=== PATIENT | female | born 1995 | race Caucasian/White ===

== ENCOUNTER 2019-10-21 09:13 | Outpatient (CLI) | payer OTHER, SELFPAY ==
--- NOTE | ~2019-10-21 | US_ITS ---
US right upper quadrant INDICATION: Elevated liver enzymes PROCEDURE: Realtime right upper abdominal ultrasound. COMPARISON: No prior studies for comparison. FINDINGS: The pancreas is normal without focal mass or pancreatic ductal dilation. Liver echotexture is increased, consistent with fatty infiltration. There is normal directional flow in the portal ve in. The gallbladder is normal without stones, gallbladder wall thickening or pericholecystic fluid. Comm on bile duct measures 4.2 mm. No sonographic Lamas's sign. IMPRESSION: 1: Fatty infiltration of the liver. Reviewed, dictated and finalized at location A.
[2019-10-21 10:55] LABS: Ferritin 66 ng/mL (8-252); Iron 109 ug/dL (50-170); Percent Iron Saturation 27 % (12-57)
[2019-10-23 17:32] LABS: Hepatitis B Surface Antibody Nonreactive (Nonreactive); Hepatitis C Signal to Cutoff 0.01 ratio (<1.00); Hepatitis C Virus Antibody Nonreactive (Nonreactive)
== END 2019-10-21 09:14 | disposition home or self-care (01) ==
LOC: CHSIMG 09:16
PROVIDERS: PCP Internal Medicine; Visit Provider Internal Medicine
DX: R94.5 Abnormal results of liver function studies (principal)
CPT/HCPCS: 36415; 76705; 82728; 83540; 83550; 86038; 86706

== ENCOUNTER 2020-12-25 14:01 | Outpatient (CLI) | payer OTHER, SELFPAY ==
[2020-12-25 16:20] LABS: SARS-CoV-2 RNA PCR Negative (Negative)
== END 2020-12-25 14:02 | disposition home or self-care (01) ==
LOC: CHSLAB 14:05
PROVIDERS: PCP Internal Medicine; Visit Provider Internal Medicine
DX: Z20.822 Contact with and (suspected) exposure to COVID-19 (principal)
CPT/HCPCS: C9803; U0003; U0005

== ENCOUNTER 2021-01-09 14:40 | Outpatient (CLI) | payer OTHER, SELFPAY ==
--- NOTE | ~2021-01-09 | XR_ITS ---
EXAMINATION: XR wrist RT min 3V DATE: 01/09/2021 15:08 INDICATION: Right wrist pain. TECHNIQUE: 4 views of right wrist were obtained. COMPARISON: Right hand radiograph 04/16/2018 FINDINGS: Bone alignment is normal. No fracture. Joint spaces are well maintained. IMPRESSION: 1. Normal right wrist. Reviewed, dictated and finalized at location A. IMPRESSION: 1. Normal right wrist.
== END 2021-01-09 14:41 | disposition home or self-care (01) ==
PROVIDERS: PCP Internal Medicine; Visit Provider Nurse Practitioner Family
DX: M25.531 Pain in right wrist (principal)
CPT/HCPCS: 73110

== ENCOUNTER 2021-12-12 10:37 | Outpatient (CLI) | payer OTHER, SELFPAY ==
[2021-12-12 11:14] LABS: Strep Group A RT-PCR Negative (Negative)
== END 2021-12-12 10:38 | disposition home or self-care (01) ==
LOC: CHSLAB 10:40
PROVIDERS: PCP Internal Medicine; Visit Provider Internal Medicine
DX: J02.9 Acute pharyngitis, unspecified (principal)
CPT/HCPCS: 87651

== ENCOUNTER 2021-12-26 13:20 | Emergency (ER) | payer OTHER, SELFPAY ==
--- NOTE | ~2021-12-26 | CT_ITS ---
EXAMINATION: CT abdomen pelvis wo con DATE: 12/26/2021 14:50 INDICATION: Left flank pain. Nausea and vomiting. TECHNIQUE: Computed tomography (CT) of the abdomen and pelvis was performed without intravenous contr ast. Automated exposure control and iterative reconstruction technique were employed. The dose-length product was 1056.81 mGy-cm. COMPARISON: None. FINDINGS: The visualized portions of the lung bases demonstrate minimal atelectasis. No pleural effus ion. The heart size is normal. No pericardial effusion. There is diffuse hepatic steatosis. The gallb ladder, spleen, pancreas, adrenal glands, and right kidney are normal. There is mild left hydronephro sis. There is no urolithiasis. There are no dilated loops of bowel. The appendix is normal. There are no pathologically enlarged lymph nodes. There is no free intraperitoneal fluid. There is mild lumbar spondylosis. IMPRESSION: 1. Mild left hydronephrosis. No urolithiasis. 2. Diffuse hepatic steatosis. Reviewed, dictated and finalized at location A.
[2021-12-26 13:35] VITALS: BP 135/93; PULSE 89; RESP 18; TEMP 36.6; O2SAT 98
[2021-12-26 14:11] LABS: Basophils Absolute Auto 0.02 K/mm3 (0.00-0.10); Basophils Percent Auto 0.2 % (0.0-1.0); Eosinophils Absolute Auto 0.07 K/mm3 (0.02-0.50); Eosinophils Percent Auto 0.7 % (1.0-6.0); Hematocrit 39.2 % (35.0-49.0); Immature Granulocyte Absolute 0.03 K/mm3 (0.00-0.00); Immature Granulocyte Percent A 0.3 % (0.0-0.0); Lymphocytes Absolute Auto 1.78 K/mm3 (1.10-4.50); Lymphocytes Percent Auto 18.1 % (18.0-42.0); Mean Corpuscular HGB Conc 33.2 g/dL (32.0-36.0); Mean Corpuscular Hemoglobin 29.7 pg (27.0-31.0); Mean Corpuscular Volume 89.5 fL (78.0-102.0); Mean Platelet Volume 9.2 fl (9.2-11.8); Monocytes Absolute Auto 0.47 K/mm3 (0.10-0.90); Monocytes Percent Auto 4.8 % (2.0-11.0); Neutrophils Absolute Auto 7.5 K/mm3 (1.7-7.2); Neutrophils Percent Auto 75.9 % (50.0-70.0); Platelet Count Result 297 K/mm3 (150-420); Red Blood Count 4.38 M/mm3 (4.20-5.40); Red Cell Distribution Width 12.3 % (11.6-14.4); White Blood Count 9.9 K/mm3 (4.8-10.8)
[2021-12-26 14:25] LABS: Alanine Aminotransferase 49 U/L (14-59); Albumin Level 3.9 g/dL (3.4-5.0); Alkaline Phosphatase 55 U/L (46-116); Anion Gap 9 mmol/L (8-16); Aspartate Amino Transferase 19 U/L (15-37); Bilirubin,Total 0.3 mg/dL (0.00-1.00); Blood Urea Nitrogen 11 mg/dL (7-18); Calcium 8.8 mg/dL (8.5-10.1); Carbon Dioxide 25 mmol/L (21-32); Chloride 104 mmol/L (98-108); Estimated CRCL calculation 123 ml/min; Estimated Glomerular Filt Rate > 60; Glucose 100 mg/dL (70-99); Lipase 49 U/L (73-393); Osmolality Calculated 285 mOsm/kg (285-295); Potassium 4.7 mmol/L (3.5-5.1); Sodium 138 mmol/L (136-145)
[2021-12-26 14:26] LABS: Add Urine Microscopic? YES; Appearance Urine Slightly Cloudy (Clear); Bilirubin Urine Negative (Negative); Blood Urine 3+ (Negative); Color Urine Yellow (Yellow); Glucose Urine UA Negative (Negative); Ketones Urine Negative (Negative); Leukocyte Esterase Ur Negative (Negative); Nitrate Urine Negative (Negative); Protein Urine 1+ (Negative); Specific Grav Ur >= 1.030 (1.010-1.020); Urobilinogen Urine 0.2 mg/dL (0.2-1.0); pH Urine 5.5 (5.0-8.0)
[2021-12-26 14:28] LABS: Serum Qual hCG Negative
[2021-12-26] MEDS: SODIUM CHLORIDE 0.9% IV 500 ML 999 ML IV CONT (14:28)
[2021-12-26 14:29] LABS: SPREG INTERNAL CONTROL Positive
[2021-12-26 14:30] LABS: RBC Urine 21-50 /hpf (0-2)
[2021-12-26 14:31] LABS: Bacteria Urine 1+ /hpf; Mucus Urine Few /lpf; Squamous Epithelial Cell Urine Few /hpf (Few); WBC Urine 0-3 /hpf (0-3)
--- NOTE | 2021-12-26 15:54 | ED.FEMALEGU ---
HPI - Female Genitourinary General Chief complaint: Urogenital-Female Stated complaint: Lower back pain L side Time Seen by Provider: 12/26/21 13:24 Source: patient and RN notes reviewed Mode of arrival: ambulatory Limitations: no limitations History of Present Illness MD elicited complaint: flank pain (left) Onset (ago): hour(s) (6) Location of symptoms: suprapubic and flank Severity: mild Female Urogenital Radiation: L Flank Severity scale (1-10): 2 Quality of pain: cramping and aching Consistency: improved Vaginal discharge: none Vaginal bleeding: none Exacerbating factors: none Relieving factors: none Associated symptoms: back pain Patient : No Related Data Allergies Allergy/AdvReac Type Severity Reaction Status Date / Time No Known Allergies Allergy Mild Verified 12/26/21 14:08 Review of Systems Review of Systems: All systems reviewed & are unremarkable except as noted in HPI and below Constitutional: Constitutional: Reports no additional constitutional complaints Eyes: Eyes: Reports no additional eye complaints ENT: Reports system reviewed and no additional complaints, except as documented Cardiovascular: Cardiovascular: Reports no additional cardiovascular complaints Respiratory: Respiratory: Reports no additional respiratory complaints Gastrointestinal: Gastrointestinal: Reports no additional gastrointestinal complaints Genitourinary: Genitourinary: Reports no additional female genitourinary complaints and Reports flank pain Musculoskeletal: Musculoskeletal: Reports no additional musculoskeletal complaints Integumentary/Breasts: Skin/Breast: Reports system reviewed and no additional complaints, except as docu Neurologic: Reports system reviewed and no additional complaints, except as documented Psychiatric: Psychiatric: Reports no additional psychiatric complaints Endocrine: Endocrine: Reports no additional endocrine complaints Hematologic/Lymphatic: Hematologic/Lymphatic: Reports no additional hematologic/lymphatic complaints Allergic/Immunologic: Allergic/Immunologic: Reports no additional allergic/immunologic complaints PMFSH Past Medical History Medical History Colic, ureteral Social History Social History Smoking packs per day: 0.5 Smoking cigarettes per day: 10.0 Smoking status: Current every day smoker Tobacco type: cigarettes Alcohol intake: never Substance use: never Exam Const: General: healthy appearing and no acute distress Nutritional Appearance: well nourished Orientation/consciousness: patient oriented x3 Limitations: no limitations HENMT: Head: normal to inspection Ears: external ears normal, TM's normal bilaterally and EAC's normal General nose exam: Normal external nose present and Normal nares present Face and sinus: normal facial exam and sinuses nontender Mouth: Yes Normal oral and palatal mucosa present and Yes moist mucous membranes Teeth and gingiva: dentition normal Throat: posterior oropharynx normal Eyes: Conjunctivae: conjunctivae normal Pupils: Equal, round and reactive pupils present EOM: EOMs intact bilaterally Neck: Neck: normal visual inspection, no lymphadenopathy and no meningeal signs Chest: Chest palpation & inspection: normal inspection of the chest Resp: Effort & Inspection: normal respiratory effort Auscultation: clear to auscultation bilaterally Cardio: Rate: regular rate Rhythm: regular rhythm GI: GI Palp: Yes Soft to palpation and No Tenderness to palpation present (GI) Auscultation: normal bowel sounds : General: Yes bladder normal to palpation, Yes CVA tenderness (minimal left CVA tenderness + minimal left flank to groin and suprapubic te) and Yes no CVA tenderness Back/Spine/Pelvis: Back: CVA tenderness Skin: General skin exam: normal color Rashes: no rashes Wounds: no wounds Neuro: Gener
[2021-12-26 16:01] VITALS: BP 154/81; PULSE 73; RESP 16; O2SAT 99
== END 2021-12-26 16:05 | disposition home or self-care (01) ==
PROVIDERS: Emergency Provider Emergency Medicine; PCP Internal Medicine
DX: N23 Unspecified renal colic (principal)
CPT/HCPCS: 36415; 74176; 80053; 81001; 83690; 84703; 85025; 96360; 99284; J7040

== ENCOUNTER 2022-03-29 11:02 | Outpatient (CLI) | payer OTHER, SELFPAY ==
--- NOTE | ~2022-03-29 | XR_ITS ---
XR lumbar spine 2-3V DATE: 03/29/2022 11:26 INDICATION: Chronic left low back pain with tingling down left lower extremity TECHNIQUE: AP, lateral, coned lateral lumbosacral views COMPARISON: None FINDINGS: No fracture or dislocation or spondylolisthesis. Included lower thoracic and lumbar pedicle s are intact. Lumbar levels interspaces are relatively well preserved. The sacroiliac joints are inta ct. IMPRESSION: No significant abnormality Reviewed, dictated and finalized at location B. F OF PARTY IMPRESSION: No significant abnormality
== END 2022-03-29 11:03 | disposition home or self-care (01) ==
LOC: CHSIMG 11:05
PROVIDERS: PCP Internal Medicine; Visit Provider Internal Medicine
DX: M54.50 Low back pain, unspecified (principal)
CPT/HCPCS: 72100

== ENCOUNTER 2022-04-16 14:10 | Outpatient (RCR) | payer OTHER, SELFPAY ==
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
--- NOTE | 2022-05-21 11:19 | PTOPDC ---
Assessment and note entered by JT File, PT Evaluation Information Assessment Status Evaluation Diagnosis Low back pain Onset 03/29/22 Subjective Information patient reports she is feeling pretty good This date. she reports she is down to a 2/10 in the lower back. she reports she has had therapy 3-4 times in the past. she reports the therapy has helped this time. she reports she is supposed to get an injection to the lower back. she reports she still has pain from the L hip to the lower tailbone and describes it as a pulling pain in the area. she reports this pain does come and go. Reported Pain Level Pain Score 2: Self Report Assessment PT Clinical Summary mrs. crawford [facility] with decreased pain in the lower back and reduced radicular symptoms. she reports she is doing all activities at home without restrictions, but sometimes has to push through the pain. she was educated on an extensive core stability program this date, and instructed to continue with this and HEP independently until antoher flare up in the future. she has met all goals for skiled PT thus far. Plan of Care Treatment Frequency and DC to independent HEP Duration
== END 2022-05-21 11:30 | disposition home or self-care (01) ==
LOC: CHSPT 14:10
PROVIDERS: PCP Internal Medicine; Visit Provider Internal Medicine
DX: M54.50 Low back pain, unspecified (principal)
CPT/HCPCS: 97014; 97110; 97161; G0283

== ENCOUNTER 2023-02-05 13:59 | Outpatient (CLI) | payer OTHER, SELFPAY ==
[2023-02-05 14:19] LABS: Basophils Absolute Auto 0.02 K/mm3 (0.00-0.10); Basophils Percent Auto 0.2 % (0.0-1.0); Eosinophils Absolute Auto 0.12 K/mm3 (0.02-0.50); Eosinophils Percent Auto 1.4 % (1.0-6.0); Hematocrit 39.3 % (35.0-49.0); Hemoglobin 13.3 g/dL (12.0-15.0); Immature Granulocyte Absolute 0.02 K/mm3 (0.00-0.00); Immature Granulocyte Percent A 0.2 % (0.0-0.0); Lymphocytes Absolute Auto 2.57 K/mm3 (1.10-4.50); Lymphocytes Percent Auto 30.2 % (18.0-42.0); Mean Corpuscular HGB Conc 33.8 g/dL (32.0-36.0); Mean Corpuscular Hemoglobin 30.4 pg (27.0-31.0); Mean Corpuscular Volume 89.9 fL (78.0-102.0); Monocytes Percent Auto 3.5 % (2.0-11.0); Neutrophils Absolute Auto 5.5 K/mm3 (1.7-7.2); Neutrophils Percent Auto 64.5 % (50.0-70.0); Platelet Count Result 309 K/mm3 (150-420); Red Blood Count 4.37 M/mm3 (4.20-5.40); Red Cell Distribution Width 12.3 % (11.6-14.4); White Blood Count 8.5 K/mm3 (4.8-10.8)
[2023-02-05 14:19] LABS: Appearance Urine Clear (Clear); Bilirubin Urine Negative (Negative); Blood Urine Negative (Negative); Color Urine Light Yellow (Yellow); Glucose Urine UA Negative (Negative); Ketones Urine Negative (Negative); Leukocyte Esterase Ur Negative LEU/UL (Negative); Nitrate Urine Negative (Negative); Protein Urine Negative (Negative); Urobilinogen Urine 0.2 mg/dL (0.2-1.0)
[2023-02-05 14:25] LABS: Add Urine Microscopic? NO
[2023-02-05 14:36] LABS: Hemoglobin A1C 5.7 % (<5.7)
[2023-02-05 17:36] LABS: Alanine Aminotransferase 28 U/L (14-59); Albumin Level 3.8 g/dL (3.4-5.0); Alkaline Phosphatase 57 U/L (46-116); Anion Gap 13 mmol/L (8-16); Aspartate Amino Transferase 12 U/L (15-37); Bilirubin,Total 0.6 mg/dL (0.00-1.00); Blood Urea Nitrogen 7 mg/dL (7-18); Calcium 9.1 mg/dL (8.5-10.1); Carbon Dioxide 22 mmol/L (21-32); Chloride 105 mmol/L (98-108); Cholesterol 268 mg/dL (0-200); Estimated Glomerular Filt Rate > 60; Free T4 Free Thyroxine 0.86 ng/dL (0.76-1.46); Glucose 90 mg/dL (70-99); HDL Direct 35 mg/dL (40-60); LDL Cholesterol Calculated 184 mg/dL (<130); Osmolality Calculated 288 mOsm/kg (285-295); Potassium 4.4 mmol/L (3.5-5.1); Sodium 140 mmol/L (136-145); Thyroid Stimulating Hormone 1.55 uIU/mL (0.36-3.74); Total Protein 6.7 g/dL (6.4-8.2); Triglycerides 244 mg/dL (0-150)
== END 2023-02-05 14:00 | disposition home or self-care (01) ==
LOC: CHSLAB 14:01
PROVIDERS: PCP Internal Medicine; Visit Provider Nurse Practitioner Family
DX: E78.2 Mixed hyperlipidemia (principal); K21.00 Gastro-esophageal reflux disease with esophagitis, without bleeding; K76.0 Fatty (change of) liver, not elsewhere classified; D22.9 Melanocytic nevi, unspecified; E66.01 Morbid (severe) obesity due to excess calories
CPT/HCPCS: 36415; 80053; 80061; 81003; 83036; 84439; 84443; 85025

== ENCOUNTER 2024-06-29 17:46 | Emergency (ER) | payer OTHER, SELFPAY ==
--- NOTE | ~2024-06-29 | XR_ITS ---
EXAM: XR ankle LT min 3V, XR tibia fibula LT 2V DATE: 06/29/2024 18:34 (accession [id number]), 06/29/2024 18:35 (accession [id number]) HISTORY: pain after fall . COMPARISON: 01/11/2014. FINDINGS: Normal mineralization. No fracture or dislocation. No lytic or blastic lesion. Joint space s are maintained. No erosion or periosteal change. Soft tissue swelling anteriorly and laterally. IMPRESSION: No acute osseous finding in the left tibia/fibula or left ankle. Reviewed, dictated and finalized at location K. TOR SERVICE ASSISTANT IMPRESSION: No acute osseous finding in the left tibia/fibula or left ankle.
--- NOTE | ~2024-06-29 | XR_ITS ---
EXAM: XR hip LT 2V w AP pelvis, XR sacrum coccyx min 2V DATE: 06/29/2024 18:35 (accession [id number]), 06/29/2024 18:34 (accession [id number]) HISTORY: pain after fall . COMPARISON: CT abdomen pelvis 12/26/2021. FINDINGS: Normal mineralization. No fracture or dislocation. No lytic or blastic lesion. Joint space s are maintained. No erosion or periosteal change. Soft tissues within normal limits. IMPRESSION: No acute osseous finding in the pelvis, left hip, or sacrum/coccyx. Reviewed, dictated and finalized at location K. PICKER IMPRESSION: No acute osseous finding in the pelvis, left hip, or sacrum/coccyx.
--- OUTSIDE RECORDS SUMMARY | 2024-06-29 17:49 | XMS_ITS | Clinical Summary ---
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 Gender Identity Not on file Sexual Orientation Not on file Last Filed Vital Signs Vital Sign Reading Time Taken Comments Blood Pressure - - Pulse - - Temperature - - Respiratory Rate - - Oxygen Saturation - - Inhaled Oxygen Concentration - - Weight 99.8 kg (220 lb) 09/30/2018 4:18 PM CDT Height 167.6 cm (5' 6 ) 09/30/2018 4:18 PM CDT Body Mass Index 35.51 09/30/2018 4:18 PM CDT Plan of Treatment Health Maintenance Due Date Last Done Comments Cervical Cancer Screening Pa p Smear (Age 30 to 64) Every 3 Years 1993 Annual Physical 1996 Hepatitis C 2011 DTaP, Tdap and Td Vaccines ( 1 - Tdap) 2012 08/13/1994, 06/11/1994, 1993 Hepatitis B Vaccines (1 of 3 - 19+ 3-dose series) 2012 Cervical Cancer Screening Pa p with HPV Testing (Age 30 to 64) Every 5 Years 2023 Cervical Cancer Screening wi th HPV 2023 COVID-19 Vaccine ( - 2023-2 5 season) 2024 Influenza Adult (#1) 2024 HPV Vaccines Aged Out No longer eligi ble based on patient's age to complete this topic Meningococcal B Vaccine Aged Out No l onger eligible based on patient's age to complete this topic Meningococcal Vaccine Aged Out No yvon merlin eligible based on patient's age to complete this topic Pneumococcal Vaccine: Pediatrics (0 to 5 Years) and At-Risk Patients (6 to 64 Years) Aged Out No longer eligible b ased on patient's age to complete this topic RSV Immunizations Under 20 Months Aged Out No longer eligible b ased on patient's age to complete this topic Insurance MEDICAID DEPT OF [address] Advance Directives Documents on File Type Date Recorded Patient Toe Laster Expl anation Legal Documents 02/22/2020 1:00 PM RECVD & CMPLTD ATTY REQ. FOR HB BILLS FOR SFL FOR AUTOMATED RECORDS Care Teams Component Engineer Relationship Specialty Start Date End Date Lucille Jackson MD [address] [place] [address] PCP - General INTERNAL MEDICINE 05/25/19
--- OUTSIDE RECORDS SUMMARY | 2024-06-29 17:49 | XMS_ITS | Clinical Summary ---
Author Organization [facility] Address [address] [facility], [place] [address] Phone Care Team Providers Care Air Sampling And Monitoring Name Role Phone Avi Floyd MD Primary Care Provider Allergies Active Allergy Reactions Criticality Noted Date Comments Hydrocodone-Acetaminophen Rash 12/01/2018 Medications buPROPion (WELLBUTRIN) 150 MG XL tablet TK 1 T PO D 11 9 Active IBUPROFEN PO Take by mouth. Active fluticasone (FLONASE) 50 MCG/ACT Suspension 0 Active WAL-ITIN D 24 HOUR 10-240 MG TABLET SR 24 HR TK 1 T PO QD 0 Active pantoprazole (PROTONIX) 40 MG Tablet Delayed ResponseIndicati ons:LPRD (laryngopharynge al reflux disease) Take 1 Tab by mouth daily. Take 30-60 minutes before largest meal 30 Tab 5 0 Active SUMAtriptan (IMITREX) 25 MG Tablet Take 1 Tab by mouth once as needed for Migraine for up to 1 dose. Use as directed. May repeat dose in 2 hours if headache recurs. 9 Tab 6 0 Active topiramate (TOPAMAX) 25 MG Tablet Take 2 tablets (50mg) at morning and night. 60 Tab 5 0 Active ondansetron (ZOFRAN) 8 MG Tablet Take 1 Tab by mouth every 8 hours as needed for Nausea - 1st line. 30 Tab 0 Active tiZANidine (ZANAFLEX) 2 MG TabletIndication s:Acute bilateral low back pain, unspecified whether sciatica present Take 1 Tablet by mouth 3 times daily as needed for Muscle spasms. 60 Tablet Active Active Problems Problem Noted Date Diagnosed Date Acute recurrent maxillary sinusitis 05/14/2019 Migraine without aura and wi thout status migrainosus, not intractable 12/18/2018 Acute bilateral low back pain 12/18/2018 Family History Medical History Relation Name Comments Heart Disease Father No Known Problems Mother Relation Name Status Comments Father Alive Mother Alive Social History Tobacco Use Types Packs/Day Years Used Date Smoking Tobacco: Former Cigarettes Smokeless Tobacco: Never Alcohol Use Standard Drinks/Week Comments Not Currently 0 (1 standard drink = 0.6 oz pur e alcohol) Comments No Sex and Gender Information Value Date Recorded Sex Assigned at Not on file Legal Sex Female 9:23 AM CDT Gender Identity Not on file Sexual Orientation Not on file Last Filed Vital Signs Vital Sign Reading Time Taken Comments Blood Pressure 122/80 07/01/2019 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 Pulse 86 07/01/2019 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 Temperature 36.8 C (98.3 F) 07/01/2019 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 Respiratory Rate 22 07/01/2019 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 Oxygen Saturation 99% 07/01/2019 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 Inhaled Oxygen Concentration - - Weight 114.3 kg (252 lb) 07/01/2019 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 Height 166.6 cm (5' 5.6 ) 07/01/2019 11:03 AM CS T Body Mass Index 41.17 07/01/2019 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 Plan of Treatment Health Maintenance Due Date Last Done Comments Hepatitis C Virus (HCV) Screening 1993 TdaP Immunization 1993 Pap Smear 2014 Cervical Cancer Screening (CCS) 2023 HPV/Cotest 2023 Influenza Immunization (#1) 2024 SARS-COV-2 Immunization ( season) 2024 09/20/2020, 08/23/2020 Respiratory Syncytial Virus (RSV) Immunization (Adult) (1 - 1-dose 75+ series) 2068 Hepatitis B Immunization Completed 995, 06/11/1994, 1993 DTaP/Tdap/Td Immunization Discontinued 1995, 08/13/1994, 06/11/1994, Additional history exists Meningococcal Immunization (ACWY) Aged Out No longer eligible based on patient's age to complete this topic Pneumococcal Immunization Combined Aged Out No longer eligible based on patient's age to complete this topic Rotavirus Immunization Aged Out No lo nger eligible based on patient's age to complete this topic Insurance MEDICAID [place] Care Teams Air Sampling And Monitoring Relationship Specialty Start Date End Date Avi Floyd MD [address] [place] [address] PCP - General Family Medicine 12/18/18
--- OUTSIDE RECORDS SUMMARY | 2024-06-29 17:49 | XMS_ITS | Data Portability ---
[facility] Address [address] [place] [place] [address] Assessment No assessment recorded. Plan of Treatment Reminders Order Date Submit Date Provider Last Modified By Organization Details Last Modified Time Details Appointments None record ed. Lab None record ed. Referral None record ed. Procedures None record ed. Surgeries None record ed. Imaging None record ed. Medication Orders None record ed. Patient TargetsNo targets recorded. Patient InstructionsNo instructions recorded. Reason for Referral None Reported. Medical Equipment None Reported. Allergies No known drug allergies Medications Name Sig Start Date Stop Date Status Note LastModified by Organization Details LastModified Time fluconazole 100 mg tablet TAKE 1 TABLET BY MOUTH EVERY DAY 07/21 completed Not Available Not Available Not Available cefuroxime axetil 250 mg tablet active Not Available Not Available No t Available ofloxacin 0.3 % ear drops INSTILL 5 DROPS TO AFFECTED EAR TWICE DAILY 09/22 completed Not Available Not Available Not Available pravastatin 10 mg tablet active Not Available Not Available Not Available pantoprazol e 40 mg tablet,tish yed release active Not Available Not Available Not Available buspirone 10 mg tablet active Not Available Not Available Not Available buspirone 7.5 mg tablet active Not Available Not Available Not Available neomycin-po lymyxin-hyd rocort 3.5 mg-10,000 unit/mL-1 % ear drops,susp SHAKE LIQUID AND INSTILL 4 DROPS TO AFFECTED EAR THREE TIMES DAILY FOR 7 DAYS 07/21 completed Not Available Not Available Not Available Vitals Date Recorded Body height Body mass index (BMI) Body weight Respiratory rate Body temperature Systolic blood pressure Diastolic blood pressure Provider Name and Address Organization Details Last Updated DateTime 166.37 cm 40.9 kg/m2 640378. 58 g 16 /min 97.7 [degF] 122 mm[Hg] 80 mm[Hg] Gracia Winston [place] [facility] 4 15:14:17 Date Recorded Body height Body mass index (BMI) Body weight Heart rate Respiratory rate Body temperature Systolic blood pressure Diastolic blood pressure Provider Name and Address Organization Details Last Updated DateTime 166.37 cm 39.8 kg/m2 338847. 23 g 82 /min 16 /min 97.5 [degF] 120 mm[Hg] 82 mm[Hg] Gracia Winston MA [facility] 4 12:44:50 Social History Question Answer Notes LastModified by Organization Details LastModified Time Tobacco Smoking Status Never Smoker Gracia Winston MA null, [facility] 07/22/2023 15:10:16 What Is Your Level Of Alcohol Consumption? None Information not available 07/22/2023 What Is Your Level Of Caffeine Consumption? Occasional Information not available 09/23/2023 In The 14 Days Before Symptom Onset, Have You Had Close Contact With A Laboratory-con firmed COVID-19 While That Case Was Ill? No Information not available 07/22/2023 In The 14 Days Before Symptom Onset, Have You Had Close Contact With A Person Who Is Under Investigation For COVID-19 While That Person Was Ill? No Information not available 07/22/2023 Have You Been To An Area Known To Be High Risk For COVID-19? No Information not available 07/22/2023 Are You Currently Employed? Yes Information not available 07/22/2023 Are You Deaf Or Do You Have Serious Difficulty Hearing? No Information not available 07/22/2023 What Type Of Diet Are You Following? REGULAR Information not available 07/22/2023 What Is The Highest Grade Or Level Of School You Have Completed Or The Highest Degree You Have Received? [id number] Information not available 07/22/2023 Who Is Your Employer? [employer] Information not available 09/23/2023 What Was The Date Of Your Most Recent Tobacco Screening? 09/23/2023 Information not available 09/23/2023 Do You Feel Stressed (tense, Restless, Nervous, Or Anxious, Or Unable To Sleep At Night)? [id number] Information not available 07/22/2023 Do You Use Any Illicit Or Recreational Drugs? No Information not available 07/22/2023 Do You Use Sunscreen Routinely? Yes Information not available 07/22/2023 What Type Of Noise Exposure Are You Exposed To? NoExposureToExcessiveNoise Infor mation not available 07/22/2023 Do You Or Have You Ever Used Any Other Forms Of Tobacco Or Nicotine? No Information not available 07/22/2023 Sex: Unknown Functional Status Question Answer Note LastModified by Organization D etails LastModified Time What is your exercise level? None Information not available 07/22/2023 Mental Status None recorded. Family History Nothing Reported. Medical History No medical history recorded. Gynecological HistoryNo gynecological history recorded. Obstetrics History GPAL:G 0 P 0 0 0 0 Past Encounters Encounter ID Performer Location Encounter Start Date Encounter Closed Date Diagnosis/Indication Diagnosis SNOMED-CT Code Diagnosis ICD10 Code Diagnosis Note [id number] MD Cinthya Veliz (Adult Med) [address] [place] [address] [place] [phone] [id number] 07/22/2023 14:59:58 07/23/2023 09:59:30 Otitis externa 6049820 H60.91 stop drops keep ear dry follow up 1 month [id number] MD Cinthya Veliz (Adult Med) [address] [place] [address] [place] [id number] 09/23/2023 12:28:54 09/23/2023 18:40:18 Otitis externa 3948286 H60.91 stop drops keep ear dry follow up 1 month Temporoman dibular joint disorder 36751297 M26.609 soft diet.anti inflammato nicole Health Concerns Section Related Observation LastModified by Organization Detai ls LastModified Time None Recorded Concern Status LastModified by Organization Details LastModified Time None Recorded Advance Directives Directive None Recorded Payers Encounter Date Sequence Insurance Name Policy Number Policy Parson Covered Member ID Parson Member ID Guarantor Name 07/22/2023 1 [employer] (MEDICAID HMO) [id number] Devora Marinelli [id number] Quinnzayra Yves 09/23/2023 1 [employer] (MEDICAID HMO) [id number] Quinnzayra Yves [id number] Felymarlin Yves Notes Date Note Type Note Provider Name and Address Organization Details Recorded Time 07/22/2023 text/html She is complaini ng of infection in her right ear for three months. She has been on multiple drops and antibiotics Todd Price MD Attn: [address] [place], [address], [facility] 07/22/2023 15:39:29 09/23/2023 text/html Pt had right ext otitis and it has been slowly improving by keeping it dry. She also has mild TMJ tenderness Todd Price MD Attn: [address] [place], [address], [facility] 09/23/2023 13:01:59 OBGyn Episode No OBEpisode recorded.
--- OUTSIDE RECORDS SUMMARY | 2024-06-29 17:49 | XMS_ITS | Encounter Summary ---
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
--- OUTSIDE RECORDS SUMMARY | 2024-06-29 17:49 | XMS_ITS | Encounter Summary ---
Author Organization [facility] Address [address] [place] [address] Phone Care Team Providers Care Caterpillar Driver Name Role Phone Avi Floyd MD Primary Care Provider [phone] Reason for Visit * Reason Comments Medication Refill Encounter Details Date Type Department Care Team (Late st Contact Info) Description 05/30/2020 Refill [facility] [place] [address] [place] [address] Ryan Willingham MD [address] [place] [address] Medication Refill Social History Tobacco Use Types Packs/Day Years [...] documented as of this encounter Visit Diagnoses Diagnosis Acute bilateral low back pain, unspecified whether sciatica present documented in this encounter Care Teams Caterpillar Driver Relationship Specialty Start Date End Date Avi Floyd MD [address] [facility] [place] [address] PCP - General Family Medicine 12/18/18 documented as of this encounter
--- OUTSIDE RECORDS SUMMARY | 2024-06-29 17:49 | XMS_ITS | Encounter Summary ---
Author Organization [facility] Address [address] [place] [address] Phone Care Team Providers Care Mother Superior Name Role Phone Avi Floyd MD Primary Care Provider [phone] Reason for Visit * Reason Comments Medication Refill Encounter Details Date Type Department Care Team (Late st Contact Info) Description 02/23/2020 Refill [facility] [address] [place] [address] Ryan Willingham MD [address] [place] [address] Medication Refill Social History Tobacco Use Types [...] present documented in this encounter Care Teams Mother Superior Relationship Specialty Start Date End Date Avi Floyd MD [address] [facility] [place] [address] PCP - General Family Medicine 12/18/18 documented as of this encounter
--- OUTSIDE RECORDS SUMMARY | 2024-06-29 17:49 | XMS_ITS | Encounter Summary ---
Author Organization [facility] Address [address] [place] [address] Phone Care Team Providers Care Drafter Civil Name Role Phone Avi Floyd MD Primary Care Provider [phone] Reason for Visit * Reason Comments Medication Refill Encounter Details Date Type Department Care Team (Late st Contact Info) Description 07/01/2019 Refill [facility] - [facility] #1 [place] [address] Ryan Willingham MD [address] [place] [address] Medication Refill Social History Tobacco Use Types [...] on filedocumented in this encounter Care Teams Drafter Civil Relationship Specialty [place] [address] [place] [address] [place] [address] PCP - General Family Medicine 12/18/18 documented as of this encounter
[2024-06-29 17:52] VITALS: BP 166/87; PULSE 96; RESP 16; TEMP 36.8; O2SAT 95
--- NOTE | 2024-06-29 18:02 | ED.GENADULT ---
HPI - General Adult General Chief complaint: Fall Stated complaint: FALL Time Seen by Provider: 06/29/24 17:50 History of Present Illness HPI narrative: Krystian presented to the ED after two falls. First she fell, twisted her left ankle and fell. She has pain on her left ankle and up the lateral side of her left lower leg. Next she fell on her hip and tailbone and has pain there. She did not hit her head or neck. No LOC. Related Data Allergies Allergy/AdvReac Type Severity Reaction Status Date / Time No Known Allergies Allergy Mild Verified 06/29/24 17:53 Review of Systems Review of Systems: All systems reviewed & are unremarkable except as noted in HPI and below PMFSH Past Medical History Medical History Colic, ureteral Social History Social History Smoking packs per day: 0.5 Smoking cigarettes per day: 10.0 Smoking status: Current every day smoker Tobacco type: cigarettes Alcohol intake: never Substance use: never Exam Const: General: cooperative, healthy appearing, comfortable, no acute distress, well developed, alert, awake and Physically active Orientation/consciousness: oriented to person, oriented to place and oriented to time HENMT: Head: normal to inspection, normocephalic and atraumatic Ears: hearing grossly normal bilaterally and external ears normal Face/Nose/Sinus: Normal external nose present Eyes: General: appearance normal, both eyes and all related structures Periorbital: periorbital findings normal Sclera: sclerae normal Pupils: Equal, round and reactive pupils present Neck: Neck: normal visual inspection Chest: Chest palpation & inspection: normal inspection of the chest Resp: Effort & Inspection: normal respiratory effort, able to speak in complete sentences and no respiratory distress Cardio: Jugular venous distension: no JVD Skin: General skin exam: normal color and no rashes or lesions noted Neuro: General: oriented to person, oriented to place and oriented to time Cranial nerves: Yes Equal, round and reactive pupils present Extrem: General: normal to inspection Other: TTP over her left lateral ankle and navicular bone. TTP of the fibula on the left. Course Course Emergency Course: She declined pain meds. No fracture or displacement on radiographs Vital Signs Vital signs: Vital Signs Temperature 98.2 F 06/29/24 17:52 Pulse Rate 96 06/29/24 17:52 Respiratory Rate 16 06/29/24 17:52 Blood Pressure 166/87 H 06/29/24 17:52 Pulse Oximetry 95 06/29/24 17:52 Oxygen Delivery Room Air 06/29/24 17:52 Temperature 98.2 F 06/29/24 17:52 Pulse Rate 96 06/29/24 17:52 Respiratory Rate 16 06/29/24 17:52 Blood Pressure 166/87 H 06/29/24 17:52 Pulse Oximetry 95 06/29/24 17:52 Oxygen Delivery Room Air 06/29/24 17:52 Medical Decision Making Vital Signs Vital Signs: Vital Signs Temperature 98.2 F 06/29/24 17:52 Pulse Rate 96 06/29/24 17:52 Respiratory Rate 16 06/29/24 17:52 Blood Pressure 166/87 H 06/29/24 17:52 Pulse Oximetry 95 06/29/24 17:52 Oxygen Delivery Room Air 06/29/24 17:52 Temperature 98.2 F 06/29/24 17:52 Pulse Rate 96 06/29/24 17:52 Respiratory Rate 16 06/29/24 17:52 Blood Pressure 166/87 H 06/29/24 17:52 Pulse Oximetry 95 06/29/24 17:52 Oxygen Delivery Room Air 06/29/24 17:52 Discharge Plan Discharge Clinical Impression: Fall Patient Disposition: Home, Self-Care Condition: Stable Instructions: Contusion in Adults (ED) Patient Language: South Korean Prescriptions: No Action ibuprofen 800 mg tablet 800 mg PO TID Qty: 20 0RF omeprazole magnesium [Prilosec OTC] 20 mg tablet,delayed release (DR/EC) 20 mg PO BID Qty: 20 0RF Follow-up/Referrals: Lucille [place] MD [Primary Care Provider] -
--- NOTE | 2024-06-29 18:45 | PC.NURSE ---
ASSUMED CARE. REPORT RECEIVED FROM WILBERT PRASAD
--- OUTSIDE RECORDS SUMMARY | 2024-06-29 18:55 | XMS_ITS | Encounter Summary ---
Author Organization [facility] Address [address] [place] [address] Phone Care Team Providers Care Utility Bill Collector Name Role Phone Avi Floyd MD Primary Care Provider [phone] Reason for Visit * Reason Comments Medication Refill Encounter Details Date Type Department Care Team (Late st Contact Info) Description 05/30/2020 Refill [facility] [address] [place] [address] Ryan Willingham MD [address] [place] [address] Medication Refill Social History Tobacco Use Types [...] present documented in this encounter Care Teams Utility Bill Collector Relationship Specialty Start Date End Date Avi Floyd MD [address] [place] [address] PCP - General Family Medicine 12/18/18 documented as of this encounter
--- OUTSIDE RECORDS SUMMARY | 2024-06-29 18:55 | XMS_ITS | Encounter Summary ---
Author Organization [facility] Address [address] [place] [address] Phone Care Team Providers Care Booky Name Role Phone Avi Floyd MD Primary Care Provider [phone] Reason for Visit * Reason Comments Medication Refill Encounter Details Date Type Department Care Team (Late st Contact Info) Description 02/23/2020 Refill [facility] [address]1 [place] [address] Ryan Willingham MD [address] [place] [address] Medication Refill Social History Tobacco Use Types [...] present documented in this encounter Care Teams Booky Relationship Specialty Start Date End Date Avi Floyd MD [address] [facility] [place] [address] PCP - General Family Medicine 12/18/18 documented as of this encounter
--- OUTSIDE RECORDS SUMMARY | 2024-06-29 18:55 | XMS_ITS | Encounter Summary ---
Author Organization [facility] Address [address] [place] [address] Care Team Providers Care Concrete Mixer Operator Helper Name Role Phone Avi Floyd MD Primary Care Provider [phone] Lucille [place] MD Primary Care Provider [phone] Encounter Details Date Type Department Care Team (Late st Contact Info) Description 10/17/2018 Abstract SFL CONVERSION [address] [place], [place] [id number] , Generic Conversion, Social History Tobacco Use Types Packs/Day Years Used Date Smoking Tobacco: Never Assessed Comments Unknown Sex and Gender Information Value Date Recorded Sex Assigned at Not on file Legal Sex Female 5:57 PM AIR FORCE PILOT Gender Identity Not on file Sexual Orientation Not on file documented as of this encounter Plan of Treatment Not on file documented as of this encounter Visit Diagnoses Not on filedocumented in this encounter Care Teams Concrete Mixer Operator Helper Relationship Specialty Start Date End Date Avi Floyd MD [address] [place] [address] PCP - General FAMILY PRACTICE 07/21/18 05/24/19 Lucille [place] MD [address] [place] [address] PCP - General INTERNAL MEDICINE 05/25/19 documented as of this encounter
--- OUTSIDE RECORDS SUMMARY | 2024-06-29 18:55 | XMS_ITS | Encounter Summary ---
Author Organization [facility] Address [address] [place] [address] Phone Care Team Providers Care Preparation Plant Repairer Name Role Phone Avi Floyd MD Primary Care Provider [phone] Reason for Visit * Reason Comments Medication Refill Encounter Details Date Type Department Care Team (Late st Contact Info) Description 07/01/2019 Refill [facility] [address] [place] [address] Ryan Willingham MD [address] [place] [address] Medication Refill Social History Tobacco Use Types [...] on filedocumented in this encounter Care Teams Preparation Plant Repairer Relationship Specialty [place] [address] [place] [address] [place] [address] PCP - General Family Medicine 12/18/18 documented as of this encounter
--- OUTSIDE RECORDS SUMMARY | 2024-06-29 18:55 | XMS_ITS | Clinical Summary ---
Author Organization [facility] Address [address] [facility] [place] [address] Phone Care Team Providers Care Sample Finisher Name Role Phone Avi Floyd MD Primary Care Provider [phone] Allergies Active Allergy Reactions Criticality Noted Date [...] Comments Blood Pressure 122/80 07/01/2019 11:03 AM AUTOMATIC SPOOLER OPERATOR Pulse 86 07/01/2019 11:03 AM AUTOMATIC SPOOLER OPERATOR Temperature 36.8 C (98.3 F) 07/01/2019 11:03 AM AUTOMATIC SPOOLER OPERATOR Respiratory Rate 22 07/01/2019 11:03 AM AUTOMATIC SPOOLER OPERATOR Oxygen Saturation 99% 07/01/2019 11:03 AM AUTOMATIC SPOOLER OPERATOR Inhaled Oxygen Concentration - - Weight 114.3 kg (252 lb) 07/01/2019 11:03 AM AUTOMATIC SPOOLER OPERATOR Height 166.6 cm (5' 5.6 ) 07/01/2019 11:03 AM CS T Body Mass Index 41.17 07/01/2019 11:03 AM AUTOMATIC SPOOLER OPERATOR Plan of Treatment Health Maintenance Due Date [...] this topic Insurance MEDICAID [place] Care Teams Sample Finisher Relationship Specialty Start Date End Date Avi Floyd MD [address] [place] [address] PCP - General Family Medicine 12/18/18
--- OUTSIDE RECORDS SUMMARY | 2024-06-29 18:55 | XMS_ITS | Clinical Summary ---
Author Organization [facility] Address [address] [place] [address] Care Team Providers Care Puddler Helper Name Role Phone Lucille [place] MD Primary Care Provider [phone] Medications No known medications Active Problems No known active problems Social History Tobacco Use Types Packs/Day Years Used Date Smoking Tobacco: Never Assessed Comments Unknown Sex and Gender Information Value Date Recorded Sex Assigned at Not on file Legal Sex Female 5:57 PM LOCOMOTIVE DRIVER Gender Identity Not on file Sexual Orientation [...] topic Meningococcal Vaccine Aged Out No yvon melrin eligible based on patient's age to complete this topic Pneumococcal Vaccine: Pediatrics (0 to 5 Years) and At-Risk Patients (6 to 64 Years) Aged Out No longer eligible b ased on patient's age to complete this topic RSV Immunizations Under 20 Months Aged Out No longer eligible b ased on patient's age to complete this topic Insurance MEDICAID DEPT OF [address] Advance Directives Documents on File Type Date Recorded Patient Business Control Manager Expl anation Legal Documents 02/22/2020 1:00 PM RECVD & CMPLTD ATTY REQ. FOR HB BILLS FOR SFL FOR AUTOMATED RECORDS Care Teams Puddler Helper Relationship Specialty Start Date End Date Lucille [place] MD [address] [place] [address] PCP - General INTERNAL MEDICINE 05/25/19
[2024-06-29 19:21] VITALS: BP 148/71; PULSE 90; RESP 18; TEMP 36.6; O2SAT 98
== END 2024-06-29 19:17 | disposition home or self-care (01) ==
LOC: CHSED 18:54
PROVIDERS: Emergency Provider Family Medicine; PCP Internal Medicine
DX: S93.402A Sprain of unspecified ligament of left ankle, initial encounter (principal); M25.552 Pain in left hip; X50.0XXA Overexertion from strenuous movement or load, initial encounter; F17.210 Nicotine dependence, cigarettes, uncomplicated
CPT/HCPCS: 72220; 73502; 73590; 73610; 99284

== ENCOUNTER 2024-07-02 14:12 | Outpatient (CLI) | payer OTHER, SELFPAY ==
--- NOTE | ~2024-07-02 | XR_ITS ---
EXAMINATION: XR lumbar spine 2-3V DATE: 07/02/2024 14:36 INDICATION: Low back pain. Fall. TECHNIQUE: 3 views of lumbar spine were obtained. COMPARISON: Lumbar spine radiograph 03/29/2022 FINDINGS: Alignment is normal. Vertebral body heights are normal. There is mildly decreased disc heig ht at L4-L5. There is multilevel mild facet joint osteoarthritis. IMPRESSION: 1. Mild lumbar spondylosis. Reviewed, dictated and finalized at location A. ATIONAL RESOURCE COORDINATOR IMPRESSION: 1. Mild lumbar spondylosis.
--- OUTSIDE RECORDS SUMMARY | 2024-07-02 14:18 | XMS_ITS | Data Portability ---
Author Organization [facility] Address [address] [facility] [place] [address] Assessment No assessment recorded. Plan of Treatment [...] Last Updated DateTime 166.37 cm 40.9 kg/m2 639321. 58 g 16 /min 97.7 [degF] 122 mm[Hg] 80 mm[Hg] Gracia Winston MA PA - [facility] 4 15:14:17 Date Recorded Body height Body mass index (BMI) Body weight Heart rate Respiratory rate Body temperature Systolic blood pressure Diastolic blood pressure Provider Name and Address Organization Details Last Updated DateTime 166.37 cm 39.8 kg/m2 782626. 23 g 82 /min 16 /min 97.5 [degF] 120 mm[Hg] 82 mm[Hg] Gracia Winston MA [facility] 4 12:44:50 Social History Question Answer Notes LastModified by Organization Details LastModified Time Tobacco Smoking Status Never Smoker Gracia Winston MA null, [facility] 07/22/2023 15:10:16 What Is Your Level [...] Or The Highest Degree You Have Received? [id number] Information not available 07/22/2023 Who Is Your Employer? [employer] Information not available 09/23/2023 What Was The Date Of Your Most Recent Tobacco Screening? 09/23/2023 Information not available 09/23/2023 Do You Feel Stressed (tense, Restless, Nervous, Or Anxious, Or Unable To Sleep At Night)? 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 soft diet.anti inflammato nicole Health Concerns Section Related Observation LastModified by Organization Detai ls LastModified Time None Recorded Concern Status LastModified by Organization Details LastModified Time None Recorded Advance Directives Directive None Recorded Payers Encounter Date Sequence Insurance Name Policy Number Policy Parson Covered Member ID Parson Member ID Guarantor Name 07/22/2023 1 [facility] (MEDICAID HMO) [id number] Devora Marinelli [id number] Quinnzayra Yves 09/23/2023 1 [facility] (MEDICAID HMO) [id number] Quinnzayra Yves [id number] Felymarlin Yves Notes Date Note Type Note Provider Name and Address Organization Details Recorded Time 07/22/2023 text/html She is complaini ng of infection in her right ear for three months. She has been on multiple drops and antibiotics Todd Price MD Attn: [address] [place], [address], [facility] 07/22/2023 15:39:29 09/23/2023 text/html Pt had right ext otitis and it has been slowly improving by keeping it dry. She also has mild TMJ tenderness Todd Price MD Attn: [address] [place], [address], [facility] 09/23/2023 13:01:59 OBGyn Episode No OBEpisode recorded.
--- OUTSIDE RECORDS SUMMARY | 2024-07-02 14:18 | XMS_ITS | Clinical Summary ---
Author Organization [facility] Address [address] [place] [address] Care Team Providers Care Molder Machine Name Role Phone Lucille [place] MD Primary Care Provider [phone] Medications No known medications Active Problems No known active problems Social History Tobacco Use Types Packs/Day Years Used Date Smoking Tobacco: Never Assessed Comments Unknown Sex and Gender Information Value Date Recorded Sex Assigned at Not on file Legal Sex Female 5:57 PM MEDICINE WORKER Gender Identity Not on file Sexual Orientation [...] complete this topic Insurance MEDICAID DEPT OF [address] Advance Directives Documents on File Type Date Recorded Patient Photolith Operator Expl anation Legal Documents 02/22/2020 1:00 PM RECVD & CMPLTD ATTY REQ. FOR HB BILLS FOR SFL FOR AUTOMATED RECORDS Care Teams Molder Machine Relationship Specialty Start Date End Date Lucille [place] MD [address] [place] [address] PCP - General INTERNAL MEDICINE 05/25/19
--- OUTSIDE RECORDS SUMMARY | 2024-07-02 14:18 | XMS_ITS | Encounter Summary ---
Author Organization [facility] Address [address] [place] [address] Phone Care Team Providers Care Advertising Strategist Name Role Phone Avi Floyd MD Primary Care Provider [phone] Reason for Visit * Reason Comments Medication Refill Encounter Details Date Type Department Care Team (Late st Contact Info) Description 05/30/2020 Refill [facility] [address] [place] [address] Ryan Willingham MD [address] [place] [address] Medication Refill Social History Tobacco Use Types [...] present documented in this encounter Care Teams Advertising Strategist Relationship Specialty Start Date End Date Avi Floyd MD [address] [place] [address] PCP - General Family Medicine 12/18/18 documented as of this encounter
--- OUTSIDE RECORDS SUMMARY | 2024-07-02 14:18 | XMS_ITS | Encounter Summary ---
Author Organization [facility] Address [address] [place] [address] Care Team Providers Care Value Analysis Coordinator Name Role Phone Avi Floyd MD Primary Care Provider [phone] Lucille [place] MD Primary Care Provider [phone] Encounter Details Date Type Department Care Team (Late st Contact Info) Description 10/17/2018 Abstract SFL CONVERSION [address] [place], [place] [id number] , Generic Conversion, Social History Tobacco Use Types Packs/Day Years Used Date Smoking Tobacco: Never Assessed Comments Unknown Sex and Gender Information Value Date Recorded Sex Assigned at Not on file Legal Sex Female 5:57 PM CAR WASH ATTENDANT AUTOMATIC Gender Identity Not on file Sexual Orientation Not on file documented as of this encounter Plan of Treatment Not on file documented as of this encounter Visit Diagnoses Not on filedocumented in this encounter Care Teams Value Analysis Coordinator Relationship Specialty Start Date End Date Avi Floyd MD [address] [place] [address] PCP - General FAMILY PRACTICE 07/21/18 05/24/19 Lucille [place] MD [address] [place] [address] PCP - General INTERNAL MEDICINE 05/25/19 documented as of this encounter
--- OUTSIDE RECORDS SUMMARY | 2024-07-02 14:18 | XMS_ITS | Encounter Summary ---
Author Organization [facility] Address [address] [place] [address] Phone Care Team Providers Care Kiln Head House Operator Name Role Phone Avi Floyd MD Primary Care Provider [phone] Reason for Visit * Reason Comments Medication Refill Encounter Details Date Type Department Care Team (Late st Contact Info) Description 02/23/2020 Refill [facility] Neu[facility] [address] [place] [address] Ryan Willingham MD [address] [place] [address] Medication Refill Social History Tobacco Use Types [...] present documented in this encounter Care Teams Kiln Head House Operator Relationship Specialty Start Date End Date Avi Floyd MD [address] [facility] [place] [address] PCP - General Family Medicine 12/18/18 documented as of this encounter
--- OUTSIDE RECORDS SUMMARY | 2024-07-02 14:18 | XMS_ITS | Clinical Summary ---
Author Organization [facility] Address [address] [facility], [place] [address] Phone Care Team Providers Care Rodding Anode Worker Name Role Phone Avi Floyd MD Primary Care Provider [phone] Allergies Active Allergy Reactions Criticality Noted Date [...] Comments Blood Pressure 122/80 07/01/2019 11:03 AM FISH CUTTING MACHINE OPERATOR Pulse 86 07/01/2019 11:03 AM FISH CUTTING MACHINE OPERATOR Temperature 36.8 C (98.3 F) 07/01/2019 11:03 AM FISH CUTTING MACHINE OPERATOR Respiratory Rate 22 07/01/2019 11:03 AM FISH CUTTING MACHINE OPERATOR Oxygen Saturation 99% 07/01/2019 11:03 AM FISH CUTTING MACHINE OPERATOR Inhaled Oxygen Concentration - - Weight 114.3 kg (252 lb) 07/01/2019 11:03 AM FISH CUTTING MACHINE OPERATOR Height 166.6 cm (5' 5.6 ) 07/01/2019 11:03 AM CS T Body Mass Index 41.17 07/01/2019 11:03 AM FISH CUTTING MACHINE OPERATOR Plan of Treatment Health Maintenance Due [...] this topic Insurance MEDICAID HERNANDEZ Care Teams Rodding Anode Worker Relationship Specialty Start Date End Date Avi Floyd MD [address] [place] [address] PCP - General Family Medicine 12/18/18
== END 2024-07-02 14:13 | disposition home or self-care (01) ==
PROVIDERS: PCP Nurse Practitioner Family; Visit Provider Nurse Practitioner Family
DX: M54.50 Low back pain, unspecified (principal); M43.06 Spondylolysis, lumbar region
CPT/HCPCS: 72100

== ENCOUNTER 2024-07-07 11:18 | Outpatient (RCR) | payer OTHER, SELFPAY ==
--- NOTE | 2024-07-07 12:07 | PTOPEVAL1 ---
Assessment and note entered by Mihai Nelson Evaluation Information Assessment Status Evaluation ICD-10 Condition Codes (PT) Pain in low back M54.50,Pain in left ankle and joints of left foot M25.572 Onset 06/12/24 Subjective Information Pt. reports she was coming out of her house and slipped down the steps. She reports that she noticed a trolley horse feeling in the entire left leg after the first fall. She reports she was playing fetch with her dog 2 weeks later and slipped again, and began to notice low back pain. She was given Gabapentin after her last doctors visit, which has reduced her nerve pain and given muscle relaxer that has assisted with her being able to walk. She describes ankle pain on the outside of the ankle. She states that she is able to do most IADL's despite her pain. She notices most difficulty with steps and avoids doing her laundry in the basement due to pain with steps. She reports both back and left ankle pain are constant. She reports that pain does effect sleep on occasion. She reports that her goal for therapy is to be able to walk normally and do steps. Reported Pain Level Pain Score 6,7: Self Report Assessment PT Clinical Summary Pt. is a 29 year old female who enters the clinic with left ankle and low back pain. She presents with impaired postural awareness, impaired lumbar and ankle ROM, impaired gait and functional decline. Continued skilled PT is indicated in order to improve these areas to allow for improved comfort and efficiency with IADL's. Plan of Care Interventions Electrical Stimulation,Gait Training,Hot Pack/Cold Pack,Manual Therapy,Mechanical Traction,Neuro Re- education,Patient/Caregiver Education,Therapeutic Activities,Therapeutic Exercise PT Services Indicated Yes Treatment Frequency and 2x/week x 10 visits Duration These treatments will address the objective and functional deficits as defined above. The patient will be advanced safely and appropriately in order for the patient to progress towards his/her prior level of function. Additional exercises will be introduced and as well as a comprehensive home exercise program upon discharge, if needed, ?to ensure carryover of functional gains achieved in the clinic. This treatment plan has been reviewed and agreement upon by the patient.
--- NOTE | 2024-07-19 11:51 | PCPTNOTE ---
Patient did not show up for scheduled appointment this date.
--- NOTE | 2024-07-21 07:07 | PCPTNOTE ---
ER told pt to cancel all appointments until she sees her neurologist.
--- NOTE | 2024-08-26 18:11 | OPREHPOC ---
Outpatient Therapy Plan of Care This is a Multidisciplinary Plan of Care that may contain components documented by all disciplines (PT, OT, and ST.) PT Problem 1 PT Problem #1 Knowledge Deficit PT Goal 1 Goal / Goal Update Pt. will be independent with a HEP addressing strength and core stability Target Visit 6 PT Problem 2 PT Problem #2 Pain PT Goal 1 Goal / Goal Update Pt to note no worse than 5/10 pain at rest. Pt to note no worse than 7/10 pain with activity. Target Visit 12 PT Problem 3 PT Problem #3 Impaired Strength PT Goal 1 Goal / Goal Update Pt to improve gross LE strength to 4/5 for improved performance of functional mobility tasks. Target Visit 12 PT Problem 4 PT Problem #4 Impaired Functional Mobility PT Goal 1 Goal / Goal Update Pt. will navigate 4 standard height steps with reciprocal pattern and no pain. Pt. will ambulate duration of 6 minutes over a distance of 500' without a rest break or R knee buckling. Target Visit 12
--- NOTE | 2024-08-26 18:11 | PTOPREEVAL ---
Assessment and note entered by Penny Roland, PT Evaluation Information Assessment Status Re-evaluation Diagnosis S/p lumbar laminectomy and discectomy 08/03/24 ICD-10 Condition Codes (PT) Pain in low back M54.50,Difficulty Walking R26.2, Weakness R53.1 Onset 06/12/24 Subjective Information Mrs. Devora Marinelli previously attended skilled PT for low back pain following recent falls. She temporarily stopped attending therapy due to multiple ER visits and worsening symptoms. Following doctor's visit and MRI pt was found to have a large L4-5 disc herniation and under went L4-5 laminectomy and discectomy on 08/03/24. She was then admitted to inpatient rehab at [facility] and discharged home . She currently is under spinal precautions (no bending for 6 weeks, no lifting for 4 weeks at this date), log rolls in/out of bed and ambulates with a walker. She has been living at her mother's house which has 4 steps to enter. Her main goals are to be able to walk and perform steps without much difficulty or pain. Reported Pain Level Pain Score 8,0: Self Report Assessment PT Clinical Summary Mrs. Marinelli is a 29 yo female who was attended skilled PT sessions for low back pain. She temporarily stopped attending therapy due to worsening back pain and multiple ER visits, and following this she underwent an L4-5 lumbar laminectomy and discectomy on 08/03/24. She has returned home following a short stay at inpatient rehab and is now back at therapy. She is currently under spinal precautions and has difficulty getting in/out of bed, walking, and going up/down stairs. She will benefit from skilled PT intervention to improve lower extremity and core strength within precautions to be able to perform functional mobility tasks with less difficulty and less pain. Plan of Care Interventions Electrical Stimulation,Gait Training,Hot Pack/Cold Pack,Manual Therapy,Neuro Re-education,Patient/ Caregiver Education,Therapeutic Activities, Therapeutic Exercise,Self-Care/Home Management PT Services Indicated Yes Treatment Frequency and 5x/week for 9 visits Duration These treatments will address the objective and functional deficits as defined above. The patient will be advanced safely and appropriately in order for the patient to progress towards his/her prior level of function. Additional exercises will be introduced and as well as a comprehensive home exercise program upon discharge, if needed, ?to ensure carryover of functional gains achieved in the clinic. This treatment plan has been reviewed and agreement upon by the patient.
--- NOTE | 2024-09-08 08:37 | PCPTNOTE ---
Patient called & cancelled scheduled appointment this date due to being hospitalized for the wound on her back. -Lucretia Suero, PT
--- NOTE | 2024-09-09 09:20 | OPREHPOC ---
Outpatient Therapy Plan of Care This is a Multidisciplinary Plan of Care that may contain components documented by all disciplines (PT, OT, and ST.) PT Problem 1 PT Problem #1 Knowledge Deficit PT Goal 1 Goal / Goal Update Pt. will be independent with a HEP addressing strength and core stability Target Visit 6 Progress Met PT Problem 2 PT Problem #2 Pain PT Goal 1 Goal / Goal Update Pt to note no worse than 5/10 pain at rest. Pt to note no worse than 7/10 pain with activity. Target Visit 12 Progress Not Met PT Problem 3 PT Problem #3 Impaired Strength PT Goal 1 Goal / Goal Update Pt to improve gross LE strength to 4/5 for improved performance of functional mobility tasks. Target Visit 12 Progress Not Met PT Problem 4 PT Problem #4 Impaired Functional Mobility PT Goal 1 Goal / Goal Update Pt. will navigate 4 standard height steps with reciprocal pattern and no pain. Pt. will ambulate duration of 6 minutes over a distance of 500' without a rest break or R knee buckling. Target Visit 12 Progress Not Met
--- NOTE | 2024-09-09 09:20 | PTOPPROG ---
Assessment and note entered by Penny Roland, PT Evaluation Information Assessment Status Progress Diagnosis S/p lumbar laminectomy and discectomy 08/03/24 ICD-10 Condition Codes (PT) Pain in low back M54.50,Difficulty Walking R26.2, Weakness R53.1 Onset 06/12/24 Subjective Information Vero has attended 10 total skilled PT visits following lumbar surgery. Since re-starting PT she has noticed an improvement in her ambulation distance and ability to perform stairs. It's difficult for her to tell if her strength is improved due to lack of sensation in her lower legs, but she has been diligent in performing her HEP and has begun to use a rollator when at home. She has started to slowly gain some sensation back in her lower legs but it's limited to deep pressure and she is unable to feel light touch at this time. She has also noted some cramping in her proximal L calf with this return of sensation. Yesterday she had her surgical incision surgically drained due to infection and has been prescribed oral antibiotics. Assessment PT Clinical Summary Mrs. Marinelli has attended 7 total skilled PT visits following L4-5 laminectomy and discectomy on . Since beginning therapy she has made good progress in her functional mobility including increasing ambulation distance and ability to perform stairs. She continues to demonstrate reduced sensation in the lower legs and gross LE weakness throughout and would benefit from additional skilled PT visits to continue progressing toward goals and reduce fall risk to be able to perform functional activities without AD. Plan of Care Interventions Electrical Stimulation,Gait Training,Manual Therapy,Neuro Re-education,Patient/Caregiver Education,Therapeutic Activities,Therapeutic Exercise,Self-Care/Home Management PT Services Indicated Yes Treatment Frequency and Continue with original POC, then 5x/week for 12 Duration additional visits (21 total) These treatments will address the objective and functional deficits as defined above. The patient will be advanced safely and appropriately in order for the patient to progress towards his/her prior level of function. Additional exercises will be introduced and as well as a comprehensive home exercise program upon discharge, if needed, ?to ensure carryover of functional gains achieved in the clinic. This treatment plan has been reviewed and agreement upon by the patient.
--- NOTE | 2024-09-13 09:35 | OPREHPOC ---
Outpatient Therapy Plan of Care This is a Multidisciplinary Plan of Care that may contain components documented by all disciplines (PT, OT, and ST.) PT Problem 1 PT Problem #1 Knowledge Deficit PT Goal 1 Goal / Goal Update Pt. will be independent with a HEP addressing strength and core stability Target Visit 6 Progress Met PT Problem 2 PT Problem #2 Pain PT Goal 1 Goal / Goal Update Pt to note no worse than 5/10 pain at rest. Pt to note no worse than 7/10 pain with activity. Target Visit 12 Progress Not Met PT Problem 3 PT Problem #3 Impaired Strength PT Goal 1 Goal / Goal Update Pt to improve gross LE strength to 4/5 for improved performance of functional mobility tasks. Target Visit 12 Progress Met PT Goal 2 Goal / Goal Update Pt to improve gross LE strength to 5/5. Target Visit 24 PT Problem 4 PT Problem #4 Impaired Functional Mobility PT Goal 1 Goal / Goal Update Pt. will navigate 4 standard height steps with reciprocal pattern and no pain. Pt. will ambulate duration of 6 minutes over a distance of 500' without a rest break or R knee buckling. Target Visit 12 Progress Not Met
--- NOTE | 2024-09-13 09:35 | PTOPPROG ---
Assessment and note entered by Penny Roland, PT Evaluation Information Assessment Status Progress Diagnosis S/p lumbar laminectomy and discectomy 08/03/24 ICD-10 Condition Codes (PT) Pain in low back M54.50,Difficulty Walking R26.2, Weakness R53.1 Onset 06/12/24 Subjective Information Vero has attended 12 total skilled PT visits following lumbar surgery. Since re-starting PT she has noticed an improvement in her ambulation distance and ability to perform stairs. She has been slowly gaining back sensation in her lower legs and has recently regained sensation in the bottom of her L foot and toes. It's difficult for her to tell if her strength is improved due to lack of sensation, but she has been diligent in performing her HEP and has begun to use a rollator when at home. Her sensation is limited to deep pressure and she is unable to feel light touch at this time. She does note feeling best in the mornings and that she is able to walk the farthest during these times, and in the afternoons her fatigue increases and she isn't able to do as much . Assessment PT Clinical Summary Ms. Marinelli has attended 12 total skilled PT visits following lumbar surgery. Since beginning PT she has made slight improvements in her LE sensation and strength. She has also made improvements in her ambulation distance and was able to ambulate for 360ft in 6 minutes today. She still lacks sufficient LE strength to ambulate without a walker and will benefit from continued skilled PT intervention to continue progressing toward goals. Plan of Care Interventions Electrical Stimulation,Gait Training,Manual Therapy,Neuro Re-education,Patient/Caregiver Education,Therapeutic Activities,Therapeutic Exercise,Self-Care/Home Management PT Services Indicated Yes Treatment Frequency and 5x/week for 12 additional visits (21 total) Duration These treatments will address the objective and functional deficits as defined above. The patient will be advanced safely and appropriately in order for the patient to progress towards his/her prior level of function. Additional exercises will be introduced and as well as a comprehensive home exercise program upon discharge, if needed, ?to ensure carryover of functional gains achieved in the clinic. This treatment plan has been reviewed and agreement upon by the patient.
--- NOTE | 2024-10-05 09:05 | OPREHPOC ---
Outpatient Therapy Plan of Care This is a Multidisciplinary Plan of Care that may contain components documented by all disciplines (PT, OT, and ST.) PT Problem 1 PT Problem #1 Knowledge Deficit PT Goal 1 Goal / Goal Update Pt. will be independent with a HEP addressing strength and core stability Target Visit 6 Progress Met PT Goal 2 Goal / Goal Update continue to progress PT Problem 2 PT Problem #2 Pain PT Goal 1 Goal / Goal Update Pt to note no worse than 5/10 pain at rest. Pt to note no worse than 7/10 pain with activity. Target Visit 12 Progress Not Met PT Goal 2 Goal / Goal Update continue Target Visit 36 PT Problem 3 PT Problem #3 Impaired Strength PT Goal 1 Goal / Goal Update Pt to improve gross LE strength to 4/5 for improved performance of functional mobility tasks. Target Visit 12 Progress Partially Met PT Goal 2 Goal / Goal Update Pt to improve gross LE strength to 5/5. Target Visit 36 Progress Not Met PT Problem 4 PT Problem #4 Impaired Functional Mobility PT Goal 1 Goal / Goal Update Pt. will navigate 4 standard height steps with reciprocal pattern and no pain. Pt. will ambulate duration of 6 minutes over a distance of 500' without a rest break or R knee buckling. Target Visit 12 Progress Not Met PT Goal 2 Goal / Goal Update continue Target Visit 36
--- NOTE | 2024-10-05 09:05 | PTOPPROG ---
Assessment and note entered by Lucretia Suero, PT Evaluation Information Assessment Status Progress Diagnosis s/p lumbar laminectomy and discectomy 08/03/24 ICD-10 Condition Codes (PT) Pain in low back M54.50,Difficulty Walking R26.2, Weakness R53.1 Onset 06/12/24 Subjective Information Vero has attended 24 total skilled PT visits following lumbar surgery. She had to have a second surgery on 09/22/24 to have the rest of the disc bulge removed. Since then, she feels she is starting to feel her muscles working more and she has had more pain relief. She has been able to ambulate without her AFO the last week and has not noticed foot drop. She is still using a walker for ambulation and has tried to take a few steps without it but she still has buckling in her knees . She is limited with standing to 15 minutes or less. She is also still having pain with occasional sharp pain. She will see her surgeon on 10/07/24 to have her stitches taken out. Assessment PT Clinical Summary Ms. Marinelli has attended 24 total skilled PT visits following lumbar surgery with a second surgery performed on 09/22/24 to remove more of her disc. Since her second surgery, she is noting improved strength in her legs and more sensation. She has been able to quit wearing her AFO and has not noticed foot drop. She is still having constant back pain with occasional sharp pain. She also notes limitations with standing and walking. She is under restrictions of no bending, lifting, or twisting. She demonstrates improving strength in the LE and core and has progressed to ambulating 575 feet during the 6 minute walk test. She continues to have decreased strength in the right LE, decreased core strength, impaired balance, and altered gait. She is unable to work and is limited with daily activities due to her post op restrictions. She will continue to benefit from skilled PT to further address ongoing physical and functional limitations. Plan of Care Interventions Electrical Stimulation,Gait Training,Manual Therapy,Neuro Re-education,Patient/Caregiver Education,Therapeutic Activities,Therapeutic Exercise,Self-Care/Home Management PT Services Indicated Yes Treatment Frequency and 3x a week for 12 additional visits (36 total) Duration These treatments will address the objective and functional deficits as defined above. The patient will be advanced safely and appropriately in order for the patient to progress towards his/her prior level of function. Additional exercises will be introduced and as well as a comprehensive home exercise program upon discharge, if needed, ?to ensure carryover of functional gains achieved in the clinic. This treatment plan has been reviewed and agreement upon by the patient.
== END 2024-10-05 20:00 | disposition still patient (30) ==
LOC: CHSPT 11:18
PROVIDERS: PCP Nurse Practitioner Family; Visit Provider Nurse Practitioner Family
DX: M25.572 Pain in left ankle and joints of left foot (principal); M54.50 Low back pain, unspecified
CPT/HCPCS: 97014; 97110; 97112; 97140; 97150; 97161; 97162; 97530; 97750; G0283

== ENCOUNTER 2024-07-19 17:28 | Emergency (ER) | payer OTHER, SELFPAY ==
--- NOTE | ~2024-07-19 | CT_ITS ---
EXAMINATION: CT lumbar spine wo con DATE: 07/19/2024 19:04 INDICATION: low back, left leg pain . TECHNIQUE: Computed tomography (CT) of the lumbar spine was performed without intravenous contrast. A utomated exposure control and iterative reconstruction technique were employed. The dose-length produ ct was 1337.40 mGy-cm. COMPARISON: 07/02/2024. FINDINGS: 5 nonrib-bearing lumbar-type vertebral bodies. Pedicles intact. Normal vertebral body align ment. Vertebral body heights preserved. Moderate narrowing at L4-5, where there is a large central pr otrusion, measuring 11 mm, severely narrowing the central canal. Mild disc space narrowing at the rem aining lumbar levels. Normal facets and posterior elements. No fracture. No severe neural foraminal n arrowing IMPRESSION: Large central L4-5 disc protrusion causing severe central canal narrowing. No acute fracture or traumatic malalignment in the lumbar spine. Reviewed, dictated and finalized at location K.
[2024-07-19 17:30] VITALS: BP 152/96; PULSE 108; RESP 20; TEMP 37.5; O2SAT 96
--- NOTE | 2024-07-19 17:40 | ED_ITS ---
HPI - Extremity Problem General Chief complaint: Extremity Problem,Nontraumatic Stated complaint: left foot pain Time Seen by Provider: 07/19/24 17:37 Source: patient Mode of arrival: ambulatory Limitations: no limitations History of Present Illness HPI Narrative: 29 year old female presents to the Emergency Department complaining of falling at the end of May, another fall in June. States she now has pain to low back, down left leg. States difficulty walking due to pain. MD Complaint: extremity pain Onset (ago): month(s) Pain Consistency: constant Location: left Relieving factors: nothing Exacerbating factors: weight bearing and walking Related Data Allergies Allergy/AdvReac Type Severity Reaction Status Date / Time No Known Allergies Allergy Mild Verified 07/19/24 17:31 Review of Systems Review of Systems: All systems reviewed & are unremarkable except as noted in HPI and below Constitutional: Constitutional: Reports as per HPI, Denies chills and Denies fever(s) Eyes: Eyes: Reports as per HPI ENT: Reports system reviewed and no additional complaints, except as documented Cardiovascular: Cardiovascular: Reports as per HPI and Denies chest pain Respiratory: Respiratory: Reports as per HPI, Denies cough and Denies dyspnea Gastrointestinal: Gastrointestinal: Reports as per HPI, Denies abdominal pain, Denies diarrhea, Denies nausea and Denies vomiting Genitourinary: Genitourinary: Reports no additional female genitourinary complaints, Denies nocturia, Denies dysuria and Reports flank pain Musculoskeletal: Musculoskeletal: Reports no additional musculoskeletal complaints and Reports back pain Comments: left leg pain Integumentary/Breasts: Skin/Breast: Reports system reviewed and no additional complaints, except as docu Neurologic: Reports system reviewed and no additional complaints, except as documented and Denies numbness Psychiatric: Psychiatric: Reports no additional psychiatric complaints Endocrine: Endocrine: Reports no additional endocrine complaints Hematologic/Lymphatic: Hematologic/Lymphatic: Reports no additional hematologic/lymphatic complaints Allergic/Immunologic: Allergic/Immunologic: Reports no additional aller gic/immunologic complaints PMFSH Past Medical History Medical History Colic, ureteral Social History Social History Smoking packs per day: 0.5 Smoking cigarettes per day: 10.0 Smoking status: Current every day smoker Tobacco type: cigarettes Alcohol intake: never Substance use: never Exam Const: General: healthy appearing Nutritional Appearance: obese Orientation/consciousness: patient oriented x3 Limitations: no limitations HENMT: Head: normal to inspection Face and sinus: normal facial exam Eyes: Pupils: Equal, round and reactive pupils present EOM: EOMs intact bilaterally Direct Ophthalmoscopy: no photophobia Neck: Neck: normal visual inspection Chest: Chest palpation & inspection: normal inspection of the chest Resp: Effort & Inspection: normal respiratory effort Auscultation: clear to auscultation bilaterally Cardio: Rate: regular rate Rhythm: regular rhythm GI: Inspection: non-distended GI Palp: Yes Soft to palpation and No Tenderness to palpation present (GI) : General: Yes bladder normal to palpation Back/Spine/Pelvis: Other: tender left lower back Skin: General skin exam: normal color Rashes: no rashes Neuro: General: patient oriented x3 Extrem: Other: tender to palpation lateral left calf and +Justine's Course Course Emergency Course: 29 year old female presents to the Emergency Department complaining of low back pain and radiation to left leg. Patient states she fell end of May and again in June. PE: c/o tenderness to palpation left lower back and lateral left lower leg, +Justine's left lower leg UA: 31-50 wbc, 3+ LE, 2+ bacteria UPreg: negative D-dimer: 0.19 CT L-spine: large central L4-5 disc protrusion causing severe central canal narrowing *reviewed and discussed results with patient and her mother. Discussed planned management, including treatment of UTI and contacting Neurosurgery for referral. Patient voices understanding and agreement. (2019) [facility] contacted for NS consult. (2025) Discussed with Dr. Gene Stephen (NS). Would like patient on Medrol dose pack, ok with analgesic and treatment of UTI. He took her phone number and will contact her tomorrow and arrange for MRI and follow up /evaluation and management Tx: Decadron 8 mg po, Blue 10 mg po, Bactrim DS po Rx and Instructions Vital Signs Vital signs: Vital Signs Temperature 37.5 C 07/19/24 17:30 Pulse Rate 108 H 07/19/24 17:30 Respiratory Rate 20 07/19/24 17:30 Blood Pressure 152/96 H 07/19/24 17:30 Pulse Oximetry 96 07/19/24 17:30 Oxygen Delivery Room Air 07/19/24 17:30 Temperature 37.5 C 07/19/24 17:30 Pulse Rate 98 07/19/24 18:30 Respiratory Rate 17 07/19/24 18:30 Blood Pressure 138/67 07/19/24 18:30 Pulse Oximetry 97 07/19/24 18:30 Oxygen Delivery Room Air 07/19/24 18:30 MDM - Extremity (Nontraumatic) Lab Data Labs: Lab Results 07/19/24 07/19/24 Range/Units 18:10 18:43 D-Dimer 0.19 (0.19-0.50) mg/L Urine Color Light yellow (Yellow) Urine Appearance Clear (Clear) Urine pH 6.0 (5.0-8.0) Ur Specific Taylor 1.025 H (1.010-1.020) Urine Protein Trace H (Negative) Urine Glucose (UA) Negative (Negative) Urine Ketones Negative (Negative) Ur Blood (Man) Negative (Negative) Urine Nitrate Negative (Negative) Urine Bilirubin Negative (Negative) Urine Urobilinogen 0.2 (0.2-1.0) mg/dL Ur Leukocyte Esterase 3+ H (Negative) Urine RBC 0-2 (0-2) /hpf Urine WBC 31-50 H (0-3) /hpf Ur Squamous Epith Cells Many H (Few) /hpf Urine Bacteria 2+ H (None) /hpf Urine Test Negative Discharge Plan Discharge Clinical Impression: Urinary tract infection, Lumbar disc disease, Protrusion of lumbar intervertebral disc, Acute left lumbar radiculopathy Patient Disposition: Home, Self-Care Condition: Stable Instructions: Antibiotic Form, Urinary Tract Infection in Women (ED), Lumbar Disc Herniation (ED), Lumbar Radiculopathy (ED) Additional Instructions: Rest back Take medications as prescribed Follow up with Dr. Stephen (Neuro Surgery). He will contact you tomorrow at [phone] to arrange for MRI and follow up Patient Language: Monegasque Prescriptions: New methylprednisolone [Medrol (Zohaib)] 4 mg tablets,dose pack See Rx Instructions .ROUTE .COMPLEX Qty: 21 0RF Rx Instructions: for 6 days sulfamethoxazole-trimethoprim [Bactrim DS] 800-160 mg tablet 1 tablet PO Q12H Qty: 20 0RF hydrocodone-acetaminophen 10-325 mg tablet 1 tablet PO Q6H PRN (Reason: pain) Qty: 20 0RF No Action ibuprofen 800 mg tablet 800 mg PO TID Qty: 20 0RF omeprazole magnesium [Prilosec OTC] 20 mg tablet,delayed release (DR/EC) 20 mg PO BID Qty: 20 0RF Follow-up/Referrals: Lucille Jackson MD [Primary Care Provider] - Arvind Stephen MD [Physician] - Time of Disposition: 20:44
[2024-07-19 18:30] VITALS: BP 138/67; PULSE 98; RESP 17; O2SAT 97
[2024-07-19 18:41] LABS: Add Urine Microscopic? YES; Appearance Urine Clear (Clear); Bilirubin Urine Negative (Negative); Blood Urine Negative (Negative); Color Urine Light Yellow (Yellow); Glucose Urine UA Negative (Negative); Ketones Urine Negative (Negative); Leukocyte Esterase Ur 3+ (Negative); Nitrate Urine Negative (Negative); Protein Urine Trace (Negative); Specific Grav Ur 1.025 (1.010-1.020); Urobilinogen Urine 0.2 mg/dL (0.2-1.0)
[2024-07-19 18:45] LABS: Pregnancy On Board Control Positive; Urine Pregnancy Test Negative
[2024-07-19 18:46] LABS: D Dimer 0.19 mg/L (0.19-0.50)
[2024-07-19 18:49] LABS: Bacteria Urine 2+ /hpf; RBC Urine 0-2 /hpf (0-2); Squamous Epithelial Cell Urine Many /hpf (Few); WBC Urine 31-50 /hpf (0-3)
--- NOTE | 2024-07-19 18:55 | PC.NURSE ---
ASSUMED CARE. REPORT RECEIVED FROM QUINTEN PRASAD. PATIENT CURRENTLY BEING TRANSPORTED TO RADIOLOGY VIA WHEEL CHAIR
--- OUTSIDE RECORDS SUMMARY | 2024-07-19 19:12 | XMS_ITS | Encounter Summary ---
Author Organization [facility] Address [address] [place] [address] Phone Care Team Providers Care Technical Inspector Name Role Phone Avi Floyd MD Primary Care Provider [phone] Reason for Visit * Reason Comments Medication Refill Encounter Details Date Type Department Care Team (Late st Contact Info) Description 05/30/2020 Refill [facility] - Neurology [facility] [address] [place] [address] Ryan Willingham MD [address] [place] [address] Medication Refill Social History Tobacco Use Types [...] present documented in this encounter Care Teams Technical Inspector Relationship Specialty Start Date End Date Avi Floyd MD [address] [place] [address] PCP - General Family Medicine 12/18/18 documented as of this encounter
--- OUTSIDE RECORDS SUMMARY | 2024-07-19 19:12 | XMS_ITS | Encounter Summary ---
Author Organization [facility] Address [address] [place] [address] Phone Care Team Providers Care Real Estate Manager Name Role Phone Avi Floyd MD Primary Care Provider [phone] Reason for Visit * Reason Comments Medication Refill Encounter Details Date Type Department Care Team (Late st Contact Info) Description 02/23/2020 Refill [facility] - Neurology [facility] [address] [place] [address] Ryan Willingham MD [address] [place] [id number] Medication Refill Social History Tobacco Use Types [...] present documented in this encounter Care Teams Real Estate Manager Relationship Specialty Start Date End Date Avi Floyd MD [address] [place] [address] PCP - General Family Medicine 12/18/18 documented as of this encounter
--- OUTSIDE RECORDS SUMMARY | 2024-07-19 19:12 | XMS_ITS | Encounter Summary ---
Author Organization [facility] Address [address] [place] [address] Care Team Providers Care Bag Machine Adjuster Name Role Phone Avi Floyd MD Primary Care Provider [phone] Lucille Jackson MD Primary Care Provider [phone] Encounter Details Date Type Department Care Team (Late st Contact Info) Description 10/17/2018 Abstract SFL CONVERSION [address] [place], [place] [id number] , Generic Conversion, Social History Tobacco Use Types Packs/Day Years Used Date Smoking Tobacco: Never Assessed Comments Unknown Sex and Gender Information Value Date Recorded Sex Assigned at Not on file Legal Sex Female 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
--- OUTSIDE RECORDS SUMMARY | 2024-07-19 19:12 | XMS_ITS | Data Portability ---
Author Organization [facility] Address [address] [place] [address] Assessment No assessment recorded. Plan of Treatment [...] Last Updated DateTime 166.37 cm 40.9 kg/m2 622001. 58 g 16 /min 97.7 [degF] 122 mm[Hg] 80 mm[Hg] Gracia Winston MA [place] - [facility] 4 15:14:17 Date Recorded Body height Body mass index (BMI) Body weight Heart rate Respiratory rate Body temperature Systolic blood pressure Diastolic blood pressure Provider Name and Address Organization Details Last Updated DateTime 166.37 cm 39.8 kg/m2 152133. 23 g 82 /min 16 /min 97.5 [degF] 120 mm[Hg] 82 mm[Hg] Gracia Winston MA [facility] 4 12:44:50 Social History Question Answer Notes LastModified by Organization Details LastModified Time Tobacco Smoking Status Never Smoker Gracia Winston MA null, [facility] 07/22/2023 15:10:16 What Is Your Level [...] Or The Highest Degree You Have Received? [id number] Information not available 07/22/2023 Who Is Your Employer? [employer] Information not available 09/23/2023 What Was The Date Of Your Most Recent Tobacco Screening? 09/23/2023 Information not available 09/23/2023 Do You Feel Stressed (tense, Restless, Nervous, Or Anxious, Or Unable To Sleep At Night)? 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 M26.609 soft diet.anti inflammato nicole Health Concerns Section Related Observation LastModified by Organization Detai ls LastModified Time None Recorded Concern Status LastModified by Organization Details LastModified Time None Recorded Advance Directives Directive None Recorded Payers Encounter Date Sequence Insurance Name Policy Number Policy Parson Covered Member ID Parson Member ID Guarantor Name 07/22/2023 1 [facility] (MEDICAID HMO) [id number] Devora Marinelli [id number] Quinnzayra Yves 09/23/2023 1 [facility] (MEDICAID HMO) [id number] Quinnzayra Yves [id number] Felymarlin Yves Notes Date Note Type Note Provider Name and Address Organization Details Recorded Time 07/22/2023 text/html She is complaini ng of infection in her right ear for three months. She has been on multiple drops and antibiotics Todd Price MD Attn: [address] [place], [address], [facility] 07/22/2023 15:39:29 09/23/2023 text/html Pt had right ext otitis and it has been slowly improving by keeping it dry. She also has mild TMJ tenderness Todd Price MD Attn: [address] [place], [address], [facility] 09/23/2023 13:01:59 OBGyn Episode No OBEpisode recorded.
--- OUTSIDE RECORDS SUMMARY | 2024-07-19 19:12 | XMS_ITS | Clinical Summary ---
Author Organization [facility] Address [address] [facility] [place] [address] Phone Care Team Providers Care Trainman Name Role Phone Avi Floyd MD Primary Care Provider [phone] Allergies Active Allergy Reactions Criticality Noted Date [...] Comments Blood Pressure 122/80 07/01/2019 11:03 AM PONY WORKER Pulse 86 07/01/2019 11:03 AM PONY WORKER Temperature 36.8 C (98.3 F) 07/01/2019 11:03 AM PONY WORKER Respiratory Rate 22 07/01/2019 11:03 AM PONY WORKER Oxygen Saturation 99% 07/01/2019 11:03 AM PONY WORKER Inhaled Oxygen Concentration - - Weight 114.3 kg (252 lb) 07/01/2019 11:03 AM PONY WORKER Height 166.6 cm (5' 5.6 ) 07/01/2019 11:03 AM CS T Body Mass Index 41.17 07/01/2019 11:03 AM PONY WORKER Plan of Treatment Health Maintenance Due Date [...] this topic Insurance MEDICAID HERNANDEZ Care Teams Trainman Relationship Specialty Start Date End Date Avi Floyd MD [address] [place] [address] PCP - General Family Medicine 12/18/18
--- OUTSIDE RECORDS SUMMARY | 2024-07-19 19:12 | XMS_ITS | Clinical Summary ---
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 FOR HB BILLS FOR SFL FOR AUTOMATED RECORDS Care Teams Market Risk Manager Relationship Specialty Start Date End Date Lucille Jackson MD [address] [place] [address] PCP - General INTERNAL MEDICINE 05/25/19
--- NOTE | 2024-07-19 19:41 | PC.NURSE ---
RESTING ON STRETCHER. CALL LIGHT IN REACH. NO NEEDS VOICED AT THIS TIME.
--- NOTE | 2024-07-19 20:13 | PC.NURSE ---
PATIENT REPORTS THAT SITTING ON THE STRETCHER WAS GETTING UNCOMFORTABLE. MOVED TO CHAIR IN THE ROOM. INFORMED PATIENT THAT WE ARE WAITING ON CT RESULTS TO POST. PATIENT VERBALIZED UNDERSTANDING. FAMILY MEMBER AT THE BEDSIDE
--- NOTE | 2024-07-19 20:31 | PC.NURSE ---
DR TOLEDO AT THE BEDSIDE UPDATING PATIENT
[2024-07-19] MEDS: HYDROcodone/acetaminophen (*CRX) 10-325 MG TABLET 1 TAB PO (20:42)
[2024-07-19] MEDS: SULFAMETHOXAZOLE/TRIMETHOPRIM 800/160 MG DS TABLET 1 TAB PO (20:43)
[2024-07-19] MEDS: dexAMETHasone 2 MG TABLET 8 MG PO (20:43)
[2024-07-19 21:07] VITALS: BP 128/68; PULSE 88; RESP 18; O2SAT 100
== END 2024-07-19 21:07 | disposition home or self-care (01) ==
PROVIDERS: Emergency Provider Emergency Medicine; PCP Internal Medicine
DX: N39.0 Urinary tract infection, site not specified (principal); M54.16 Radiculopathy, lumbar region; M51.26 Other intervertebral disc displacement, lumbar region; M51.9 Unspecified thoracic, thoracolumbar and lumbosacral intervertebral disc disorder; F17.210 Nicotine dependence, cigarettes, uncomplicated
CPT/HCPCS: 36415; 72131; 81001; 81025; 85380; 99284; A9270; J8540

== ENCOUNTER 2024-07-31 10:47 | Outpatient (CLI) | payer OTHER, SELFPAY ==
--- NOTE | ~2024-07-31 | MR_ITS ---
EXAMINATION: MR lumbar spine wo con DATE: 07/31/2024 11:32 INDICATION: Low back pain TECHNIQUE: Magnetic resonance imaging (MRI) of the lumbar spine was performed without intravenous con trast. Sequences included sagittal T2-weighted FSE, sagittal T2-weighted FS FSE, sagittal T1-weighted FSE, sagittal fluid sensitive FSE STIR and axial T2-weighted FSE. COMPARISON: CT dated 07/19/2024 FINDINGS: 1-2 mm retrolisthesis L4 on L5 and 3 mm retrolisthesis L5 on S1. Vertebral body heights are normal. Normal marrow signal. Mild disc desiccation without disc height loss at L3-L4 and L5-S1 and with mild disc height loss at L4-L5. Annular fissure and large disc extrusion at L4-L5. The conus medullaris t erminates at L1. There is normal signal in the caudal spinal cord. Paravertebral soft tissues are unr emarkable. The following disc levels are specifically discussed: T12-L1: The disc does not extend beyond the endplate margin. There is moderate bilateral facet joint osteoarthritis. There is no neural foraminal stenosis. There is no central canal stenosis. L1-L2: The disc does not extend beyond the endplate margin. There is mild bilateral facet joint osteo arthritis. There is no neural foraminal stenosis. There is no central canal stenosis. L2-L3: The disc does not extend beyond the endplate margin. There is mild bilateral facet joint osteo arthritis. There is no neural foraminal stenosis. There is no central canal stenosis. L3-L4: Small left subarticular zone disc protrusion.. There is mild bilateral facet joint osteoarthri tis. There is mild left and minimal right neural foraminal stenosis. There is mild central canal sten osis. L4-L5: Disc is bulging with superimposed annular fissure with large central disc extrusion which michelet ures 2.0 cm craniocaudally and fills the majority the central canal resulting in severe central canal stenosis. There is mild bilateral facet joint osteoarthritis. There is mild bilateral neural foramin al stenosis. L5-S1: Disc is mildly bulging. There is mild bilateral facet joint osteoarthritis. There is mild left and minimal right neural foraminal stenosis. There is no central canal stenosis. IMPRESSION: 1. Mild lumbar spondylosis most notable for annular fissure and large central disc extrusion at L4-L5 which fills the majority of the central canal resulting in severe central canal stenosis. Reviewed, dictated and finalized at location B. IMPRESSION: 1. Mild lumbar spondylosis most notable for annular fissure and large central d isc extrusion at L4-L5 which fills the majority of the central canal resulting in severe central canal stenosis.
--- OUTSIDE RECORDS SUMMARY | 2024-07-31 10:52 | XMS_ITS | Encounter Summary ---
Author Organization [facility] Address [address] [place] [address] Care Team Providers Care Industrial Relations Representative Name Role Phone Avi Floyd MD Primary Care Provider [phone] Lucille Jackson MD Primary Care Provider [phone] Encounter Details Date Type Department Care Team (Late st Contact Info) Description 10/17/2018 Abstract SFL CONVERSION [address] [place], [place] [id number] , Generic Conversion, Social History Tobacco Use Types Packs/Day Years Used Date Smoking Tobacco: Never Assessed Comments Unknown Sex and Gender Information Value Date Recorded Sex Assigned at Not on file Legal Sex Female 5:57 PM SHAKE 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
--- OUTSIDE RECORDS SUMMARY | 2024-07-31 10:52 | XMS_ITS | Clinical Summary ---
Author Organization [facility] Address [address] [facility], [place] [address] Phone Care Team Providers Care Embedded Software Development Engineer Name Role Phone Avi Floyd MD Primary Care Provider [phone] Allergies Active Allergy Reactions Criticality Noted Date [...] as needed for Muscle spasms. 60 Tablet 1 Active Active Problems Problem Noted Date Diagnosed [...] Comments Blood Pressure 122/80 07/01/2019 11:03 AM DAYTIME CAREGIVER Pulse 86 07/01/2019 11:03 AM DAYTIME CAREGIVER Temperature 36.8 C (98.3 F) 07/01/2019 11:03 AM DAYTIME CAREGIVER Respiratory Rate 22 07/01/2019 11:03 AM DAYTIME CAREGIVER Oxygen Saturation 99% 07/01/2019 11:03 AM DAYTIME CAREGIVER Inhaled Oxygen Concentration - - Weight 114.3 kg (252 lb) 07/01/2019 11:03 AM DAYTIME CAREGIVER Height 166.6 cm (5' 5.6 ) 07/01/2019 11:03 AM CS T Body Mass Index 41.17 07/01/2019 11:03 AM DAYTIME CAREGIVER Plan of Treatment Health Maintenance Due Date Last Done Comments Hepatitis C Virus (HCV) Screening 1993 TdaP Immunization 1993 Influenza Immunization (#1) 2024 SARS-COV-2 Immunization (2023- season) 2024 09/20/2020, 08/23/2020 Respiratory Syncytial Virus [...] this topic Insurance MEDICAID [place] Care Teams Embedded Software Development Engineer Relationship Specialty Start Date End Date Avi Floyd MD [address] [place] [address] PCP - General Family Medicine 12/18/18
--- OUTSIDE RECORDS SUMMARY | 2024-07-31 10:52 | XMS_ITS | Encounter Summary ---
Author Organization [facility] Address [address] [place] [address] Phone Care Team Providers Care Management Recruiter Name Role Phone Avi Floyd MD Primary Care Provider [phone] Reason for Visit * Reason Comments Medication Refill Encounter Details Date Type Department Care Team (Late st Contact Info) Description 02/23/2020 Refill [facility] - Neurology [facility] [address]1 [place] [address] Ryan Willingham MD [address] [place] [id number] Medication Refill Social History Tobacco Use Types [...] present documented in this encounter Care Teams Management Recruiter Relationship Specialty Start Date End Date Avi Floyd MD [address] [place] [address] PCP - General Family Medicine 12/18/18 documented as of this encounter
--- OUTSIDE RECORDS SUMMARY | 2024-07-31 10:52 | XMS_ITS | Data Portability ---
Author Organization [facility] Address [address] [place] [address] Assessment No assessment recorded. Plan of Treatment [...] Last Updated DateTime 166.37 cm 40.9 kg/m2 540961. 58 g 16 /min 97.7 [degF] 122 mm[Hg] 80 mm[Hg] Gracia Winston MA [place] [facility] 4 15:14:17 Date Recorded Body height Body mass index (BMI) Body weight Heart rate Respiratory rate Body temperature Systolic blood pressure Diastolic blood pressure Provider Name and Address Organization Details Last Updated DateTime 166.37 cm 39.8 kg/m2 336727. 23 g 82 /min 16 /min 97.5 [degF] 120 mm[Hg] 82 mm[Hg] Gracia Wniston MA [facility] 4 12:44:50 Social History Question Answer Notes LastModified by Organization Details LastModified Time Tobacco Smoking Status Never Smoker Gracia Winston MA null, [facility] 07/22/2023 15:10:16 What Is Your [...] Or The Highest Degree You Have Received? [id number] Information not available 07/22/2023 Who Is Your Employer? [employer] Information not available 09/23/2023 What Was The Date Of Your Most Recent Tobacco Screening? 09/23/2023 Information not available 09/23/2023 Do You Feel Stressed (tense, Restless, Nervous, Or Anxious, Or Unable To Sleep At Night)? 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 soft diet.anti inflammato nicole Health Concerns Section Related Observation LastModified by Organization Detai ls LastModified Time None Recorded Concern Status LastModified by Organization Details LastModified Time None Recorded Advance Directives Directive None Recorded Payers Encounter Date Sequence Insurance Name Policy Number Policy Parson Covered Member ID Parson Member ID Guarantor Name 07/22/2023 1 [facility] (MEDICAID HMO) [id number] Devora Marinelli [id number] Quinnzayra Yves 09/23/2023 1 [facility] (MEDICAID HMO) [id number] Quinnzayra Yves [id number] Felymarlin Yves Notes Date Note Type Note Provider Name and Address Organization Details Recorded Time 07/22/2023 text/html She is complaini ng of infection in her right ear for three months. She has been on multiple drops and antibiotics Todd Priec MD Attn: [address] [place], [address], [facility] 07/22/2023 15:39:29 09/23/2023 text/html Pt had right ext otitis and it has been slowly improving by keeping it dry. She also has mild TMJ tenderness Todd Price MD Attn: [address] [place], [address], [facility] 09/23/2023 13:01:59 OBGyn Episode No OBEpisode recorded.
--- OUTSIDE RECORDS SUMMARY | 2024-07-31 10:52 | XMS_ITS | Encounter Summary ---
Author Organization [facility] Address [address] [place] [address] Phone Care Team Providers Care Screenplay Writer Name Role Phone Avi Floyd MD Primary Care Provider [phone] Reason for Visit * Reason Comments Medication Refill Encounter Details Date Type Department Care Team (Late st Contact Info) Description 05/30/2020 Refill [facility] - Neurology [facility] [address] [place] [address] Ryan Willingham MD [address] [place] [address] Medication Refill Social History Tobacco Use Types [...] present documented in this encounter Care Teams Screenplay Writer Relationship Specialty Start Date End Date Avi Floyd MD [address] [place] [address] PCP - General Family Medicine 12/18/18 documented as of this encounter
--- OUTSIDE RECORDS SUMMARY | 2024-07-31 10:52 | XMS_ITS | Clinical Summary ---
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 FOR HB BILLS FOR SFL FOR AUTOMATED RECORDS Care Teams Water And Gas Helper Relationship Specialty Start Date End Date Lucille Jackson MD [address] [place] [address] PCP - General INTERNAL MEDICINE 05/25/19
== END 2024-07-31 10:48 | disposition home or self-care (01) ==
LOC: CHSIMG 10:50
PROVIDERS: PCP Internal Medicine; Visit Provider Nurse Practitioner Adult Health
DX: M51.26 Other intervertebral disc displacement, lumbar region (principal); M43.06 Spondylolysis, lumbar region
CPT/HCPCS: 72148

== ENCOUNTER 2024-08-03 08:41 | Inpatient (IN) | payer OTHER, SELFPAY ==
[2024-08-03] VITALS (13 sets, daily range): BP systolic 114–154; BP diastolic 52–97; PULSE 71–116; RESP 14–25; TEMP 35.8–36.8; O2SAT 93–100; BMI 42.0
--- NOTE | ~2024-08-03 | XR_ITS ---
EXAMINATION: XR fluoroscopy no charge DATE: 08/03/2024 14:20 CDT INDICATION: L4-5 LAMINECTOMY DISECTOMY . TECHNIQUE: 2 fluoroscopic images of the lumbar spine were obtained during L4-5 laminectomy/discectomy , performed by Sonia Roberson MD. I was not present during the procedure. Fluoroscopy exposure cecily e was 4.1 seconds. Air Kerma 3.7183 mGy. DAP 0.7371 mGym2. COMPARISON: MR L-spine 07/31/2024 FINDINGS/IMPRESSION: Fluoroscopic documentation of L4-5 laminectomy/discectomy. Please refer to the operative note for com plete procedural details . Reviewed, dictated and finalized at location K.
--- NOTE | ~2024-08-03 | XR_ITS ---
EXAMINATION: XR chest 1V portable DATE: 08/03/2024 12:01 INDICATION: Status post lumbar spinal surgery today TECHNIQUE: AP view of the chest was obtained. COMPARISON: None FINDINGS: Linear discoid atelectasis at the lateral left lung base. No other airspace opacities, pulmonary bhavesh a, pleural effusion or pneumothorax. The cardiomediastinal silhouette is within normal limits for AP technique. Visualized bones and soft tissues are unremarkable. IMPRESSION: 1. Mild discoid atelectasis at the left lung base. Reviewed, dictated and finalized at location B.
--- NOTE | 2024-08-03 09:02 | ED_ITS ---
HPI - Back Pain/Injury General Chief Complaint: Back Pain/Injury Stated Complaint: back pain, legs Time Seen by Provider: 08/03/24 09:00 History of Present Illness HPI Narrative: Patient is a 29-year-old female who presents the with complaints back pain that radiates her right leg. She reports she has a neurologist to recently diagnosed her with a herniated disc. Patient called his office this morning and they advised her to come to the ER for evaluation. She had an MRI yesterday which showed Mild lumbar spondylosis most notable for annular fissure and large central disc extrusion at L4-L5 which fills the majority of the central canal resulting in severe central canal stenosis. Patient reports she started experiencing left lower extremity pain, numbness and tingling, which then radiated to her right hip, thigh and lower extremity. She endorses significant loss of strength in her right leg and is ?unable to walk. Patient denies saddle anesthesia, loss of continence, loss of bowels, abdominal pain, urinary symptoms. She endorses a past medical history a left lower knee degloving and a fall on the ice in May. Related Data Allergies Allergy/AdvReac Type Severity Reaction Status Date / Time acetaminophen (From [place]) AdvReac Unknown Itching Verified 08/03/24 08:53 hydrocodone (From [place]) AdvReac Unknown Itching Verified 08/03/24 08:53 Review of Systems 2 Review of Systems: All systems reviewed & are unremarkable except as noted in HPI and below PMFSH Past Medical History Medical History Anxiety Colic, ureteral Family History Family History Father Alcoholism Hypertension Heart disease Diabetes mellitus Grandparent Breast cancer Diabetes mellitus Grandparent Hypertension Diabetes mellitus Social History Social History Smoking packs per day: 0.5 Smoking cigarettes per day: 10.0 Smoking status: Former smoker Alcohol intake: never Substance use: never Substance use type: does not use Do You Feel Safe in your Home?: Yes Lack of Transportation: No Lack of Food: Never True Current Housing: Decline to Answer Concerned About Future Housing: Decline to Answer Difficulty Paying Gas/Electric Bills: Decline to Answer Difficulty Paying for Meds: Decline to Answer Currently Unemployed: Decline to Answer Education: Associate Degree Difficulty w/ Childcare or Family Care: No Spiritual care concerns: No Exam 2 Narrative: GENERAL: Well appearing, well-nourished, non-toxic, in no acute distress. HEAD: Normocephalic, atraumatic. NECK: Supple. No adenopathy, no masses. RESPIRATORY: Airway patent, respirations nonlabored. Clear to auscultation bilaterally, no rales, rhonchi, wheezing. CARDIOVASCULAR: Regular rate and rhythm without murmurs, rubs, or gallops. Peripheral pulses 2+ and equal bilaterally. ABDOMINAL: Soft, nontender, nondistended, no hepatosplenomegaly. Normoactive BS. MUSCULOSKELETAL: Moves all extremities. Decreased strength in lower extremities (L stronger then R with flexion and extension), normal sensation SKIN: Warm, dry, normal color. No rashes. NEURO: A&O X3. Speech clear. Cranial nerves II-XII intact. No ataxic movements. PSYCHIATRIC: Appropriate mood and affect. Normal interaction. Course Vital Signs Vital signs: Vital Signs Temperature 36.8 C 08/03/24 08:46 Pulse Rate 96 08/03/24 08:46 Respiratory Rate 15 08/03/24 08:46 Blood Pressure 133/75 08/03/24 08:46 Pulse Oximetry 98 08/03/24 08:46 Oxygen Delivery Room Air 08/03/24 08:46 Temperature 36.5 C 08/03/24 12:08 Pulse Rate 82 08/03/24 17:15 Respiratory Rate 17 08/03/24 17:15 Blood Pressure 119/74 08/03/24 17:15 Pulse Oximetry 93 08/03/24 17:15 Oxygen Delivery Room Air 08/03/24 17:15 Oxygen Flow Rate 8 08/03/24 16:30 MDM - Back Pain/Injury MDM Narrative Medical decision making narrative: Patient is a 29-year-old female who presents the with complaints back pain that radiates her right leg. She reports she has a neurologist to recently diagnosed her with a herniated disc. Patient called his office this morning and they advised her to come to the ER for evaluation. She had an MRI yesterday which showed Mild lumbar spondylosis most notable for annular fissure and large central disc extrusion at L4-L5 which fills the majority of the central canal resulting in severe central canal stenosis. Patient reports she started experiencing left lower extremity pain, numbness and tingling, which then radiated to her right hip, thigh and lower extremity. She endorses significant loss of strength in her right leg and is ?unable to walk. Patient denies saddle anesthesia, loss of continence, loss of bowels, abdominal pain, urinary symptoms. She endorses a past medical history a left lower knee degloving and a fall on the ice in May. Labs Ordered: CBC, CMP, INR, PTT, Imaging Ordered: Chest x-ray Medications Ordered: Toradol 15 mg IV, Solu-Medrol 125 mg IV, Dilaudid 0.5 mg IV, Zofran 4 mg IV, 1 L normal saline IV bolus Results: Pt's MRI from yesterday indicates Mild lumbar spondylosis most notable for annular fissure and large central disc extrusion at L4-L5 which fills the majority of the central canal resulting in severe central canal stenosis. Diagnosis: annular fissure and large central disc extrusion at L4-L5 Consults: 1030-spoke with Neurosurgery, Dr. Roberson, who is in agreement with taking patient to surgery today. Patient Education/Shared MDM: Results shared of conversation with Dr. Roberson with patient and her mother. She endorses improvement following medication administration. Plan is for patient to be taken to the OR around 1:00 p.m. today. She has been NPO since 11/08 this morning. 1120-spoke with hospitalist to make him aware that patient is undergoing surgery today and will be admitted to the hospital afterwards. Differential Diagnosis Differential diagnosis: Likely lumbar radiculopathy, sciatica, strain of lumbar region, thoracic back pain and other (annular fissure with disc extrusion) Lab Data Attestation: I reviewed the patient's lab results. 08/03/24 11:14 08/03/24 11:14 Labs: Lab Results 08/03/24 Range/Units 11:14 WBC 11.8 H (4.5-10.0) K/mm3 RBC 4.47 (4.2-5.4) M/mm3 Hgb 13.3 (12.0-15.0) g/dL Hct 40.3 (37.0-47.0) % MCV 90.2 (80-100) fl MCH 29.8 (26-34) pg MCHC 33.0 (32-36) g/dl RDW 12.6 (11.5-14.5) % Plt Count 371 (150-375) k/mm3 MPV 9.3 (7.4-10.4) fl Immature Gran % (Auto) 0.3 (0-0.5) % Neut % (Auto) 75.3 H (45.5-73.1) % Lymph % (Auto) 19.1 (18.3-44.2) % [place] % (Auto) 4.7 (2.6-8.5) % Eos % (Auto) 0.3 (0-4.4) % Baso % (Auto) 0.3 (0.2-1.2) % Lymph # (Auto) 2.25 (0.9-3.2) K/mm3 [place] # (Auto) 0.6 (0.1-0.6) K/mm3 Eos # (Auto) 0.0 (0-0.3) K/mm3 Baso # (Auto) 0.0 (0.0-0.1) K/mm3 Abs Immat Gran (auto) 0.04 H (0.00-0.031) K/mm3 Absolute Neuts (auto) 8.8 H (1.3-6.7) K/mm3 Absolute Nucleated RBC 0.000 (0.0-0.012) K/mm3 Nucleated RBC % 0.0 (0.0-0.2) % PT 13.0 (11.1-14.7) Seconds INR 0.9 APTT 29.6 (22.3-36.8) Seconds Sodium 139 (137-145) mmol/L Potassium 3.7 (3.4-5.0) mmol/L Chloride 102 (98-107) mmol/L Carbon Dioxide 23 (22-30) mmol/L Anion Gap 14 H (4-12) mmol/L BUN 14 (7-17) mg/dL Creatinine 0.63 L (0.7-1.0) mg/dL Estim Creat Clear Calc 144 ml/min Estimated GFR > 60 (59 - ) Glucose 121 H (65-110) mg/dL Calcium 10.4 H (8.4-10.2) mg/dL Total Bilirubin 0.8 (0.2-1.3) mg/dL AST 24 (14-36) U/L ALT 41 H (6-35) U/L Alkaline Phosphatase 57 (38-126) U/L Total Protein 8.0 (6.3-8.2) g/dL Albumin 4.6 (3.5-5.1) g/dL Discharge Plan Discharge Clinical Impression: Cauda equina syndrome Patient Disposition: Still a Patient Condition: Serious
--- OUTSIDE RECORDS SUMMARY | 2024-08-03 09:08 | XMS_ITS | Clinical Summary ---
Author Organization [facility] Address [address] [facility], [place] [address] Phone Care Team Providers Care Frame Cleaner Name Role Phone Avi Floyd MD Primary Care Provider [phone] Allergies Active Allergy Reactions Criticality Noted Date [...] Comments Blood Pressure 122/80 07/01/2019 11:03 AM NATURAL DEVELOPER Pulse 86 07/01/2019 11:03 AM NATURAL DEVELOPER Temperature 36.8 C (98.3 F) 07/01/2019 11:03 AM NATURAL DEVELOPER Respiratory Rate 22 07/01/2019 11:03 AM NATURAL DEVELOPER Oxygen Saturation 99% 07/01/2019 11:03 AM NATURAL DEVELOPER Inhaled Oxygen Concentration - - Weight 114.3 kg (252 lb) 07/01/2019 11:03 AM NATURAL DEVELOPER Height 166.6 cm (5' 5.6) 07/01/2019 11:03 AM CS T Body Mass Index 41.17 07/01/2019 11:03 AM NATURAL DEVELOPER Plan of Treatment Health Maintenance Due Date [...] this topic Insurance MEDICAID [place]DE[place] Care Teams Frame Cleaner Relationship Specialty Start Date End Date Avi Floyd MD [address] [place] [address] PCP - General Family Medicine 12/18/18
--- OUTSIDE RECORDS SUMMARY | 2024-08-03 09:08 | XMS_ITS | Encounter Summary ---
Author Organization [facility] Address [address] [place] [address] Phone Care Team Providers Care Wrapper Stemmer Hand Name Role Phone Avi Floyd MD Primary Care Provider [phone] Reason for Visit * Reason Comments Medication Refill Encounter Details Date Type Department Care Team (Late st Contact Info) Description 05/30/2020 Refill [facility] - [facility] #[address] [place] [address] Ryan Willingham MD [address] [place] [address] Medication Refill Social History Tobacco Use Types [...] present documented in this encounter Care Teams Wrapper Stemmer Hand Relationship Specialty Start Date End Date Avi Floyd MD [address] [place] [address] PCP - General Family Medicine 12/18/18 documented as of this encounter
--- OUTSIDE RECORDS SUMMARY | 2024-08-03 09:08 | XMS_ITS | Encounter Summary ---
Author Organization [facility] Address [address] [place] [address] Care Team Providers Care Supervisor Microwave Name Role Phone Avi Floyd MD Primary Care Provider [phone] Lucille Jackson MD Primary Care Provider [phone] Encounter Details Date Type Department Care Team (Late st Contact Info) Description 10/17/2018 Abstract SFL CONVERSION [address] [place], [place] [id number] , Generic Conversion, Social History Tobacco Use Types Packs/Day Years Used Date Smoking Tobacco: Never Assessed Comments Unknown Sex and Gender Information Value Date Recorded Sex Assigned at Not on file 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
--- OUTSIDE RECORDS SUMMARY | 2024-08-03 09:08 | XMS_ITS | Encounter Summary ---
Author Organization [facility] Address [address] [place] [address] Phone Care Team Providers Care Calender Roll Press Operator Name Role Phone Avi Floyd MD Primary Care Provider [phone] Reason for Visit * Reason Comments Medication Refill Encounter Details Date Type Department Care Team (Late st Contact Info) Description 02/23/2020 Refill [facility] - Neurology [facility] [address] [place] [address] Ryan Willingham MD [address] [place] [id number] Medication Refill Social History Tobacco Use Types [...] present documented in this encounter Care Teams Calender Roll Press Operator Relationship Specialty Start Date End Date Avi Floyd MD [address] [place] [address] PCP - General Family Medicine 12/18/18 documented as of this encounter
--- OUTSIDE RECORDS SUMMARY | 2024-08-03 09:08 | XMS_ITS | Clinical Summary ---
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 FOR HB BILLS FOR SFL FOR AUTOMATED RECORDS Care Teams Progressive Care Unit Registered Nurse Relationship Specialty Start Date End Date Lucille Jackson MD [address] [place] [address] PCP - General INTERNAL MEDICINE 05/25/19
[2024-08-03] MEDS: ONDANSETRON INJ 4 MG/2 ML VIAL IV PUSH ×2 (09:32→23:29)
[2024-08-03] MEDS: KETOROLAC 15 MG/ML VIAL (*BKC) IV PUSH (09:34)
[2024-08-03] MEDS: HYDROmorphone HCL INJ (*CRX) 1 MG/ML SYR 0.5 MG IV PUSH (09:38)
[2024-08-03] MEDS: methylPREDNISolone SOD SUCC 125 MG VIAL IV PUSH (09:42)
--- OUTSIDE RECORDS SUMMARY | 2024-08-03 10:12 | XMS_ITS | Clinical Summary ---
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 FOR HB BILLS FOR SFL FOR AUTOMATED RECORDS Care Teams Computer Information Systems Professor Relationship Specialty Start Date End Date Lucille Jackson MD [address] [place] [address] PCP - General INTERNAL MEDICINE 05/25/19
--- OUTSIDE RECORDS SUMMARY | 2024-08-03 10:12 | XMS_ITS | Encounter Summary ---
Author Organization [facility] Address [address] [place] [address] Phone Care Team Providers Care Ambulance Officer Name Role Phone Avi Floyd MD Primary Care Provider [phone] Reason for Visit * Reason Comments Medication Refill Encounter Details Date Type Department Care Team (Late st Contact Info) Description 05/30/2020 Refill [facility] - [facility] [address] [place] [address] Ryan Willingham MD [address] [place] [address] Medication Refill Social History Tobacco Use Types [...] present documented in this encounter Care Teams Ambulance Officer Relationship Specialty Start Date End Date Avi Floyd MD [address] [place] [address] PCP - General Family Medicine 12/18/18 documented as of this encounter
--- OUTSIDE RECORDS SUMMARY | 2024-08-03 10:12 | XMS_ITS | Encounter Summary ---
Author Organization [facility] Address [address] [place] [address] Phone Care Team Providers Care Guest Service Representative Name Role Phone Aiv Floyd MD Primary Care Provider [phone] Reason for Visit * Reason Comments Medication Refill Encounter Details Date Type Department Care Team (Late st Contact Info) Description 02/23/2020 Refill [facility] - Neu[facility] [address] [place] [address] Ryan Willingham MD [address] [place] [id number] Medication Refill Social History Tobacco Use Types [...] present documented in this encounter Care Teams Guest Service Representative Relationship Specialty Start Date End Date Avi Floyd MD [address] [place] [address] PCP - General Family Medicine 12/18/18 documented as of this encounter
--- OUTSIDE RECORDS SUMMARY | 2024-08-03 10:12 | XMS_ITS | Clinical Summary ---
Author Organization [facility] Address [address] [facility] [place] [address] Phone Care Team Providers Care Parachute Harness Rigger Name Role Phone Avi Floyd MD Primary Care Provider [phone] Allergies Active Allergy Reactions Criticality Noted Date [...] Comments Blood Pressure 122/80 07/01/2019 11:03 AM HANDYMAN Pulse 86 07/01/2019 11:03 AM HANDYMAN Temperature 36.8 C (98.3 F) 07/01/2019 11:03 AM HANDYMAN Respiratory Rate 22 07/01/2019 11:03 AM HANDYMAN Oxygen Saturation 99% 07/01/2019 11:03 AM HANDYMAN Inhaled Oxygen Concentration - - Weight 114.3 kg (252 lb) 07/01/2019 11:03 AM HANDYMAN Height 166.6 cm (5' 5.6) 07/01/2019 11:03 AM CS T Body Mass Index 41.17 07/01/2019 11:03 AM HANDYMAN Plan of Treatment Health Maintenance Due Date [...] this topic Insurance MEDICAID [place] Care Teams Parachute Harness Rigger Relationship Specialty Start Date End Date Avi Floyd MD [address] [place] [address] PCP - General Family Medicine 12/18/18
--- OUTSIDE RECORDS SUMMARY | 2024-08-03 10:12 | XMS_ITS | Encounter Summary ---
Author Organization [facility] Address [address] [place] [address] Care Team Providers Care Sap Developer Name Role Phone Avi Floyd MD Primary Care Provider [phone] Lucille Jackson MD Primary Care Provider [phone] Encounter Details Date Type Department Care Team (Late st Contact Info) Description 10/17/2018 Abstract SFL CONVERSION [address] [place], [place] [id number] , Generic Conversion, Social History Tobacco Use Types Packs/Day Years Used Date Smoking Tobacco: Never Assessed Comments Unknown Sex and Gender Information Value Date Recorded Sex Assigned at Not on file Legal 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
--- NOTE | 2024-08-03 11:09 | ECG_ITS ---
Test Date: 2024-08-03 11:20:50 Measurements Intervals [place] Rate: 90 P: 25 HI: 148 QRS: 31 QRSD: 74 T: 107 QT: 346 QTc: 425 Interpretive Statements SINUS RHYTHM WITH MARKED SINUS ARRHYTHMIA ST DEVIATION AND MODERATE T-WAVE ABNORMALITY, CONSIDER ANTEROLATERAL ISCHEMIA [-0.1+ mV T WAVE IN V3-V6] No previous ECG available for comparison Electronically Signed On 08-03-2024 16:44:11 CDT by Louis Ervin M.D.
[2024-08-03 11:20] LABS: Basophils Percent Auto 0.3 % (0.2-1.2); Eosinophils Percent Auto 0.3 % (0-4.4); Hematocrit 40.3 % (37.0-47.0); Hemoglobin 13.3 g/dL (12.0-15.0); Immature Granulocyte Absolute 0.04 K/mm3 (0.00-0.031); Immature Granulocyte Percent A 0.3 % (0-0.5); Lymphocytes Absolute Auto 2.25 K/mm3 (0.9-3.2); Lymphocytes Percent Auto 19.1 % (18.3-44.2); Mean Corpuscular Hemoglobin 29.8 pg (26-34); Mean Corpuscular Volume 90.2 fl (80-100); Mean Platelet Volume 9.3 fl (7.4-10.4); Monocytes Absolute Auto 0.6 K/mm3 (0.1-0.6); Monocytes Percent Auto 4.7 % (2.6-8.5); Neutrophils Absolute Auto 8.8 K/mm3 (1.3-6.7); Neutrophils Percent Auto 75.3 % (45.5-73.1); Platelet Count Result 371 k/mm3 (150-375); Red Blood Count 4.47 M/mm3 (4.2-5.4); Red Cell Distribution Width 12.6 % (11.5-14.5); White Blood Count 11.8 K/mm3 (4.5-10.0)
[2024-08-03 11:33] LABS: Alanine Aminotransferase 41 U/L (6-35); Albumin Level 4.6 g/dL (3.5-5.1); Alkaline Phosphatase 57 U/L (38-126); Anion Gap 14 mmol/L (4-12); Aspartate Amino Transferase 24 U/L (14-36); Bilirubin,Total 0.8 mg/dL (0.2-1.3); Blood Urea Nitrogen 14 mg/dL (7-17); Calcium 10.4 mg/dL (8.4-10.2); Carbon Dioxide 23 mmol/L (22-30); Chloride 102 mmol/L (98-107); Estimated CRCL calculation 144 ml/min; Estimated Glomerular Filt Rate > 60; Glucose 121 mg/dL (65-110); INR 0.9; Potassium 3.7 mmol/L (3.4-5.0); Sodium 139 mmol/L (137-145)
[2024-08-03 11:34] LABS: Partial Thromboplastin Time 29.6 Seconds (22.3-36.8)
[2024-08-03] MEDS: MORPHINE SULFATE (*CRX) 4 MG/ML INJ IV PUSH (11:40)
[2024-08-03] MEDS: SODIUM CHLORIDE 0.9% IV 1,000 ML 999 ML IV CONT (11:41)
--- NOTE | 2024-08-03 12:38 | P.HP_ITS ---
H&P: HPI History of Present Illness Date/Time: 08/03/24 12:38 Chief Complaint: cauda equina syndrome Narrative: Ms. Marinelli is a 29-year-old female with history of hyperlipidemia, morbid obesity who presented to the ER today with worsening lower-extremity symptoms on the advice of En[place], our RAY, who had spoken with her yesterday. The patient had two falls on ice in May onto her buttocks. She had some pain in her back and left leg for which she did some physical therapy that worsened her symptoms. She was dragging her left foot at one time which eventually improved spontaneously. Her pain has consistently worsened, and she went to the ER a couple weeks ago in [place] at which time she was given some steroids and told to stop therapy. Enid saw her a week ago and ordered MRI which she had completed over the weekend revealing an extremely large disc herniation at L4-5. Her symptoms have steadily worsened over the last week to the point that she has been essentially bed bound. Her major symptoms have more recently been on the right side. She has excruciating pain down the back of the right leg. She has numbness in both feet and has had a few episodes of saddle anesthesia. She denies bowel/bladder dysfunction recently but did just finish treatment of a UTI. She is otherwise healthy and does not smoke or take blood thinners. She is not currently working but is in the process of applying for jobs. Review of Systems Review of Systems: All systems reviewed & are unremarkable except as noted in HPI and below PMFSH Past Medical History Medical History Anxiety Colic, ureteral Family History Family History Father Alcoholism Hypertension Heart disease Diabetes mellitus Grandparent Breast cancer Diabetes mellitus Grandparent Hypertension Diabetes mellitus Social History Social History Smoking packs per day: 0.5 Smoking cigarettes per day: 10.0 Smoking status: Former smoker Tobacco type: cigarettes Alcohol intake: never Substance use: never Substance use type: does not use Do You Feel Safe in your Home?: Yes Lack of Transportation: No Lack of Food: Never True Current Housing: Decline to Answer Concerned About Future Housing: Decline to Answer Difficulty Paying Gas/Electric Bills: Decline to Answer Difficulty Paying for Meds: Decline to Answer Currently Unemployed: Decline to Answer Education: Associate Degree Difficulty w/ Childcare or Family Care: No Meds Home Medications and Allergies Home Medications ?Medication ?Instructions ?Recorded ?Confirmed ?Type ibuprofen 800 mg tablet 800 mg PO TID #20 tabs 12/26/21 08/02/24 Rx omeprazole magnesium 20 mg 20 mg PO BID #20 tabs 12/26/21 08/02/24 Rx tablet,delayed release (Prilosec OTC) sulfamethoxazole 800 1 tablet PO Q12H #20 tabs 07/19/24 08/02/24 Rx mg-trimethoprim 160 mg tablet (Bactrim DS) ondansetron HCl 8 mg tablet 8 mg PO Q12H #20 tabs 07/26/24 08/02/24 Rx cyclobenzaprine 10 mg tablet 10 mg PO TID PRN muscle spasm #21 07/28/24 08/02/24 Rx tabs methylprednisolone 4 mg tablets in See Rx Instructions PO PER PKG DIR 07/29/24 08/02/24 Rx a dose pack (Medrol (Zohaib)) #21 ea Allergies Allergy/AdvReac Type Severity Reaction Status Date / Time acetaminophen (From [place]) AdvReac Unknown Itching Verified 08/03/24 08:53 hydrocodone (From [place]) AdvReac Unknown Itching Verified 08/03/24 08:53 Vital Signs Vital Signs - 24 hr 08/03/24 08:46 08/03/24 09:20 08/03/24 11:05 Temperature 98.2 F Pulse Rate 96 90 71 Respiratory Rate 15 14 15 Blood Pressure 133/75 143/94 H 123/89 Pulse Oximetry 98 96 97 Oxygen Delivery Room Air 08/03/24 12:08 Temperature 97.7 F Pulse Rate 93 Respiratory Rate 15 Blood Pressure 148/95 H Pulse Oximetry 96 Oxygen Delivery Exam Narrative: Right leg 4/5 hip flexion, 4/5 knee extension, 3/5 dorsiflexion, 3/5 plantar flexion Left leg 4+/5 hip flexion, 4+/5 knee extension, 4/5 dorsiflexion, 4/5 plantar flexion Decreased sensation to light touch of right pelvic region and left lateral distal leg Severe pain to any manipulation of patient Unless otherwise stated above, the patient's physical exam is as follows: General: -Well developed and well nourished. No a cute distress. Cooperative with exam. Mental status: -Awake and oriented to person, place, an d time. Integumentary: -No obvious skin lesions or masses Motor: -Muscle tone normal without spasticity o f flaccidity. No atrophy. No fasciculations. -No pronator drift -Right upper extremity: deltoid 5/5, bic eps 5/5, triceps 5/5, wrist extensors 5/5, wrist flexors 5/5, intrinsics 5/5 -Left upper extremity: deltoid 5/5, chanelle ps 5/5, triceps 5/5, wrist extensors 5/5, wrist flexors 5/5, intrinsics 5/5 -Right lower extremity: iliopsoas 5/5, q uadriceps 5/5, hamstrings 5/5, tibialis anterior 5/5, gastroc-soleus 5/5, EHL 5/5 -Left lower extremity: iliopsoas 5/5, qu adriceps 5/5, hamstrings 5/5, tibialis anterior 5/5, gastroc-soleus 5/5, EHL 5/5 Sensory: -Intact to light touch throughout -Normal proprioception throughout Reflexes: -1-2+ DTR's throughout -No Lopez's, clonus, or Babinski bilat erally Musculoskeletal: -Lumbar spine: no tenderness to palpatio n, no pain, and normal lumbosacral spine movements -Oyjkievk-[id number]-[id number] test negative -Hip: normal range of motion, no crepitu s bilaterally. No pain reproduced on TOLU or FAIR testing bilaterally -Knee: no instability, subluxation or la xity, and no crepitus bilaterally H&P: Results Labs Labs: Short CBC 08/03/24 Range/Units 11:14 WBC 11.8 H (4.5-10.0) K/mm3 Hgb 13.3 (12.0-15.0) g/dL Hct 40.3 (37.0-47.0) % Plt Count 371 (150-375) k/mm3 [facility] 08/03/24 11:14 Sodium 139 Potassium 3.7 Chloride 102 Carbon Dioxide 23 BUN 14 Creatinine 0.63 L Glucose 121 H Calcium 10.4 H Liver Function 03/25/25 Range/Units 11:14 Total Bilirubin 0.8 (0.2-1.3) mg/dL AST 24 (14-36) U/L ALT 41 H (6-35) U/L Alkaline Phosphatase 57 (38-126) U/L Albumin 4.6 (3.5-5.1) g/dL Imaging MRI lumbar: My impression: I personally reviewed the MRI lumbar spine which shows an extremely large central disc herniation at L4-5 causing obliteration of the spinal canal Assessment and Plan Assessment and plan (1) Cauda equina syndrome: Code(s): G83.4 - Cauda equina syndrome Status: Acute (2) Lumbar disc herniation: Code(s): M51.26 - Other intervertebral disc displacement, lumbar region Status: Acute Plan Ms. Marinelli is a 29-year-old female with progressively worsening back and lower- extremity pain and numbness who has become incapacitated over the last week with worsened right leg pain/weakness and several episodes of pelvic anesthesia. She presented to the ER today on the advice of our RAY who saw her initially in clinic last week. She does have objective weakness and sensory deficits on exam. MRI shows an extremely large disc herniation at L4-5 which is obliterating her spinal canal. I reviewed this at bedside with the patient and her mother. I have recommended surgery in the form of L4-5 laminectomy and discectomy. I have discussed surgery in detail including risks, expected recovery, and restrictions after surgery. We discussed risks of not doing surgery which greatly outweigh the risks of surgery. I am concerned there is a possibility that the disc herniation could be intradural which would cause a CSF leak upon removal. Regardless, we will plan to admit her to the hospital after surgery. She expressed understanding and would like to proceed with surgery as discussed.
--- NOTE | 2024-08-03 12:49 | WPDHPUPDATE1 ---
History and Physical Update Update Date/Time: 08/03/24 12:49 History and Physical has been reviewed, including an updated exam of the patient. There are NO changes in the patient's condition. Risks, benefits, and alternatives have been discussed and questions answered. Patient agrees to proceed with procedure.
--- OUTSIDE RECORDS SUMMARY | 2024-08-03 13:47 | XMS_ITS | Encounter Summary ---
Author Organization [facility] Address [address] [place] [address] Care Team Providers Care Manager Packaging Name Role Phone Avi Floyd MD Primary Care Provider [phone] Lucille Jackson MD Primary Care Provider [phone] Encounter Details Date Type Department Care Team (Late st Contact Info) Description 10/17/2018 Abstract SFL CONVERSION [address] [place], [place] [id number] , Generic Conversion, Social History Tobacco Use Types Packs/Day Years Used Date Smoking Tobacco: Never Assessed Comments Unknown Sex and Gender Information Value Date Recorded Sex Assigned at Not on file 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
--- OUTSIDE RECORDS SUMMARY | 2024-08-03 13:47 | XMS_ITS | Encounter Summary ---
Author Organization [facility] Address [address] [place] [address] Phone Care Team Providers Care Softball Umpire Name Role Phone Avi Floyd MD Primary Care Provider [phone] Reason for Visit * Reason Comments Medication Refill Encounter Details Date Type Department Care Team (Late st Contact Info) Description 02/23/2020 Refill [facility] - Neu[facility] [address] [place] [address] Ryan Willingham MD [address] [place] [phone] Medication Refill Social History Tobacco Use Types [...] present documented in this encounter Care Teams Softball Umpire Relationship Specialty Start Date End Date Avi Floyd MD [address] [place] [address] PCP - General Family Medicine 12/18/18 documented as of this encounter
--- OUTSIDE RECORDS SUMMARY | 2024-08-03 13:47 | XMS_ITS | Encounter Summary ---
Author Organization [facility] Address [address] [place] [address] Phone Care Team Providers Care Skinner Pelts Name Role Phone Avi Floyd MD Primary Care Provider [phone] Reason for Visit * Reason Comments Medication Refill Encounter Details Date Type Department Care Team (Late st Contact Info) Description 05/30/2020 Refill [facility] - Neurology [facility] [address] [place] [address] Ryan Willingham MD [address] [place] [address] Medication Refill Social History Tobacco Use Types [...] present documented in this encounter Care Teams Skinner Pelts Relationship Specialty Start Date End Date Avi Floyd MD [address] [facility] [address] [place] [address] PCP - General Family Medicine 12/18/18 documented as of this encounter
--- OUTSIDE RECORDS SUMMARY | 2024-08-03 13:47 | XMS_ITS | Clinical Summary ---
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 FOR HB BILLS FOR SFL FOR AUTOMATED RECORDS Care Teams Event Producer Relationship Specialty Start Date End Date Lucille Jackson MD [address] [place] [address] PCP - General INTERNAL MEDICINE 05/25/19
--- OUTSIDE RECORDS SUMMARY | 2024-08-03 13:47 | XMS_ITS | Clinical Summary ---
Author Organization [facility] Address [address] [facility] [place] [address] Phone Care Team Providers Care Certified Personal Trainer Name Role Phone Avi Floyd MD Primary Care Provider [phone] Allergies Active Allergy Reactions Criticality Noted Date [...] Comments Blood Pressure 122/80 07/01/2019 11:03 AM DIGITAL PROOFING AND PLATEMAKER Pulse 86 07/01/2019 11:03 AM DIGITAL PROOFING AND PLATEMAKER Temperature 36.8 C (98.3 F) 07/01/2019 11:03 AM DIGITAL PROOFING AND PLATEMAKER Respiratory Rate 22 07/01/2019 11:03 AM DIGITAL PROOFING AND PLATEMAKER Oxygen Saturation 99% 07/01/2019 11:03 AM DIGITAL PROOFING AND PLATEMAKER Inhaled Oxygen Concentration - - Weight 114.3 kg (252 lb) 07/01/2019 11:03 AM DIGITAL PROOFING AND PLATEMAKER Height 166.6 cm (5' 5.6) 07/01/2019 11:03 AM CS T Body Mass Index 41.17 07/01/2019 11:03 AM DIGITAL PROOFING AND PLATEMAKER Plan of Treatment Health Maintenance Due Date [...] this topic Insurance MEDICAID [place] Care Teams Certified Personal Trainer Relationship Specialty Start Date End Date Avi Floyd MD [address] [place] [place] [address] PCP - General Family Medicine 12/18/18
--- NOTE | 2024-08-03 13:52 | WPDANESEPPF ---
Anes - Initial Pre Proc Eval Procedure: Operation Date: 08/03/24 13:30 Proposed Procedures p L4-5 Lumbar Laminectomy and Discectomy - Sonia Roberson MD Date/Time: 08/03/24 13:52 Surgeon: Sonia Roberson MD Pre Op Diagnosis: back pain, legs Patient Data Age: 29 Gender: F Height: 1.68 m Weight: 118.1 kg Last Vital Signs Temp 97.7 F 08/03/24 12:08 Pulse 93 08/03/24 12:08 Resp 15 08/03/24 12:08 BP 148/95 H 08/03/24 12:08 Pulse Ox 96 08/03/24 12:08 O2 Del Method Room Air 08/03/24 08:46 Allergies Allergy/AdvReac Type Severity Reaction Status Date / Time acetaminophen (From [place]) AdvReac Unknown Itching Verified 08/03/24 08:53 hydrocodone (From [place]) AdvReac Unknown Itching Verified 08/03/24 08:53 Home Medications ?Medication ?Instructions ?Recorded ?Confirmed ?Type ibuprofen 800 mg tablet 800 mg PO TID #20 tabs 12/26/21 08/02/24 Rx omeprazole magnesium 20 mg 20 mg PO BID #20 tabs 12/26/21 08/02/24 Rx tablet,delayed release (Prilosec OTC) sulfamethoxazole 800 1 tablet PO Q12H #20 tabs 07/19/24 08/02/24 Rx mg-trimethoprim 160 mg tablet (Bactrim DS) ondansetron HCl 8 mg tablet 8 mg PO Q12H #20 tabs 07/26/24 08/02/24 Rx cyclobenzaprine 10 mg tablet 10 mg PO TID PRN muscle spasm #21 07/28/24 08/02/24 Rx tabs methylprednisolone 4 mg tablets in See Rx Instructions PO PER PKG DIR 07/29/24 08/02/24 Rx a dose pack (Medrol (Zohaib)) #21 ea Laboratory Tests 08/03/24 11:14 WBC 11.8 H K/mm3 (4.5-10.0) RBC 4.47 M/mm3 (4.2-5.4) Hgb 13.3 g/dL (12.0-15.0) Hct 40.3 % (37.0-47.0) MCV 90.2 fl (80-100) MCH 29.8 pg (26-34) MCHC 33.0 g/dl (32-36) RDW 12.6 % (11.5-14.5) Plt Count 371 k/mm3 (150-375) MPV 9.3 fl (7.4-10.4) Immature Gran % (Auto) 0.3 % (0-0.5) Neut % (Auto) 75.3 H % (45.5-73.1) Lymph % (Auto) 19.1 % (18.3-44.2) [place] % (Auto) 4.7 % (2.6-8.5) Eos % (Auto) 0.3 % (0-4.4) Baso % (Auto) 0.3 % (0.2-1.2) Lymph # (Auto) 2.25 K/mm3 (0.9-3.2) [place] # (Auto) 0.6 K/mm3 (0.1-0.6) Eos # (Auto) 0.0 K/mm3 (0-0.3) Baso # (Auto) 0.0 K/mm3 (0.0-0.1) Abs Immat Gran (auto) 0.04 H K/mm3 (0.00-0.031) Absolute Neuts (auto) 8.8 H K/mm3 (1.3-6.7) Absolute Nucleated RBC 0.000 K/mm3 (0.0-0.012) Nucleated RBC % 0.0 % (0.0-0.2) PT 13.0 Seconds (11.1-14.7) INR 0.9 APTT 29.6 Seconds (22.3-36.8) Sodium 139 mmol/L (137-145) Potassium 3.7 mmol/L (3.4-5.0) Chloride 102 mmol/L (98-107) Carbon Dioxide 23 mmol/L (22-30) Anion Gap 14 H mmol/L (4-12) BUN 14 mg/dL (7-17) Creatinine 0.63 L mg/dL (0.7-1.0) Estim Creat Clear Calc 144 ml/min Estimated GFR > 60 (59 - ) Glucose 121 H mg/dL (65-110) Calcium 10.4 H mg/dL (8.4-10.2) Total Bilirubin 0.8 mg/dL (0.2-1.3) AST 24 U/L (14-36) ALT 41 H U/L (6-35) Alkaline Phosphatase 57 U/L (38-126) Total Protein 8.0 g/dL (6.3-8.2) Albumin 4.6 g/dL (3.5-5.1) Patient hx anesthesia problems: none Family hx anesthesia problems: none Results Review: All pre-operative results and documents have been reviewed as part of the pre-operative evaluation. [facility] Past Medical History Medical History Anxiety Colic, ureteral Family History Family History Father Alcoholism Hypertension Heart disease Diabetes mellitus Grandparent Breast cancer Diabetes mellitus Grandparent Hypertension Diabetes mellitus Social History Social History Smoking packs per day: 0.5 Smoking cigarettes per day: 10.0 Smoking status: Former smoker Tobacco type: cigarettes Alcohol intake: never Substance use: never Substance use type: does not use Do You Feel Safe in your Home?: Yes Lack of Transportation: No Lack of Food: Never True Current Housing: Decline to Answer Concerned About Future Housing: Decline to Answer Difficulty Paying Gas/Electric Bills: Decline to Answer Difficulty Paying for Meds: Decline to Answer Currently Unemployed: Decline to Answer Education: Associate Degree Difficulty w/ Childcare or Family Care: No Anes - Eval Final PreProcedure Day of Procedure 08/03/24 13:52 Patient weight: morbidly obese Heart: regular rate and rhythm Lungs: clear to auscultation Airway: Mallampati scale class III Neurological: alert and oriented Last oral intake: >/= 8 hours and 6 hours (had protein bar at 0600 hours) ASA classification: III Emergent: yes Anesthetic plan: proceed Anesthesia type and monitoring: general and standard monitoring Results Review: All pre-operative results and documents have been reviewed as part of the pre-operative evaluation. Informed Consent: The patient's anesthetic plan and its attendant risks and benefits were discussed with the patient/family/POA. Questions were solicited and answers provided to the satisfaction of the patient/family/POA.
[2024-08-03] MEDS: ceFAZolin 2 GM/D5W 50 ML 2 GM/50 ML BAG IVPB ×2 (14:02→20:53)
[2024-08-03] MEDS: BUPIVACAINE/EPINEPHRINE 0.5% 10 ML VIAL 30 ML INFILTRATE (14:31)
--- NOTE | 2024-08-03 16:04 | PM.OP ---
Procedure Note - Brief Procedure Note - Brief Date of procedure: 08/03/24 cauda equina syndrome Post-op diagnosis: Same Procedure performed: L4-5 laminectomy, diskectomy Surgeon: Sonia Roberson MD Utility Repairer: Brittnee Anesthesia: GETA Findings: Wide laminectomy performed. Massive disc herniation at L4-5. Large tear in annulus observed once disc material removed. Drains: No Packing: No Pathology: None sent Complications: None Condition: Stable Disposition: PACU
--- NOTE | 2024-08-03 16:10 | P.OP_ITS ---
Procedure Note - Detailed Date of Procedure 08/03/24 Pre-op Diagnosis cauda equina syndrome Post-op Diagnosis Same Procedure Performed 1. L4-5 laminectomy and diskectomy 2. Use of C-arm 3. Use of microscope Surgeon Sonia Roberson MD Sales Applications Engineer [facility] Anesthesia General Description of Procedure The patient was brought to the operating room, and general anesthesia was induced. The patient was placed prone on the Reinier frame, and all pressure points were padded. Compression devices were placed on the patient's calves. The skin was cleaned with alcohol. The C-arm was brought onto the field to localize the appropriate disc space and assist with incisional planning. The area was prepped and draped in usual sterile fashion. A time out was conducted, and pre- operative antibiotics were administered. Local anesthesia was injected into the planned incision. A midline skin incision was made with a 10-blade scalpel, and dissection was carried down with the monopolar cautery to open the fascia. Once the spinous processes were located, a subperiosteal dissection was performed to expose the laminae bilaterally. A self-retaining retractor was placed. The C-arm was brought in to confirm the correct level. The microscope was draped and brought into the field. The spinous process was removed with a Leksell. The high-speed drill was used to thin the lamina bilaterally to the ligamentum flavum. A currette was used to separate the ligamentum flavum from the overlying bone, and lamina was removed with a kerrison bilaterally. The ligamentum flavum was opened with the Kerrison. From the left side, the dura was elevated in the ventral epidural space, exposing the large central disc herniation. This was gradually teased out with a nerve hook and removed in multiple large pieces with a pituitary. There was a very large amount of disc that was freely in the epidural space. A nerve hook was passed through the large annular tear to deliver any free disc material in the disc space which was removed as well. A Woodsen was used to verify adequate decompression at the cranial and caudal aspects of the decompression. Hemostasis was ensured with the bipolar and Surgiflo, and the area was copiously irrigated. No evidence of CSF leak was noted. The muscle was loosely approximated with 0-Vicryl. The fascia was closed with 0-Vicryl in an interrupted fashion. The soft tissue was again copiously irrigated. The dermis was closed with 2-0 and 3-0 interrupted Vicryl. The skin was closed with running subcuticular monocryl. Skin glue was applied. The patient was returned supine on the stretcher, extubated, and transferred to PACU without incident. Billing codes: 94609, 82061 Estimated Blood Loss 25 Drains No Packing No Pathology None sent Complications None Condition Stable Disposition PACU [facility] Billing Surgery - Charge Forward: Surgery Billing
[2024-08-03] MEDS: LACTATED RINGERS 1,000 ML 30 ML IV CONT ×2 (16:22)
--- NOTE | 2024-08-03 18:06 | ADMGEN ---
This patient, Devora Marinelli, was admitted to Medical Room 345-01. Patient/family oriented to hospital policies and general routines including ID bracelet, bed and alarms, visiting hours, pain management, procedures, bathroom and other care routines, personal items, smoking policy, room service/diet, and visiting hours. Information on how to activate the Rapid Response Team has been discussed. Patient/Family are encouraged to report perceived risks to care and to ask questions if they do not understand what they are told or what they should do.
[2024-08-03] MEDS: oxyCODONE HCL (*CRX) 5 MG TAB IR 10 MG PO (18:16)
[2024-08-03] MEDS: ACETAMINOPHEN 500 MG TABLET 1000 MG PO ×2 (18:17→23:24)
[2024-08-03] MEDS: SODIUM CHLORIDE 0.9% IV 1,000 ML 100 ML IV CONT (18:19)
--- NOTE | 2024-08-03 18:53 | PC.NURSE ---
On 08/03/24, the student, Paulina Marcos, provided care and completed [facility] documentation on this patient. I have reviewed the student's documentation and agree with the findings.
[2024-08-04] VITALS (7 sets, daily range): BP systolic 107–132; BP diastolic 50–67; PULSE 62–98; RESP 16–20; TEMP 36–36.6; O2SAT 92–99
[2024-08-04] MEDS: oxyCODONE HCL (*CRX) 5 MG TAB IR 10 MG PO ×2 (00:03→18:47)
[2024-08-04] MEDS: CYCLOBENZAPRINE HCL 10 MG TABLET PO ×2 (04:45→20:06)
[2024-08-04] MEDS: ACETAMINOPHEN 500 MG TABLET 1000 MG PO ×3 (04:45→17:32)
[2024-08-04] MEDS: oxyCODONE HCL (*CRX) 5 MG TAB IR PO ×3 (05:34→15:16)
[2024-08-04] MEDS: ceFAZolin 2 GM/D5W 50 ML 2 GM/50 ML BAG IVPB ×2 (05:35→14:19)
[2024-08-04] MEDS: SODIUM CHLORIDE 0.9% IV 1,000 ML 30 ML IV CONT (05:40)
[2024-08-04] MEDS: DOCUSATE SODIUM 100 MG CAPSULE PO ×2 (08:17→20:06)
[2024-08-04] MEDS: ONDANSETRON INJ 4 MG/2 ML VIAL IV PUSH (12:30)
--- NOTE | 2024-08-04 17:37 | WPDNEUROSGPN ---
Progress Note: A&P Assessment and Plan (1) Cauda equina syndrome: Code(s): G83.4 - Cauda equina syndrome Status: Acute (2) Status post lumbar discectomy: Code(s): Z98.890 - Other specified postprocedural states Status: Acute Plan -Start DVT chemoprophylaxis tomorrow morning -PT/OT recommending acute rehab to which she is agreeable -Fit for AFO -She may discharge as early as tomorrow from my standpoint once she is accepted by rehab Subjective Date/time seen: 08/04/24 17:37 Interval history: Overall doing ok with improvement in pain compared to pre-op. She has noticed some improvement in the sensation in her feet. She also feels that she can move her right foot a bit better today. She has a fair amount of pain around her surgical site. She was able to get up to the chair today. Review of Systems Review of Systems: All systems reviewed & are unremarkable except as noted in HPI and below Exam Narrative: AOx4 Incision c/d/i LLE 4+/5 throughout RLE 4/5 HF, 4/5 KE, 3/5 DF, 3/5 PF Sensation decreased to light touch in distal lateral left leg Objective Data Vital Signs Vital Signs: Vital Signs - 24 hr 08/03/24 17:50 08/03/24 18:00 08/03/24 18:05 Temperature 97.1 F L 97.1 F L Pulse Rate 82 79 Respiratory Rate 18 18 Blood Pressure 147/77 H 143/76 H Pulse Oximetry 94 95 Oxygen Delivery Room Air 08/03/24 18:35 08/03/24 19:06 08/04/24 00:00 Temperature 97.0 F L 96.4 F L 98 F Pulse Rate 73 116 H 75 Respiratory Rate 18 18 18 Blood Pressure 144/82 H 124/52 L 107/50 L Pulse Oximetry 96 96 98 Oxygen Delivery 08/04/24 04:00 08/04/24 07:52 08/04/24 08:10 Temperature 97 F L 96.8 F L Pulse Rate 72 62 Respiratory Rate 18 18 Blood Pressure 128/63 115/67 Pulse Oximetry 96 98 Oxygen Delivery Room Air 08/04/24 10:51 08/04/24 12:00 Temperature Pulse Rate 65 Respiratory Rate 18 Blood Pressure 119/63 Pulse Oximetry 99 Oxygen Delivery Room Air Intake/Output Intake/Output: Intake & Output 08/01/24 08/02/24 08/03/24 08/04/24 23:59 23:59 23:59 23:59 Intake Total 100 2080 Balance 100 2080 Meds/Results Medications: Active Medications Generic Name Dose Route Start Last Admin Trade Name Freq PRN Reason Stop Dose Admin Acetaminophen 1,000 mg 08/03/24 18:00 08/04/24 17:32 Acetaminophen 500 Mg Tablet PO 1,000 mg Q6H TERA Administration Al Hydrox/Mg Hydrox/Simethicone 20 ml 08/03/24 16:06 Mag Hydrox/Al Hydrox/Simeth 30 Ml Udc PO Q4H PRN Indigestion/Heartburn Bisacodyl 10 mg 08/03/24 16:06 Bisacodyl 10 Mg Suppository RECTAL DAILY PRN Constipation Cyclobenzaprine HCl 10 mg 08/03/24 16:07 08/04/24 04:45 Cyclobenzaprine Hcl 10 Mg Tablet PO 10 mg TID PRN Administration Muscle Spasms Docusate Sodium 100 mg 08/03/24 21:00 08/04/24 08:17 Docusate Sodium 100 Mg Capsule PO 100 mg Q12HR TERA Administration Cefazolin Sodium 2 gm in 50 mls @ 100 mls/hr 08/03/24 22:00 08/04/24 14:19 Ancef 2 Gm/D5w 50 Ml IVPB 08/04/24 21:59 100 mls/hr Q8H TERA Administration Sodium Chloride 1,000 mls @ 30 mls/hr 08/04/24 05:40 08/04/24 05:40 Normal Saline Iv IV CONT 30 mls/hr .Q24H TERA Administration Morphine Sulfate 2 mg 08/03/24 16:07 Morphine Sulfate (*Crx) 2 Mg/Ml Inj IV PUSH Q2H PRN Breakthrough Pain Ondansetron HCl 4 mg 08/03/24 16:06 08/04/24 12:30 Ondansetron Inj 4 Mg/2 Ml Vial IV PUSH 4 mg Q8H PRN Administration Nausea And Vomiting Oxycodone HCl 5 mg 08/03/24 16:07 08/04/24 15:16 Oxycodone Hcl (*Crx) 5 Mg Tab Ir PO 5 mg Q4H PRN Administration Pain Rated 4-6 Oxycodone HCl 10 mg 08/03/24 16:07 08/04/24 00:03 Oxycodone Hcl (*Crx) 5 Mg Tab Ir PO 10 mg Q4H PRN Administration Pain Rated 7-10 Senna/Docusate Sodium 1 tab 08/03/24 16:06 Senna/Docusate Sodium Tablet PO HS PRN Constipation Radiology Results: ITS Impressions Chest X-Ray 08/03/24 12:02 IMPRESSION: 1. Mild discoid atelectasis at the left lung base.
[2024-08-05] MEDS: ONDANSETRON INJ 4 MG/2 ML VIAL IV PUSH ×3 (00:19→23:22)
[2024-08-05] MEDS: ACETAMINOPHEN 500 MG TABLET 1000 MG PO ×5 (00:19→23:22)
[2024-08-05] MEDS: oxyCODONE HCL (*CRX) 5 MG TAB IR 10 MG PO ×5 (00:41→21:30)
[2024-08-05 06:00] VITALS: BP 120/62; PULSE 62; RESP 16; TEMP 36.8; O2SAT 98
[2024-08-05] MEDS: ENOXAPARIN 40 MG/0.4 ML SYRINGE SUB-Q (08:21)
[2024-08-05] MEDS: DOCUSATE SODIUM 100 MG CAPSULE PO (08:21)
--- NOTE | 2024-08-05 09:46 | PCPTNOTE ---
Attempted to see patient for PT, however patient working with OT.
--- NOTE | 2024-08-05 12:54 | WPDNEUROSGPN ---
Progress Note: A&P Assessment and Plan (1) Cauda equina syndrome: Code(s): G83.4 - Cauda equina syndrome Status: Acute (2) Status post lumbar discectomy: Code(s): Z98.890 - Other specified postprocedural states Status: Acute Plan Overall, she is certainly improved compared to before surgery in terms of her pain and strength in particular. I am not surprised that she continues to have paresthesias. We discussed that this can take quite some time to improve after surgery. I would advocate strongly for her to go to acute rehab rather than SNF or home in order to progress her improvement quickly. She is agreeable to this. She may shower starting today. She should not submerge her incision under water. She is ready to discharge from my standpoint as soon as she is accepted. Subjective Date/time seen: 08/05/24 12:54 Interval history: Doing ok today. She was able to take a few steps with therapy today. She notices nore movement in her toes on her right side. She is having trouble getting comfortable after therapy Review of Systems Review of Systems: All systems reviewed & are unremarkable except as noted in HPI and below Exam Narrative: AOx4 LLE Near full strength throughout RLE 4+/5 HF, 4+/5 HF, 4-/5 DF, 4-/5 PF Decreased sensation to light touch in lateral left lower leg Objective Data Vital Signs Vital Signs: Vital Signs - 24 hr 08/04/24 16:00 08/04/24 20:00 08/04/24 20:00 Temperature 96.8 F L 97.1 F L Pulse Rate 84 98 Respiratory Rate 18 20 Blood Pressure 132/63 115/62 Pulse Oximetry 97 92 Oxygen Delivery Room Air 08/04/24 22:00 08/05/24 06:00 08/05/24 08:20 Temperature 97.4 F L 98.2 F Pulse Rate 89 62 Respiratory Rate 16 16 Blood Pressure 122/64 120/62 Pulse Oximetry 97 98 Oxygen Delivery Room Air Intake/Output Intake/Output: Intake & Output 08/02/24 08/03/24 08/04/24 08/05/24 23:59 23:59 23:59 23:59 Intake Total 100 2320 325 Output Total 400 Balance 100 2320 -75 Meds/Results Medications: Active Medications Generic Name Dose Route Start Last Admin Trade Name Freq PRN Reason Stop Dose Admin Acetaminophen 1,000 mg 08/03/24 18:00 08/05/24 12:20 Acetaminophen 500 Mg Tablet PO 1,000 mg Q6H TERA Administration Al Hydrox/Mg Hydrox/Simethicone 20 ml 08/03/24 16:06 Mag Hydrox/Al Hydrox/Simeth 30 Ml Udc PO Q4H PRN Indigestion/Heartburn Bisacodyl 10 mg 08/03/24 16:06 Bisacodyl 10 Mg Suppository RECTAL DAILY PRN Constipation Cyclobenzaprine HCl 10 mg 08/03/24 16:07 08/04/24 20:06 Cyclobenzaprine Hcl 10 Mg Tablet PO 10 mg TID PRN Administration Muscle Spasms Docusate Sodium 100 mg 08/03/24 21:00 08/05/24 08:21 Docusate Sodium 100 Mg Capsule PO 100 mg Q12HR TERA Administration Enoxaparin Sodium 40 mg 08/05/24 09:00 08/05/24 08:21 Enoxaparin 40 Mg/0.4 Ml Syringe SUB-Q 40 mg DAILY TERA Administration Morphine Sulfate 2 mg 08/03/24 16:07 Morphine Sulfate (*Crx) 2 Mg/Ml Inj IV PUSH Q2H PRN Breakthrough Pain Ondansetron HCl 4 mg 08/03/24 16:06 08/05/24 09:59 Ondansetron Inj 4 Mg/2 Ml Vial IV PUSH 4 mg Q8H PRN Administration Nausea And Vomiting Oxycodone HCl 5 mg 08/03/24 16:07 08/04/24 15:16 Oxycodone Hcl (*Crx) 5 Mg Tab Ir PO 5 mg Q4H PRN Administration Pain Rated 4-6 Oxycodone HCl 10 mg 08/03/24 16:07 08/05/24 12:22 Oxycodone Hcl (*Crx) 5 Mg Tab Ir PO 10 mg Q4H PRN Administration Pain Rated 7-10 Senna/Docusate Sodium 1 tab 08/03/24 16:06 Senna/Docusate Sodium Tablet PO HS PRN Constipation Radiology Results: ITS Impressions Chest X-Ray 08/03/24 12:02 IMPRESSION: 1. Mild discoid atelectasis at the left lung base.
[2024-08-05 15:25] VITALS: BP 125/50; PULSE 70; RESP 18; TEMP 36.4; O2SAT 96
--- NOTE | 2024-08-05 16:52 | PC.NURSE ---
On 08/05/24, the student, Mahogany Haider, provided care and completed [facility] documentation on this patient. I have reviewed the student's documentation and agree with the findings.
[2024-08-05 20:16] VITALS: BP 128/58; PULSE 87; RESP 20; TEMP 36.4; O2SAT 77
[2024-08-06 04:38] VITALS: BP 106/49; PULSE 72; RESP 20; TEMP 36.5; O2SAT 98
[2024-08-06] MEDS: oxyCODONE HCL (*CRX) 5 MG TAB IR 10 MG PO ×4 (04:45→20:00)
[2024-08-06] MEDS: ACETAMINOPHEN 500 MG TABLET 1000 MG PO ×4 (05:38→23:10)
--- NOTE | 2024-08-06 07:49 | WPDNEUROSGPN ---
Progress Note: A&P Assessment and Plan (1) Lumbar disc herniation: Code(s): M51.26 - Other intervertebral disc displacement, lumbar region Status: Acute Plan PT/OT/mobilize rehab planning Subjective Date/time seen: 08/06/24 07:49 Interval history: Doing well. She has some pain with movement of her toes. Otherwise no complaints. Review of Systems Neurologic: Comments: AOx4 LLE Near full strength throughout RLE 4+/5 HF, 4+/5 HF, 4-/5 DF, 4-/5 PF Decreased sensation to light touch in lateral left lower leg Objective Data Vital Signs Vital Signs: Vital Signs - 24 hr 08/05/24 08:20 08/05/24 15:25 08/05/24 20:16 Temperature 97.6 F 97.6 F Pulse Rate 70 87 Respiratory Rate 18 20 Blood Pressure 125/50 L 128/58 L Pulse Oximetry 96 77 L Oxygen Delivery Room Air 08/06/24 04:38 Temperature 97.7 F Pulse Rate 72 Respiratory Rate 20 Blood Pressure 106/49 L Pulse Oximetry 98 Oxygen Delivery Intake/Output Intake/Output: Intake & Output 08/03/24 08/04/24 08/05/24 08/06/24 23:59 23:59 23:59 23:59 Intake Total 100 2320 1155 390 Output Total 400 Balance 100 2320 755 390 Meds/Results Medications: Active Medications Generic Name Dose Route Start Last Admin Trade Name Freq PRN Reason Stop Dose Admin Acetaminophen 1,000 mg 08/03/24 18:00 08/06/24 05:38 Acetaminophen 500 Mg Tablet PO 1,000 mg Q6H TERA Administration Al Hydrox/Mg Hydrox/Simethicone 20 ml 08/03/24 16:06 Mag Hydrox/Al Hydrox/Simeth 30 Ml Udc PO Q4H PRN Indigestion/Heartburn Bisacodyl 10 mg 08/03/24 16:06 Bisacodyl 10 Mg Suppository RECTAL DAILY PRN Constipation Cyclobenzaprine HCl 10 mg 08/03/24 16:07 08/04/24 20:06 Cyclobenzaprine Hcl 10 Mg Tablet PO 10 mg TID PRN Administration Muscle Spasms Docusate Sodium 100 mg 08/03/24 21:00 08/05/24 20:23 Docusate Sodium 100 Mg Capsule PO Not Given Q12HR TERA Enoxaparin Sodium 40 mg 08/05/24 09:00 08/05/24 08:21 Enoxaparin 40 Mg/0.4 Ml Syringe SUB-Q 40 mg DAILY TERA Administration Morphine Sulfate 2 mg 08/03/24 16:07 Morphine Sulfate (*Crx) 2 Mg/Ml Inj IV PUSH Q2H PRN Breakthrough Pain Ondansetron HCl 4 mg 08/03/24 16:06 08/05/24 23:22 Ondansetron Inj 4 Mg/2 Ml Vial IV PUSH 4 mg Q8H PRN Administration Nausea And Vomiting Oxycodone HCl 5 mg 08/03/24 16:07 08/04/24 15:16 Oxycodone Hcl (*Crx) 5 Mg Tab Ir PO 5 mg Q4H PRN Administration Pain Rated 4-6 Oxycodone HCl 10 mg 08/03/24 16:07 08/06/24 04:45 Oxycodone Hcl (*Crx) 5 Mg Tab Ir PO 10 mg Q4H PRN Administration Pain Rated 7-10 Senna/Docusate Sodium 1 tab 08/03/24 16:06 Senna/Docusate Sodium Tablet PO HS PRN Constipation Radiology Results: ITS Impressions Chest X-Ray 08/03/24 12:02 IMPRESSION: 1. Mild discoid atelectasis at the left lung base.
[2024-08-06] MEDS: ENOXAPARIN 40 MG/0.4 ML SYRINGE SUB-Q (08:51)
[2024-08-06] MEDS: DOCUSATE SODIUM 100 MG CAPSULE PO ×2 (08:51→20:02)
[2024-08-06] MEDS: ONDANSETRON INJ 4 MG/2 ML VIAL IV PUSH ×2 (12:20→22:08)
[2024-08-06 14:00] VITALS: BP 109/52; PULSE 84; RESP 20; TEMP 36.5; O2SAT 98
[2024-08-06 19:36] VITALS: BP 133/67; PULSE 86; RESP 20; TEMP 36.5; O2SAT 97
[2024-08-07] MEDS: oxyCODONE HCL (*CRX) 5 MG TAB IR PO (01:41)
[2024-08-07 04:07] VITALS: BP 108/49; PULSE 61; RESP 20; TEMP 36.3; O2SAT 99
[2024-08-07] MEDS: ACETAMINOPHEN 500 MG TABLET 1000 MG PO ×2 (06:10→12:14)
[2024-08-07] MEDS: DOCUSATE SODIUM 100 MG CAPSULE PO (09:12)
[2024-08-07] MEDS: oxyCODONE HCL (*CRX) 5 MG TAB IR 10 MG PO ×2 (09:13→13:48)
[2024-08-07] MEDS: ENOXAPARIN 40 MG/0.4 ML SYRINGE SUB-Q (09:46)
--- NOTE | 2024-08-07 11:04 | PCPTNOTE ---
OT was to see early then PT to follow after rest period, however OT needed to wait for pain med issued therefor time delay noted. PT attempted at 11:05 but OT just finished with shower and pt too fatigued at this time. PT will attempt again prior to discharge.
[2024-08-07] MEDS: ONDANSETRON INJ 4 MG/2 ML VIAL IV PUSH (12:15)
[2024-08-07 13:41] VITALS: BP 103/61; PULSE 72; RESP 16; TEMP 36.7; O2SAT 97
--- NOTE | 2024-08-11 15:42 | P.DS_ITS ---
DS: Admitting Diagnosis Discharge Date 08/07/24 Admitting Diagnosis cauda equina syndrome DS: Discharge Diagnosis Discharge Diagnosis (1) Cauda equina syndrome: Code(s): G83.4 - Cauda equina syndrome Status: Acute (2) Status post lumbar discectomy: Code(s): Z98.890 - Other specified postprocedural states Status: Acute DS: Summary Hospital Course Hospital Course: Ms. Marinelli is a 29-year-old female who was admitted to the hospital from the emergency room for cauda equina syndrome. She was taken emergently to the operating room for an L4-5 laminectomy and diskectomy. Please see the operative note for more details. She was transferred to the floor after surgery. Physical therapy worked with her who recommended discharge to inpatient rehab. She reported improvement in her preoperative pain, paresthesias, and weakness. She was ultimately accepted for rehab on postoperative day 4. Time Spent with Patient Time attestation: Total time spent providing and/or coordinating discharge services: Discharge Plan Discharge Consulting providers: Louis Ervin; Lenny Trent; Eugenio Benson; Adryan Young; Ephraim Hooks Discharging Clinician: Sonia Roberson Patient Disposition: Inpatient Rehab Facility Activity: other - see discharge instructions Diet: as tolerated Wound Care Instructions: follow printed instructions Discharge Instructions: Discharge Instructions Procedure: Lumbar microdiskectomy Your doctor has partially removed one or more discs from your back (lumbar spine), to remove pressure from the nerve roots. Here are some instructions to follow upon discharge from the hospital to help in your recovery. Your doctor has removed the disc fragments which were compressing the nerves, but usually does not remove the entire disc. If you do not let your back heal properly from the surgery, you can increase the chance of a recurrent disc herniation and return of your symptoms. Wound Care: You may shower and get your incision wet starting on post-operative day 2 (). You may use soap and water to clean your incision. Lightly dab the incision dry. Do not apply any ointments, creams, or lotions to the incision. Do not take baths or sit in a hot tub or pool until approved by your doctor at your follow-up appointment. Your incision is covered with skin glue. This will typically peel off on its own in 10-14 days. If it is still present in 14 days, you may peel off the glue. Activity: Until released by your doctor, you should not return to work. You should rest a t home and let your body heal. Taking short walks is encouraged, but avoid strenuous exercise. Do not jog, run, bicycle, lift weights, or participate in any other exercises unless specifically allowed by your doctor. Most importantly, avoid lifting objects heavier than about 10 lbs (or carton of milk) as this places a strain on your back. Avoid twisting and bending motions. Avoid prolonged sitting. Where possible, avoid household activities that involve lifting and/or bending such as laundry, grocery shopping, and childcare. Try to arrange for help from friends and family for these activities while your back heals. You should not drive for a few days and must be off pain medications prior to driving. DO NOT SMOKE TOBACCO. Smoking has been proven to interfere with the normal he aling of the bones in your back. Smoking will dramatically reduce the success rate of your surgery. Your doctor can prescribe a patch to help you stop smoking if you would like. Diet: You can return to your usual diet, unless instructed otherwise by your doctor. Medications: You should resume taking all of your normal medications, unless instructed otherwise by your doctor. If you have questions about your normal medications (those prescribed for high blood pressure, for example), call your family doctor or isotope hydrologist. You will be given a prescription for pain medications and possibly a laxative, as pain medications can cause constipation. Take the pain medicines as instructed. Try Tylenol first for pain to see if this will adequately relieve your pain; if not, take the oxycodone as prescribed. You may take up to 1000mg of Tylenol every 6 hours. If your pain is not reasonably controlled by the medications, contact your doctor?s office. Follow-up appointment: You should already have a follow-up appointment scheduled with your doctor. If you do not have a follow-up appointment, call to schedule one. When to call our office: Although your surgery and recovery will likely be uneventful, you may have some residual aches and pains in your back and/or legs. This is NORMAL and should improve in the next few weeks. However, should you experience any of the following, call our office immediately. For medical emergencies call 911. For urgent calls after hours, please call our exchange at : 1. Fevers 2. Drainage from your incision 3. Pain that is progressively getting worse, and is not relieved by your medications 4. New numbness or weakness 5. Difficulty controlling your bladder 6. Loss of control of your bowels Sonia Roberson MD [facility] [address], [address] [place], [place] [id number] Patient Language: Citizen Of [place] Stand Alone Forms: General Discharge Information, General Discharge Instructions Follow-up/Referrals: Sonia Roberson MD [Physician] - Discharge Medications: New cyclobenzaprine 10 mg Tablet 10 mg PO TID PRN (Reason: Muscle Spasms) Qty: 30 0RF sennosides-docusate sodium [Senokot-S] 8.6-50 mg Tablet 1 tab-cap PO BID PRN (Reason: Constipation) 7 Days Qty: 14 0RF oxycodone 5 mg Tablet 5 mg PO Q6H PRN (Reason: Pain Rated 4-6) 7 Days Qty: 28 0RF Continued omeprazole magnesium [Prilosec OTC] 20 mg tablet,delayed release (DR/EC) 20 mg PO BID Qty: 20 0RF sulfamethoxazole-trimethoprim [Bactrim DS] 800-160 mg tablet 1 tablet PO Q12H Qty: 20 0RF ondansetron HCl 8 mg tablet 8 mg PO Q12H Qty: 20 0RF Held ibuprofen 800 mg tablet 800 mg PO TID Qty: 20 0RF Hold Instructions: Resume on 08/10/24. Discontinued cyclobenzaprine 10 mg tablet 10 mg PO TID PRN (Reason: muscle spasm) Qty: 21 0RF methylprednisolone [Medrol (Zohaib)] 4 mg tablets,dose pack See Rx Instructions PO PER PKG DIR Qty: 21 0RF Rx Instructions: PO PER PKG DIR Date of admission: 08/04/24 07:50 Primary Care Provider: Arvind Stephen Admitting Provider: Sonia Roberson Attending physician on admission: Sonia Roberson Condition: Serious
== END 2024-08-07 15:25 | DRG 23 ==
LOC: ANHED 11:06 → ANHSURGERY 11:28 → ANH3MED 16:58 → ANHSURGERY 18:03 → ANH3MED 18:03
PROVIDERS: Admitting Provider Neurological Surgery; Emergency Provider Registered Nurse; PCP Neurological Surgery; Visit Provider Neurological Surgery
PROC: 0QB00ZX Excision of Lumbar Vertebra, Open Approach, Diagnostic (ICD-10-PCS; CPT 63017; principal; 2024-08-03 13:30)
DX: G83.4 Cauda equina syndrome (principal); M51.26 Other intervertebral disc displacement, lumbar region; E78.5 Hyperlipidemia, unspecified; E66.01 Morbid (severe) obesity due to excess calories; F41.9 Anxiety disorder, unspecified; Z87.891 Personal history of nicotine dependence; Z68.41 Body mass index [BMI] 40.0-44.9, adult
CPT/HCPCS: 36415; 71045; 80053; 85025; 85610; 85730; 93005; 96365; 96375; 96376; 97110; 97161; 97166; 97530; 97535; 99199; 99285; A9270; G0378; G0379; J0330; J0690; J1100; J1171; J1650; J1885; J2003; J2250; J2270; J2405; J2704; J2919; J3010; J7030; J7120

== ENCOUNTER 2024-08-25 11:37 | Outpatient (CLI) | payer OTHER, SELFPAY ==
[2024-08-25 12:21] LABS: Hematocrit 39.8 % (35.0-49.0); Hemoglobin 13.1 g/dL (12.0-15.0); Mean Corpuscular HGB Conc 32.9 g/dL (32-36); Mean Corpuscular Hemoglobin 29.3 pg (27.0-31.0); Mean Platelet Volume 8.9 fl (9.2-11.8); Platelet Count Result 421 K/mm3 (150-420); Red Blood Count 4.47 M/mm3 (4.20-5.40); Red Cell Distribution Width 12.8 % (11.6-14.4); White Blood Count 9.3 K/mm3 (4.8-10.8)
[2024-08-25 12:23] LABS: Add Urine Microscopic? YES; Appearance Urine Clear (Clear); Bilirubin Urine 1+ (Negative); Blood Urine Negative (Negative); Color Urine Dark Yellow (Yellow); Glucose Urine UA Negative (Negative); Ketones Urine Negative (Negative); Leukocyte Esterase Ur Trace LEU/UL (Negative); Nitrate Urine Negative (Negative); Protein Urine 1+ (Negative)
[2024-08-25 12:31] LABS: RBC Urine 0-2 /hpf (0-2); Squamous Epithelial Cell Urine Few /hpf (Few); WBC Urine 0-3 /hpf (0-3)
[2024-08-25 12:33] LABS: Amorphous Sediment Urine Moderate; Bacteria Urine Trace /hpf
--- OUTSIDE RECORDS SUMMARY | 2024-08-25 13:01 | XMS_ITS | Clinical Summary ---
Author Organization [facility] Address [address] [place] [address] Phone Care Team Providers Care Campground Hand Name Role Phone Avi Floyd MD Primary Care Provider [phone] Allergies Active Allergy Reactions Criticality Noted Date [...] Comments Blood Pressure 122/80 07/01/2019 11:03 AM ESCROW AGENT Pulse 86 07/01/2019 11:03 AM ESCROW AGENT Temperature 36.8 C (98.3 F) 07/01/2019 11:03 AM ESCROW AGENT Respiratory Rate 22 07/01/2019 11:03 AM ESCROW AGENT Oxygen Saturation 99% 07/01/2019 11:03 AM ESCROW AGENT Inhaled Oxygen Concentration - - Weight 114.3 kg (252 lb) 07/01/2019 11:03 AM ESCROW AGENT Height 166.6 cm (5' 5.6 ) 07/01/2019 11:03 AM CS T Body Mass Index 41.17 07/01/2019 11:03 AM ESCROW AGENT Plan of Treatment Health Maintenance Due Date [...] this topic Insurance MEDICAID [place] Care Teams Campground Hand Relationship Specialty Start Date End Date Avi Floyd MD [id number] [place] [address] PCP - General Family Medicine 12/18/18
--- OUTSIDE RECORDS SUMMARY | 2024-08-25 13:01 | XMS_ITS | Data Portability ---
Author Organization [facility] Address [address] [place] [address] Assessment No assessment recorded. Plan of Treatment [...] Last Updated DateTime 166.37 cm 40.9 kg/m2 746454. 58 g 16 /min 97.7 [degF] 122 mm[Hg] 80 mm[Hg] Gracia Winston MA [facility] 4 15:14:17 Date Recorded Body height Body mass index (BMI) Body weight Heart rate Respiratory rate Body temperature Systolic blood pressure Diastolic blood pressure Provider Name and Address Organization Details Last Updated DateTime 166.37 cm 39.8 kg/m2 602650. 23 g 82 /min 16 /min 97.5 [degF] 120 mm[Hg] 82 mm[Hg] Gracia Winston MA [facility] 4 12:44:50 Social History Question Answer Notes LastModified by Organization Details LastModified Time Tobacco Smoking Status Never Smoker Gracia Winston MA null, [facility] 07/22/2023 15:10:16 What Is [...] Or The Highest Degree You Have Received? [id number] Information not available 07/22/2023 Who Is Your Employer? [employer] Information not available 09/23/2023 What Was The Date Of Your Most Recent Tobacco Screening? 09/23/2023 Information not available 09/23/2023 Do You Feel Stressed (tense, Restless, Nervous, Or Anxious, Or Unable To Sleep At Night)? [id number] Information not available 07/22/2023 Do You Use [...] SNOMED-CT Code Diagnosis ICD10 Code Diagnosis Note [id number] MD Cinthya Veliz (Adult Med) [address] [place] [address] [place] [id number] 07/22/2023 14:59:58 07/23/2023 09:59:30 Otitis externa [id number] H60.91 stop drops keep ear dry follow up 1 month [id number] MD Cinthya Veliz (Adult Med) [address] [place] [address] [place] [address] [id number] 4 09/23/2023 12:28:54 09/23/2023 18:40:18 Otitis externa [id number] H60.91 stop drops keep ear dry follow up 1 month Temporoman dibular joint disorder [id number] M26.609 soft diet.anti inflammato nicole Health Concerns Section Related Observation LastModified by Organization Detai ls LastModified Time None Recorded Concern Status LastModified by Organization Details LastModified Time None Recorded Advance Directives Directive None Recorded Payers Encounter Date Sequence Insurance Name Policy Number Policy Parson Covered Member ID Parson Member ID Guarantor Name 07/22/2023 1 [facility] (MEDICAID HMO) [id number] Devora Marinelli [id number] Quinnzayra Yves 09/23/2023 1 [facility] (MEDICAID HMO) [id number] Quinnzayra Yves [id number] Felymarlin Yves Notes Date Note Type Note Provider Name and Address Organization Details Recorded Time 07/22/2023 text/html She is complaini ng of infection in her right ear for three months. She has been on multiple drops and antibiotics Todd Price MD Attn: [address] [place], [address], [facility] 07/22/2023 15:39:29 09/23/2023 text/html Pt had right ext otitis and it has been slowly improving by keeping it dry. She also has mild TMJ tenderness Todd Price MD Attn: [address] [place], [address], [facility] 09/23/2023 13:01:59 OBGyn Episode No OBEpisode recorded.
--- OUTSIDE RECORDS SUMMARY | 2024-08-25 13:01 | XMS_ITS | Encounter Summary ---
Author Organization [facility] Address [address] [place] [address] Phone Care Team Providers Care Early Childhood Education Specialist Name Role Phone Avi Floyd MD Primary Care Provider [phone] Reason for Visit * Reason Comments Medication Refill Encounter Details Date Type Department Care Team (Late st Contact Info) Description 02/23/2020 Refill [facility] [address] [place] [address] Ryan Willingham MD [address] [place] [id number] Medication Refill Social History Tobacco Use Types [...] present documented in this encounter Care Teams Early Childhood Education Specialist Relationship Specialty Start Date End Date Avi Floyd MD [address] [place] [address] PCP - General Family Medicine 12/18/18 documented as of this encounter
--- OUTSIDE RECORDS SUMMARY | 2024-08-25 13:01 | XMS_ITS | Encounter Summary ---
Author Organization [facility] Address [address] [place] [address] Care Team Providers Care Carton Machine Operator Name Role Phone Avi Floyd MD Primary Care Provider [phone] Lucille Jackson MD Primary Care Provider [phone] Encounter Details Date Type Department Care Team (Late st Contact Info) Description 10/17/2018 Abstract SFL CONVERSION [address] [place], [place] [id number] , Generic Conversion, Social History Tobacco Use Types Packs/Day Years Used Date Smoking Tobacco: Never Assessed Comments Unknown Sex and Gender Information Value Date Recorded Sex Assigned at Not on file Legal Sex Female 5:57 PM SCRUM MASTER Gender Identity Not on file Sexual Orientation Not on file documented as of this encounter Plan of Treatment Not on file documented as of this encounter Visit Diagnoses Not on filedocumented in this encounter Care Teams Carton Machine Operator Relationship Specialty Start Date End Date Avi Floyd MD [address] [place] [address] PCP - General FAMILY PRACTICE 07/21/18 05/24/19 Lucille Jackson MD [address] [place] [id number] PCP - General INTERNAL MEDICINE 05/25/19 documented as of this encounter
--- OUTSIDE RECORDS SUMMARY | 2024-08-25 13:01 | XMS_ITS | Encounter Summary ---
Author Organization [facility] Address [address] [place] [address] Phone Care Team Providers Care Agriculture Department Chair Name Role Phone Avi Floyd MD Primary Care Provider [phone] Reason for Visit * Reason Comments Medication Refill Encounter Details Date Type Department Care Team (Late st Contact Info) Description 05/30/2020 Refill [facility] [address] [place] [address] Ryan Willingham MD [address] [place] [address] Medication Refill Social History Tobacco Use Types [...] present documented in this encounter Care Teams Agriculture Department Chair Relationship Specialty Start Date End Date Avi Floyd MD [address] [place] [address] PCP - General Family Medicine 12/18/18 documented as of this encounter
--- OUTSIDE RECORDS SUMMARY | 2024-08-25 13:01 | XMS_ITS | Clinical Summary ---
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 Gender Identity Not on file Sexual Orientation [...] Screening wi th HPV 2023 COVID-19 Vaccine (2023-2 5 season) 2024 HPV Vaccines Aged Out No longer eligi ble based on patient's age to complete this topic Meningococcal B Vaccine Aged Out No l onger eligible based on patient's age to complete this topic Meningococcal Vaccine Aged Out No yvon merlin eligible based on patient's age to complete this topic Pneumococcal Vaccine: Pediatrics (0 to 5 Years) and At-Risk Patients (6 to 49 Years) Aged Out No longer eligible b ased on patient's age to complete this topic RSV Immunizations Under 20 Months Aged Out No longer eligible b ased on patient's age to complete this topic Insurance MEDICAID DEPT OF [address] Advance Directives Documents on File Type Date Recorded Patient Radiologic Electronic Specialist Expl anation Legal Documents 02/22/2020 1:00 PM RECVD & CMPLTD ATTY REQ. FOR HB BILLS FOR SFL FOR AUTOMATED RECORDS Care Teams Counter Sales Person Relationship Specialty Start Date End Date Lucille Jackson MD [address] [place] [address] PCP - General INTERNAL MEDICINE 05/25/19
[2024-08-25 13:13] LABS: Alanine Aminotransferase 252 U/L (14-59); Albumin Level 4.2 g/dL (3.4-5.0); Alkaline Phosphatase 101 U/L (46-116); Amylase 26 U/L (25-115); Anion Gap 12 mmol/L (4-12); Aspartate Amino Transferase 181 U/L (15-37); Bilirubin,Total 1.4 mg/dL (0.00-1.00); Blood Urea Nitrogen 9 mg/dL (7-18); Calcium 9.7 mg/dL (8.5-10.1); Carbon Dioxide 27 mmol/L (21-32); Chloride 102 mmol/L (98-108); Estimated Glomerular Filt Rate > 60; Glucose 113 mg/dL (70-99); Lipase 26 U/L (16-77); Osmolality Calculated 291 mOsm/kg (285-295); Potassium 4.7 mmol/L (3.5-5.1); Sodium 141 mmol/L (136-145); Total Protein 7.7 g/dL (6.4-8.2)
== END 2024-08-25 11:38 | disposition home or self-care (01) ==
LOC: CHSLAB 11:40
PROVIDERS: PCP Internal Medicine; Visit Provider Internal Medicine
DX: R11.2 Nausea with vomiting, unspecified (principal); R10.11 Right upper quadrant pain
CPT/HCPCS: 36415; 80053; 81001; 82150; 83690; 85027

== ENCOUNTER 2024-08-25 14:27 | Emergency (ER) | payer OTHER, SELFPAY ==
[2024-08-25] VITALS (13 sets, daily range): BP systolic 115–151; BP diastolic 59–86; PULSE 64–86; RESP 16–23; TEMP 36.6; O2SAT 95–99
--- NOTE | ~2024-08-25 | CT_ITS ---
CT abdomen pelvis w con Ordering provider: Kina Blunt PA-C History: 29 years Female with . ruq abd pain . Comparison: None. Technique: CT abdomen and pelvis with IV and without oral contrast. Automated exposure control and it erative reconstruction technique were employed. The dose-length product was 1508.26 mGy-cm. 100 mL Om nipaque 350 was given IV. Findings: VISUALIZED LOWER CHEST: Normal. Possibility of a tiny nodule in the right upper lobe is not excluded and measures 4 mm. UPPER ABDOMINAL ORGANS: Liver: Fat infiltration. Slight intrahepatic biliary dilatation seen. Hepatomegaly. Gallbladder: Cholelithiasis with a stone in the neck of the gallbladder. CBD measures 7.4 mm. Spleen: Normal. Stomach/duodenum: Normal. Pancreas: Normal. Adrenals: Normal. Kidneys: Normal. PELVIC ORGANS: The bladder is underfilled. BOWEL AND MESENTERY: Colon: No evidence of diverticulitis.. No evidence of appendicitis. Small Bowel: Normal. No obstruction. Peritoneum/mesentery: No free air or free fluid. No mesenteric lymphadenopathy. RETROPERITONEUM: Normal aorta. No retroperitoneal lymphadenopathy. MUSCULOSKELETAL: Superficial soft tissues: Focus of increased density is seen in the right lower anterior abdominal wa ll. Otherwise, The superficial soft tissues are normal. Bones: Normal spine. IMPRESSION: 1. No evidence of appendicitis, diverticulitis or intestinal obstruction. 2. Cholelithiasis. 3. Hepatomegaly with fat infiltration. Reviewed, dictated and finalized at location A.
--- NOTE | ~2024-08-25 | XR_ITS ---
CHEST RADIOGRAPH CLINICAL HISTORY: RUQ abd pain . COMPARISON: 08/03/2024 TECHNIQUE: Single portable view of the chest. FINDINGS The cardiomediastinal silhouette is unremarkable. The lungs are clear. IMPRESSION: No focal infiltrate or effusion. Reviewed, dictated and finalized at location A.
--- NOTE | ~2024-08-25 | US_ITS ---
EXAMINATION: US abdomen limited DATE: 08/25/2024 15:24 INDICATION: Right upper quadrant abdominal pain. Elevated liver function tests. TECHNIQUE: Multiple grayscale and Doppler ultrasound images of the abdomen were obtained. COMPARISON: None FINDINGS: The pancreatic head and body are normal in appearance. The pancreatic tail is not visualized. Liver has normal contour, with a smooth surface. There is increased parenchymal echogenicity and coarsened echotexture consistent with diffuse hepatic steatosis. No liver lesion identified. No intrahepatic b iliary duct dilation suspected. Portal venous flow was seen in the hepatopetal, normal direction and has normal Doppler waveform. The gallbladder is normal in appearance. There is no cholelithiasis. Th e common bile duct measures 3-4 mm, which is normal. Sonographic Lamas sign was reported as negative by the reconnaissance crewmember.Right kidney measures 10.4 x 4.8 x 5.9 cm with normal contour and echogenicity an d no hydronephrosis. IMPRESSION: 1. Diffuse hepatic steatosis. Reviewed, dictated and finalized at location A.
--- NOTE | 2024-08-25 14:42 | ED_ITS ---
HPI - Nausea/Vomiting/Diarrhea General Chief complaint: Nausea/Vomiting/Diarrhea Stated complaint: Vomiting, RUQ pain-poss GB issues Time Seen by Provider: 08/25/24 15:11 Focused HPI: 29 y/o F presents to the ED for RUQ and abnormal liver labs. Patient developed started quadrant abdominal pain and nausea and vomiting yesterday. Had an appointment with her PCP this morning had labs drawn which showed elevated LFTs. She was advised by her PCP to come to the ED due to concerns for her gallbladder. Patient is postop from a spinal surgery performed by Dr. Roberson on 08/03/24 after having cauda equina. She had follow-up with Dr. Roberson today and was told her incision is healing well. She had Zofran prior to arrival with improvement. Denies fever but is having hot flashes and chills. Denies diarrhea, dysuria or hematuria, cough or congestion, chest pain or shortness of breath. No prior abdominal surgeries. GENERAL: Well-appearing, well-nourished, and in no acute distress. HEAD: Normocephalic, atraumatic. CHEST: Clear to auscultation. ?No respiratory distress. ABD: Normoactive bowel sounds. Abdomen soft with tenderness and voluntary guarding in the right upper quadrant. Positive Lamas sign. No rebound or rigidity. HEART: Regular rate and rhythm.? NEURO: ?Alert and oriented x3. Patient screened in triage and initial orders placed.? ?Additional care and disposition to be based upon?diagnostic testing and treatment. History of Present Illness HPI Narrative: Agree with the above triage note Related Data Home Medications ?Medication ?Instructions ?Recorded ?Confirmed ?Last Taken ?Type gabapentin 300 mg capsule 300 mg PO TID 08/25/24 Unknown History methocarbamol 750 mg tablet 750 mg PO Q6H 08/25/24 Unknown History pantoprazole 40 mg tablet,delayed 40 mg PO QHS 08/25/24 Unknown History release Allergies Allergy/AdvReac Type Severity Reaction Status Date / Time acetaminophen (From [place]) AdvReac Unknown Itching Verified 08/25/24 14:28 hydrocodone (From [place]) AdvReac Unknown Itching Verified 08/25/24 14:28 Review of Systems 2 Review of Systems: All systems reviewed & are unremarkable except as noted in HPI and below PMFSH Past Medical History Medical History Anxiety Colic, ureteral Family History Family History Father Alcoholism Hypertension Heart disease Diabetes mellitus Grandparent Breast cancer Diabetes mellitus Grandparent Hypertension Diabetes mellitus Social History Social History Smoking packs per day: 0.5 Smoking cigarettes per day: 10.0 Smoking status: Former smoker Alcohol intake: never Substance use: never Substance use type: does not use Do You Feel Safe in your Home?: Yes Lack of Transportation: No Lack of Food: Never True Current Housing: Decline to Answer Concerned About Future Housing: Decline to Answer Difficulty Paying Gas/Electric Bills: Decline to Answer Difficulty Paying for Meds: Decline to Answer Currently Unemployed: Decline to Answer Education: Associate Degree Difficulty w/ Childcare or Family Care: No Spiritual care concerns: No Exam 2 Narrative: GENERAL: Well-appearing, well-nourished, and in no acute distress. HEAD: Normocephalic, atraumatic. EYES: EOMI. ENT: Nares clear, no rhinorrhea or epistaxis. Mucous membranes moist. NECK: Supple. CHEST: Clear to auscultation. No respiratory distress. HEART: Regular rate and rhythm. No murmur heard. Normal peripheral pulses. ABDOMEN: Normoactive bowel sounds. Abdomen soft with tenderness in the right upper quadrant and voluntary guarding. No rebound or rigidity EXTREMITIES: Normal range of motion. No edema. SKIN: Warm, dry, no rash. NEURO: No focal deficits. Alert and oriented x3 Course Vital Signs Vital signs: Vital Signs Temperature 97.8 F 08/25/24 14:30 Pulse Rate 86 08/25/24 14:30 Respiratory Rate 16 08/25/24 14:30 Blood Pressure 150/86 H 08/25/24 14:30 Pulse Oximetry 98 08/25/24 14:30 Temperature 97.8 F 08/25/24 14:30 Pulse Rate 74 08/25/24 18:30 Respiratory Rate 23 H 08/25/24 18:30 Blood Pressure 151/67 H 08/25/24 17:02 Pulse Oximetry 98 08/25/24 18:30 MDM - Nausea/Vomiting/Diarrhea MDM Narrative Medical decision making narrative: 29-year-old female presents to the emergency department for 1 day right upper quadrant abdominal pain, nausea and vomiting. Had an appointment her PCP today, obtained lab work obtained and had elevated LFTs and was advised to come to the ED for further evaluation. Lab work from this morning reviewed which showed no leukocytosis or anemia. Chemistries with a bilirubin of 1.4, AST 181 and ALT of 252, normal alk-phos and lipase. In the emergency department patient's vitals are stable other than elevated blood pressure. She is afebrile and nontoxic appearing. She does have right upper quadrant tenderness. Right upper quadrant abdominal ultrasound shows diffuse hepatic steatosis, there is no intrahepatic biliary duct dilation and the gallbladder is within normal appearance, common bile duct is normal, there is negative sonographic Lamas sign. CT abdomen pelvis shows no evidence of appendicitis, diverticulitis or intestinal obstruction. There is evidence of cholelithiasis, hepatomegaly with fatty infiltration. Chest x-ray is unremarkable. Patient updated on results. She received Toradol with improvement and is tolerating po intake. States her pain has significantly improved. Suspect biliary colic. Shared decision making regarding disposition. Patient would like to discharge home and agrees to follow-up closely with her PCP for outpatient HIDA scan and general surgery for possible elective cholecystectomy. She has Zofran and pain medications at home to take as needed. I advised non- fatty and bland diet and discussed strict ED return precautions. She and her mother are agreeable with the plan verbalized understanding. I also discussed case with general surgery, Dr. Iyer, who agrees with the plan. Pt discharged in stable condition. Lab Data 08/25/24 17:33 Labs: Lab Results 08/25/24 Range/Units 17:33 Creatinine 0.70 (0.7-1.2) mg/dL Estim Creat Clear Calc 121 ml/min Estimated GFR > 60 (59 - ) Discharge Plan Discharge Clinical Impression: Transaminitis, Cholelithiasis, Hepatic steatosis Patient Disposition: Home Condition: Stable Instructions: Antibiotic Form, Biliary Colic (ED), Transaminitis (ED) Additional Instructions: You were evaluated in the emergency department for elevated liver enzymes, right upper quadrant abdominal pain, nausea and vomiting. The ultrasound and CT scan shows fatty liver disease and gallstones but no evidence of acute inflammation of your gallbladder. You received pain medications with improvement. Please take the pain medications even prescribed along with the nausea medicines as needed. Follow-up with your PCP as she may need an outpatient HIDA scan. You can also follow up with General surgery for elective gallbladder removal. Return to the emergency department if you develop a fever of 100.4 or greater, worsening pain, you are unable to tolerate food or fluids, or other concerning symptoms. Patient Language: Australian Prescriptions: No Action gabapentin 300 mg capsule 300 mg PO TID pantoprazole 40 mg tablet,delayed release (DR/EC) 40 mg PO QHS methocarbamol 750 mg tablet 750 mg PO Q6H ondansetron HCl 8 mg tablet 8 mg PO Q12H Qty: 20 0RF cyclobenzaprine 10 mg Tablet 10 mg PO TID PRN (Reason: Muscle Spasms) Qty: 30 0RF sennosides-docusate sodium [Senokot-S] 8.6-50 mg Tablet 1 tab-cap PO BID PRN (Reason: Constipation) 7 Days Qty: 14 0RF oxycodone 5 mg Tablet 5 mg PO Q6H PRN (Reason: Pain Rated 4-6) 7 Days Qty: 28 0RF Follow-up/Referrals: Lucille Jackson MD [Primary Care Provider] - Junior Iyer MD [Physician] -
--- OUTSIDE RECORDS SUMMARY | 2024-08-25 15:46 | XMS_ITS | Clinical Summary ---
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 FOR HB BILLS FOR SFL FOR AUTOMATED RECORDS Care Teams Custom Applicator Relationship Specialty Start Date End Date Lucille Jackson MD [address] [place] [address] PCP - General INTERNAL MEDICINE 05/25/19
--- OUTSIDE RECORDS SUMMARY | 2024-08-25 15:46 | XMS_ITS | Clinical Summary ---
Author Organization [facility] Address [address] [facility] [place] [address] Phone Care Team Providers Care Carpet Layer Helper Name Role Phone Avi Floyd MD Primary Care Provider [phone] Allergies Active Allergy Reactions Criticality Noted Date [...] Comments Blood Pressure 122/80 07/01/2019 11:03 AM HOSE WRAPPER Pulse 86 07/01/2019 11:03 AM HOSE WRAPPER Temperature 36.8 C (98.3 F) 07/01/2019 11:03 AM HOSE WRAPPER Respiratory Rate 22 07/01/2019 11:03 AM HOSE WRAPPER Oxygen Saturation 99% 07/01/2019 11:03 AM HOSE WRAPPER Inhaled Oxygen Concentration - - Weight 114.3 kg (252 lb) 07/01/2019 11:03 AM HOSE WRAPPER Height 166.6 cm (5' 5.6 ) 07/01/2019 11:03 AM CS T Body Mass Index 41.17 07/01/2019 11:03 AM HOSE WRAPPER Plan of Treatment Health Maintenance Due Date [...] this topic Insurance MEDICAID [place] Care Teams Carpet Layer Helper Relationship Specialty Start Date End Date Avi Floyd MD [address] [place] [address] PCP - General Family Medicine 12/18/18
--- OUTSIDE RECORDS SUMMARY | 2024-08-25 15:46 | XMS_ITS | Encounter Summary ---
Author Organization [facility] Address [address] [place] [address] Phone Care Team Providers Care Radio Reporter Name Role Phone Avi Floyd MD Primary Care Provider [phone] Reason for Visit * Reason Comments Medication Refill Encounter Details Date Type Department Care Team (Late st Contact Info) Description 02/23/2020 Refill [facility] - [facility] [address] [place] [address] Ryan Willingham MD [address] [place] [phone] Medication Refill Social History Tobacco Use Types [...] present documented in this encounter Care Teams Radio Reporter Relationship Specialty Start Date End Date Avi Floyd MD [address] [place] [address] PCP - General Family Medicine 12/18/18 documented as of this encounter
--- OUTSIDE RECORDS SUMMARY | 2024-08-25 15:46 | XMS_ITS | Encounter Summary ---
Author Organization [facility] Address [address] [place] [address] Care Team Providers Care Electric Detector Operator Name Role Phone Avi Floyd MD Primary Care Provider [phone] Lucille Jackson MD Primary Care Provider [phone] Encounter Details Date Type Department Care Team (Late st Contact Info) Description 10/17/2018 Abstract SFL CONVERSION [address] [place], [place] [id number] , Generic Conversion, Social History Tobacco Use Types Packs/Day Years Used Date Smoking Tobacco: Never Assessed Comments Unknown Sex and Gender Information Value Date Recorded Sex Assigned at Not on file Legal 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
--- OUTSIDE RECORDS SUMMARY | 2024-08-25 15:46 | XMS_ITS | Encounter Summary ---
Author Organization [facility] Address [address] [place] [address] Phone Care Team Providers Care Bookkeeping Clerk Name Role Phone Avi Floyd MD Primary Care Provider [phone] Reason for Visit * Reason Comments Medication Refill Encounter Details Date Type Department Care Team (Late st Contact Info) Description 05/30/2020 Refill [facility] - Neurology [facility] [address] [place] [address] Ryan Willingham MD [address] [place] [address] Medication Refill Social History Tobacco Use Types [...] present documented in this encounter Care Teams Bookkeeping Clerk Relationship Specialty Start Date End Date Avi Floyd MD [address] [place] [address] PCP - General Family Medicine 12/18/18 documented as of this encounter
[2024-08-25 17:36] LABS: Estimated CRCL calculation 121 ml/min; Estimated Glomerular Filt Rate > 60
[2024-08-25] MEDS: KETOROLAC 30 MG/ML VIAL (*BKC) IV PUSH (18:27)
== END 2024-08-25 19:03 | disposition home or self-care (01) ==
PROVIDERS: Emergency Provider Physician Assistant; PCP Internal Medicine
DX: K80.20 Calculus of gallbladder without cholecystitis without obstruction (principal); R74.01 Elevation of levels of liver transaminase levels; K76.0 Fatty (change of) liver, not elsewhere classified; Z98.890 Other specified postprocedural states; Z87.891 Personal history of nicotine dependence
CPT/HCPCS: 71045; 74177; 76705; 96374; 99284; J1885; Q9967

== ENCOUNTER 2024-09-07 12:43 | Observation (INO) | payer OTHER, SELFPAY ==
--- NOTE | ~2024-09-07 | MR_ITS ---
EXAMINATION: MR lumbar spine wo/w con DATE: 09/08/2024 12:53 INDICATION: Postoperative complication TECHNIQUE: Magnetic resonance imaging (MRI) of the lumbar spine was performed without and with 20 mL ProHance intravenous contrast. Sequences included sagittal T2-weighted FSE, sagittal T2-weighted FS F SE, and sagittal and axial T1-weighted FSE. Postcontrast sequences included axial T2-weighted FSE, sa gittal T1-weighted FSE, and axial and sagittal T1-weighted FS FSE. COMPARISON: CT dated 09/07/2024 FINDINGS: 3 mm retrolisthesis L4 on L5 and 4 mm retrolisthesis L5 on S1. Postoperative change of prior L4 and p artial laminectomy. There is a rim-enhancing fluid collection at the laminectomy bed which measures 1 .9 x 1.9 cm in maximal transaxial dimensions and extends 3.2 cm craniocaudally. There is a thin neck extending to a second more superficial peripherally enhancing fluid collection in the subcutaneous fa t which measures 4.1 x 3.7 x 2.0 cm. This could represent postoperative hematoma/seromas or abscesses in the appropriate clinical setting. Vertebral body heights are normal. Normal marrow signal. Moder ate disc height loss with annular fissure and disc extrusion at L4-L5. Significant disc height loss a nd mild disc desiccation without disc height loss at L3-L4 and L5-S1, the latter also with an annular fissure. The conus medullaris terminates at L1. There is normal signal in the caudal spinal cord wit h no abnormally enhancing lesions. 1 cm T2 hyperintense nonenhancing right renal cyst. The following disc levels are specifically discussed: T12-L1: The disc does not extend beyond the endplate margin. There is moderate bilateral facet joint osteoarthritis. There is no neural foraminal stenosis. There is no central canal stenosis. L1-L2: The disc does not extend beyond the endplate margin. There is mild bilateral facet joint osteo arthritis. There is no neural foraminal stenosis. There is no central canal stenosis. L2-L3: The disc does not extend beyond the endplate margin. There is mild to moderate bilateral facet joint osteoarthritis. There is no neural foraminal stenosis. There is no central canal stenosis. L3-L4: Disc is mildly bulging. There is mild bilateral facet joint osteoarthritis. There is mild bila teral neural foraminal stenosis. There is mild central canal stenosis. L4-L5: Annular fissure and large central disc extrusion which measures 1.6 cm left to right, 9 mm AP and 1.3 cm craniocaudally. There is mild bilateral facet joint osteoarthritis. There is mild bilatera l neural foraminal stenosis. Despite the posterior decompression there is still mild to moderate cent ral canal stenosis. There is also narrowing of the lateral recesses, mild on the right and moderate s everity on the left where there is mass effect upon the traversing left L5 nerve root. L5-S1: Annular fissure. The disc does not extend beyond the more posterior L4 endplate margin. There is mild bilateral facet joint osteoarthritis. There is mild bilateral neural foraminal stenosis. Ther e is no central canal stenosis. IMPRESSION: 1. Postoperative change of prior partial L4 laminectomy with a couple rim-enhancing fluid collections both at the laminectomy bed and in the overlying superficial subcutaneous tissues which could repres ent postoperative hematoma/seromas or abscesses in the appropriate clinical setting. No evident exten kartik to the central canal or marrow signal changes to suggest ostomy myelitis. 2. Moderate lower lumbar spondylosis most notable for a large central disc extrusion at L4-L5 which d espite the posterior decompression contribute to mild to moderate central canal stenosis and moderate narrowing of the left lateral recess exerting mass effect upon the traversing left L5 nerve root. Co rrelate clinically for left-sided muscle weakness of great toe extension and sensory change of the me dial foot and great toe. Reviewed, dictated and finalized at location B. IMPRESSION: 1. Postoperative change of prior partial L4 laminectomy with a couple rim-enhan cing fluid collections both at the laminectomy bed and in the overlying superfi cial subcutaneous tissues which could represent postoperative hematoma/seromas or abscesses in the appropriate clinical setting. No evident extension to the c entral canal or marrow signal changes to suggest ostomy myelitis. 2. Moderate lower lumbar spondylosis most notable for a large central disc extr usion at L4-L5 which despite the posterior decompression contribute to mild to moderate central canal stenosis and moderate narrowing of the left lateral rece ss exerting mass effect upon the traversing left L5 nerve root. Correlate clini nickie for left-sided muscle weakness of great toe extension and sensory change of the medial foot and great toe.
--- NOTE | ~2024-09-07 | CT_ITS ---
EXAMINATION: CT lumbar spine w con DATE: 09/07/2024 16:27 INDICATION: Wound dehiscence TECHNIQUE: Computed tomography (CT) of the lumbar spine was performed without intravenous contrast. D r. Dose Pedro Pablo The dose-length product was 1238.28 mGy-cm. COMPARISON: None FINDINGS: Bone alignment is normal. Vertebral body heights are normal. Moderate disc height loss at L4-L5. Mild disc height loss at T11-T12 and T12-L1. Mild disc bulge without significant central canal stenosis a t L5-S1. Postoperative change of recent partial L4 laminectomy. There overlying the surgical bed is a 2 x 2 x 1.5 cm subcutaneous fluid collection superficial to the muscular fascia of the posterior par aspinal musculature with suggestion of small amount of peripheral enhancement which could represent a postoperative hematoma, seroma or abscess in the appropriate clinical setting. There is multilevel m ild to moderate lumbar and lower thoracic facet osteoarthritis. There is mild neural foraminal stenos is bilaterally at L4-L5 and on the right at L5-S1 and moderate neural from stenosis on the left at L5 -S1. Bilateral kidneys, the pancreas, right adrenal gland and visualized portions of the left adrenal gland, spleen, liver and bowels are normal including a normal appendix. 1.5 cm likely partially loida apsed corpus luteum cyst at the right ovary. Visualized left ovary and fundus of uterus are unremarka ble. IMPRESSION: 1. 2 x 2 by 1.5 cm clearly defined fluid collection with suggestion of some peripheral enhancement in the subcutaneous fat overlying the site of a recent L4 partial laminectomy which could represent a p ostoperative hematoma/seroma or abscess in the appropriate clinical setting. 2. Moderate disc height loss at L4-L5 with otherwise minimal lumbar spondylosis. Reviewed, dictated and finalized at location B. IMPRESSION: 1. 2 x 2 by 1.5 cm clearly defined fluid collection with suggestion of some per ipheral enhancement in the subcutaneous fat overlying the site of a recent L4 p artial laminectomy which could represent a postoperative hematoma/seroma or abs cess in the appropriate clinical setting. 2. Moderate disc height loss at L4-L5 with otherwise minimal lumbar spondylosis .
[2024-09-07 13:02] VITALS: BP 130/71; PULSE 81; RESP 18; TEMP 36.7; O2SAT 99
--- OUTSIDE RECORDS SUMMARY | 2024-09-07 13:40 | XMS_ITS | Data Portability ---
Author Organization [facility] Address [address] [place] [address] Assessment No assessment recorded. Plan of Treatment [...] Last Updated DateTime 166.37 cm 40.9 kg/m2 951598. 58 g 16 /min 97.7 [degF] 122 mm[Hg] 80 mm[Hg] Gracia Winston MA [place] - [facility] 4 15:14:17 Date Recorded Body height Body mass index (BMI) Body weight Heart rate Respiratory rate Body temperature Systolic blood pressure Diastolic blood pressure Provider Name and Address Organization Details Last Updated DateTime 166.37 cm 39.8 kg/m2 030536. 23 g 82 /min 16 /min 97.5 [degF] 120 mm[Hg] 82 mm[Hg] Gracia Winston MA [facility] 4 12:44:50 Social History Question Answer Notes LastModified by Organization Details LastModified Time Tobacco Smoking Status Never Smoker Gracia Winston MA null, [facility] 07/22/2023 15:10:16 What Is [...] Or The Highest Degree You Have Received? [id number] Information not available 07/22/2023 Who Is Your Employer? [employer] Information not available 09/23/2023 What Was The Date Of Your Most Recent Tobacco Screening? 09/23/2023 Information not available 09/23/2023 Do You Feel Stressed (tense, Restless, Nervous, Or Anxious, Or Unable To Sleep At Night)? 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 soft diet.anti inflammato nicole Health Concerns Section Related Observation LastModified by Organization Detai ls LastModified Time None Recorded Concern Status LastModified by Organization Details LastModified Time None Recorded Advance Directives Directive None Recorded Payers Encounter Date Sequence Insurance Name Policy Number Policy Parson Covered Member ID Parson Member ID Guarantor Name 07/22/2023 1 [facility] (MEDICAID HMO) [id number] Devora Marinelli [id number] Quinnzayra Yves 09/23/2023 1 [facility] (MEDICAID HMO) [id number] Quinnzayra Yves [id number] Felymarlin Yves Notes Date Note Type Note Provider Name and Address Organization Details Recorded Time 07/22/2023 text/html She is complaini ng of infection in her right ear for three months. She has been on multiple drops and antibiotics Todd Price MD Attn: [address] [place], [address], [facility] 07/22/2023 15:39:29 09/23/2023 text/html Pt had right ext otitis and it has been slowly improving by keeping it dry. She also has mild TMJ tenderness Todd Price MD Attn: Account[address] [place], [address], [facility] 09/23/2023 13:01:59 OBGyn Episode No OBEpisode recorded.
--- OUTSIDE RECORDS SUMMARY | 2024-09-07 13:40 | XMS_ITS | Clinical Summary ---
Author Organization [facility] Address [address] [facility] [facility] [place] [address] Phone Care Team Providers Care Chronic Disease Epidemiologist Name Role Phone Avi Floyd MD Primary Care Provider [phone] Allergies Active Allergy Reactions Criticality Noted Date [...] Comments Blood Pressure 122/80 07/01/2019 11:03 AM VICE PRESIDENT OF COMPLIANCE Pulse 86 07/01/2019 11:03 AM VICE PRESIDENT OF COMPLIANCE Temperature 36.8 C (98.3 F) 07/01/2019 11:03 AM VICE PRESIDENT OF COMPLIANCE Respiratory Rate 22 07/01/2019 11:03 AM VICE PRESIDENT OF COMPLIANCE Oxygen Saturation 99% 07/01/2019 11:03 AM VICE PRESIDENT OF COMPLIANCE Inhaled Oxygen Concentration - - Weight 114.3 kg (252 lb) 07/01/2019 11:03 AM VICE PRESIDENT OF COMPLIANCE Height 166.6 cm (5' 5.6 ) 07/01/2019 11:03 AM CS T Body Mass Index 41.17 07/01/2019 11:03 AM VICE PRESIDENT OF COMPLIANCE Plan of Treatment Health Maintenance Due Date [...] this topic Insurance MEDICAID [place] Care Teams Chronic Disease Epidemiologist Relationship Specialty Start Date End Date Avi Floyd MD [address] [place] [address] PCP - General Family Medicine 12/18/18
--- OUTSIDE RECORDS SUMMARY | 2024-09-07 13:40 | XMS_ITS | Encounter Summary ---
Author Organization [facility] Address [address] [place] [address] Care Team Providers Care Track Walker Name Role Phone Avi Floyd MD Primary Care Provider [phone] Lucille Jackson MD Primary Care Provider [phone] Encounter Details Date Type Department Care Team (Late st Contact Info) Description 10/17/2018 Abstract SFL CONVERSION [address], [place] [id number] , Generic Conversion, Social History Tobacco Use Types Packs/Day Years Used Date Smoking Tobacco: Never Assessed Comments Unknown Sex and Gender Information Value Date Recorded Sex Assigned at Not on file Legal Sex Female 5:57 PM CLOUD SOLUTIONS ARCHITECT Gender Identity Not on file Sexual Orientation Not on file documented as of this encounter Plan of Treatment Not on file documented as of this encounter Visit Diagnoses Not on filedocumented in this encounter Care Teams Track Walker Relationship Specialty Start Date End Date Avi Floyd MD [address] [place] [address] PCP - General FAMILY PRACTICE 07/21/18 05/24/19 Lucille Jackson MD [address] [place] [phone] PCP - General INTERNAL MEDICINE 05/25/19 documented as of this encounter
--- OUTSIDE RECORDS SUMMARY | 2024-09-07 13:40 | XMS_ITS | Encounter Summary ---
Author Organization [facility] Address [address] [place] [address] Phone Care Team Providers Care Bioinformatics Analyst Name Role Phone Avi Floyd MD Primary Care Provider [phone] Reason for Visit * Reason Comments Medication Refill Encounter Details Date Type Department Care Team (Late st Contact Info) Description 02/23/2020 Refill [facility] - [facility]rology [facility] [address] [place] [address] Ryan Willingham MD [address] [place] [phone] Medication Refill Social History Tobacco Use Types [...] present documented in this encounter Care Teams Bioinformatics Analyst Relationship Specialty Start Date End Date Avi Floyd MD [address] [place] [address] PCP - General Family Medicine 12/18/18 documented as of this encounter
--- OUTSIDE RECORDS SUMMARY | 2024-09-07 13:40 | XMS_ITS | Clinical Summary ---
Author Organization [facility] Address [address] [place] [address] Care Team Providers Care Direct Mail Clerk Name Role Phone Lucille Jackson MD Primary Care Provider [phone] Medications No known medications Active Problems No known active problems Social History Tobacco Use Types Packs/Day Years Used Date Smoking Tobacco: Never Assessed Comments Unknown Sex and Gender Information Value Date Recorded Sex Assigned at Not on file Legal Sex Female 5:57 PM SHOT DROPPER Gender Identity Not on file Sexual Orientation [...] complete this topic Insurance MEDICAID DEPT OF [address] Advance Directives Documents on File Type Date Recorded Patient Desk Attendant Expl anation Legal Documents 02/22/2020 1:00 PM RECVD & CMPLTD ATTY REQ. FOR HB BILLS FOR SFL FOR AUTOMATED RECORDS Care Teams Direct Mail Clerk Relationship Specialty Start Date End Date Lucille Jackson MD [address] [place] [address] PCP - General INTERNAL MEDICINE 05/25/19
--- OUTSIDE RECORDS SUMMARY | 2024-09-07 13:40 | XMS_ITS | Encounter Summary ---
Author Organization [facility] Address [address] [place] [address] Phone Care Team Providers Care International Specialist Name Role Phone Avi Floyd MD Primary Care Provider [phone] Reason for Visit * Reason Comments Medication Refill Encounter Details Date Type Department Care Team (Late st Contact Info) Description 05/30/2020 Refill [facility] - Neu[facility] [address] [place] [address] Ryan Willingham MD [address] [place] [address] Medication Refill Social History Tobacco Use Types [...] present documented in this encounter Care Teams International Specialist Relationship Specialty Start Date End Date Avi Floyd MD [address] [place] [address] PCP - General Family Medicine 12/18/18 documented as of this encounter
--- NOTE | 2024-09-07 14:31 | ED_ITS ---
HPI - Wound/Laceration General Chief Complaint: Wound/Laceration Stated Complaint: Sent by Dr Ayers-surgical incision issues Time Seen by Provider: 09/07/24 14:05 History of Present Illness HPI narrative: Patient is a 29-year-old female who presents ER with concerns for surgical site infection. She had surgery last month for a herniated disc at L4/L5. It did cause some lower extremity numbness and she has footdrop on the right side. She walks with a walker. She has been doing physical therapy. One week ago her surgical site at the most cephalad aspect began to dehisced. She started having drainage over last couple days and was sent to the ER after physical therapy today to be evaluated further for possible infection. Surgeon was Dr. Roberson. No new numbness or tingling or weakness. No fevers chills or sweats. Drainage is yellow and she thinks more thick. Related Data Home Medications ?Medication ?Instructions ?Recorded ?Confirmed ?Last Taken ?Type gabapentin 300 mg capsule 300 mg PO TID 08/25/24 Unknown History methocarbamol 750 mg tablet 750 mg PO Q6H 08/25/24 Unknown History pantoprazole 40 mg tablet,delayed 40 mg PO QHS 08/25/24 Unknown History release Allergies Allergy/AdvReac Type Severity Reaction Status Date / Time acetaminophen (From [facility]) AdvReac Unknown Itching Verified 08/25/24 14:28 hydrocodone (From [facility]) AdvReac Unknown Itching Verified 08/25/24 14:28 Review of Systems 2 Review of Systems: All systems reviewed & are unremarkable except as noted in HPI and below Constitutional: Constitutional: Reports no additional constitutional complaints Cardiovascular: Cardiovascular: Reports no additional cardiovascular complaints Respiratory: Respiratory: Reports no additional respiratory complaints Gastrointestinal: Gastrointestinal: Reports no additional gastrointestinal complaints Musculoskeletal: Musculoskeletal: Reports no additional musculoskeletal complaints Neurologic: Reports system reviewed and no additional complaints, except as documented [facility] Past Medical History Medical History (Updated 09/07/24 @ 18:13 by Angel Buckner MD) Cauda equina syndrome Lumbar disc herniation Anxiety Colic, ureteral Surgical History Surgical History (Updated 09/07/24 @ 14:34 by Angel Buckner MD) Status post lumbar discectomy Family History Family History Father Alcoholism Hypertension Heart disease Diabetes mellitus Grandparent Breast cancer Diabetes mellitus Grandparent Hypertension Diabetes mellitus Social History Social History Smoking packs per day: 0.5 Smoking cigarettes per day: 10.0 Smoking status: Former smoker Alcohol intake: never Substance use: never Substance use type: does not use Do You Feel Safe in your Home?: Yes Lack of Transportation: No Lack of Food: Never True Current Housing: Decline to Answer Concerned About Future Housing: Decline to Answer Difficulty Paying Gas/Electric Bills: Decline to Answer Difficulty Paying for Meds: Decline to Answer Currently Unemployed: Decline to Answer Education: Associate Degree Difficulty w/ Childcare or Family Care: No Spiritual care concerns: No Exam 2 Narrative: GENERAL: Well-appearing, well-nourished, and in no acute distress. HEAD: Normocephalic, atraumatic. ENT: Mucous membranes moist. CHEST: Clear to auscultation. No respiratory distress. HEART: Regular rate and rhythm. Normal peripheral pulses. EXTREMITIES: Normal range of motion. No edema. SKIN: Warm, dry, no rash. Smaller wound dehiscence cephalad aspect of the surgical site midline lumbar spine. There is a approximately 3 mm hole without the purulent drainage but there is additional white/yellow granulation tissue surrounding area. No surrounding cellulitis. Mild discomfort with palpation the area with audible air coming from the hole. NEURO: Alert and oriented x3. PSYCH: Normal mood and affect. Course Course Emergency Course: Discussed case with neuro surgery, Dr. Amado, and Dr. Jennings. Admit to hospitalist service. No antibiotics at this time but perform culture blood/urine/wound. I was able to express a little bit of purulent discharge that was not present earlier. This still may be seroma. Inflammatory markers reassuring though ESR is mildly elevated. Will require MRI tomorrow. Vital Signs Vital signs: Vital Signs Temperature 98.1 F 09/07/24 13:02 Pulse Rate 81 09/07/24 13:02 Respiratory Rate 18 09/07/24 13:02 Blood Pressure 130/71 09/07/24 13:02 Pulse Oximetry 99 09/07/24 13:02 Oxygen Delivery Room Air 09/07/24 13:02 Temperature 98.1 F 09/07/24 13:02 Pulse Rate 68 09/07/24 16:34 Respiratory Rate 14 09/07/24 16:34 Blood Pressure 130/71 09/07/24 13:02 Pulse Oximetry 98 09/07/24 16:34 Oxygen Delivery Room Air 09/07/24 13:02 MDM - Wound/Laceration Lab Data 09/07/24 14:37 09/07/24 14:37 Labs: Lab Results 09/07/24 Range/Units 14:37 WBC 10.0 (4.5-10.0) K/mm3 RBC 4.03 L (4.2-5.4) M/mm3 Hgb 11.9 L (12.0-15.0) g/dL Hct 37.1 (37.0-47.0) % MCV 92.1 (80-100) fl MCH 29.5 (26-34) pg MCHC 32.1 (32-36) g/dl RDW 12.9 (11.5-14.5) % Plt Count 314 (150-375) k/mm3 MPV 9.2 (7.4-10.4) fl Immature Gran % (Auto) 0.2 (0-0.5) % Neut % (Auto) 68.8 (45.5-73.1) % Lymph % (Auto) 25.3 (18.3-44.2) % Kaufman % (Auto) 4.4 (2.6-8.5) % Eos % (Auto) 1.0 (0-4.4) % Baso % (Auto) 0.3 (0.2-1.2) % Lymph # (Auto) 2.53 (0.9-3.2) K/mm3 Kaufman # (Auto) 0.4 (0.1-0.6) K/mm3 Eos # (Auto) 0.1 (0-0.3) K/mm3 Baso # (Auto) 0.0 (0.0-0.1) K/mm3 Abs Immat Gran (auto) 0.02 (0.00-0.031) K/mm3 Absolute Neuts (auto) 6.9 H (1.3-6.7) K/mm3 Absolute Nucleated RBC 0.000 (0.0-0.012) K/mm3 Nucleated RBC % 0.0 (0.0-0.2) % ESR 53 H (0-20) mm/hr Sodium 140 (137-145) mmol/L Potassium 4.0 (3.4-5.0) mmol/L Chloride 106 (98-107) mmol/L Carbon Dioxide 24 (22-30) mmol/L Anion Gap 10 (4-12) mmol/L BUN 6 L D (7-17) mg/dL Creatinine 0.49 L (0.7-1.0) mg/dL Estim Creat Clear Calc 178 ml/min Estimated GFR > 60 (59 - ) Glucose 105 (65-110) mg/dL Lactic Acid 1.6 (0.7-2.0) mmol/L Calcium 8.9 (8.4-10.2) mg/dL Total Bilirubin 0.4 (0.2-1.3) mg/dL AST 20 (14-36) U/L ALT 36 H (6-35) U/L Alkaline Phosphatase 57 (38-126) U/L C-Reactive Protein < 0.5 (<1.0) mg/dL Total Protein 7.0 (6.3-8.2) g/dL Albumin 4.2 (3.5-5.1) g/dL Imaging Data Radiologist's impression: ITS Impressions Lumbar Spine CT 09/07/24 16:33 IMPRESSION: 1. 2 x 2 by 1.5 cm clearly defined fluid collection with suggestion of some peripheral enhancement in the subcutaneous fat overlying the site of a recent L4 partial laminectomy which could represent a postoperative hematoma/seroma or abscess in the appropriate clinical setting. 2. Moderate disc height loss at L4-L5 with otherwise minimal lumbar spondylosis. Discharge Plan Discharge Clinical Impression: Fluid collection at surgical site Patient Disposition: Still a Patient Condition: Stable Patient Language: Lithuanian Prescriptions: No Action gabapentin 300 mg capsule 300 mg PO TID pantoprazole 40 mg tablet,delayed release (DR/EC) 40 mg PO QHS methocarbamol 750 mg tablet 750 mg PO Q6H ondansetron HCl 8 mg tablet 8 mg PO Q12H Qty: 20 0RF cyclobenzaprine 10 mg Tablet 10 mg PO TID PRN (Reason: Muscle Spasms) Qty: 30 0RF sennosides-docusate sodium [Senokot-S] 8.6-50 mg Tablet 1 tab-cap PO BID PRN (Reason: Constipation) 7 Days Qty: 14 0RF oxycodone 5 mg Tablet 5 mg PO Q6H PRN (Reason: Pain Rated 4-6) 7 Days Qty: 28 0RF Follow-up/Referrals: Lucille Jackson MD [Primary Care Provider] -
[2024-09-07 14:46] LABS: Basophils Percent Auto 0.3 % (0.2-1.2); Eosinophils Absolute Auto 0.1 K/mm3 (0-0.3); Hematocrit 37.1 % (37.0-47.0); Hemoglobin 11.9 g/dL (12.0-15.0); Immature Granulocyte Absolute 0.02 K/mm3 (0.00-0.031); Immature Granulocyte Percent A 0.2 % (0-0.5); Lymphocytes Absolute Auto 2.53 K/mm3 (0.9-3.2); Lymphocytes Percent Auto 25.3 % (18.3-44.2); Mean Corpuscular HGB Conc 32.1 g/dl (32-36); Mean Corpuscular Hemoglobin 29.5 pg (26-34); Mean Corpuscular Volume 92.1 fl (80-100); Mean Platelet Volume 9.2 fl (7.4-10.4); Monocytes Absolute Auto 0.4 K/mm3 (0.1-0.6); Monocytes Percent Auto 4.4 % (2.6-8.5); Neutrophils Absolute Auto 6.9 K/mm3 (1.3-6.7); Neutrophils Percent Auto 68.8 % (45.5-73.1); Platelet Count Result 314 k/mm3 (150-375); Red Blood Count 4.03 M/mm3 (4.2-5.4); Red Cell Distribution Width 12.9 % (11.5-14.5)
[2024-09-07 15:05] LABS: Lactic Acid Reflex 1.6 mmol/L (0.7-2.0)
[2024-09-07 15:07] LABS: Alanine Aminotransferase 36 U/L (6-35); Albumin Level 4.2 g/dL (3.5-5.1); Alkaline Phosphatase 57 U/L (38-126); Anion Gap 10 mmol/L (4-12); Aspartate Amino Transferase 20 U/L (14-36); Bilirubin,Total 0.4 mg/dL (0.2-1.3); Blood Urea Nitrogen 6 mg/dL (7-17); CRP < 0.5 mg/dL (<1.0); Calcium 8.9 mg/dL (8.4-10.2); Carbon Dioxide 24 mmol/L (22-30); Chloride 106 mmol/L (98-107); Estimated CRCL calculation 178 ml/min; Estimated Glomerular Filt Rate > 60; Glucose 105 mg/dL (65-110); Sodium 140 mmol/L (137-145)
[2024-09-07 15:21] LABS: Erythrocyte Sedimentation Rate 53 mm/hr (0-20)
--- OUTSIDE RECORDS SUMMARY | 2024-09-07 15:29 | XMS_ITS | Encounter Summary ---
Author Organization [facility] Address [address] [place] [address] Care Team Providers Care Ticket Taker Ferryboat Name Role Phone Avi Floyd MD Primary Care Provider [phone] Lucille Jackson MD Primary Care Provider [phone] Encounter Details Date Type Department Care Team (Late st Contact Info) Description 10/17/2018 Abstract SFL CONVERSION [address], [place] [id number] , Generic Conversion, Social History Tobacco Use Types Packs/Day Years Used Date Smoking Tobacco: Never Assessed Comments Unknown Sex and Gender Information Value Date Recorded Sex Assigned at Not on file Legal Sex Female 5:57 PM FIREFIGHTING EQUIPMENT SPECIALIST Gender Identity Not on file Sexual Orientation Not on file documented as of this encounter Plan of Treatment Not on file documented as of this encounter Visit Diagnoses Not on filedocumented in this encounter Care Teams Ticket Taker Ferryboat Relationship Specialty Start Date End Date Avi Floyd MD [address] [place] [address] PCP - General FAMILY PRACTICE 07/21/18 05/24/19 Lucille Jackson MD [address] [place] [address] PCP - General INTERNAL MEDICINE 05/25/19 documented as of this encounter
--- OUTSIDE RECORDS SUMMARY | 2024-09-07 15:29 | XMS_ITS | Encounter Summary ---
Author Organization [facility] Address [address] [place] [address] Phone Care Team Providers Care Oriental Medicine Practitioner Name Role Phone Avi Floyd MD Primary Care Provider [phone] Reason for Visit * Reason Comments Medication Refill Encounter Details Date Type Department Care Team (Late st Contact Info) Description 05/30/2020 Refill [facility] [address] [place] [address] Ryan Willingham MD [address] [place] [address] Medication Refill Social History Tobacco Use Types [...] present documented in this encounter Care Teams Oriental Medicine Practitioner Relationship Specialty Start Date End Date Avi Floyd MD [address] [place] [address] PCP - General Family Medicine 12/18/18 documented as of this encounter
--- OUTSIDE RECORDS SUMMARY | 2024-09-07 15:29 | XMS_ITS | Clinical Summary ---
Author Organization [facility] Address [address] [place] [address] Care Team Providers Care Fish Hatchery Manager Name Role Phone Lucille Jackson MD Primary Care Provider [phone] Medications No known medications Active Problems No known active problems Social History Tobacco Use Types Packs/Day Years Used Date Smoking Tobacco: Never Assessed Comments Unknown Sex and Gender Information Value Date Recorded Sex Assigned at Not on file Legal Sex Female 5:57 PM SNAGGER Gender Identity Not on file Sexual Orientation [...] complete this topic Insurance MEDICAID DEPT OF [address] Advance Directives Documents on File Type Date Recorded Patient Kettle Coordinator Expl anation Legal Documents 02/22/2020 1:00 PM RECVD & CMPLTD ATTY REQ. FOR HB BILLS FOR SFL FOR AUTOMATED RECORDS Care Teams Fish Hatchery Manager Relationship Specialty Start Date End Date Lucille Jackson MD [address] [place] [address] PCP - General INTERNAL MEDICINE 05/25/19
--- OUTSIDE RECORDS SUMMARY | 2024-09-07 15:29 | XMS_ITS | Clinical Summary ---
Author Organization [facility] Address [address] [facility] [place] [address] Phone Care Team Providers Care Reconnaissance Crewmember Name Role Phone Avi Floyd MD Primary Care Provider [phone] Allergies Active Allergy Reactions Criticality Noted Date [...] Comments Blood Pressure 122/80 07/01/2019 11:03 AM [employer] Pulse 86 07/01/2019 11:03 AM [employer] Temperature 36.8 C (98.3 F) 07/01/2019 11:03 AM [employer] Respiratory Rate 22 07/01/2019 11:03 AM [employer] Oxygen Saturation 99% 07/01/2019 11:03 AM [employer] Inhaled Oxygen Concentration - - Weight 114.3 kg (252 lb) 07/01/2019 11:03 AM [employer] Height 166.6 cm (5' 5.6 ) 07/01/2019 11:03 AM CS T Body Mass Index 41.17 07/01/2019 11:03 AM [employer] Plan of Treatment Health Maintenance Due Date [...] this topic Insurance MEDICAID [place] Care Teams Reconnaissance Crewmember Relationship Specialty Start Date End Date Avi Floyd MD [address] [place] [address] PCP - General Family Medicine 12/18/18
--- OUTSIDE RECORDS SUMMARY | 2024-09-07 15:29 | XMS_ITS | Encounter Summary ---
Author Organization [facility] Address [address] [place] [address] Phone Care Team Providers Care Briefcase Sewer Name Role Phone Avi Flyod MD Primary Care Provider [phone] Reason for Visit * Reason Comments Medication Refill Encounter Details Date Type Department Care Team (Late st Contact Info) Description 02/23/2020 Refill [facility] - Neurology [facility] [address] [place] [address] Ryan Willingham MD [address] [place] [id number] Medication Refill Social History Tobacco Use Types [...] present documented in this encounter Care Teams Briefcase Sewer Relationship Specialty Start Date End Date Avi Floyd MD [address] [place] [address] PCP - General Family Medicine 12/18/18 documented as of this encounter
[2024-09-07 16:34] VITALS: PULSE 68; RESP 14; O2SAT 98
[2024-09-07 21:30] VITALS: BP 140/94; PULSE 78; RESP 18; TEMP 36.2; O2SAT 98
--- NOTE | 2024-09-07 22:55 | PM.IMHP ---
H&P: HPI History of Present Illness Date/Time: 09/07/24 22:55 Chief Complaint: Yellow drainage from surgical incision Narrative: 29-year-old female with a past medical history of morbid obesity, hyperlipidemia, anxiety and GERD and recent laminectomy on 08/03/2024 due to herniated disc at L4-L5 who presented to the ER with yellow drainage from her surgical incision site. The patient has had back pain on and off since 2018. In May she fell on the ice twice and since that time her pain had increased. She came to [facility] July [address] of the lumbar spine that demonstrated large central L4-5 disc protrusion causing severe central canal narrowing. The patient was discharged home with Medrol Dosepak and [place]. She was also treated for possible UTI. Her physician initially ordered MRI of the lumbar spine which was rejected. She was then sent to the neuro surgery who ordered MRI and was approved by insurance she went for the study on the . She was called when the results demonstrated large central disc extrusion L4-L5 which fills majority of the canal resulting in severe central canal stent doses. She reported that in the interim between her neuro surgical visit and her MRI she developed steadily worsening symptoms severe pain down her right leg and was having intermittent saddle paresthesias. She denies loss of bowel or bladder control during those time.. She has subsequently underwent laminectomy on 08/03/2024. She reports that since she has surgery she has had slow recovery of sensation and is working on mobility in going to physical therapy. She presented back to the ER on the on 09/07 for evaluation of possible infection of her surgical site. She reported a week ago the top of her surgical site began did see his she had developed some yellow appearing tissue at the site. But no overt sign of infection. There was no erythema surrounding the region. No increased pain. She reports that she has been having chronic burning pain to the area ever since surgery. But a couple of days ago she began having some serous to yellowish drainage from the area. The wound is dehisced and opened of an area of a couple of mm circular in appearance with what appears to possibly be and absorbable suture visualized underneath the dressing that the ER had placed over the wound was saturated at the time of my evaluation. Patient denies having any fevers chills or diaphoresis. Review of Systems Review of Systems: 12 systems were reviewed with pertinent positives and negatives per HPI. Except as documented in the HPI, all other systems were reviewed and are negative. [facility]LY [facility], [facility] Past Medical History Medical History (Updated 09/08/24 @ 09:09 by Supriya Brown DO) Morbid obesity with BMI of 40.0-44.9, adult Cauda equina syndrome Lumbar disc herniation Anxiety Colic, ureteral Surgical History Surgical History (Updated 09/08/24 @ 00:42 by Supriya Brown DO) Status post lumbar discectomy (08/03/24) L4-L5 Family History Family History Father Alcoholism Hypertension Heart disease Diabetes mellitus Grandparent Breast cancer Diabetes mellitus Grandparent Hypertension Diabetes mellitus Social History Social History (Updated 09/08/24 @ 00:48 by Supriya Brown DO) Social History: She is single and has never been . She usually lives in her own home but is currently staying with her mother since her laminectomy because her apartment in her bathroom is too small to get her walker into the room. 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 She drinks an alcoholic beverage every couple months. She denies any illicit substance use she used to smoke a half pack of cigarettes per day but this was for brief time when she was young. Code status: Full code Surrogate decision maker: Sandra Browning (mother) Smoking packs per day: 0.5 Smoking cigarettes per day: 10.0 Smoking status: Former smoker Tobacco type: cigarettes Second hand tobacco smoke exposure: No Alcohol intake: never Substance use: never Substance use type: does not use Do You Feel Safe in your Home?: Yes Lack of Transportation: No Lack of Food: Never True Current Housing: I Have Housing Concerned About Future Housing: No Difficulty Paying Gas/Electric Bills: No Difficulty Paying for Meds: No Currently Unemployed: No Education: Associate Degree Difficulty w/ Childcare or Family Care: No Spiritual care concerns: No Meds Home Medications and Allergies Home Medications ?Medication ?Instructions ?Recorded ?Confirmed ?Type ondansetron HCl 8 mg tablet 8 mg PO Q12H #20 tabs 07/26/24 09/07/24 Rx cyclobenzaprine 10 mg tablet 10 mg PO TID PRN Muscle Spasms #30 08/05/24 09/07/24 Rx tabs oxycodone 5 mg tablet 5 mg PO Q6H PRN Pain Rated 4-6 7 08/05/24 09/07/24 Rx days #28 tabs sennosides 8.6 mg-docusate sodium 1 tab-cap PO BID PRN Constipation 08/05/24 09/08/24 Rx 50 mg tablet (Senokot-S) 7 days #14 tabs gabapentin 300 mg capsule 300 mg PO TID 08/25/24 09/07/24 History methocarbamol 750 mg tablet 750 mg PO Q6H 08/25/24 09/07/24 History pantoprazole 40 mg tablet,delayed 40 mg PO QHS 08/25/24 09/07/24 History release Allergies Allergy/AdvReac Type Severity Reaction Status Date / Time acetaminophen (From [place]) AdvReac Unknown Itching Verified 08/25/24 14:28 hydrocodone (From [place]) AdvReac Unknown Itching Verified 08/25/24 14:28 Vital Signs Vital Signs - 24 hr 09/07/24 13:02 09/07/24 16:34 09/07/24 21:30 Temperature 98.1 F 97.1 F L Pulse Rate 81 68 78 Respiratory Rate 18 14 18 Blood Pressure 130/71 140/94 H Pulse Oximetry 99 98 98 Oxygen Delivery Room Air Exam Narrative: Weight 117.9 kg BMI 43.3 Const: Other: Morbidly obese, no acute distress, appears stated age HENMT: Other: Mucous membranes are moist, no oral pharyngeal erythema Eyes: Other: Pupils are equal and reactive, no scleral icterus, no conjunctival pallor Neck: Other: Large neck circumference, trachea midline Resp: Other: Clear to auscultation bilaterally, no increased work of breathing Cardio: Other: Regular rate, regular rhythm, 2+ bilateral radial and pedal pulses GI: Other: Obese, soft, nontender Back/Spine/Pelvis: Other: Longitudinal scar lower lumbar to the due top of the sacrum wound is intact and till the last 1/4 inch at the top margin where a small punctate opening is noted no surrounding erythema, what appears to possibly be and absorbable suture is noted at the base of the opening with an open cavity noted beneath, on palpation of the area I was unable to add to the plea express any additional material but the bandage that had been covering the area with saturated in serous fluid there was some yellow material on the bandage but I suspect this may have been sloughed skin from the area of dehiscence verses point mid that the patient reported that the ER physician had placed on the bandage Skin: Other: Please see above Neuro: Other: Patient has sensory deficits of the lower extremities but is able to lift both legs equally reflexes not specifically tested Extrem: Other: No clubbing, cyanosis or edema Psych: Other: Appropriate mood and affect, pleasant and cooperative, judgment and insight intact H&P: Results Labs Labs: Laboratory Tests 09/07/24 14:37 09/07/24 14:37 09/07/24 14:37 WBC 10.0 RBC 4.03 L Hgb 11.9 L Hct 37.1 MCV 92.1 MCH 29.5 MCHC 32.1 RDW 12.9 Plt Count 314 MPV 9.2 Immature Gran % (Auto) 0.2 Neut % (Auto) 68.8 Lymph % (Auto) 25.3 [place] % (Auto) 4.4 Eos % (Auto) 1.0 Baso % (Auto) 0.3 Lymph # (Auto) 2.53 [place] # (Auto) 0.4 Eos # (Auto) 0.1 Baso # (Auto) 0.0 Abs Immat Gran (auto) 0.02 Absolute Neuts (auto) 6.9 H Absolute Nucleated RBC 0.000 Nucleated RBC % 0.0 ESR 53 H Sodium 140 Potassium 4.0 Chloride 106 Carbon Dioxide 24 Anion Gap 10 BUN 6 L D Creatinine 0.49 L Estim Creat Clear Calc 178 Estimated GFR > 60 Glucose 105 Lactic Acid 1.6 Calcium 8.9 Total Bilirubin 0.4 AST 20 ALT 36 H Alkaline Phosphatase 57 C-Reactive Protein < 0.5 Total Protein 7.0 Albumin 4.[address] 09/07/24 16:33 IMPRESSION: 1. 2 x 2 by 1.5 cm clearly defined fluid collection with suggestion of some peripheral enhancement in the subcutaneous fat overlying the site of a recent L4 partial laminectomy which could represent a postoperative hematoma/seroma or abscess in the appropriate clinical setting. 2. Moderate disc height loss at L4-L5 with otherwise minimal lumbar spondylosis. Assessment and Plan Assessment and plan (1) Fluid collection at surgical site: Qualifiers: Encounter type: initial encounter Qualified Code(s): T88.8XXA - Other specified complications of surgical and medical care, not elsewhere classified, initial encounter Code(s): T88.8XXA - Other specified complications of surgical and medical care, not elsewhere classified, initial encounter Status: Acute (2) Status post lumbar discectomy: Onset Date: 08/03/24 Code(s): Z98.890 - Other specified postprocedural states Status: Acute Plan Patient has small area of dehiscence and serous drainage from surgical site from recent lumbar laminectomy/diskectomy. Is unclear of CT findings are consistent with infection verses postoperative seroma. Patient has been admitted for monitoring. Will repeat CBC in a.m.. Neuro surgery has been consulted. Will hold off on antibiotics and monitor for signs of possible infection. Neurosurgery has been consulted and we will await further recommendations. The patient's home pain medications muscle relaxers and PPI have been ordered. Quality VTE Prophylaxis VTE prophylaxis: mechanical ordered (SCDs) If No VTE Prophylaxis Answer both mechanical and pharmacologic: Reason no mechanical VTE proph: low risk/not indicated (Patient ambulating) Reason no pharmacologic proph: low risk/not indicated (Patient ambulating) Hospitalist MIPS Advance Care Plan I have confirmed that the patient's Advanced Care Plan is present, code status is documented, or surrogate decision maker is listed in patient medical record.: Yes Medication Reconciliation I have utilized all available resources to obtain, update and review the patients current medications (includes all prescriptions, OTC, herbals, cannabis, and nutritional supplements).: Yes
[2024-09-08 05:54] VITALS: BP 111/61; PULSE 75; RESP 16; TEMP 36.6; O2SAT 99
[2024-09-08] MEDS: methocarbamoL 750 MG TABLET PO ×2 (06:02→13:36)
[2024-09-08 07:32] LABS: Hematocrit 37.4 % (37.0-47.0); Hemoglobin 12.1 g/dL (12.0-15.0); Mean Corpuscular HGB Conc 32.4 g/dl (32-36); Mean Corpuscular Hemoglobin 29.8 pg (26-34); Mean Corpuscular Volume 92.1 fl (80-100); Platelet Count Result 278 k/mm3 (150-375); Red Blood Count 4.06 M/mm3 (4.2-5.4)
[2024-09-08] MEDS: GABAPENTIN 300 MG CAPSULE PO ×2 (07:52→13:36)
--- NOTE | 2024-09-08 11:17 | P.PNIM_ITS ---
Progress Note: A&P Assessment and Plan (1) Fluid collection at surgical site: Qualifiers: Encounter type: initial encounter Qualified Code(s): T88.8XXA - Other specified complications of surgical and medical care, not elsewhere classified, initial encounter Code(s): T88.8XXA - Other specified complications of surgical and medical care, not elsewhere classified, initial encounter Status: Acute Assessment and Plan: -Abscess vs. hematoma vs. seroma -Pain control, currently none -Pending urine, blood, and wound cultures -Per neurosurg consult in ED, holding off on abx -Trend CBC and associated labs daily -Awaiting Neurosurg consult -Awaiting Lumbar MRI (2) Status post lumbar discectomy: Onset Date: 08/03/24 Code(s): Z98.890 - Other specified postprocedural states Status: Acute Assessment and Plan: -Awaiting neurosurgery consult and lumbar MRI Plan Patient has small area of dehiscence and serous drainage from surgical site from recent lumbar laminectomy/diskectomy. Is unclear of CT findings are consistent with infection verses postoperative seroma. Patient has been admitted for monitoring. Will repeat CBC in a.m.. Neuro surgery has been consulted. Will hold off on antibiotics and monitor for signs of possible infection. Neurosurgery has been consulted and we will await further recommendations. The patient's home pain medications muscle relaxers and PPI have been ordered. Subjective Date/time seen: 09/08/24 0940 Interval history: Pt seen today, she is lying comfortably in bed. Pt reports that she has been feeling fine, without any pain. Pt is reporting LLE L lateral mid lower leg decreased sensation and well as tingling in her R toes, she reports this being apparent since surgery. R foot drop brace at bedside. Updated pt on plan of pending blood, urine, and wound cultures as well as neurosurg consult and MRI, pt understanding. Wound also assessed, see PEx below. Review of Systems Review of Systems: All systems reviewed & are unremarkable except as noted in HPI and below Exam Narrative: Pt lying on her R side for ease of exam Const: General: no acute distress HENMT: Face/Nose/Sinus: Normal nares present Mouth: Yes moist mucous membranes Eyes: General: appearance normal, both eyes and all related structures Sclera: sclerae normal Neck: Neck: supple Resp: Effort & Inspection: normal respiratory effort Auscultation: clear to auscultation bilaterally Cardio: Rate: regular rate Rhythm: regular rhythm GI: Auscultation: normal bowel sounds Other: non tender Back/Spine/Pelvis: Other: Lumber back: Bandage removed for exam, bandage with serous / yellow fluid on pad. Small punctate opening is noted with serous drainage inside, but not currently actively draining, with no surrounding erythema. Unable to recreate any drainage when palpated. Skin: Other: SEE BACK Neuro: Speech: normal speech Motor exam (neuro): 5/5 motor strength present throughout Sensory Exam: No normal sensation Other: L lateral mid lower leg with decreased sensation, R toes with tingling Extrem: Other: SEE NEURO Psych: Mental Status: mental status grossly normal Affect: normal affect Objective Data Vital Signs Vital Signs: Vital Signs - 24 hr 09/07/24 13:02 09/07/24 16:34 09/07/24 21:30 Temperature 98.1 F 97.1 F L Pulse Rate 81 68 78 Respiratory Rate 18 14 18 Blood Pressure 130/71 140/94 H Pulse Oximetry 99 98 98 Oxygen Delivery Room Air 09/08/24 05:54 Temperature 97.9 F Pulse Rate 75 Respiratory Rate 16 Blood Pressure 111/61 Pulse Oximetry 99 Oxygen Delivery Intake/Output Intake/Output: Intake & Output 09/05/24 09/06/24 09/07/24 09/08/24 23:59 23:59 23:59 23:59 Output Total 300 Balance -300 Meds/Results Medications: Active Medications Generic Name Dose Route Start Last Admin Trade Name Freq PRN Reason Stop Dose Admin Acetaminophen 650 mg 09/07/24 18:07 Acetaminophen 325 Mg Tablet PO Q4H PRN Mild Pain (1-3) or Fever Cyclobenzaprine HCl 10 mg 09/08/24 00:38 Cyclobenzaprine Hcl 10 Mg Tablet PO TID PRN Muscle Spasms Gabapentin 300 mg 09/08/24 09:00 09/08/24 07:52 Gabapentin 300 Mg Capsule PO 300 mg TID TERA Administration Methocarbamol 750 mg 09/08/24 00:40 09/08/24 06:02 Methocarbamol 750 Mg Tablet PO 750 mg Q6HR TERA Administration Ondansetron HCl 4 mg 09/07/24 18:07 Ondansetron Inj 4 Mg/2 Ml Vial IV PUSH Q4H PRN Nausea Oxycodone HCl 5 mg 09/08/24 00:38 Oxycodone Hcl (*Crx) 5 Mg Tab Ir PO Q6H PRN Pain 7-10 Pantoprazole Sodium 40 mg 09/08/24 21:00 Pantoprazole 40 Mg Tablet PO QHS [facility] Radiology Results: ITS Impressions Lumbar Spine CT 09/07/24 16:33 IMPRESSION: 1. 2 x 2 by 1.5 cm clearly defined fluid collection with suggestion of some peripheral enhancement in the subcutaneous fat overlying the site of a recent L4 partial laminectomy which could represent a postoperative hematoma/seroma or a bscess in the appropriate clinical setting. 2. Moderate disc height loss at L4-L5 with otherwise minimal lumbar spondylosis. Labs Labs: Laboratory Results - last 24 hr 09/07/24 09/08/24 14:37 07:07 WBC 10.0 7.0 RBC 4.03 L 4.06 L Hgb 11.9 L 12.1 Hct 37.1 37.4 MCV 92.1 92.1 MCH 29.5 29.8 MCHC 32.1 32.4 RDW 12.9 13.0 Plt Count 314 278 MPV 9.2 9.0 Immature Gran % (Auto) 0.2 Neut % (Auto) 68.8 Lymph % (Auto) 25.3 Banner % (Auto) 4.4 Eos % (Auto) 1.0 Baso % (Auto) 0.3 Lymph # (Auto) 2.53 Banner # (Auto) 0.4 Eos # (Auto) 0.1 Baso # (Auto) 0.0 Abs Immat Gran (auto) 0.02 Absolute Neuts (auto) 6.9 H Absolute Nucleated RBC 0.000 Nucleated RBC % 0.0 ESR 53 H Sodium 140 Potassium 4.0 Chloride 106 Carbon Dioxide 24 Anion Gap 10 BUN 6 L D Creatinine 0.49 L Estim Creat Clear Calc 178 Estimated GFR > 60 Glucose 105 Lactic Acid 1.6 Calcium 8.9 Total Bilirubin 0.4 AST 20 ALT 36 H Alkaline Phosphatase 57 C-Reactive Protein < 0.5 Total Protein 7.0 Albumin 4.2 Quality VTE Prophylaxis VTE prophylaxis: mechanical ordered (SCDs)
[2024-09-08 13:37] VITALS: O2SAT 98
[2024-09-08 14:00] VITALS: BP 128/82; PULSE 97; RESP 14; TEMP 36.7; O2SAT 97
--- NOTE | 2024-09-08 15:45 | P.CONNS_ITS ---
Assessment and Plan Assessment and plan (1) Status post lumbar discectomy: Onset Date: 08/03/24 Code(s): Z98.890 - Other specified postprocedural states Status: Acute Assessment and Plan: Assessment: Devora Is a 29-year-old woman with a wound dehiscence status post laminectomy/diskectomy L4-L5 on August 03, 2024. Plan: - Discussed with Dr. Roberson and Dr. Boykin, sent pictures of incision - wound drainage likely due to superficial wound dehiscence rather than infectious process - plan for BID which to try dressing changes - outpatient follow-up in 2 weeks for wound check - okay for discharge; call office for new/worsening symptoms or fevers, chills, night sweats, etc.. Consult date: 09/08/24 HPI: Devora Marinelli is a 29 year old female who underwent an L4-L5 laminectomy and diskectomy for acute cauda equina syndrome on August 03, [address] Roberson. She had done reasonably well since surgery and saw Dr. oRberson in follow-up in the office on August 25, 2024 and her incision was healing nicely. She reported some improvement in her preoperative symptoms Including urinary control and left lower extremity sensation and pain. She was working on outpatient therapy. She did present to the ER on August 25 with right upper quadrant pain and elevated LFTs. Her symptoms improved and she was discharged home without admission. Unfortunately, about a week ago, the patient noticed a wound dehiscence and small amounts of slimy yellow green discharge from the incision. She denies fevers, chills, malaise, or feeling ill. She has not had any increased pain. She called our office and Dr. Roberson recommended the patient come to the emergency room for evaluation. [facility] Past Medical History Medical History (Updated 09/08/24 @ 09:09 by Supriya Brown DO) Morbid obesity with BMI of 40.0-44.9, adult Cauda equina syndrome Lumbar disc herniation Anxiety Colic, ureteral Surgical History Surgical History (Updated 09/08/24 @ 00:42 by Supriya Brown DO) Status post lumbar discectomy (08/03/24) L4-L5 Family History Family History Father Alcoholism Hypertension Heart disease Diabetes mellitus Grandparent Breast cancer Diabetes mellitus Grandparent Hypertension Diabetes mellitus Social History Social History (Updated 09/08/24 @ 00:48 by Supriya Brown DO) Social History: She is single and has never been . She usually lives in her own home but is currently staying with her mother since her laminectomy because her apartment in her bathroom is too small to get her walker into the room. 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 She drinks an alcoholic beverage every couple months. She denies any illicit substance use she used to smoke a half pack of cigarettes per day but this was for brief time when she was young. Code status: Full code Surrogate decision maker: Sandra Browning (mother) Smoking packs per day: 0.5 Smoking cigarettes per day: 10.0 Smoking status: Former smoker Tobacco type: cigarettes Second hand tobacco smoke exposure: No Alcohol intake: never Substance use: never Substance use type: does not use Do You Feel Safe in your Home?: Yes Lack of Transportation: No Lack of Food: Never True Current Housing: I Have Housing Concerned About Future Housing: No Difficulty Paying Gas/Electric Bills: No Difficulty Paying for Meds: No Currently Unemployed: No Education: Associate Degree Difficulty w/ Childcare or Family Care: No Spiritual care concerns: No Meds Home Medications and Allergies Home Medications ?Medication ?Instructions ?Recorded ?Confirmed ?Type ondansetron HCl 8 mg tablet 8 mg PO Q12H #20 tabs 07/26/24 09/07/24 Rx cyclobenzaprine 10 mg tablet 10 mg PO TID PRN Muscle Spasms #30 08/05/24 09/07/24 Rx tabs oxycodone 5 mg tablet 5 mg PO Q6H PRN Pain Rated 4-6 7 08/05/24 09/07/24 Rx days #28 tabs sennosides 8.6 mg-docusate sodium 1 tab-cap PO BID PRN Constipation 08/05/24 09/08/24 Rx 50 mg tablet (Senokot-S) 7 days #14 tabs gabapentin 300 mg capsule 300 mg PO TID 08/25/24 09/07/24 History methocarbamol 750 mg tablet 750 mg PO Q6H 08/25/24 09/07/24 History pantoprazole 40 mg tablet,delayed 40 mg PO QHS 08/25/24 09/07/24 History release Allergies Allergy/AdvReac Type Severity Reaction Status Date / Time acetaminophen (From [place]) AdvReac Unknown Itching Verified 08/25/24 14:28 hydrocodone (From [place]) AdvReac Unknown Itching Verified 08/25/24 14:28 Vital Signs Vital Signs - 24 hr 09/07/24 16:34 09/07/24 21:30 09/08/24 05:54 Temperature 97.1 F L 97.9 F Pulse Rate 68 78 75 Respiratory Rate 14 18 16 Blood Pressure 140/94 H 111/61 Pulse Oximetry 98 98 99 Oxygen Delivery 09/08/24 13:37 09/08/24 14:00 Temperature 98.1 F Pulse Rate 97 Respiratory Rate 14 Blood Pressure 128/82 Pulse Oximetry 98 97 Oxygen Delivery Room Air Exam 2 Narrative: Patient is sitting on couch eating lunch. A&Ox4. No acute distress. There is a superficial appearing wound dehiscence at the superior aspect of her incision. There is mild erythema surrounding it, more consistent with inflammation infectious process. There is no active or expressible drainage. There is slough in the wound bed. Mildly tender to palpation. No discrete fluid collection. No induration or fluctuance. Ambulating without assistance in room. Results Labs 09/08/24 07:07 09/07/24 14:37 Labs: Short CBC 09/08/24 Range/Units 07:07 WBC 7.0 (4.5-10.0) K/mm3 Hgb 12.1 (12.0-15.0) g/dL Hct 37.4 (37.0-47.0) % Plt Count 278 (150-375) k/mm3 Imaging My impression: MRI lumbar spine with without contrast obtained today reviewed. Radiologist read is not yet available. Demonstrates postoperative changes at L4-L5 with expected postoperative fluid collection, mildly rim enhancing. Residual disc extrusion at surgical level. CT scan demonstrates similar findings.
--- NOTE | 2024-09-08 16:30 | P.DS_ITS ---
DS: Admitting Diagnosis Discharge Date 09/08/24 Admitting Diagnosis Surgical complication DS: Discharge Diagnosis Discharge Diagnosis (1) Fluid collection at surgical site: Qualifiers: Encounter type: initial encounter Qualified Code(s): T88.8XXA - Other specified complications of surgical and medical care, not elsewhere classified, initial encounter Code(s): T88.8XXA - Other specified complications of surgical and medical care, not elsewhere classified, initial encounter Status: Acute Assessment and Plan: -Abscess vs. hematoma vs. seroma -Pain control, currently no pain -Pending urine and wound cultures -Blood cultures negative -Per neurosurg consult in ED, holding off on abx -Trend CBC and associated labs daily -Neurosurg deemed stable for D/C -Lumbar MRI: IMPRESSION: 1. Postoperative change of prior partial L4 laminectomy with a couple rim- enhancing fluid collections both at the laminectomy bed and in the overlying superficial subcutaneous tissues which could represent postoperative hematoma/seromas or abscesses in the appropriate clinical setting. No evident extension to the central canal or marrow signal changes to suggest ostomy myelitis. 2. Moderate lower lumbar spondylosis most notable for a large central disc extrusion at L4-L5 which despite the posterior decompression contribute to mild to moderate central canal stenosis and moderate narrowing of the left lateral recess exerting mass effect upon the traversing left L5 nerve root. Correlate clinically for left-sided muscle weakness of great toe extension and sensory change of the medial foot and great toe. (2) Status post lumbar discectomy: Onset Date: 08/03/24 Code(s): Z98.890 - Other specified postprocedural states Status: Acute Assessment and Plan: MRI resulted, [facility] discharged pt with plan for x2 weeks f/u with them for wound check DS: Summary Hospital Course Reason for hospitalization: Post-operative complication, wound check Hospital Course: Devora Marinelli is a 29 year old female who underwent an L4-L5 laminectomy and diskectomy for acute cauda equina syndrome on August 03, [address] Roberson. Pt reports to the ED c/o yellow/green drainage from her surgical would that was now open that started x~1 week ago. She denies fevers, chills, malaise, or malaise. She has not had any increased pain. [facility] was consulted in the ED and recommended holding off on abx for now and getting a L spine MRI. Blood, urine, and wound cultures were also obtained. Blood cultures yielded no infection, urine culture and surgical site culture pending. MRI resulted the following: IMPRESSION: 1. Postoperative change of prior partial L4 laminectomy with a couple rim- enhancing fluid collections both at the laminectomy bed and in the overlying superficial subcutaneous tissues which could represent postoperative hemat shashi/seromas or abscesses in the appropriate clinical setting. No evident extension to the central canal or marrow signal changes to suggest ostomy myelitis. 2. Moderate lower lumbar spondylosis most notable for a large central disc extrusion at L4-L5 which despite the posterior decompression contribute to mild to moderate central canal stenosis and moderate narrowing of the left lateral recess exerting mass effect upon the traversing left L5 nerve root. Correlate clinically for left-sided muscle weakness of great toe extension and sensory change of the medial foot and great toe. SUNNY saw pt and deemed them acceptable for discharge, this was performed after this technical report writer had left for the day. Plans to f/u outpt with [facility] in x2 weeks for wound check Time Spent with Patient Time attestation: Total time spent providing and/or coordinating discharge services: Exam Narrative: Pt lying on her R side for ease of exam Const: General: no acute distress Other: Morbidly obese, no acute distress, appears stated age HENMT: Face/Nose/Sinus: Normal nares present Mouth: Yes moist mucous membranes Other: Mucous membranes are moist, no oral pharyngeal erythema Eyes: General: appearance normal, both eyes and all related structures Sclera: sclerae normal Other: Pupils are equal and reactive, no scleral icterus, no conjunctival pallor Neck: Neck: supple Other: Large neck circumference, trachea midline Resp: Effort & Inspection: normal respiratory effort Auscultation: clear to auscultation bilaterally Other: Clear to auscultation bilaterally, no increased work of breathing Cardio: Rate: regular rate Rhythm: regular rhythm Other: Regular rate, regular rhythm, 2+ bilateral radial and pedal pulses GI: Auscultation: normal bowel sounds Other: non tender Back/Spine/Pelvis: Other: Lumber back: Bandage removed for exam, bandage with serous / yellow fluid on pad. Small punctate opening is noted with serous drainage inside, but not currently actively draining, with no surrounding erythema. Unable to recreate any drainage when palpated. Skin: Other: SEE BACK Neuro: Speech: normal speech Motor exam (neuro): 5/5 motor strength present throughout Sensory Exam: No normal sensation Other: L lateral mid lower leg with decreased sensation, R toes with tingling Extrem: Other: SEE NEURO Psych: Mental Status: mental status grossly normal Affect: normal affect Other: Appropriate mood and affect, pleasant and cooperative, judgment and insight intact DS: Data Data Completed and Pending Labs on day of discharge: Preliminary micro results at discharge 09/07/24 18:15 Aerobic Culture - Preliminary Abscess 09/07/24 18:16 Blood Culture - Preliminary Blood 09/07/24 18:15 Blood Culture - Preliminary Blood Discharge Plan Discharge Attending physician on discharge: Savita Bender Consulting providers: Enid Orta; Enid Jurado; Adryan Young Discharging Clinician: Enid Orta Patient Disposition: Home Activity: september show Diet: regular Wound Care Instructions: other - see discharge instructions Discharge Instructions: Perform wet to dry dressing changes twice a day. Once per day, clean the wound with Betadine solution. Make sure you finish all of the antibiotics as ordered. Call for worsening symptoms. Patient Instructions: Antibiotic Form Patient Language: Panamanian Stand Alone Forms: General Discharge Information Follow-up/Referrals: Sonia Roberson MD [Physician] - 2 Weeks ( Dr. Roberson wants to see you in the office in 2 weeks for wound check.) Discharge Medications: New sulfamethoxazole-trimethoprim [Bactrim DS] 800-160 mg tablet 1 tablet PO Q12H Qty: 28 0RF Continued gabapentin 300 mg capsule 300 mg PO TID pantoprazole 40 mg tablet,delayed release (DR/EC) 40 mg PO QHS methocarbamol 750 mg tablet 750 mg PO Q6H ondansetron HCl 8 mg tablet 8 mg PO Q12H Qty: 20 0RF cyclobenzaprine 10 mg Tablet 10 mg PO TID PRN (Reason: Muscle Spasms) Qty: 30 0RF sennosides-docusate sodium [Senokot-S] 8.6-50 mg Tablet 1 tab-cap PO BID PRN (Reason: Constipation) 7 Days Qty: 14 0RF oxycodone 5 mg Tablet 5 mg PO Q6H PRN (Reason: Pain Rated 4-6) 7 Days Qty: 28 0RF Date of admission: 04/29/25 18:07 Primary Care Provider: Lucille Jackson Admitting Provider: Savita Bender Attending physician on admission: Savita Bender Condition: Stable Quality VTE Prophylaxis VTE prophylaxis: mechanical ordered (SCDs) Hospitalist MIPS Heart Failure (Exclusion) Patient has history of Heart Transplant or Left Ventricular Assistive Device?: No IF YES, STOP HERE Heart Failure (Qualifier) Patient has current or prior documentation of LVEF less than or equal to 40%, or mod/servere depressed LVSF?: No IF NO, STOP HERE
== END 2024-09-08 17:38 | disposition home or self-care (01) ==
LOC: ANHED 18:13 → ANH3MEDSUR 18:33
PROVIDERS: Internal Medicine; Admitting Provider Internal Medicine; Emergency Provider Emergency Medicine; PCP Internal Medicine; Visit Provider Internal Medicine
DX: T88.8XXA Other specified complications of surgical and medical care, not elsewhere classified, initial encounter (principal); Y83.8 Other surgical procedures as the cause of abnormal reaction of the patient, or of later complication, without mention of misadventure at the time of the procedure; Z87.891 Personal history of nicotine dependence; E66.01 Morbid (severe) obesity due to excess calories; Z68.41 Body mass index [BMI] 40.0-44.9, adult; Z79.899 Other long term (current) drug therapy
CPT/HCPCS: 36415; 72132; 72158; 80053; 83605; 85025; 85027; 85652; 86140; 87040; 87070; 87086; 87205; 96374; 96375; 99285; A9270; A9579; G0378; Q9967

== ENCOUNTER 2024-09-22 07:15 | Inpatient (IN) | payer OTHER, SELFPAY ==
[2024-09-22] VITALS (14 sets, daily range): BP systolic 116–145; BP diastolic 51–87; PULSE 58–86; RESP 16–21; TEMP 35.9–36.8; O2SAT 93–100; BMI 43.9
--- OUTSIDE RECORDS SUMMARY | 2024-09-22 07:20 | XMS_ITS | Clinical Summary ---
Author Organization [facility] Address [address] [facility] [place] [address] Phone Care Team Providers Care Printing Manager Name Role Phone Avi Floyd MD Primary Care Provider [phone] Allergies Active Allergy Reactions Criticality Noted Date [...] Comments Blood Pressure 122/80 07/01/2019 11:03 AM GAME PROTECTOR Pulse 86 07/01/2019 11:03 AM GAME PROTECTOR Temperature 36.8 C (98.3 F) 07/01/2019 11:03 AM GAME PROTECTOR Respiratory Rate 22 07/01/2019 11:03 AM GAME PROTECTOR Oxygen Saturation 99% 07/01/2019 11:03 AM GAME PROTECTOR Inhaled Oxygen Concentration - - Weight 114.3 kg (252 lb) 07/01/2019 11:03 AM GAME PROTECTOR Height 166.6 cm (5' 5.6) 07/01/2019 11:03 AM CS T Body Mass Index 41.17 07/01/2019 11:03 AM GAME PROTECTOR Plan of Treatment Health Maintenance Due Date [...] this topic Insurance MEDICAID [place] Care Teams Printing Manager Relationship Specialty Start Date End Date Avi Floyd MD [address] [place] [address] PCP - General Family Medicine 12/18/18
--- OUTSIDE RECORDS SUMMARY | 2024-09-22 07:20 | XMS_ITS | Data Portability ---
Author Organization [facility] Address [address] [address] Assessment No assessment recorded. Plan of Treatment [...] Last Updated DateTime 166.37 cm 40.9 kg/m2 439994. 58 g 16 /min 97.7 [degF] 122 mm[Hg] 80 mm[Hg] Gracia Winston MA [place] - [facility] 4 15:14:17 Date Recorded Body height Body mass index (BMI) Body weight Heart rate Respiratory rate Body temperature Systolic blood pressure Diastolic blood pressure Provider Name and Address Organization Details Last Updated DateTime 166.37 cm 39.8 kg/m2 001354. 23 g 82 /min 16 /min 97.5 [degF] 120 mm[Hg] 82 mm[Hg] Gracia Winston MA [facility] 4 12:44:50 Social History Question Answer Notes LastModified by Organizat ion Details LastModified Time Tobacco Smoking Status Never Smoker Gracia Winston MA null, [facility] 07/22/2023 15:10:16 What Is Your Level Of Caffeine Consumption? Occasional Information not available 09/23/2023 In The 14 Days Before Symptom Onset, Have You Had Close Contact With A Laboratory-confirm ed COVID-19 While That Case Was Ill? No Information n ot available 07/22/2023 In The 14 Days Before Symptom Onset, Have You Had Close Contact With A Person Who Is Under Investigation For COVID-19 While That Person Was Ill? No Information not available 07/22/2023 Have You Been To An Area Known To Be High Risk For COVID-19? No Information not available 07/22/2023 Are You Deaf Or Do You Have Serious Difficulty Hearing? No Information not available 07/22/2023 What Type Of Diet Are You Following? REGULAR Information n ot available 07/22/2023 What Is The Highest Grade Or Level Of School You Have Completed Or The Highest Degree You Have Received? [id number] Information not available 07/22/2023 Who Is Your Employer? [employer] Information not available 09/23/2023 What Was The Date Of Your Most Recent Tobacco Screening? 09/23/2023 Information not available 09/23/2023 Do You Use Sunscreen Routinely? Yes Information not available 07/22/2023 Sex: Unknown Functional Status Question Answer Note LastModified by Organization Details LastModified Time Do you use any illicit or recreational drugs? No Information not available 07/22/2023 Do you or have you ever used any other forms of tobacco or nicotine? No Information not available 07/22/2023 What is your level of alcohol consumption? None Information not available 07/22/2023 Are you currently employed? Yes Information not available 07/22/2023 What is your exercise level? None Information not available 07/22/2023 What type of noise exposure are you exposed to? noExposureToExcessiveNoise Infor mation not available 07/22/2023 Mental Status Question Answer Note LastModified by Organization D etails LastModified Time Do you feel stressed (tense, restless, nervous, or anxious, or unable to sleep at night)? [id number] Information not available 07/22/2023 Family History Nothing Reported. Medical History No medical history recorded. Gynecological HistoryNo gynecological history recorded. Obstetrics History GPAL:G 0 P 0 0 0 0 Past Encounters Encounter ID Performer Location Encounter Start Date Encounter Closed Date Diagnosis/Indication Diagnosis SNOMED-CT Code Diagnosis ICD10 Code Diagnosis Note [id number] MD Cinthya Veliz (Adult Med) [address] [place] [address] [place] [phone] 4 07/22/2023 14:59:58 07/23/2023 09:59:30 Otitis externa 6660640 H60.91 stop drops keep ear dry follow up 1 month [id number] MD Cinthya Veliz (Adult Med) [address] [place] [address] [place] [address] [id number] 4 09/23/2023 12:28:54 09/23/2023 18:40:18 Otitis externa 9184380 H60.91 stop drops keep ear dry follow up 1 month Temporoman dibular joint disorder 31086616 M26.609 soft diet.anti inflammato nicole Health Concerns Section Related Observation LastModified by Organization Detai ls LastModified Time None Recorded Concern Status LastModified by Organization Details LastModified Time None Recorded Advance Directives Directive None Recorded Payers Encounter Date Sequence Insurance Name Policy Number Policy Parson Covered Member ID Parson Member ID Guarantor Name 07/22/2023 1 [facility] (MEDICAID HMO) [id number] Quinnzayra Marinelli [id number] Felymarlin Yves 09/23/2023 1 [facility] (MEDICAID HMO) [id number] Quinnzayra Marinelli [id number] Quinnzayra Marinelli Notes Date Note Type Note Provider Name and Address Organization Details Recorded Time 07/22/2023 text/html She is complaini ng of infection in her right ear for three months. She has been on multiple drops and antibiotics Todd Price MD Attn: [address] [place], [address], [facility] 07/22/2023 15:39:29 09/23/2023 text/html Pt had right ext otitis and it has been slowly improving by keeping it dry. She also has mild TMJ tenderness Todd Price MD Attn: [address] [place], [address], [facility] 09/23/2023 13:01:59 OBGyn Episode No OBEpisode recorded.
--- OUTSIDE RECORDS SUMMARY | 2024-09-22 07:20 | XMS_ITS | Encounter Summary ---
Author Organization [facility] Address [address] [place] [address] Phone Care Team Providers Care Auto Hiker Name Role Phone Avi Floyd MD Primary Care Provider [phone] Reason for Visit * Reason Comments Medication Refill Encounter Details Date Type Department Care Team (Late st Contact Info) Description 05/30/2020 Refill [facility] - [facility] [address] [place] [address] Ryan Willingham MD [address] [place] [address] Medication Refill Social History Tobacco Use Types [...] present documented in this encounter Care Teams Auto Hiker Relationship Specialty Start Date End Date Avi Floyd MD [address] [place] [address] PCP - General Family Medicine 12/18/18 documented as of this encounter
--- OUTSIDE RECORDS SUMMARY | 2024-09-22 07:20 | XMS_ITS | Encounter Summary ---
Author Organization [facility] Address [address] [place] [address] Phone Care Team Providers Care Heel Nailing Machine Operator Name Role Phone Avi Floyd MD Primary Care Provider [phone] Reason for Visit * Reason Comments Medication Refill Encounter Details Date Type Department Care Team (Late st Contact Info) Description 02/23/2020 Refill [facility] - [facility]rology [facility] [address] [place] [address] Ryan Willingham MD [address] [place] [id number] Medication Refill Social History Tobacco Use Types [...] present documented in this encounter Care Teams Heel Nailing Machine Operator Relationship Specialty Start Date End Date Avi Floyd MD [address] [facility] [address] PCP - General Family Medicine 12/18/18 documented as of this encounter
--- OUTSIDE RECORDS SUMMARY | 2024-09-22 07:20 | XMS_ITS | Clinical Summary ---
Author Organization [facility] Address [address] [place] [address] Care Team Providers Care Group Cio Name Role Phone Lucille Jackson MD Primary Care Provider [phone] Medications No known medications Active Problems No known active problems Social History Tobacco Use Types Packs/Day Years Used Date Smoking Tobacco: Never Assessed Comments Unknown Sex and Gender Information Value Date Recorded Sex Assigned at Not on file Legal Sex Female 5:57 PM MEDICATION TECH Gender Identity Not on file Sexual Orientation [...] complete this topic Insurance MEDICAID DEPT OF [address] Advance Directives Documents on File Type Date Recorded Patient Manager Bank Expl anation Legal Documents 02/22/2020 1:00 PM RECVD & CMPLTD ATTY REQ. FOR HB BILLS FOR SFL FOR AUTOMATED RECORDS Care Teams Group Cio Relationship Specialty Start Date End Date Lucille Jackson MD [address] [place] [address] PCP - General INTERNAL MEDICINE 05/25/19
--- OUTSIDE RECORDS SUMMARY | 2024-09-22 07:20 | XMS_ITS | Encounter Summary ---
Author Organization [facility] Address [address] [place] [address] Care Team Providers Care Body Specialist Name Role Phone Avi Floyd MD Primary Care Provider [phone] Lucille Jackson MD Primary Care Provider [phone] Encounter Details Date Type Department Care Team (Late st Contact Info) Description 10/17/2018 Abstract SFL CONVERSION [address] [place], [place] [id number] , Generic Conversion, Social History Tobacco Use Types Packs/Day Years Used Date Smoking Tobacco: Never Assessed Comments Unknown Sex and Gender Information Value Date Recorded Sex Assigned at Not on file Legal Sex Female 5:57 PM TOP CUTTER Gender Identity Not on file Sexual Orientation Not on file documented as of this encounter Plan of Treatment Not on file documented as of this encounter Visit Diagnoses Not on filedocumented in this encounter Care Teams Body Specialist Relationship Specialty Start Date End Date Avi Floyd MD [address] [place] [address] PCP - General FAMILY PRACTICE 07/21/18 05/24/19 Lucille Jackson MD [address] [place] [address] PCP - General INTERNAL MEDICINE 05/25/19 documented as of this encounter
--- OUTSIDE RECORDS SUMMARY | 2024-09-22 07:47 | XMS_ITS | Encounter Summary ---
Author Organization [facility] Address [address] [place] [address] Care Team Providers Care Licensed Reactor Operator Name Role Phone Avi Floyd MD Primary Care Provider [phone] Lucille Jackson MD Primary Care Provider [phone] Encounter Details Date Type Department Care Team (Late st Contact Info) Description 10/17/2018 Abstract SFL CONVERSION [address] [place], [place] [id number] , Generic Conversion, Social History Tobacco Use Types Packs/Day Years Used Date Smoking Tobacco: Never Assessed Comments Unknown Sex and Gender Information Value Date Recorded Sex Assigned at Not on file Legal Sex Female 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
--- OUTSIDE RECORDS SUMMARY | 2024-09-22 07:47 | XMS_ITS | Encounter Summary ---
Author Organization [facility] Address [address] [place] [address] Phone Care Team Providers Care Suction Plate Roller Hand Name Role Phone Avi Floyd MD Primary Care Provider [phone] Reason for Visit * Reason Comments Medication Refill Encounter Details Date Type Department Care Team (Late st Contact Info) Description 05/30/2020 Refill [facility] - Neu[facility] [address] [place] [address] Ryan Willingham MD [address] [place] [address] Medication Refill Social History Tobacco Use Types [...] present documented in this encounter Care Teams Suction Plate Roller Hand Relationship Specialty Start Date End Date Avi Floyd MD [address] [facility] [place] [place] [address] PCP - General Family Medicine 12/18/18 documented as of this encounter
--- OUTSIDE RECORDS SUMMARY | 2024-09-22 07:48 | XMS_ITS | Encounter Summary ---
Author Organization [facility] Address [address] [place] [address] Phone Care Team Providers Care Rug Cleaner Name Role Phone Avi Floyd MD Primary Care Provider Reason for Visit * Reason Comments Medication Refill Encounter Details Date Type Department Care Team (Late st Contact Info) Description 02/23/2020 Refill [facility] - Neurology [facility] [address] [place] [address] Ryan Willingham MD [address] [place] [phone] Medication Refill Social History Tobacco Use Types [...] present documented in this encounter Care Teams Rug Cleaner Relationship Specialty Start Date End Date Avi Floyd MD [address] [facility] [place] [address] PCP - General Family Medicine 12/18/18 documented as of this encounter
--- OUTSIDE RECORDS SUMMARY | 2024-09-22 07:48 | XMS_ITS | Clinical Summary ---
Author Organization [facility] Address [address] [facility] [place] [address] Phone Care Team Providers Care Mining Teacher Name Role Phone Avi Floyd MD Primary Care Provider [phone] Allergies Active Allergy Reactions Criticality Noted Date [...] Comments Blood Pressure 122/80 07/01/2019 11:03 AM DOCTOR'S ASSISTANT Pulse 86 07/01/2019 11:03 AM DOCTOR'S ASSISTANT Temperature 36.8 C (98.3 F) 07/01/2019 11:03 AM DOCTOR'S ASSISTANT Respiratory Rate 22 07/01/2019 11:03 AM DOCTOR'S ASSISTANT Oxygen Saturation 99% 07/01/2019 11:03 AM DOCTOR'S ASSISTANT Inhaled Oxygen Concentration - - Weight 114.3 kg (252 lb) 07/01/2019 11:03 AM DOCTOR'S ASSISTANT Height 166.6 cm (5' 5.6) 07/01/2019 11:03 AM CS T Body Mass Index 41.17 07/01/2019 11:03 AM DOCTOR'S ASSISTANT Plan of Treatment Health Maintenance Due Date [...] this topic Insurance MEDICAID HERNANDEZ Care Teams Mining Teacher Relationship Specialty Start Date End Date Avi Floyd MD [address] [facility] [facility] [place] [address] PCP - General Family Medicine 12/18/18
--- OUTSIDE RECORDS SUMMARY | 2024-09-22 07:48 | XMS_ITS | Clinical Summary ---
Author Organization [facility] Address [address] [place] [address] Care Team Providers Care Legal Manager Name Role Phone Lucille Jackson MD Primary Care Provider [phone] Medications No known medications Active Problems No known active problems Social History Tobacco Use Types Packs/Day Years Used Date Smoking Tobacco: Never Assessed Comments Unknown Sex and Gender Information Value Date Recorded Sex Assigned at Not on file Legal Sex Female 5:57 PM PRINCIPAL TECHNICAL ARCHITECT Gender Identity Not on file Sexual [...] complete this topic Insurance MEDICAID DEPT OF [address] Advance Directives Documents on File Type Date Recorded Patient Ese Teacher Expl anation Legal Documents 02/22/2020 1:00 PM RECVD & CMPLTD ATTY REQ. FOR HB BILLS FOR SFL FOR AUTOMATED RECORDS Care Teams Legal Manager Relationship Specialty Start Date End Date Lucille Jackson MD [address] [place] [address] PCP - General INTERNAL MEDICINE 05/25/19
--- NOTE | 2024-09-22 07:56 | ED_ITS ---
HPI - General Adult General Chief complaint: Recheck/Abnormal Lab/Rx Stated complaint: Dr. Roberson sent in Time Seen by Provider: 09/22/24 07:36 History of Present Illness HPI narrative: Patient is a 29-year-old female who presents emergency department with chief complaint of sent in by her neurosurgeon. The patient had a laminectomy on 08/03 the patient reports she has had some drainage from a wound on her back reports that she is scheduled for a surgery today for debridement. Related Data Home Medications ?Medication ?Instructions ?Recorded ?Confirmed ?Last Taken ?Type gabapentin 300 mg capsule 300 mg PO TID 08/25/24 09/07/24 09/06/24 History methocarbamol 750 mg tablet 750 mg PO Q6H 08/25/24 09/07/24 09/06/24 History pantoprazole 40 mg tablet,delayed 40 mg PO QHS 08/25/24 09/07/24 09/06/24 History release Allergies Allergy/AdvReac Type Severity Reaction Status Date / Time acetaminophen (From [place]) AdvReac Unknown Itching Verified 08/25/24 14:28 hydrocodone (From [place]) AdvReac Unknown Itching Verified 08/25/24 14:28 Review of Systems Review of Systems: A 10 system review of systems was completed on the patient and is negative except for what is stated in the HPI. Nursing and ancillary documentation was reviewed. [facility] Past Medical History Medical History Morbid obesity with BMI of 40.0-44.9, adult Cauda equina syndrome Lumbar disc herniation Anxiety Colic, ureteral Surgical History Surgical History Status post lumbar discectomy (08/03/24) L4-L5 Family History Family History Father Alcoholism Hypertension Heart disease Diabetes mellitus Grandparent Breast cancer Diabetes mellitus Grandparent Hypertension Diabetes mellitus Social History Social History Social History: She is single and has never been . She usually lives in her own home but is currently staying with her mother since her laminectomy because her apartment in her bathroom is too small to get her walker into the room. 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 She drinks an alcoholic beverage every couple months. She denies any illicit substance use she used to smoke a half pack of cigarettes per day but this was for brief time when she was young. Code status: Full code Surrogate decision maker: Sandra Browning (mother) Smoking packs per day: 0.5 Smoking cigarettes per day: 10.0 Smoking status: Former smoker Tobacco type: cigarettes Second hand tobacco smoke exposure: No Alcohol intake: never Substance use: never Substance use type: does not use Do You Feel Safe in your Home?: Yes Lack of Transportation: No Lack of Food: Never True Current Housing: I Have Housing Concerned About Future Housing: No Difficulty Paying Gas/Electric Bills: No Difficulty Paying for Meds: No Currently Unemployed: No Education: Associate Degree Difficulty w/ Childcare or Family Care: No Spiritual care concerns: No Exam Narrative: GENERAL: Well-appearing, well-nourished, and in no acute distress. HEAD: Normocephalic, atraumatic. EYES: PERRLA and EOMI. ENT: Nares clear, no rhinorrhea or epistaxis. Mucous membranes moist. NECK: Supple. CHEST: Clear to auscultation. No respiratory distress. HEART: Regular rate and rhythm. No murmur heard. Normal peripheral pulses. ABDOMEN: Soft, nontender, nondistended, normal active bowel sounds. EXTREMITIES: Normal range of motion. No edema. SKIN: Warm, dry, no rash. There is a small 0.5 cm diameter wound present in the midline of the back there is some whitish material at the wound NEURO: No focal deficits. Alert and oriented x3. PSYCH: Normal mood and affect. Course Vital Signs Vital signs: Vital Signs Temperature 36.6 C 09/22/24 07:27 Pulse Rate 66 09/22/24 07:27 Respiratory Rate 16 09/22/24 07:27 Blood Pressure 145/85 H 09/22/24 07:27 Pulse Oximetry 97 09/22/24 07:27 Oxygen Delivery Room Air 09/22/24 07:27 Temperature 36.6 C 09/22/24 07:27 Pulse Rate 66 09/22/24 07:27 Respiratory Rate 16 09/22/24 07:27 Blood Pressure 145/85 H 09/22/24 07:27 Pulse Oximetry 97 09/22/24 07:27 Oxygen Delivery Room Air 09/22/24 07:27 Medical Decision Making MDM Narrative Medical decision making narrative: Case was discussed with the patient's neurosurgeon who went to the patient the operative a recommended repeat labs altered 0 P 100. The patient has been on oral antibiotics and at this time Dr. Pena's recommended follow-up on antibiot ics until after the patient has been surgically debrided Vital Signs Vital Signs: Vital Signs Temperature 36.6 C 09/22/24 07:27 Pulse Rate 66 09/22/24 07:27 Respiratory Rate 16 09/22/24 07:27 Blood Pressure 145/85 H 09/22/24 07:27 Pulse Oximetry 97 09/22/24 07:27 Oxygen Delivery Room Air 09/22/24 07:27 Temperature 36.6 C 09/22/24 07:27 Pulse Rate 66 09/22/24 07:27 Respiratory Rate 16 09/22/24 07:27 Blood Pressure 145/85 H 09/22/24 07:27 Pulse Oximetry 97 09/22/24 07:27 Oxygen Delivery Room Air 09/22/24 07:27 Discharge Plan Discharge Clinical Impression: Fluid collection at surgical site Qualifiers: Encounter type: initial encounter Qualified Code(s): T88.8XXA - Other specified complications of surgical and medical care, not elsewhere classified, initial encounter Patient Disposition: Still a Patient Condition: Stable Patient Language: Albanian Prescriptions: No Action gabapentin 300 mg capsule 300 mg PO TID pantoprazole 40 mg tablet,delayed release (DR/EC) 40 mg PO QHS methocarbamol 750 mg tablet 750 mg PO Q6H ondansetron HCl 8 mg tablet 8 mg PO Q12H Qty: 20 0RF cyclobenzaprine 10 mg Tablet 10 mg PO TID PRN (Reason: Muscle Spasms) Qty: 30 0RF sennosides-docusate sodium [Senokot-S] 8.6-50 mg Tablet 1 tab-cap PO BID PRN (Reason: Constipation) 7 Days Qty: 14 0RF oxycodone 5 mg Tablet 5 mg PO Q6H PRN (Reason: Pain Rated 4-6) 7 Days Qty: 28 0RF sulfamethoxazole-trimethoprim [Bactrim DS] 800-160 mg tablet 1 tablet PO Q12H Qty: 28 0RF Follow-up/Referrals: Sonia Roberson MD [Primary Care Provider] - Time of Disposition: 08:00
[2024-09-22 08:39] LABS: Basophils Percent Auto 0.5 % (0.2-1.2); Eosinophils Absolute Auto 0.1 K/mm3 (0-0.3); Eosinophils Percent Auto 2.1 % (0-4.4); Hematocrit 37.6 % (37.0-47.0); Hemoglobin 12.1 g/dL (12.0-15.0); Immature Granulocyte Absolute 0.01 K/mm3 (0.00-0.031); Immature Granulocyte Percent A 0.2 % (0-0.5); Lymphocytes Absolute Auto 1.73 K/mm3 (0.9-3.2); Lymphocytes Percent Auto 26.4 % (18.3-44.2); Mean Corpuscular HGB Conc 32.2 g/dl (32-36); Mean Corpuscular Hemoglobin 29.7 pg (26-34); Mean Corpuscular Volume 92.4 fl (80-100); Mean Platelet Volume 9.1 fl (7.4-10.4); Monocytes Absolute Auto 0.3 K/mm3 (0.1-0.6); Monocytes Percent Auto 4.1 % (2.6-8.5); Neutrophils Absolute Auto 4.4 K/mm3 (1.3-6.7); Neutrophils Percent Auto 66.7 % (45.5-73.1); Platelet Count Result 300 k/mm3 (150-375); Red Blood Count 4.07 M/mm3 (4.2-5.4); White Blood Count 6.6 K/mm3 (4.5-10.0)
[2024-09-22 08:49] LABS: Lactic Acid Reflex 1.8 mmol/L (0.7-2.0)
[2024-09-22] MEDS: SODIUM CHLORIDE 0.9% IV 1,000 ML 125 ML IV CONT (08:49)
[2024-09-22 08:53] LABS: Alanine Aminotransferase 28 U/L (6-35); Albumin Level 4.3 g/dL (3.5-5.1); Alkaline Phosphatase 62 U/L (38-126); Anion Gap 10 mmol/L (4-12); Aspartate Amino Transferase 26 U/L (14-36); Bilirubin,Total 0.5 mg/dL (0.2-1.3); Blood Urea Nitrogen 11 mg/dL (7-17); CRP < 0.5 mg/dL (<1.0); Carbon Dioxide 21 mmol/L (22-30); Chloride 108 mmol/L (98-107); Estimated CRCL calculation 145 ml/min; Estimated Glomerular Filt Rate > 60; Glucose 107 mg/dL (65-110); Potassium 4.6 mmol/L (3.4-5.0); Sodium 139 mmol/L (137-145)
[2024-09-22 08:55] LABS: Influenza A QL RT-PCR Negative (Negative); Influenza B QL RT-PCR Negative (Negative); RSV RNA, RT-PCR Negative (Negative); SARS-CoV-2 RNA PCR Negative (Negative)
[2024-09-22 08:55] LABS: BEDSIDEPREGUCG Negative (Negative)
[2024-09-22 09:07] LABS: INR 0.9; Prothrombin Time 12.4 Seconds (11.1-14.7)
[2024-09-22 09:10] LABS: Procalcitonin 0.1 ng/mL
[2024-09-22 09:12] LABS: Add Urine Microscopic? YES; Appearance Urine Turbid (Clear); Bacteria Urine 1+ /hpf; Bilirubin Urine Negative (Negative); Blood Urine Negative (Negative); Color Urine Yellow (Yellow); Glucose Urine UA Negative (Negative); Ketones Urine Negative (Negative); Leukocyte Esterase Ur 1+ LEU/UL (Negative); Need Manual Microscopic Reviewed; Nitrate Urine Negative (Negative); Non Pathogenic Casts 0-2; Protein Urine Negative (Negative); RBC Urine 0-2 /hpf (0-2); Specific Grav Ur 1.025 (1.001-1.035); Squamous Epithelial Cell Urine Few /hpf (Few); Urobilinogen Urine 0.2 mg/dL (<2.0)
--- NOTE | 2024-09-22 09:55 | PC.NURSE ---
IVF infusing per order on admission
--- NOTE | 2024-09-22 10:16 | ADMGEN ---
This patient, Devora Marinelli, was admitted to 3 [facility] Surg Room 322-01. Patient/family oriented to hospital policies and general routines including ID bracelet, bed and alarms, visiting hours, pain management, procedures, bathroom and other care routines, personal items, smoking policy, room service/diet, and visiting hours. Information on how to activate the Rapid Response Team has been discussed. Patient/Family are encouraged to report perceived risks to care and to ask questions if they do not understand what they are told or what they should do.
[2024-09-22 10:18] LABS: Erythrocyte Sedimentation Rate 28 mm/hr (0-20)
--- NOTE | 2024-09-22 11:33 | PM.IMHP ---
H&P: HPI History of Present Illness Date/Time: 09/22/24 11:33 Chief Complaint: surgical site drainage Narrative: 29 yo female with PMH of HLD and Cauda equina who underwent lumbar laminectomy on 08/04 however stated that since then she has noticed drainage since then which is purulent. however she denies any fever, abd pain, diarrhea, abd pain, and no lightheadedness. Patient was sent to the ER by Neurosugery, Dr Roberson, for wound exploration and debridement ER eval vital signs notable for BP 145/85, labs unremarkable. Dr Roberson consulted by ER. Review of Systems Review of Systems: All other systems were reviewed and negative except as noted in the HPI above. [facility] Past Medical History Medical History Morbid obesity with BMI of 40.0-44.9, adult Cauda equina syndrome Lumbar disc herniation Anxiety Colic, ureteral Surgical History Surgical History Status post lumbar discectomy (08/03/24) L4-L5 Family History Family History Father Alcoholism Hypertension Heart disease Diabetes mellitus Grandparent Breast cancer Diabetes mellitus Grandparent Hypertension Diabetes mellitus Social History Social History Social History: She is single and has never been . She usually lives in her own home but is currently staying with her mother since her laminectomy because her apartment in her bathroom is too small to get her walker into the room. 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 She drinks an alcoholic beverage every couple months. She denies any illicit substance use she used to smoke a half pack of cigarettes per day but this was for brief time when she was young. Code status: Full code Surrogate decision maker: Sandra Browning (mother) Smoking packs per day: 0.5 Smoking cigarettes per day: 10.0 Smoking status: Never smoker Tobacco type: cigarettes Second hand tobacco smoke exposure: No Alcohol intake: never Substance use: never Substance use type: does not use Do You Feel Safe in your Home?: Yes Lack of Transportation: No Lack of Food: Never True Current Housing: I Have Housing Concerned About Future Housing: No Difficulty Paying Gas/Electric Bills: No Difficulty Paying for Meds: No Currently Unemployed: No Education: Associate Degree Difficulty w/ Childcare or Family Care: No Spiritual care concerns: No Meds Home Medications and Allergies Home Medications ?Medication ?Instructions ?Recorded ?Confirmed ?Type oxycodone 5 mg tablet 5 mg PO Q6H PRN Pain Rated 4-6 7 08/05/24 09/22/24 Rx days #28 tabs gabapentin 300 mg capsule 300 mg PO TID 08/25/24 09/22/24 History methocarbamol 750 mg tablet 750 mg PO Q6H 08/25/24 09/22/24 History pantoprazole 40 mg tablet,delayed 40 mg PO QHS 08/25/24 09/22/24 History release sulfamethoxazole 800 1 tablet PO Q12H #28 tabs 09/08/24 09/22/24 Rx mg-trimethoprim 160 mg tablet (Bactrim DS) lorazepam 0.5 mg tablet 0.5 mg PO Q6-8H PRN nausea and 09/22/24 09/22/24 History vomiting Allergies Allergy/AdvReac Type Severity Reaction Status Date / Time acetaminophen (From [employer] [place] [employer]) AdvReac Unknown Itching Verified 09/22/24 09:59 hydrocodone (From [employer]) AdvReac Unknown Itching Verified 09/22/24 09:59 Vital Signs Vital Signs - 24 hr 09/22/24 07:27 09/22/24 09:15 09/22/24 10:00 Temperature 97.8 F 98.2 F Pulse Rate 66 67 Respiratory Rate 16 19 Blood Pressure 145/85 H 132/87 Pulse Oximetry 97 100 Oxygen Delivery Room Air Room Air 09/22/24 10:14 Temperature 96.9 F L Pulse Rate 58 L Respiratory Rate 18 Blood Pressure 137/65 Pulse Oximetry 96 Oxygen Delivery Exam Narrative: General: alert and comfortable Eyes: EOMI, PERRLA ENNT External ears normal, Neck is supple, no masses, Respiratory systems: Clear to auscultation Cardiovascular S1, S2, normal rhythm, no murmur, rub, or gallop; no thrill or palpable murmurs on palpation. Gastrointestinal: soft, non-tender, and non-distended abdomen with no masses; BS present Skin: noted lumbar ulcer with purulent base Musculoskeletal: no abnormality and no tenderness, normal ROM Neurologic: Alert and oriented x3, non focal Mental Status Exam: normal affect H&P: Results Labs Labs: Short CBC 09/22/24 Range/Units 08:26 WBC 6.6 (4.5-10.0) K/mm3 Hgb 12.1 (12.0-15.0) g/dL Hct 37.6 (37.0-47.0) % Plt Count 300 (150-375) k/mm3 BMP 09/22/24 08:26 Sodium 139 Potassium 4.6 Chloride 108 H Carbon Dioxide 21 L BUN 11 D Creatinine 0.62 L Glucose 107 Calcium 9.0 Liver Function 09/22/24 Range/Units 08:26 Total Bilirubin 0.5 (0.2-1.3) mg/dL AST 26 (14-36) U/L ALT 28 (6-35) U/L Alkaline Phosphatase 62 (38-126) U/L Albumin 4.3 (3.5-5.1) g/dL Urine 09/22/24 Range/Units 08:37 Urine Color Yellow (Yellow) Urine Appearance Turbid H (Clear) Urine pH 5.0 (5.0-9.0) Ur Specific [place] 1.025 (1.001-1.035) Urine Protein Negative (Negative) mg/dL Urine Glucose (UA) Negative (Negative) mg/dL Assessment and Plan Assessment and plan (1) Status post lumbar discectomy: Onset Date: 08/03/24 Code(s): Z98.890 - Other specified postprocedural states Status: Acute (2) Cauda equina syndrome: Code(s): G83.4 - Cauda equina syndrome Status: Acute Plan Surgical site wound infection patient had recent lumbar laminectomy wound showed purulent base Blood culture and Vanc and Meropenem Dr Roberson consulted from the Er, for wound debridement HLD statin on hold due to drug interaction DVT prophylaxis on Sq lovenox Full code Surrogate decision maker Mother, Sandra Browning Hospitalist MIPS Advance Care Plan I have confirmed that the patient's Advanced Care Plan is present, code status is documented, or surrogate decision maker is listed in patient medical record.: Yes Medication Reconciliation I have utilized all available resources to obtain, update and review the patients current medications (includes all prescriptions, OTC, herbals, cannabis, and nutritional supplements).: Yes
[2024-09-22] MEDS: GABAPENTIN 300 MG CAPSULE PO ×2 (12:50→17:58)
[2024-09-22] MEDS: methocarbamoL 750 MG TABLET PO ×2 (12:50→17:58)
[2024-09-22] MEDS: MEROPENEM 1 GM/NS 100 ML 1 GM/100 ML BAG IVPB ×2 (12:50→22:48)
--- NOTE | 2024-09-22 13:23 | PC.NURSE ---
To OR per hospital bed.
--- NOTE | 2024-09-22 14:02 | P.CONNS_ITS ---
Assessment and Plan Assessment and plan (1) Fluid collection at surgical site: Qualifiers: Encounter type: initial encounter Qualified Code(s): T88.8XXA - Other specified complications of surgical and medical care, not elsewhere classified, initial encounter Code(s): T88.8XXA - Other specified complications of surgical and medical care, not elsewhere classified, initial encounter Status: Acute (2) Lumbar disc herniation: Code(s): M51.26 - Other intervertebral disc displacement, lumbar region Status: Acute (3) Status post lumbar discectomy: Onset Date: 08/03/24 Code(s): Z98.890 - Other specified postprocedural states Status: Acute Plan Ms. Marinelli is a 29-year-old female with history of cauda equina syndrome who underwent emergent L4-5 laminectomy and diskectomy on August 03 who has demonstrated consistent neurologic recovery but who has unfortunately developed drainage from her wound which has been unresponsive to oral antibiotics and wet-to-dry dressing changes. She had cultures in late August returning positive for Strep anginosus. I asked her to return to the hospital for more aggressive treatment of her ongoing wound infection. I reviewed her MRI from her recent admission which shows concern for infection but also shows a fairly sizeable recurrent disc herniation at L4-5. This is more off to the left side, but her left leg is the one which has demonstrated more significant neurologic improvement. Regardless, given that we will be exploring her surgical site already, I have recommended removal of this recurrent disc in the same setting assuming that it is not too difficult to access. She expressed understanding and gave her consent to proceed. Plan: -To OR today for lumbar wound washout and possible revision L4-5 microdiskectomy Consult date: 09/22/24 HPI: Devora Marinelli is a 29 year old female with history of cauda equina syndrome who underwent an L4-5 laminectomy with diskectomy on August 03. She has overall done well from that surgery with gradual improvement in her pre-operative symptoms. The sensation in her legs has progressively improved, and she is starting to work with therapy on walking with a cane. She continues to wear an AFO on the right foot. She will get pain in her hips after work with therapy but does not have sharp pain radiating down the legs. She does have uncomfortable paresthesias in the R>L legs. Her bladder function is back to normal. Unfortunately, she has developed drainage from her incision which started after I had seen her in clinic for her first post-operative visit. She was admitted in late August for evaluation of this, and we attempted conservative management with wet-to-dry dressing changes and oral antibiotics. She called the office yesterday indicated she has had continued drainage from the site without much improvement over the last couple weeks. I asked her to return to the hospital for likely washout. Review of Systems 2 Review of Systems: All systems reviewed & are unremarkable except as noted in HPI and below PMFSH Past Medical History Medical History Morbid obesity with BMI of 40.0-44.9, adult Cauda equina syndrome Lumbar disc herniation Anxiety Colic, ureteral Surgical History Surgical History Status post lumbar discectomy (08/03/24) L4-L5 Family History Family History Father Alcoholism Hypertension Heart disease Diabetes mellitus Grandparent Breast cancer Diabetes mellitus Grandparent Hypertension Diabetes mellitus Social History Social History Social History: She is single and has never been . She usually lives in her own home but is currently staying with her mother since her laminectomy because her apartment in her bathroom is too small to get her walker into the room. 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 She drinks an alcoholic beverage every couple months. She denies any illicit substance use she used to smoke a half pack of cigarettes per day but this was for brief time when she was young. Code status: Full code Surrogate decision maker: Sandra Browning (mother) Smoking packs per day: 0.5 Smoking cigarettes per day: 10.0 Smoking status: Never smoker Tobacco type: cigarettes Second hand tobacco smoke exposure: No Alcohol intake: never Substance use: never Substance use type: does not use Do You Feel Safe in your Home?: Yes Lack of Transportation: No Lack of Food: Never True Current Housing: I Have Housing Concerned About Future Housing: No Difficulty Paying Gas/Electric Bills: No Difficulty Paying for Meds: No Currently Unemployed: No Education: Associate Degree Difficulty w/ Childcare or Family Care: No Spiritual care concerns: No Meds Home Medications and Allergies Home Medications ?Medication ?Instructions ?Recorded ?Confirmed ?Type oxycodone 5 mg tablet 5 mg PO Q6H PRN Pain Rated 4-6 7 08/05/24 09/22/24 Rx days #28 tabs gabapentin 300 mg capsule 300 mg PO TID 08/25/24 09/22/24 History methocarbamol 750 mg tablet 750 mg PO Q6H 08/25/24 09/22/24 History pantoprazole 40 mg tablet,delayed 40 mg PO QHS 08/25/24 09/22/24 History release sulfamethoxazole 800 1 tablet PO Q12H #28 tabs 09/08/24 09/22/24 Rx mg-trimethoprim 160 mg tablet (Bactrim DS) lorazepam 0.5 mg tablet 0.5 mg PO Q6-8H PRN nausea and 09/22/24 09/22/24 History vomiting Allergies Allergy/AdvReac Type Severity Reaction Status Date / Time acetaminophen (From [place]) AdvReac Unknown Itching Verified 09/22/24 09:59 hydrocodone (From [place]) AdvReac Unknown Itching Verified 09/22/24 09:59 Vital Signs Vital Signs - 24 hr 09/22/24 07:27 09/22/24 09:15 09/22/24 10:00 Temperature 97.8 F 98.2 F Pulse Rate 66 67 Respiratory Rate 16 19 Blood Pressure 145/85 H 132/87 Pulse Oximetry 97 100 Oxygen Delivery Room Air Room Air 09/22/24 10:14 Temperature 96.9 F L Pulse Rate 58 L Respiratory Rate 18 Blood Pressure 137/65 Pulse Oximetry 96 Oxygen Delivery Exam 2 Narrative: Lumbar incision with small dehiscence toward the superior aspect of the incision with fibrinous tissue and serous drainage on her dressing. The remainder of the incision appears well healed. Right leg 4+/5 HF, KE, PF, 4/5 DF Left leg essentially full strength Decreased sensation to light touch in right distal leg Unless otherwise stated above, the patient's physical exam is as follows: General: -Well developed and well nourished. No a cute distress. Cooperative with exam. Mental status: -Awake and oriented to person, place, an d time. Integumentary: -No obvious skin lesions or masses Motor: -Muscle tone normal without spasticity o f flaccidity. No atrophy. No fasciculations. -No pronator drift -Right upper extremity: deltoid 5/5, bic eps 5/5, triceps 5/5, wrist extensors 5/5, wrist flexors 5/5, intrinsics 5/5 -Left upper extremity: deltoid 5/5, chanelle ps 5/5, triceps 5/5, wrist extensors 5/5, wrist flexors 5/5, intrinsics 5/5 -Right lower extremity: iliopsoas 5/5, q uadriceps 5/5, hamstrings 5/5, tibialis anterior 5/5, gastroc-soleus 5/5, EHL 5/5 -Left lower extremity: iliopsoas 5/5, qu adriceps 5/5, hamstrings 5/5, tibialis anterior 5/5, gastroc-soleus 5/5, EHL 5/5 Sensory: -Intact to light touch throughout -Normal proprioception throughout Reflexes: -1-2+ DTR's throughout -No Lopez's, clonus, or Babinski bilat erally Musculoskeletal: -Lumbar spine: no tenderness to palpatio n, no pain, and normal lumbosacral spine movements -[id number] test negative -Hip: normal range of motion, no crepitu s bilaterally. No pain reproduced on TOLU or FAIR testing bilaterally -Knee: no instability, subluxation or la xity, and no crepitus bilaterally Results Labs 09/22/24 08:26 09/22/24 08:26 Labs: Short CBC 09/22/24 Range/Units 08:26 WBC 6.6 (4.5-10.0) K/mm3 Hgb 12.1 (12.0-15.0) g/dL Hct 37.6 (37.0-47.0) % Plt Count 300 (150-375) k/mm3 BMP 09/22/24 08:26 Sodium 139 Potassium 4.6 Chloride 108 H Carbon Dioxide 21 L BUN 11 D Creatinine 0.62 L Glucose 107 Calcium 9.0 Liver Function 09/22/24 Range/Units 08:26 Total Bilirubin 0.5 (0.2-1.3) mg/dL AST 26 (14-36) U/L ALT 28 (6-35) U/L Alkaline Phosphatase 62 (38-126) U/L Albumin 4.3 (3.5-5.1) g/dL Urine 09/22/24 Range/Units 08:37 Urine Color Yellow (Yellow) Urine Appearance Turbid H (Clear) Urine pH 5.0 (5.0-9.0) Ur Specific [place] 1.025 (1.001-1.035) Urine Protein Negative (Negative) mg/dL Urine Glucose (UA) Negative (Negative) mg/dL
--- NOTE | 2024-09-22 14:19 | WPDHPUPDATE1 ---
History and Physical Update Update Date/Time: 09/22/24 14:19 History and Physical has been reviewed, including an updated exam of the patient. There are NO changes in the patient's condition. Risks, benefits, and alternatives have been discussed and questions answered. Patient agrees to proceed with procedure.
--- NOTE | 2024-09-22 14:28 | P.PNAN_ITS ---
Anes - Initial Pre Proc Eval Procedure: Operation Date: 09/22/24 14:30 Proposed Procedures p Washout Lumbar Wound, Revision of L4-5 Microdiscectomy - Sonia Roberson MD Date/Time: 09/22/24 14:28 Surgeon: Savita Bender MD Pre Op Diagnosis: Postoperative wound infection Patient Data Age: 29 Gender: F Height: 1.65 m Weight: 119.6 kg Last Vital Signs Temp 36.4 C 09/22/24 14:02 Pulse 65 09/22/24 14:02 Resp 18 09/22/24 14:02 BP 116/51 L 09/22/24 14:02 Pulse Ox 98 09/22/24 14:02 O2 Del Method Room Air 09/22/24 14:02 Allergies Allergy/AdvReac Type Severity Reaction Status Date / Time acetaminophen (From [facility]) AdvReac Unknown Itching Verified 09/22/24 09:59 hydrocodone (From [facility]) AdvReac Unknown Itching Verified 09/22/24 09:59 Home Medications ?Medication ?Instructions ?Recorded ?Confirmed ?Type oxycodone 5 mg tablet 5 mg PO Q6H PRN Pain Rated 4-6 7 08/05/24 09/22/24 Rx days #28 tabs gabapentin 300 mg capsule 300 mg PO TID 08/25/24 09/22/24 History methocarbamol 750 mg tablet 750 mg PO Q6H 08/25/24 09/22/24 History pantoprazole 40 mg tablet,delayed 40 mg PO QHS 08/25/24 09/22/24 History release sulfamethoxazole 800 1 tablet PO Q12H #28 tabs 09/08/24 09/22/24 Rx mg-trimethoprim 160 mg tablet (Bactrim DS) lorazepam 0.5 mg tablet 0.5 mg PO Q6-8H PRN nausea and 09/22/24 09/22/24 History vomiting Laboratory Tests 09/22/24 09/22/24 09/22/24 08:12 08:26 08:37 WBC 6.6 K/mm3 (4.5-10.0) RBC 4.07 L M/mm3 (4.2-5.4) Hgb 12.1 g/dL (12.0-15.0) Hct 37.6 % (37.0-47.0) MCV 92.4 fl (80-100) MCH 29.7 pg (26-34) MCHC 32.2 g/dl (32-36) RDW 13.0 % (11.5-14.5) Plt Count 300 k/mm3 (150-375) MPV 9.1 fl (7.4-10.4) Immature Gran % (Auto) 0.2 % (0-0.5) Neut % (Auto) 66.7 % (45.5-73.1) Lymph % (Auto) 26.4 % (18.3-44.2) [place] % (Auto) 4.1 % (2.6-8.5) Eos % (Auto) 2.1 % (0-4.4) Baso % (Auto) 0.5 % (0.2-1.2) Lymph # (Auto) 1.73 K/mm3 (0.9-3.2) [place] # (Auto) 0.3 K/mm3 (0.1-0.6) Eos # (Auto) 0.1 K/mm3 (0-0.3) Baso # (Auto) 0.0 K/mm3 (0.0-0.1) Abs Immat Gran (auto) 0.01 K/mm3 (0.00-0.031) Absolute Neuts (auto) 4.4 K/mm3 (1.3-6.7) Absolute Nucleated RBC 0.000 K/mm3 (0.0-0.012) Nucleated RBC % 0.0 % (0.0-0.2) ESR 28 H mm/hr (0-20) PT 12.4 Seconds (11.1-14.7) INR 0.9 APTT 30.0 Seconds (22.3-36.8) Sodium 139 mmol/L (137-145) Potassium 4.6 mmol/L (3.4-5.0) Chloride 108 H mmol/L (98-107) Carbon Dioxide 21 L mmol/L (22-30) Anion Gap 10 mmol/L (4-12) BUN 11 D mg/dL (7-17) Creatinine 0.62 L mg/dL (0.7-1.0) Estim Creat Clear Calc 145 ml/min Estimated GFR > 60 (59 - ) Glucose 107 mg/dL (65-110) Lactic Acid 1.8 mmol/L (0.7-2.0) Calcium 9.0 mg/dL (8.4-10.2) Total Bilirubin 0.5 mg/dL (0.2-1.3) AST 26 U/L (14-36) ALT 28 U/L (6-35) Alkaline Phosphatase 62 U/L (38-126) C-Reactive Protein < 0.5 mg/dL (<1.0) Total Protein 7.0 g/dL (6.3-8.2) Albumin 4.3 g/dL (3.5-5.1) Procalcitonin 0.1 ng/mL Urine Color Yellow (Yellow) Urine Appearance Turbid H (Clear) Urine pH 5.0 (5.0-9.0) Ur Specific [place] 1.025 (1.001-1.035) Urine Protein Negative mg/dL (Negative) Urine Glucose (UA) Negative mg/dL (Negative) Urine Ketones Negative mg/dL (Negative) Ur Blood (Man) Negative (Negative) Urine Nitrate Negative (Negative) Urine Bilirubin Negative (Negative) Urine Urobilinogen 0.2 mg/dL (<2.0) Add Ur Microanalysis Reviewed Leukocyte Esterase Rfl 1+ H REZA/UL (Negative) Urine RBC 0-2 /hpf (0-2) Urine WBC 6-10 H /hpf (0-3) Ur Squamous Epith Cells Few /hpf (Few) Urine Bacteria 1+ H /hpf Urine Casts 0-2 POC Urine HCG, Qual Influenza A (RT-PCR) Negative (Negative) Influenza B (RT-PCR) Negative (Negative) RSV (RT-PCR) Negative (Negative) SARS-CoV-2 RNA (RT-PCR) Negative (Negative) 09/22/24 08:53 WBC RBC Hgb Hct MCV MCH MCHC RDW Plt Count MPV Immature Gran % (Auto) Neut % (Auto) Lymph % (Auto) [place] % (Auto) Eos % (Auto) Baso % (Auto) Lymph # (Auto) [place] # (Auto) Eos # (Auto) Baso # (Auto) Abs Immat Gran (auto) Absolute Neuts (auto) Absolute Nucleated RBC Nucleated RBC % ESR PT INR APTT Sodium Potassium Chloride Carbon Dioxide Anion Gap BUN Creatinine Estim Creat Clear Calc Estimated GFR Glucose Lactic Acid Calcium Total Bilirubin AST ALT Alkaline Phosphatase C-Reactive Protein Total Protein Albumin Procalcitonin Urine Color Urine Appearance Urine pH Ur Specific [place] Urine Protein Urine Glucose (UA) Urine Ketones Ur Blood (Man) Urine Nitrate Urine Bilirubin Urine Urobilinogen Add Ur Microanalysis Leukocyte Esterase Rfl Urine RBC Urine WBC Ur Squamous Epith Cells Urine Bacteria Urine Casts POC Urine HCG, Qual Negative (Negative) Influenza A (RT-PCR) Influenza B (RT-PCR) RSV (RT-PCR) SARS-CoV-2 RNA (RT-PCR) Patient hx anesthesia problems: none Family hx anesthesia problems: none Results Review: All pre-operative results and documents have been reviewed as part of the pre- operative evaluation. [facility] Past Medical History Medical History Morbid obesity with BMI of 40.0-44.9, adult Cauda equina syndrome Lumbar disc herniation Anxiety Colic, ureteral Surgical History Surgical History Status post lumbar discectomy (08/03/24) L4-L5 Family History Family History Father Alcoholism Hypertension Heart disease Diabetes mellitus Grandparent Breast cancer Diabetes mellitus Grandparent Hypertension Diabetes mellitus Social History Social History Social History: She is single and has never been . She usually lives in her own home but is currently staying with her mother since her laminectomy because her apartment in her bathroom is too small to get her walker into the room. 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 She drinks an alcoholic beverage every couple months. She denies any illicit substance use she used to smoke a half pack of cigarettes per day but this was for brief time when she was young. Code status: Full code Surrogate decision maker: Sandra Browning (mother) Smoking packs per day: 0.5 Smoking cigarettes per day: 10.0 Smoking status: Never smoker Tobacco type: cigarettes Second hand tobacco smoke exposure: No Alcohol intake: never Substance use: never Substance use type: does not use Do You Feel Safe in your Home?: Yes Lack of Transportation: No Lack of Food: Never True Current Housing: I Have Housing Concerned About Future Housing: No Difficulty Paying Gas/Electric Bills: No Difficulty Paying for Meds: No Currently Unemployed: No Education: Associate Degree Difficulty w/ Childcare or Family Care: No Spiritual care concerns: No Anes - Eval Final PreProcedure Day of Procedure 09/22/24 14:28 Patient weight: morbidly obese Heart: regular rate and rhythm Lungs: clear to auscultation Airway: Mallampati scale class II Neurological: alert and oriented Last oral intake: >/= 8 hours ASA classification: III Emergent: no Anesthetic plan: proceed Anesthesia type and monitoring: general ETT and standard monitoring Results Review: All pre-operative results and documents have been reviewed as part of the pre- operative evaluation. Informed Consent: The patient's anesthetic plan and its attendant risks and benefits were discussed with the patient/family/POA. Questions were solicited and answers provided to the satisfaction of the patient/family/POA.
[2024-09-22] MEDS: VANCOMYCIN 1,250 MG/NS 250 ML 1,250 MG/250 ML BAG 166.67 MG IVPB ×2 (15:17→17:01)
[2024-09-22] MEDS: BUPIVACAINE/EPINEPHRINE 0.5% 10 ML VIAL 30 ML INFILTRATE (15:26)
--- NOTE | 2024-09-22 16:30 | W.PM.PROC2 ---
Procedure Note - Detailed Date of Procedure 09/22/24 Pre-op Diagnosis Postoperative wound infection Recurrent lumbar disc herniation Post-op Diagnosis Same Procedure Performed 1. Lumbar wound washout 2. Revision lumbar microdiskectomy L4-5 3. Use of microscope Surgeon Sonia Roberson MD Customer Strategy Manager Ale Rizo General Description of Procedure The patient was brought to the operating room, and general anesthesia was induced. The patient was placed prone on the Reinier frame, and all pressure points were padded. Compression devices were placed on the patient's calves. The previous incision was marked, and the field was prepped with betadine. A time out was conducted, and pre-operative antibiotics were administered. Local anesthesia was injected into the planned incision. A midline skin incision was reopened 10-blade scalpel, and the suprafascial tissue was opened with the bovie. A culture swab was taken in the superficial region. No amara pus was identified, but a small tract was followed into the subcutaneous tissue. The fascia was noted to be intact. This was opened with the bovie, and the muscles were coagulated away from the midline to expose the cranial and caudal spinous processes. A second culture was taken deep to the fascia. A self-retaining retractor was placed. The microscope was draped and brought into the field. Once the spinous processes were located, a subperiosteal dissection was performed to expose the laminae bilaterally. A self-retaining retractor was placed. The C-arm was brought in to confirm the correct level. The microscope was draped and brought into the field. A currette was used to define the previous laminectomy edges on the left side. The dura was able to be elevated fairly easily away from the lateral lamina. The epidural space was identified, and the thecal sac was retracted with a nerve root retractor. Epidural hemostasis was achieved with the bipolar and floseal. The disc herniation was apparent, and a nerve hook was used to free this from beneath the posterior longitudinal ligament. Several large pieces of disc were removed with a pituitary. The space was again explored to verify no further large disc fragments. Floseal and cottonoids were placed into the epidural space. No evidence of CSF leak was noted. Next, the subcutaneous tissue was debrided with a large currette, and a pulse lavage was used to copiously irrigate the surgical site. The fibrinous skin edges were sharply debrided. A hemovac drain was placed below the fascia and tunneled inferolaterally. The muscle was loosely approximated with 0-Vicryl. The fascia was closed with 0-Vicryl in an interrupted fashion. The soft tissue was again copiously irrigated. The dermis was closed with 2-0 and 3-0 interrupted Vicryl. The skin was closed with running 3-0 nylon. The drain was sutured in placed as well. Sterile dressings were applied. The patient was returned supine on the stretcher, extubated, and transferred to PACU without incident. Billing codes: 78954, 72761, modifier 78 Estimated Blood Loss 100 Drains Yes Packing No Pathology None sent Complications None Condition Stable Disposition PACU [facility] Billing Surgery - Charge Forward: Surgery Billing
[2024-09-22] MEDS: LACTATED RINGERS 1,000 ML 30 ML IV CONT ×2 (16:37)
[2024-09-22] MEDS: HYDROmorphone HCL INJ (*CRX) 2 MG/ML VIAL 0.5 MG IV PUSH ×2 (16:50→17:05)
[2024-09-22] MEDS: ONDANSETRON INJ 4 MG/2 ML VIAL IV PUSH ×2 (16:59→20:37)
--- NOTE | 2024-09-22 17:37 | PC.NURSE ---
Returned to room per hospital bed from OR.
[2024-09-22] MEDS: ACETAMINOPHEN 500 MG TABLET 1000 MG PO (17:58)
[2024-09-22] MEDS: MORPHINE SULFATE (*CRX) 2 MG/ML INJ IV PUSH (20:32)
[2024-09-22] MEDS: DOCUSATE SODIUM 100 MG CAPSULE PO (20:37)
[2024-09-22] MEDS: PANTOPRAZOLE 40 MG TABLET PO (20:37)
[2024-09-23] MEDS: methocarbamoL 750 MG TABLET PO ×4 (00:30→17:22)
[2024-09-23] MEDS: VANCOMYCIN 1,500 MG/NS 500 ML 1,500 MG/500 ML BAG 250 MG IVPB ×2 (00:45→12:04)
[2024-09-23 02:10] VITALS: PULSE 74; RESP 20; O2SAT 94
[2024-09-23 05:00] VITALS: BP 119/64; PULSE 65; RESP 18; TEMP 36.2; O2SAT 98
[2024-09-23] MEDS: oxyCODONE HCL (*CRX) 5 MG TAB IR 10 MG PO ×3 (05:12→17:23)
[2024-09-23] MEDS: ONDANSETRON INJ 4 MG/2 ML VIAL IV PUSH ×3 (05:13→17:53)
[2024-09-23] MEDS: MEROPENEM 1 GM/NS 100 ML 1 GM/100 ML BAG IVPB (05:26)
[2024-09-23 06:29] LABS: Basophils Percent Auto 0.2 % (0.2-1.2); Hematocrit 36.7 % (37.0-47.0); Hemoglobin 11.5 g/dL (12.0-15.0); Immature Granulocyte Absolute 0.03 K/mm3 (0.00-0.031); Immature Granulocyte Percent A 0.3 % (0-0.5); Lymphocytes Absolute Auto 1.21 K/mm3 (0.9-3.2); Lymphocytes Percent Auto 12.6 % (18.3-44.2); Mean Corpuscular HGB Conc 31.3 g/dl (32-36); Mean Corpuscular Hemoglobin 29.3 pg (26-34); Mean Corpuscular Volume 93.6 fl (80-100); Mean Platelet Volume 9.1 fl (7.4-10.4); Monocytes Absolute Auto 0.4 K/mm3 (0.1-0.6); Monocytes Percent Auto 3.8 % (2.6-8.5); Neutrophils Percent Auto 83.1 % (45.5-73.1); Platelet Count Result 308 k/mm3 (150-375); Red Blood Count 3.92 M/mm3 (4.2-5.4); Red Cell Distribution Width 12.7 % (11.5-14.5); White Blood Count 9.6 K/mm3 (4.5-10.0)
[2024-09-23 06:38] LABS: Alanine Aminotransferase 26 U/L (6-35); Albumin Level 4.1 g/dL (3.5-5.1); Alkaline Phosphatase 60 U/L (38-126); Anion Gap 8 mmol/L (4-12); Aspartate Amino Transferase 23 U/L (14-36); Bilirubin,Total 0.5 mg/dL (0.2-1.3); Blood Urea Nitrogen 7 mg/dL (7-17); Calcium 8.5 mg/dL (8.4-10.2); Carbon Dioxide 22 mmol/L (22-30); Chloride 109 mmol/L (98-107); Estimated CRCL calculation 173 ml/min; Estimated Glomerular Filt Rate > 60; Glucose 104 mg/dL (65-110); Magnesium 2.3 mg/dL (1.6-2.3); Potassium 4.6 mmol/L (3.4-5.0); Sodium 139 mmol/L (137-145)
[2024-09-23 06:40] LABS: Lactic Acid Reflex 1.3 mmol/L (0.7-2.0)
[2024-09-23 08:00] VITALS: BP 105/48; PULSE 60; RESP 16; TEMP 36.2; O2SAT 98
[2024-09-23] MEDS: DOCUSATE SODIUM 100 MG CAPSULE PO (08:44)
[2024-09-23] MEDS: GABAPENTIN 300 MG CAPSULE PO ×3 (08:44→17:22)
[2024-09-23] MEDS: PANTOPRAZOLE 40 MG TABLET PO (08:45)
--- NOTE | 2024-09-23 11:21 | PCPTNOTE ---
Attempted PT evaluation, Pt in too much pain. Nurse aware. Will follow.
[2024-09-23 12:00] VITALS: BP 133/69; PULSE 81; RESP 12; TEMP 36.9; O2SAT 98
[2024-09-23] MEDS: ACETAMINOPHEN 500 MG TABLET 1000 MG PO ×2 (12:04→17:22)
--- NOTE | 2024-09-23 13:07 | WPDNEUROSGPN ---
Progress Note: A&P Assessment and Plan (1) Superficial postoperative wound infection: Code(s): T81.49XA - Infection following a procedure, other surgical site, initial encounter Status: Acute (2) Status post lumbar discectomy: Onset Date: 08/03/24 Code(s): Z98.890 - Other specified postprocedural states Status: Acute Plan -Remove hemovac drain today -I spoke with the ID pharmacist who recommended 2 weeks of augmentin + doxycycline based on her culture results from late August. We are still awaiting cultures from yesterday -Her dressing can be removed tomorrow. Ok to shower starting tomorrow. -She will follow up with me in clinic in 2 weeks for suture removal Subjective Date/time seen: 09/23/24 13:07 Interval history: Doing well today with tolerable back pain with oxycodone. She describes some cramps in her left leg; otherwise she reports no neurologic changes. Review of Systems Review of Systems: All systems reviewed & are unremarkable except as noted in HPI and below Exam Narrative: Lumbar dressing c/d/i Right leg 4+/5 HF, KE, PF, 4/5 DF Left leg essentially full strength Decreased sensation to light touch in right distal leg Objective Data Vital Signs Vital Signs: Vital Signs - 24 hr 09/22/24 14:02 09/22/24 16:37 09/22/24 16:50 Temperature 97.6 F 97.9 F Pulse Rate 65 86 75 Respiratory Rate 18 18 20 Blood Pressure 116/51 L 129/67 126/72 Pulse Oximetry 98 100 93 Oxygen Delivery Room Air Simple Face Mask Room Air Oxygen Flow Rate 8 Fraction of Inspired Oxygen 09/22/24 17:05 09/22/24 17:20 09/22/24 17:32 Temperature 98.3 F Pulse Rate 79 80 75 Respiratory Rate 21 H 17 19 Blood Pressure 116/66 130/69 127/69 Pulse Oximetry 94 95 97 Oxygen Delivery Room Air Room Air Room Air Oxygen Flow Rate Fraction of Inspired Oxygen 09/22/24 17:45 09/22/24 18:00 09/22/24 18:30 Temperature 97.6 F 97.1 F L Pulse Rate 71 64 61 Respiratory Rate 20 20 18 Blood Pressure 129/62 125/66 131/54 L Pulse Oximetry 95 96 96 Oxygen Delivery Oxygen Flow Rate Fraction of Inspired Oxygen 09/22/24 19:47 09/22/24 20:00 09/23/24 02:10 Temperature 96.6 F L Pulse Rate 76 76 74 Respiratory Rate 18 18 20 Blood Pressure 123/62 Pulse Oximetry 97 97 94 Oxygen Delivery Room Air Room Air Oxygen Flow Rate Fraction of Inspired Oxygen 21 09/23/24 05:00 09/23/24 08:00 09/23/24 08:15 Temperature 97.1 F L 97.2 F L Pulse Rate 65 60 Respiratory Rate 18 16 Blood Pressure 119/64 105/48 L Pulse Oximetry 98 98 Oxygen Delivery Room Air Oxygen Flow Rate Fraction of Inspired Oxygen 09/23/24 12:00 Temperature 98.4 F Pulse Rate 81 Respiratory Rate 12 Blood Pressure 133/69 Pulse Oximetry 98 Oxygen Delivery Oxygen Flow Rate Fraction of Inspired Oxygen Intake/Output Intake/Output: Intake & Output 09/20/24 09/21/24 09/22/24 09/23/24 23:59 23:59 23:59 23:59 Intake Total 300 1018 Balance 300 1018 Meds/Results Medications: Active Medications Generic Name Dose Route Start Last Admin Trade Name Freq PRN Reason Stop Dose Admin Acetaminophen 1,000 mg 09/22/24 16:50 09/23/24 12:04 Acetaminophen 500 Mg Tablet PO 1,000 mg Q6H TERA Administration Al Hydrox/Mg Hydrox/Simethicone 20 ml 09/22/24 16:46 Mag Hydrox/Al Hydrox/Simeth 30 Ml Udc PO Q4H PRN Indigestion/Heartburn Amoxicillin/Clavulanate Potassium 1 tablet 09/23/24 13:30 Amoxicillin/Clavulanate K 875-125 Mg Tab PO 10/06/24 21:01 Q12HR TERA Bisacodyl 10 mg 09/22/24 16:46 Bisacodyl 10 Mg Suppository RECTAL DAILY PRN Constipation Docusate Sodium 100 mg 09/22/24 21:00 09/23/24 08:44 Docusate Sodium 100 Mg Capsule PO 100 mg Q12HR TERA Administration Doxycycline Hyclate 100 mg 09/23/24 21:00 Doxycycline Hyclate 100 Mg Tablet PO 10/06/24 21:01 Q12HR TERA Gabapentin 300 mg 09/22/24 13:00 09/23/24 12:03 Gabapentin 300 Mg Capsule PO 300 mg TID TERA Administration Lorazepam 0.5 mg 09/22/24 11:32 Lorazepam (*Crx) 0.5 Mg Tablet PO Q6-8H PRN NAUSEA OR ANXIETY Methocarbamol 750 mg 09/22/24 12:00 09/23/24 12:03 Methocarbamol 750 Mg Tablet PO 750 mg Q6HR TERA Administration Morphine Sulfate 2 mg 09/22/24 16:46 09/22/24 20:32 Morphine Sulfate (*Crx) 2 Mg/Ml Inj IV PUSH 2 mg Q2H PRN Administration Breakthrough Pain Ondansetron HCl 4 mg 09/22/24 16:46 09/23/24 12:04 Ondansetron Inj 4 Mg/2 Ml Vial IV PUSH 4 mg Q8H PRN Administration Nausea And Vomiting Oxycodone HCl 10 mg 09/22/24 16:46 09/23/24 11:05 Oxycodone Hcl (*Crx) 5 Mg Tab Ir PO 10 mg Q4H PRN Administration Pain Rated 7-10 Pantoprazole Sodium 40 mg 09/23/24 09:00 09/23/24 08:45 Pantoprazole 40 Mg Tablet PO 40 mg Q12HR TERA Administration Senna/Docusate Sodium 1 tab 09/22/24 16:46 Senna/Docusate Sodium Tablet PO HS PRN Constipation Labs Labs: Laboratory Results - last 24 hr 09/23/24 06:03 WBC 9.6 RBC 3.92 L Hgb 11.5 L Hct 36.7 L MCV 93.6 MCH 29.3 MCHC 31.3 L RDW 12.7 Plt Count 308 MPV 9.1 Immature Gran % (Auto) 0.3 Neut % (Auto) 83.1 H Lymph % (Auto) 12.6 L [place] % (Auto) 3.8 Eos % (Auto) 0.0 Baso % (Auto) 0.2 Lymph # (Auto) 1.21 [place] # (Auto) 0.4 Eos # (Auto) 0.0 Baso # (Auto) 0.0 Abs Immat Gran (auto) 0.03 Absolute Neuts (auto) 8.0 H Absolute Nucleated RBC 0.000 Nucleated RBC % 0.0 Sodium 139 Potassium 4.6 Chloride 109 H Carbon Dioxide 22 Anion Gap 8 BUN 7 Creatinine 0.51 L Estim Creat Clear Calc 173 Estimated GFR > 60 Glucose 104 Lactic Acid 1.3 Calcium 8.5 Magnesium 2.3 Total Bilirubin 0.5 AST 23 ALT 26 Alkaline Phosphatase 60 Total Protein 7.0 Albumin 4.1
--- NOTE | 2024-09-23 13:13 | PM.IMPN ---
Progress Note: A&P Assessment and Plan (1) Status post lumbar discectomy: Onset Date: 08/03/24 Code(s): Z98.890 - Other specified postprocedural states Status: Acute (2) Cauda equina syndrome: Code(s): G83.4 - Cauda equina syndrome Status: Acute Plan Surgical site wound infection from recent lumbar laminectomy S/p lumbar wound washout, revision lumbar microdiskectomy L4-5 and patient had recent lumbar laminectomy wound showed purulent base Blood culture and Vanc and Meropenem awaiting wound culture Dr Roberson following HLD statin on hold due to drug interaction DVT prophylaxis on Sq lovenox Full code Subjective Date/time seen: 09/23/24 13:13 Interval history: Comfortable at bedside Review of Systems Review of Systems: All other systems were reviewed and negative except as noted in the HPI above. Exam Narrative: General: alert and comfortable Eyes: EOMI, PERRLA ENNT External ears normal, Neck is supple, no masses, Respiratory systems: Clear to auscultation Cardiovascular S1, S2, normal rhythm, no murmur, rub, or gallop; no thrill or palpable murmurs on palpation. Gastrointestinal: soft, non-tender, and non-distended abdomen with no masses; BS present Skin: lumbar surgical site dressing clean and dry Musculoskeletal: no abnormality and no tenderness, normal ROM Neurologic: Alert and oriented x3, non focal Mental Status Exam: normal affect Objective Data Vital Signs Vital Signs: Vital Signs - 24 hr 09/22/24 14:02 09/22/24 16:37 09/22/24 16:50 Temperature 97.6 F 97.9 F Pulse Rate 65 86 75 Respiratory Rate 18 18 20 Blood Pressure 116/51 L 129/67 126/72 Pulse Oximetry 98 100 93 Oxygen Delivery Room Air Simple Face Mask Room Air Oxygen Flow Rate 8 Fraction of Inspired Oxygen 09/22/24 17:05 09/22/24 17:20 09/22/24 17:32 Temperature 98.3 F Pulse Rate 79 80 75 Respiratory Rate 21 H 17 19 Blood Pressure 116/66 130/69 127/69 Pulse Oximetry 94 95 97 Oxygen Delivery Room Air Room Air Room Air Oxygen Flow Rate Fraction of Inspired Oxygen 09/22/24 17:45 09/22/24 18:00 09/22/24 18:30 Temperature 97.6 F 97.1 F L Pulse Rate 71 64 61 Respiratory Rate 20 20 18 Blood Pressure 129/62 125/66 131/54 L Pulse Oximetry 95 96 96 Oxygen Delivery Oxygen Flow Rate Fraction of Inspired Oxygen 09/22/24 19:47 09/22/24 20:00 09/23/24 02:10 Temperature 96.6 F L Pulse Rate 76 76 74 Respiratory Rate 18 18 20 Blood Pressure 123/62 Pulse Oximetry 97 97 94 Oxygen Delivery Room Air Room Air Oxygen Flow Rate Fraction of Inspired Oxygen 21 09/23/24 05:00 09/23/24 08:00 09/23/24 08:15 Temperature 97.1 F L 97.2 F L Pulse Rate 65 60 Respiratory Rate 18 16 Blood Pressure 119/64 105/48 L Pulse Oximetry 98 98 Oxygen Delivery Room Air Oxygen Flow Rate Fraction of Inspired Oxygen 09/23/24 12:00 Temperature 98.4 F Pulse Rate 81 Respiratory Rate 12 Blood Pressure 133/69 Pulse Oximetry 98 Oxygen Delivery Oxygen Flow Rate Fraction of Inspired Oxygen Intake/Output Intake/Output: Intake & Output 09/20/24 09/21/24 09/22/24 09/23/24 23:59 23:59 23:59 23:59 Intake Total 300 1018 Balance 300 1018 Meds/Results Medications: Active Medications Generic Name Dose Route Start Last Admin Trade Name Freq PRN Reason Stop Dose Admin Acetaminophen 1,000 mg 09/22/24 16:50 09/23/24 12:04 Acetaminophen 500 Mg Tablet PO 1,000 mg Q6H TERA Administration Al Hydrox/Mg Hydrox/Simethicone 20 ml 09/22/24 16:46 Mag Hydrox/Al Hydrox/Simeth 30 Ml Udc PO Q4H PRN Indigestion/Heartburn Amoxicillin/Clavulanate Potassium 1 tablet 09/23/24 13:30 Amoxicillin/Clavulanate K 875-125 Mg Tab PO 10/06/24 21:01 Q12HR TERA Bisacodyl 10 mg 09/22/24 16:46 Bisacodyl 10 Mg Suppository RECTAL DAILY PRN Constipation Docusate Sodium 100 mg 09/22/24 21:00 09/23/24 08:44 Docusate Sodium 100 Mg Capsule PO 100 mg Q12HR TERA Administration Doxycycline Hyclate 100 mg 09/23/24 21:00 Doxycycline Hyclate 100 Mg Tablet PO 10/06/24 21:01 Q12HR TERA Gabapentin 300 mg 09/22/24 13:00 09/23/24 12:03 Gabapentin 300 Mg Capsule PO 300 mg TID TERA Administration Lorazepam 0.5 mg 09/22/24 11:32 Lorazepam (*Crx) 0.5 Mg Tablet PO Q6-8H PRN NAUSEA OR ANXIETY Methocarbamol 750 mg 09/22/24 12:00 09/23/24 12:03 Methocarbamol 750 Mg Tablet PO 750 mg Q6HR TERA Administration Morphine Sulfate 2 mg 09/22/24 16:46 09/22/24 20:32 Morphine Sulfate (*Crx) 2 Mg/Ml Inj IV PUSH 2 mg Q2H PRN Administration Breakthrough Pain Ondansetron HCl 4 mg 09/22/24 16:46 09/23/24 12:04 Ondansetron Inj 4 Mg/2 Ml Vial IV PUSH 4 mg Q8H PRN Administration Nausea And Vomiting Oxycodone HCl 10 mg 09/22/24 16:46 09/23/24 11:05 Oxycodone Hcl (*Crx) 5 Mg Tab Ir PO 10 mg Q4H PRN Administration Pain Rated 7-10 Pantoprazole Sodium 40 mg 09/23/24 09:00 09/23/24 08:45 Pantoprazole 40 Mg Tablet PO 40 mg Q12HR TERA Administration Senna/Docusate Sodium 1 tab 09/22/24 16:46 Senna/Docusate Sodium Tablet PO HS PRN Constipation Labs Labs: Laboratory Results - last 24 hr 09/23/24 06:03 WBC 9.6 RBC 3.92 L Hgb 11.5 L Hct 36.7 L MCV 93.6 MCH 29.3 MCHC 31.3 L RDW 12.7 Plt Count 308 MPV 9.1 Immature Gran % (Auto) 0.3 Neut % (Auto) 83.1 H Lymph % (Auto) 12.6 L [place] % (Auto) 3.8 Eos % (Auto) 0.0 Baso % (Auto) 0.2 Lymph # (Auto) 1.21 [place] # (Auto) 0.4 Eos # (Auto) 0.0 Baso # (Auto) 0.0 Abs Immat Gran (auto) 0.03 Absolute Neuts (auto) 8.0 H Absolute Nucleated RBC 0.000 Nucleated RBC % 0.0 Sodium 139 Potassium 4.6 Chloride 109 H Carbon Dioxide 22 Anion Gap 8 BUN 7 Creatinine 0.51 L Estim Creat Clear Calc 173 Estimated GFR > 60 Glucose 104 Lactic Acid 1.3 Calcium 8.5 Magnesium 2.3 Total Bilirubin 0.5 AST 23 ALT 26 Alkaline Phosphatase 60 Total Protein 7.0 Albumin 4.1
[2024-09-23] MEDS: AMOXICILLIN/CLAVULANATE K 875-125 MG TAB 1 TABLET PO (14:15)
--- NOTE | 2024-09-23 14:15 | P.PNAN_ITS ---
Anes - Prog Note Post-Op Date/Time: 09/23/24 14:15 Cardiovascular status: normal Respiratory status: normal Airway patency: baseline Mental status: baseline Post-Op hydration status: normal Vital Signs: Last Vital Signs Temp 36.9 C 09/23/24 12:00 Pulse 81 09/23/24 12:00 Resp 12 09/23/24 12:00 BP 133/69 09/23/24 12:00 Pulse Ox 98 09/23/24 12:00 O2 Del Method Room Air 09/23/24 13:06 O2 Flow Rate 8 09/22/24 16:37 FiO2 21 09/23/24 02:10 Pain Score (VAS): Patient asleep, no nonverbal signs of pain present at this time. I/O: Intake & Output 09/22/24 09/23/24 09/23/24 23:59 07:59 15:59 Intake Total 200 1000 468 Balance 200 1000 468 Laboratory Tests 09/23/24 06:03 09/23/24 06:03 09/23/24 06:03 WBC 9.6 RBC 3.92 L Hgb 11.5 L Hct 36.7 L MCV 93.6 MCH 29.3 MCHC 31.3 L RDW 12.7 Plt Count 308 MPV 9.1 Immature Gran % (Auto) 0.3 Neut % (Auto) 83.1 H Lymph % (Auto) 12.6 L [place] % (Auto) 3.8 Eos % (Auto) 0.0 Baso % (Auto) 0.2 Lymph # (Auto) 1.21 [place] # (Auto) 0.4 Eos # (Auto) 0.0 Baso # (Auto) 0.0 Abs Immat Gran (auto) 0.03 Absolute Neuts (auto) 8.0 H Absolute Nucleated RBC 0.000 Nucleated RBC % 0.0 Sodium 139 Potassium 4.6 Chloride 109 H Carbon Dioxide 22 Anion Gap 8 BUN 7 Creatinine 0.51 L Estim Creat Clear Calc 173 Estimated GFR > 60 Glucose 104 Lactic Acid 1.3 Calcium 8.5 Magnesium 2.3 Total Bilirubin 0.5 AST 23 ALT 26 Alkaline Phosphatase 60 Total Protein 7.0 Albumin 4.1 Microbiology 09/22/24 15:08 Back Anaerobic Culture - Preliminary 09/22/24 15:05 Back Anaerobic Culture - Preliminary 09/22/24 08:12 Blood Blood Culture - Preliminary 09/22/24 08:26 Blood Blood Culture - Preliminary Post-procedural complaints: none Patient Feedback: Patient satisfied with anesthetic care.
[2024-09-23 16:18] VITALS: BP 104/54; PULSE 62; RESP 14; TEMP 36.9; O2SAT 100
--- NOTE | 2024-09-23 17:30 | P.DS_ITS ---
DS: Admitting Diagnosis Discharge Date 09/23/24 Admitting Diagnosis surgical site infection DS: Discharge Diagnosis Discharge Diagnosis (1) Superficial postoperative wound infection: Code(s): T81.49XA - Infection following a procedure, other surgical site, initial encounter Status: Acute (2) Lumbar disc herniation: Code(s): M51.26 - Other intervertebral disc displacement, lumbar region Status: Acute DS: Summary Hospital Course Hospital Course: 29 yo female with PMH of HLD and Cauda equina who underwent lumbar laminectomy on 08/04 however stated that since then she has noticed drainage since then which is purulent. however she denies any fever, abd pain, diarrhea, abd pain, and no lightheadedness. Patient was sent to the ER by Neurosurgery, Dr Roberson, for wound exploration and debridement ER eval vital signs notable for BP 145/85, labs unremarkable. Dr Roberson consulted by ER. Patient underwent lumbar wound washout, with revision lumbar microdiskectomy L4- 5 by Neurosurgery. wound care was obtained and discharged on Doxycycline and Augmentin x [address] Roberson and she will follow up with wound culture and adjust abx with cultures. Continue PRN pain control per Dr Roberson. F/u with PCP in 3-5 days F/u with Neurosurgery as instructed Time Spent with Patient Time attestation: Total time spent providing and/or coordinating discharge services: DS: Data Data Completed and Pending Labs on day of discharge: Labs from last 24 hours 09/23/24 06:03 WBC 9.6 RBC 3.92 L Hgb 11.5 L Hct 36.7 L MCV 93.6 MCH 29.3 MCHC 31.3 L RDW 12.7 Plt Count 308 MPV 9.1 Immature Gran % (Auto) 0.3 Neut % (Auto) 83.1 H Lymph % (Auto) 12.6 L [place] % (Auto) 3.8 Eos % (Auto) 0.0 Baso % (Auto) 0.2 Lymph # (Auto) 1.21 [place] # (Auto) 0.4 Eos # (Auto) 0.0 Baso # (Auto) 0.0 Abs Immat Gran (auto) 0.03 Absolute Neuts (auto) 8.0 H Absolute Nucleated RBC 0.000 Nucleated RBC % 0.0 Sodium 139 Potassium 4.6 Chloride 109 H Carbon Dioxide 22 Anion Gap 8 BUN 7 Creatinine 0.51 L Estim Creat Clear Calc 173 Estimated GFR > 60 Glucose 104 Lactic Acid 1.3 Calcium 8.5 Magnesium 2.3 Total Bilirubin 0.5 AST 23 ALT 26 Alkaline Phosphatase 60 Total Protein 7.0 Albumin 4.1 Preliminary micro results at discharge 09/22/24 15:08 Anaerobic Culture - Preliminary Back 09/22/24 15:05 Anaerobic Culture - Preliminary Back 09/22/24 08:12 Blood Culture - Preliminary Blood 09/22/24 08:26 Blood Culture - Preliminary Blood Discharge Plan Discharge Attending physician on discharge: Savita Bender Consulting providers: Sonia Roberson Discharging Clinician: Savita Bender Anticipated Discharge Date/Time: 09/23/24 17:27 Patient Disposition: Home Activity: other - see discharge instructions Diet: as tolerated Discharge Instructions: Discharge Instructions Procedure: Lumbar microdiskectomy Your doctor has partially removed one or more discs from your back (lumbar spine), to remove pressure from the nerve roots. Here are some instructions to follow upon discharge from the hospital to help in your recovery. Your doctor has removed the disc fragments which were compressing the nerves, but usually does not remove the entire disc. If you do not let your back heal properly from the surgery, you can increase the chance of a recurrent disc herniation and return of your symptoms. Wound Care: You may shower and get your incision wet starting on post-operative day 2 (Friday). You may use soap and water to clean your incision. Lightly dab the incision dry. Do not apply any ointments, creams, or lotions to the incision. Do not take baths or sit in a hot tub or pool until approved by your doctor at your follow-up appointment. Your incision is closed with stitches that will be removed in clinic in 2 weeks. You may remove the dressing on Friday and leave the incision open to air. Activity: Until released by your doctor, you should not return to work. You should rest at home and let your body heal. Taking short walks is encouraged, but avoid strenuous exercise. Do not jog, run, bicycle, lift weights, or participate in any other exercises unless specifically allowed by your doctor. Most importantly, avoid lifting objects heavier than about 10 lbs (or carton of milk) as this places a strain on your back. Avoid twisting and bending motions. Avoid prolonged sitting. Where possible, avoid household activities that involve lifting and/or bending such as laundry, grocery shopping, and childcare. Try to arrange for help from friends and family for these activities while your back heals. You should not drive for a few days and must be off pain medications prior to driving. DO NOT SMOKE TOBACCO. Smoking has been proven to interfere with the normal healing of the bones in your back. Smoking will dramatically reduce the success rate of your surgery. Your doctor can prescribe a patch to help you stop smoking if you would like. Diet: You can return to your usual diet, unless instructed otherwise by your doctor. Medications: You should resume taking all of your normal medications, unless instructed otherwise by your doctor. If you have questions about your normal medications (those prescribed for high blood pressure, for example), call your family doctor or merchandising consultant. You will be given a prescription for pain medications and possibly a laxative, as pain medications can cause constipation. Take the pain medicines as instructed. Try Tylenol first for pain to see if this will adequately relieve your pain; if not, take the oxycodone as prescribed. You may take up to 1000mg of Tylenol every 6 hours. If your pain is not reasonably controlled by the medications, contact your doctor?s office. Follow-up appointment: The office will call you to schedule a post-operative appointment in about 2 weeks for suture removal. Please call to schedule an appointment if you have not heard from the office by next week. When to call our office: Although your surgery and recovery will likely be uneventful, you may have some residual aches and pains in your back and/or legs. This is NORMAL and should improve in the next few weeks. However, should you experience any of the following, call our office immediately. For medical emergencies call 911. For urgent calls after hours, please call our exchange at : 1. Fevers 2. Drainage from your incision 3. Pain that is progressively getting worse, and is not relieved by your medications 4. New numbness or weakness 5. Difficulty controlling your bladder 6. Loss of control of your bowels Sonia Roberson MD [facility] [address] [place] [id number] Patient Instructions: Antibiotic Form Patient Language: Pashto Stand Alone Forms: General Discharge Information Follow-up/Referrals: Lucille Jackson MD [Primary Care Provider] - (F/u with PCP in 3-5 days ) Sonia Roberson MD [Physician] - (F/u with Neurosurgery as instructed ) Discharge Medications: New methocarbamol 750 mg Tablet 750 mg PO Q6HR 10 Days Qty: 40 0RF oxycodone 5 mg tablet 5 mg PO Q6H PRN (Reason: pain) Qty: 28 0RF doxycycline hyclate 100 mg capsule 100 mg PO BID 14 Days Qty: 28 0RF amoxicillin-pot clavulanate 875-125 mg tablet 1 tablet PO Q12H 14 Days Qty: 28 0RF Continued gabapentin 300 mg capsule 300 mg PO TID pantoprazole 40 mg tablet,delayed release (DR/EC) 40 mg PO Q12H lorazepam 0.5 mg tablet 0.5 mg PO Q6-8H PRN (Reason: nausea and vomiting) Discontinued methocarbamol 750 mg tablet 750 mg PO Q6H oxycodone 5 mg Tablet 5 mg PO Q6H PRN (Reason: Pain Rated 4-6) 7 Days Qty: 28 0RF sulfamethoxazole-trimethoprim [Bactrim DS] 800-160 mg tablet 1 tablet PO Q12H Qty: 28 0RF Date of admission: 09/23/24 09:39 Primary Care Provider: Lucille Jackson Admitting Provider: Savita Bender Attending physician on admission: Savita Bender Condition: Stable
== END 2024-09-23 18:15 | disposition home or self-care (01) | DRG 711 ==
LOC: ANHED 08:00 → ANH3MEDSUR 09:08
PROVIDERS: Neurological Surgery; Admitting Provider Internal Medicine; Emergency Provider Emergency Medicine; PCP Internal Medicine; Visit Provider Internal Medicine
PROC: 0SB20ZZ Excision of Lumbar Vertebral Disc, Open Approach (ICD-10-PCS; CPT 63030; principal; 2024-09-22 14:30)
DX: T81.49XA Infection following a procedure, other surgical site, initial encounter (principal); M51.26 Other intervertebral disc displacement, lumbar region; E78.5 Hyperlipidemia, unspecified; G83.4 Cauda equina syndrome; E66.01 Morbid (severe) obesity due to excess calories; Z68.41 Body mass index [BMI] 40.0-44.9, adult; Z98.890 Other specified postprocedural states; Z87.891 Personal history of nicotine dependence
CPT/HCPCS: 36415; 80053; 81001; 81025; 83605; 83735; 84145; 85025; 85610; 85652; 85730; 86140; 87040; 87070; 87075; 87086; 87205; 87637; 96361; 96365; 96366; 96368; 96374; 96375; 96376; 97161; 97166; 97530; 99285; A9270; G0378; G0379; J1100; J1171; J2003; J2185; J2250; J2270; J2371; J2405; J2704; J3010; J3370; J7030; J7120

== ENCOUNTER 2024-10-06 08:08 | Outpatient (RCR) | payer OTHER, SELFPAY ==
--- NOTE | 2024-11-01 11:29 | OPREHPOC ---
Outpatient Therapy Plan of Care This is a Multidisciplinary Plan of Care that may contain components documented by all disciplines (PT, OT, and ST.) PT Problem 1 PT Problem #1 Knowledge Deficit PT Goal 1 Goal / Goal Update Pt. will be independent with a HEP addressing strength and core stability Target Visit 6 Progress Met PT Goal 2 Goal / Goal Update continue to progress PT Problem 2 PT Problem #2 Pain PT Goal 1 Goal / Goal Update Pt to note no worse than 5/10 pain at rest. Pt to note no worse than 7/10 pain with activity. Target Visit 12 Progress Met PT Goal 2 Goal / Goal Update continue Target Visit 36 Progress Met PT Problem 3 PT Problem #3 Impaired Strength PT Goal 1 Goal / Goal Update Pt to improve gross LE strength to 4/5 for improved performance of functional mobility tasks. Target Visit 12 Progress Met PT Goal 2 Goal / Goal Update Pt to improve gross LE strength to 5/5. Target Visit 36 Progress Not Met PT Problem 4 PT Problem #4 Impaired Functional Mobility PT Goal 1 Goal / Goal Update Pt. will navigate 4 standard height steps with reciprocal pattern and no pain. Pt. will ambulate duration of 6 minutes over a distance of 500' without a rest break or R knee buckling. -not met Target Visit 12 Progress Not Met PT Goal 2 Goal / Goal Update continue Target Visit 36
--- NOTE | 2024-11-01 11:29 | PTOPPROG ---
Assessment and note entered by Penny Roland, PT Evaluation Information Assessment Status Progress Diagnosis s/p lumbar laminectomy and discectomy 08/03/24 ICD-10 Condition Codes (PT) Pain in low back M54.50,Difficulty Walking R26.2, Weakness R53.1 Onset 06/12/24 Subjective Information Pt reports her low back pain isn't constant anymore and is managed with gabapentin, and the pain is mostly on the L side. She reports she's still under BLT precautions until the end of this week. She still uses her wheeled walker for community ambulation but she uses the cane at home . She sees her surgeon in December but plans to make an liss with Dr. Jackson soon. She reports she is having some groin and posterior knee pain after getting in her car yesterday. She states she was using her leg driver trainer to lift her R leg into the car and when doing so, her L leg slipped on the gravel. States she feels like she pulled something. Assessment PT Clinical Summary Ms. Marinelli has attended 36 total skilled PT visits following lumbar surgery with a second surgery performed on 09/22/24 to remove more of her disc. She continues to note improved strength and sensation in her legs and has no longer been wearing her AFO. She continues to ambulate using her wheeled walker when out of the house but has transitioned to ambulating with her cane at home. She demonstrates more symmetrical LE strength since last re-evaluation and her pain has also improved. She is able to tolerate standing for longer periods but still has limitations with ambulation and other functional tasks due to gait deviations post-op restrictions. She will continue to benefit from skilled PT to continue progressing toward goals to improve independence. Plan of Care Interventions Electrical Stimulation,Gait Training,Manual Therapy,Neuro Re-education,Patient/Caregiver Education,Therapeutic Activities,Therapeutic Exercise,Self-Care/Home Management PT Services Indicated Yes Treatment Frequency and 3x/week for 12 additional visits Duration These treatments will address the objective and functional deficits as defined above. The patient will be advanced safely and appropriately in order for the patient to progress towards his/her prior level of function. Additional exercises will be introduced and as well as a comprehensive home exercise program upon discharge, if needed, ?to ensure carryover of functional gains achieved in the clinic. This treatment plan has been reviewed and agreement upon by the patient.
--- NOTE | 2024-11-26 12:07 | OPREHPOC ---
Outpatient Therapy Plan of Care This is a Multidisciplinary Plan of Care that may contain components documented by all disciplines (PT, OT, and ST.) PT Problem 1 PT Problem #1 Knowledge Deficit PT Goal 1 Goal / Goal Update Pt. will be independent with a HEP addressing strength and core stability Target Visit 6 Progress Met PT Goal 2 Goal / Goal Update continue to progress PT Problem 2 PT Problem #2 Pain PT Goal 1 Goal / Goal Update Pt to note no worse than 5/10 pain at rest. Pt to note no worse than 7/10 pain with activity. Target Visit 12 Progress Met PT Goal 2 Goal / Goal Update continue Target Visit 36 Progress Met PT Problem 3 PT Problem #3 Impaired Strength PT Goal 1 Goal / Goal Update Pt to improve gross LE strength to 4/5 for improved performance of functional mobility tasks. Target Visit 12 Progress Met PT Goal 2 Goal / Goal Update Pt to improve gross LE strength to 5/5. -not met, continue Target Visit 46 Progress Not Met PT Problem 4 PT Problem #4 Impaired Functional Mobility PT Goal 1 Goal / Goal Update Pt. will navigate 4 standard height steps with reciprocal pattern and no pain. Pt. will ambulate duration of 6 minutes over a distance of 500' without a rest break or R knee buckling. -not met Target Visit 12 Progress Not Met PT Goal 2 Goal / Goal Update continue Target Visit 46
--- NOTE | 2024-11-26 12:07 | PTOPPROG ---
Assessment and note entered by Lucretia Suero, PT Evaluation Information Assessment Status Progress Diagnosis s/p lumbar laminectomy and discectomy 08/03/24 ICD-10 Condition Codes (PT) Pain in low back M54.50,Difficulty Walking R26.2, Weakness R53.1 Onset 06/12/24 Subjective Information Pt reports her low back continues to have mild intermittent pain and she has been having kayla horses in her left calf muscle over the last week. She went to her doctor on 11/25/24 and was told she has no restrictions anymore and that she should continue skilled PT. She is still using her walker when ambulating outside the home due to decreased balance. She has been using a cane at home but notes she has to switch back to the walker around 3-4 pm due to fatigue by that point in the day. Assessment PT Clinical Summary Ms. Marinelli has attended 46 total skilled PT visits following lumbar surgery with a second surgery performed on 09/22/24 to remove more of her disc. She continues to note improved strength and sensation in her legs and has no longer been wearing her AFO. She continues to ambulate using her wheeled walker when out of the house but has transitioned to ambulating with her cane at home. She demonstrates more symmetrical LE strength since last re-evaluation and her pain has also improved. She continues to have impairments in gait and dynamic balance. She is a moderate fall risk. She will continue to benefit from skilled PT to continue progressing toward goals to improve independence. Plan of Care Interventions Electrical Stimulation,Gait Training,Manual Therapy,Neuro Re-education,Patient/Caregiver Education,Therapeutic Activities,Therapeutic Exercise,Self-Care/Home Management PT Services Indicated Yes Treatment Frequency and 2x/week for 10 additional visits Duration These treatments will address the objective and functional deficits as defined above. The patient will be advanced safely and appropriately in order for the patient to progress towards his/her prior level of function. Additional exercises will be introduced and as well as a comprehensive home exercise program upon discharge, if needed, ?to ensure carryover of functional gains achieved in the clinic. This treatment plan has been reviewed and agreement upon by the patient.
--- NOTE | 2024-12-31 11:25 | OPREHPOC ---
Outpatient Therapy Plan of Care This is a Multidisciplinary Plan of Care that may contain components documented by all disciplines (PT, OT, and ST.) PT Problem 1 PT Problem #1 Knowledge Deficit PT Goal 1 Goal / Goal Update Pt. will be independent with a HEP addressing strength and core stability Target Visit 6 Progress Met PT Goal 2 Goal / Goal Update continue to progress Progress Met PT Problem 2 PT Problem #2 Pain PT Goal 1 Goal / Goal Update Pt to note no worse than 5/10 pain at rest. Pt to note no worse than 7/10 pain with activity. Target Visit 12 Progress Met PT Goal 2 Goal / Goal Update continue Target Visit 36 Progress Met PT Problem 3 PT Problem #3 Impaired Strength PT Goal 1 Goal / Goal Update Pt to improve gross LE strength to 4/5 for improved performance of functional mobility tasks. Target Visit 12 Progress Met PT Goal 2 Goal / Goal Update Pt to improve gross LE strength to 5/5. -not met, continue Target Visit 50 Progress Not Met PT Problem 4 PT Problem #4 Impaired Functional Mobility PT Goal 1 Goal / Goal Update Pt. will navigate 4 standard height steps with reciprocal pattern and no pain. -met Pt. will ambulate duration of 6 minutes over a distance of 500' without a rest break or R knee buckling. -met Target Visit 12 Progress Met PT Goal 2 Goal / Goal Update continue Target Visit 46 Progress Met PT Problem 5 PT Problem #5 Impaired Functional Mobility PT Goal 1 Goal / Goal Update patient to progress to safe ambulation without AD while maintaining reduced fall risk and gait efficiency. patient to display low fall risk per the tinetti. Target Visit 50
--- NOTE | 2024-12-31 11:25 | PTOPREEVAL ---
Assessment and note entered by JT File, PT Evaluation Information Assessment Status Re-evaluation Diagnosis s/p lumbar laminectomy and discectomy 08/03/24 ICD-10 Condition Codes (PT) Pain in low back M54.50,Difficulty Walking R26.2, Weakness R53.1 Onset 06/12/24 Subjective Information patient reports she has had no falls, but does continue to catch the toes multiple times a week. this causes her to stumble, but reports she does not fall. she reports this mostly occurs in the evenings. she reports she is compliant with HEP at home. she reports she does a lot of ankle movements and closed chain exercises. she reports she also walks frequently. she reports she also exercises in the pool. Reported Pain Level Pain Score 0,0,3: Self Report Assessment PT Clinical Summary mrs. crawford presents to skilled PT services for continued care and rehab following lumbar laminectomy and microdiscectomy. she continues to use a cane for ambulation which she would like to get rid of. she is no longer wearing an AFO, but reports evening foot drop and toe catching. she displays deficits in static and dynamic balance. continued skilled PT is indicated and will focus on extensive HEP progression, balance/ proprioception, and workings towards her goals of ambulation independence without an AD. patient does not follow up with surgeon for another month or longer. Plan of Care Interventions Electrical Stimulation,Gait Training,Manual Therapy,Neuro Re-education,Patient/Caregiver Education,Therapeutic Activities,Therapeutic Exercise,Self-Care/Home Management PT Services Indicated Yes Treatment Frequency and continue skilled PT 1x weekly for 4 more visits Duration These treatments will address the objective and functional deficits as defined above. The patient will be advanced safely and appropriately in order for the patient to progress towards his/her prior level of function. Additional exercises will be introduced and as well as a comprehensive home exercise program upon discharge, if needed, ?to ensure carryover of functional gains achieved in the clinic. This treatment plan has been reviewed and agreement upon by the patient.
== END 2024-12-31 20:00 | disposition still patient (30) ==
LOC: CHSPT 08:08
PROVIDERS: PCP Nurse Practitioner Family; Visit Provider Nurse Practitioner Family
DX: M25.572 Pain in left ankle and joints of left foot (principal); M54.50 Low back pain, unspecified
CPT/HCPCS: 97110; 97112; 97140; 97150; 97530; 97750

== ENCOUNTER 2024-12-28 12:32 | Emergency (ER) | payer OTHER, SELFPAY ==
--- NOTE | ~2024-12-28 | CT_ITS ---
EXAMINATION: CT abdomen pelvis w con DATE: 12/28/2024 13:45 INDICATION: Right upper quadrant pain TECHNIQUE: Computed tomography (CT) of the abdomen and pelvis was performed without intravenous contrast. The dose-length product was 1541.38 mGy-cm. COMPARISON: 08/25/2024 FINDINGS: Fatty liver. There are a few gallstones in the gallbladder. The spleen, adrenal glands, kidneys and pancreas are unremarkable. Abdominal aorta is not aneurysmal. No enlarged lymph nodes in the abdomen or pelvis. Bladder is unremarkable. Uterus is unremarkable. There is a 2.4 cm low density lesion in the left ovary possibly an ovarian cystic lesion. No dilated bowel loops. No appendicitis. Mild degenerative change in the lower lumbar spine. Minimal bowel wall thickening in the distal transverse, descending and sigmoid colon. Differential includes incomplete bowel wall distention or colitis. Probable laminectomy at the L4 level. IMPRESSION: 1. There is a 2.4 cm low-density lesion in the left ovary possibly an ovarian cystic lesion. A pelvic ultrasound is recommended. 2. Fatty liver. 3. Cholelithiasis without CT evidence for acute cholecystitis at this time. 4. Minimal bowel wall thickening in the distal transverse, descending and sigmoid colon. Differential includes incomplete bowel wall distention or colitis. 5. Probable laminectomy at the L4 level. However, if there is no history of a laminectomy at this level, a bone lesion is possible in an MRI of the lumbar spine with and without contrast is recommended. Reviewed, dictated and finalized at location A. IMPRESSION: 1. There is a 2.4 cm low-density lesion in the left ovary possibly an ovarian c ystic lesion. A pelvic ultrasound is recommended. 2. Fatty liver. 3. Cholelithiasis without CT evidence for acute cholecystitis at this time. 4. Minimal bowel wall thickening in the distal transverse, descending and sigmo id colon. Differential includes incomplete bowel wall distention or colitis. 5. Probable laminectomy at the L4 level. However, if there is no history of a l aminectomy at this level, a bone lesion is possible in an MRI of the lumbar spi ne with and without contrast is recommended.
[2024-12-28 12:32] VITALS: BP 165/106; PULSE 107; RESP 20; TEMP 36.6; O2SAT 100
--- OUTSIDE RECORDS SUMMARY | 2024-12-28 12:36 | XMS_ITS | Clinical Summary ---
Author Organization [facility] Address [address] [place] [address] Phone Care Team Providers Care Books Salesperson Name Role Phone Avi Floyd MD Primary Care Provider [phone] Allergies Active Allergy Reactions Criticality Noted Date [...] Comments Blood Pressure 122/80 07/01/2019 11:03 AM DRY TRANSFER WORKER Pulse 86 07/01/2019 11:03 AM DRY TRANSFER WORKER Temperature 36.8 C (98.3 F) 07/01/2019 11:03 AM DRY TRANSFER WORKER Respiratory Rate 22 07/01/2019 11:03 AM DRY TRANSFER WORKER Oxygen Saturation 99% 07/01/2019 11:03 AM DRY TRANSFER WORKER Inhaled Oxygen Concentration - - Weight 114.3 kg (252 lb) 07/01/2019 11:03 AM DRY TRANSFER WORKER Height 166.6 cm (5' 5.6) 07/01/2019 11:03 AM CS T Body Mass Index 41.17 07/01/2019 11:03 AM DRY TRANSFER WORKER Plan of Treatment Health Maintenance Due Date Last Done Comments Hepatitis C Virus (HCV) Screening 1993 TdaP Immunization 1993 Pap Smear 2014 Human Papillomavirus (HPV) Immunization (1 - 3-dose SCDM series) 2020 Cervical Cancer Screening (CCS) 2023 HPV/Cotest 2023 SARS-COV-2 Immunization ( season) 2024 09/20/2020, 08/23/2020 Influenza Immunization (#1) 2025 Respiratory Syncytial Virus (RSV) Immunization (Adult) (1 [...] this topic Insurance MEDICAID [place] Care Teams Books Salesperson Relationship Specialty Start Date End Date Avi Floyd MD [address] [place] [address] PCP - General Family Medicine 12/18/18
--- OUTSIDE RECORDS SUMMARY | 2024-12-28 12:37 | XMS_ITS | Encounter Summary ---
Author Organization [facility] Address [address] [place] [address] Phone Care Team Providers Care Cook Pickled Meat Name Role Phone Avi Floyd MD Primary Care Provider [phone] Reason for Visit * Reason Comments Medication Refill Encounter Details Date Type Department Care Team (Late st Contact Info) Description 02/23/2020 Refill [facility] - Neurology [facility] [address] [place] [address] Ryan Willingham MD [address] [place] [id number] Medication Refill Social History Tobacco Use Types [...] present documented in this encounter Care Teams Cook Pickled Meat Relationship Specialty Start Date End Date Avi Floyd MD [address] [place] [address] PCP - General Family Medicine 12/18/18 documented as of this encounter
--- NOTE | 2024-12-28 12:50 | ED.ABDPAIN ---
HPI - Abdominal Pain General Chief Complaint: Abdominal Pain Stated Complaint: gallbladder issue Time Seen by Provider: 12/28/24 12:50 Source: patient Mode of arrival: ambulatory Limitations: no limitations History of Present Illness HPI narrative: right upper quadrant pain wake her up from sleep at 2:00 a.m. dull aching, no radiation, no aggravating or relieving factors, associated with nausea and vomiting fever and chills. Similar symptom in the past secondary to call bladder issues. Been treated by her family physician for gallbladder disease in the past. Recent history of back surgery twice, August 03 and October 03. Related Data Home Medications ?Medication ?Instructions ?Recorded ?Confirmed ?Last Taken ?Type gabapentin 300 mg capsule 300 mg PO TID 08/25/24 12/28/24 09/21/24 History pantoprazole 40 mg tablet,delayed 40 mg PO Q12H 08/25/24 12/28/24 09/21/24 History release Allergies Allergy/AdvReac Type Severity Reaction Status Date / Time acetaminophen (From [place]) AdvReac Unknown Itching Verified 12/28/24 12:42 hydrocodone (From [place]) AdvReac Unknown Itching Verified 12/28/24 12:42 Review of Systems Review of Systems: All systems reviewed & are unremarkable except as noted in HPI and below PMFSH Past Medical History Medical History Morbid obesity with BMI of 40.0-44.9, adult Cauda equina syndrome Lumbar disc herniation Anxiety Colic, ureteral Surgical History Surgical History Status post lumbar discectomy (08/03/24) L4-L5 Family History Family History Father Alcoholism Hypertension Heart disease Diabetes mellitus Grandparent Breast cancer Diabetes mellitus Grandparent Hypertension Diabetes mellitus Social History Social History Social History: She is single and has never been . She usually lives in her own home but is currently staying with her mother since her laminectomy because her apartment in her bathroom is too small to get her walker into the room. 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 She drinks an alcoholic beverage every couple months. She denies any illicit substance use she used to smoke a half pack of cigarettes per day but this was for brief time when she was young. Code status: Full code Surrogate decision maker: Sandra Browning (mother) Smoking status: Former smoker Tobacco type: cigarettes Second hand tobacco smoke exposure: No Alcohol intake: never Substance use: never Substance use type: does not use Do You Feel Safe in your Home?: Yes Lack of Transportation: No Lack of Food: Never True Current Housing: I Have Housing Concerned About Future Housing: No Difficulty Paying Gas/Electric Bills: No Difficulty Paying for Meds: No Currently Unemployed: No Education: Associate Degree Difficulty w/ Childcare or Family Care: No Spiritual care concerns: No Exam Narrative: General appearance: Well-developed, well-nourished Skin: Normal color Head: Normocephalic, nontraumatic Eyes: Clear conjunctiva ENT: Oropharynx normal, ears normal, nose normal Neck: Supple, nontender Chest and respiratory: Airway patent, no respiratory distress, no accessory muscle use Heart: Regular rate/rhythm Abdomen: Soft, Severe tenderness right upper quadrant, and epigastric area Vascular: Normal peripheral pulses, normal capillary refill. Musculoskeletal: Normal range of motion, nontender back Neurologic: Alert and oriented ?3, FACE HARDENER is normal as tested, no gross motor deficit Course Vital Signs Vital signs: Vital Signs Temperature 36.6 C 12/28/24 12:32 Pulse Rate 107 H 12/28/24 12:32 Respiratory Rate 20 12/28/24 12:32 Blood Pressure 165/106 H 12/28/24 12:32 Pulse Oximetry 100 12/28/24 12:32 Oxygen Delivery Room Air 12/28/24 12:32 Temperature 36.5 C 12/28/24 13:59 Pulse Rate 83 12/28/24 13:59 Respiratory Rate 14 12/28/24 13:59 Blood Pressure 122/83 12/28/24 13:59 Pulse Oximetry 99 12/28/24 13:59 Oxygen Delivery Room Air 12/28/24 13:59 MDM - Abdominal Pain MDM Narrative Medical decision making narrative: right upper quadrant pain with nausea vomiting and diarrhea started at 2:00 a.m. Vital signs showing blood pressure 165/106, heart rate 107 otherwise within normal limit Physical examination showing severe tenderness right upper quadrant and epigastric area no guarding or rebound, quite bowel sounds Differential diagnosis includes cholecystitis, colitis, diverticulitis, urinary tract infection, constipation, Blood workup today includes CBC, CMP, lipase showed WBC of 12.4 AST 124 ALT 131 Urinalysis showed no evidence of infection CT abdomen and pelvis with IV contrast showed left ovarian cyst, fatty liver, cholelithiasis without evidence of acute cholecystitis, colitis distal transverse colon and sigmoid colon consistent with patient presentation Lab Data 12/28/24 13:01 12/28/24 13:01 Labs: Lab Results 12/28/24 12/28/24 Range/Units 13:01 13:45 WBC 12.4 H (4.8-10.8) K/mm3 RBC 4.84 (4.20-5.40) M/mm3 Hgb 13.8 (12.0-15.0) g/dL Hct 42.1 (35.0-49.0) % MCV 87.0 (78.0-102.0) fL MCH 28.5 (27.0-31.0) pg MCHC 32.8 (32-36) g/dL RDW 12.6 (11.6-14.4) % Plt Count 405 (150-420) K/mm3 MPV 8.9 L (9.2-11.8) fl Immature Gran % (Auto) 0.3 H (0.0-0.0) % Neut % (Auto) 86.3 H (50.0-70.0) % Lymph % (Auto) 10.8 L (18.0-42.0) % [place] % (Auto) 2.3 (2.0-11.0) % Eos % (Auto) 0.1 L (1.0-6.0) % Baso % (Auto) 0.2 (0.0-1.0) % Lymph # (Auto) 1.33 (1.10-4.50) K/mm3 [place] # (Auto) 0.28 (0.10-0.90) K/mm3 Eos # (Auto) 0.01 L (0.02-0.50) K/mm3 Baso # (Auto) 0.03 (0.00-0.10) K/mm3 Abs Immat Gran (auto) 0.04 H (0.00-0.00) K/mm3 Absolute Neuts (auto) 10.67 H (1.70-7.20) K/mm3 Absolute Nucleated RBC 0.00 (0.00-0.00) K/mm3 Nucleated RBC % 0.0 (0-0.0) % Sodium 138 (137-145) mmol/L Potassium 4.5 (3.4-5.0) mmol/L Chloride 102 (98-107) mmol/L Carbon Dioxide 24 (22-30) mmol/L Anion Gap 12 (4-12) mmol/L BUN 6 L (7-17) mg/dL Creatinine 0.51 L (0.7-1.0) mg/dL Estim Creat Clear Calc 175 ml/min Estimated GFR > 60 (59 - ) Glucose 140 H (65-110) mg/dL Calculated Osmolality 285 (285-295) mOsm/kg Calcium 9.8 (8.4-10.2) mg/dL Total Bilirubin 1.1 (0.2-1.3) mg/dL AST 124 H (14-36) U/L ALT 131 H (6-35) U/L Alkaline Phosphatase 70 (38-126) U/L Total Protein 8.2 (6.3-8.2) g/dL Albumin 4.9 (3.5-5.1) g/dL Lipase 46 (23-300) U/L Urine Color Yellow (Yellow) Urine Appearance Clear (Clear) Urine pH 6.5 (5.0-8.0) Ur Specific [place] 1.015 (1.010-1.020) Urine Protein 1+ H (Negative) Urine Glucose (UA) Negative (Negative) Urine Ketones 1+ H (Negative) Ur Blood (Man) Negative (Negative) Urine Nitrate Negative (Negative) Urine Bilirubin Negative (Negative) Urine Urobilinogen 0.2 (0.2-1.0) mg/dL Leukocyte Esterase Rfl Trace H (Negative) REZA/UL Urine RBC 0-2 (0-2) /hpf Urine WBC 0-3 (0-3) /hpf Ur Squamous Epith Cells Moderate H (Few) /hpf Urine Bacteria Trace (None) /hpf Urine Mucus Moderate H /lpf Urine Test Negative Imaging Data Radiologist's impression: ITS Impressions Abdomen/Pelvis CT 12/28/24 13:51 IMPRESSION: 1. There is a 2.4 cm low-density lesion in the left ovary possibly an ovarian cystic lesion. A pelvic ultrasound is recommended. 2. Fatty liver. 3. Cholelithiasis without CT evidence for acute cholecystitis at this time. 4. Minimal bowel wall thickening in the distal transverse, descending and sigmoid colon. Differential includes incomplete bowel wall distention or colitis. 5. Probable laminectomy at the L4 level. However, if there is no history of a laminectomy at this level, a bone lesion is possible in an MRI of the lumbar spine with and without contrast is recommended. Critical Care Time Critical Care Time Critical Care Time: No Discharge Plan Discharge Clinical Impression: Cholelithiasis, Gastroenteritis, Fatty liver Patient Disposition: Home Condition: Stable Instructions: Gallstones (ED), Gastroenteritis (ED), Non-Alcoholic Fatty Liver Disease (ED), Transaminitis (ED) Additional Instructions: Return if symptoms are worsening , call your family physician for appointment, take Tylenol, tired no as as needed for aches and pain, continue home medications. Patient Language: Mauritian Prescriptions: New ondansetron 4 mg tablet,disintegrating 4 mg PO Q4H 0 Days Qty: 10 0RF Rx Instructions: 1st dose 1-2 hr before radiation No Action gabapentin 300 mg capsule 300 mg PO TID pantoprazole 40 mg tablet,delayed release (DR/EC) 40 mg PO Q12H methocarbamol 750 mg Tablet 750 mg PO Q6HR 10 Days Qty: 40 0RF Follow-up/Referrals: Lucille Jackson MD [Primary Care Provider, Internal Medicine]
[2024-12-28 13:06] LABS: Hematocrit 42.1 % (35.0-49.0); Hemoglobin 13.8 g/dL (12.0-15.0); Immature Granulocyte Percent A 0.3 % (0.0-0.0); Lymphocytes Absolute Auto 1.33 K/mm3 (1.10-4.50); Mean Corpuscular HGB Conc 32.8 g/dL (32-36); Mean Corpuscular Hemoglobin 28.5 pg (27.0-31.0); Mean Corpuscular Volume 87.0 fL (78.0-102.0); Nucleated Red Blood Cells Absolute Auto 0.00 K/mm3 (0.00-0.00); Nucleated Red Blood Cells Perc 0.0 % (0-0.0); Platelet Count Result 405 K/mm3 (150-420); Red Blood Count 4.84 M/mm3 (4.20-5.40); White Blood Count 12.4 K/mm3 (4.8-10.8)
[2024-12-28 13:17] LABS: Alanine Aminotransferase 131 U/L (6-35); Albumin Level 4.9 g/dL (3.5-5.1); Alkaline Phosphatase 70 U/L (38-126); Anion Gap 12 mmol/L (4-12); Aspartate Amino Transferase 124 U/L (14-36); Bilirubin,Total 1.1 mg/dL (0.2-1.3); Blood Urea Nitrogen 6 mg/dL (7-17); Calcium 9.8 mg/dL (8.4-10.2); Carbon Dioxide 24 mmol/L (22-30); Chloride 102 mmol/L (98-107); Estimated CRCL calculation 175 ml/min; Estimated Glomerular Filt Rate > 60; Glucose 140 mg/dL (65-110); Lipase 46 U/L (23-300); Osmolality Calculated 285 mOsm/kg (285-295); Potassium 4.5 mmol/L (3.4-5.0); Sodium 138 mmol/L (137-145); Total Protein 8.2 g/dL (6.3-8.2)
[2024-12-28] MEDS: SODIUM CHLORIDE 0.9% IV 1,000 ML 999 ML IV CONT (13:18)
[2024-12-28] MEDS: ONDANSETRON INJ 4 MG/2 ML VIAL 8 MG IV PUSH (13:19)
--- OUTSIDE RECORDS SUMMARY | 2024-12-28 13:27 | XMS_ITS | Encounter Summary ---
Author Organization [facility] Address [address] [place] [address] Care Team Providers Care Morale Officer Name Role Phone Avi Floyd MD Primary Care Provider [phone] Lucille Jackson MD Primary Care Provider [phone] Encounter Details Date Type Department Care Team (Late st Contact Info) Description 10/17/2018 Abstract SFL CONVERSION [address] [place], [place] [id number] , Generic Conversion, Social History Tobacco Use Types Packs/Day Years Used Date Smoking Tobacco: Never Assessed Comments Unknown Sex and Gender Information Value Date Recorded Sex Assigned at Not on file Legal Sex Female 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
--- OUTSIDE RECORDS SUMMARY | 2024-12-28 13:27 | XMS_ITS | Clinical Summary ---
Author Organization [facility] Address [address] [place] [address] Care Team Providers Care State Manager Name Role Phone Lucille Jackson MD Primary Care Provider Medications No known medications Active Problems No known active problems Social History Tobacco Use Types Packs/Day Years Used Date Smoking Tobacco: Never Assessed Comments Unknown Sex and Gender Information Value Date Recorded Sex Assigned at Not on file Legal Sex Female 5:57 PM SUPERINTENDENT Gender Identity Not on file Sexual Orientation [...] of 3 - 19+ 3-dose series) 2012 HPV Vaccines (1 - 3-dose SCD M series) 2020 Cervical Cancer Screening Pa p with HPV Testing (Age 30 to 64) Every 5 Years 2023 Cervical Cancer Screening wi th HPV 2023 COVID-19 Vaccine (2023-2 5 season) 2024 Meningococcal B Vaccine Aged Out No l [...] complete this topic Insurance MEDICAID DEPT OF [address] Advance Directives Documents on File Type Date Recorded Patient [employer] Investigator Expl anation Legal Documents 02/22/2020 1:00 PM RECVD & CMPLTD ATTY REQ. FOR HB BILLS FOR SFL FOR AUTOMATED RECORDS Care Teams State Manager Relationship Specialty Start Date End Date Lucille Jackson MD [address] [place] [address] PCP - General INTERNAL MEDICINE 05/25/19
--- OUTSIDE RECORDS SUMMARY | 2024-12-28 13:27 | XMS_ITS | Encounter Summary ---
Author Organization [facility] Address [address] [place] [address] Phone Care Team Providers Care Plastic Cutter Name Role Phone Avi Floyd MD Primary Care Provider [phone] Reason for Visit * Reason Comments Medication Refill Encounter Details Date Type Department Care Team (Late st Contact Info) Description 02/23/2020 Refill [facility] - [facility]rology [facility] [place] [address] [place] [address] Ryan Willingham MD [address] [place] [id number] Medication Refill Social History Tobacco Use Types [...] present documented in this encounter Care Teams Plastic Cutter Relationship Specialty Start Date End Date Avi Floyd MD [address] [place] [address] PCP - General Family Medicine 12/18/18 documented as of this encounter
--- OUTSIDE RECORDS SUMMARY | 2024-12-28 13:27 | XMS_ITS | Encounter Summary ---
Author Organization [facility] Address [address] [place] [address] Phone Care Team Providers Care Engineer Operations And Maintenance Name Role Phone Avi Floyd MD Primary Care Provider [phone] Reason for Visit * Reason Comments Medication Refill Encounter Details Date Type Department Care Team (Late st Contact Info) Description 05/30/2020 Refill [facility] - Neurology [facility] [address] [place] [address] Ryan Willingham MD [address] [place] [address] Medication Refill Social History Tobacco Use Types [...] present documented in this encounter Care Teams Engineer Operations And Maintenance Relationship Specialty Start Date End Date Avi Floyd MD [address] [place] [address] PCP - General Family Medicine 12/18/18 documented as of this encounter
--- OUTSIDE RECORDS SUMMARY | 2024-12-28 13:27 | XMS_ITS | Clinical Summary ---
Author Organization [facility] Address [address] [facility] [place] [address] Phone Care Team Providers Care Appraisal Technician Name Role Phone Avi Floyd MD Primary Care Provider [phone] Allergies Active Allergy Reactions Criticality Noted Date [...] Comments Blood Pressure 122/80 07/01/2019 11:03 AM HOME CARE PHYSICAL THERAPIST Pulse 86 07/01/2019 11:03 AM HOME CARE PHYSICAL THERAPIST Temperature 36.8 C (98.3 F) 07/01/2019 11:03 AM HOME CARE PHYSICAL THERAPIST Respiratory Rate 22 07/01/2019 11:03 AM HOME CARE PHYSICAL THERAPIST Oxygen Saturation 99% 07/01/2019 11:03 AM HOME CARE PHYSICAL THERAPIST Inhaled Oxygen Concentration - - Weight 114.3 kg (252 lb) 07/01/2019 11:03 AM HOME CARE PHYSICAL THERAPIST Height 166.6 cm (5' 5.6) 07/01/2019 11:03 AM CS T Body Mass Index 41.17 07/01/2019 11:03 AM HOME CARE PHYSICAL THERAPIST Plan of Treatment Health Maintenance Due Date [...] this topic Insurance MEDICAID [place] Care Teams Appraisal Technician Relationship Specialty Start Date End Date Avi Floyd MD [address] [place] [address] PCP - General Family Medicine 12/18/18
--- NOTE | 2024-12-28 13:45 | PC.NURSE ---
Pt resting in room. Bed low and locked, call light within reach. Denies needs at this time.
[2024-12-28 13:55] LABS: Add Urine Microscopic? YES; Appearance Urine Clear (Clear); Glucose Urine UA Negative (Negative); Leukocyte Esterase Ur Trace LEU/UL (Negative); Nitrate Urine Negative (Negative); Specific Grav Ur 1.015 (1.010-1.020)
[2024-12-28 13:59] VITALS: BP 122/83; PULSE 83; RESP 14; TEMP 36.5; O2SAT 99
[2024-12-28 13:59] LABS: Pregnancy On Board Control Positive
== END 2024-12-28 14:29 | disposition home or self-care (01) ==
PROVIDERS: Emergency Provider Emergency Medicine; PCP Internal Medicine
DX: K80.20 Calculus of gallbladder without cholecystitis without obstruction (principal); K52.9 Noninfective gastroenteritis and colitis, unspecified; K76.0 Fatty (change of) liver, not elsewhere classified; Z79.899 Other long term (current) drug therapy; Z87.891 Personal history of nicotine dependence
CPT/HCPCS: 36415; 74177; 80053; 81001; 81025; 83690; 85025; 96361; 96374; 96375; 99284; J2405; J7030; Q9967

== ENCOUNTER 2024-12-31 11:33 | Outpatient (CLI) | payer OTHER, SELFPAY ==
--- OUTSIDE RECORDS SUMMARY | 2024-12-31 11:37 | XMS_ITS | Encounter Summary ---
Author Organization [facility] Address [address] [place] [address] Phone Care Team Providers Care Harnessmaker Apprentice Name Role Phone Avi Floyd MD Primary Care Provider [phone] Reason for Visit * Reason Comments Medication Refill Encounter Details Date Type Department Care Team (Late st Contact Info) Description 02/23/2020 Refill [facility] - Neurology [facility] [address] [place] [address] Ryan Willingham MD [address] [place] [id number] Medication Refill Social History Tobacco Use Types [...] present documented in this encounter Care Teams Harnessmaker Apprentice Relationship Specialty Start Date End Date Avi Floyd MD [address] [place] [address] PCP - General Family Medicine 12/18/18 documented as of this encounter
--- OUTSIDE RECORDS SUMMARY | 2024-12-31 11:37 | XMS_ITS | Clinical Summary ---
Author Organization [facility] Address [address] [facility] [place] [address] Phone Care Team Providers Care Central Communications Specialist Name Role Phone Avi Floyd MD Primary Care Provider [phone] Allergies Active Allergy Reactions Criticality Noted Date [...] Comments Blood Pressure 122/80 07/01/2019 11:03 AM PATTERN DEVELOPER Pulse 86 07/01/2019 11:03 AM PATTERN DEVELOPER Temperature 36.8 C (98.3 F) 07/01/2019 11:03 AM PATTERN DEVELOPER Respiratory Rate 22 07/01/2019 11:03 AM PATTERN DEVELOPER Oxygen Saturation 99% 07/01/2019 11:03 AM PATTERN DEVELOPER Inhaled Oxygen Concentration - - Weight 114.3 kg (252 lb) 07/01/2019 11:03 AM PATTERN DEVELOPER Height 166.6 cm (5' 5.6) 07/01/2019 11:03 AM CS T Body Mass Index 41.17 07/01/2019 11:03 AM PATTERN DEVELOPER Plan of Treatment Health Maintenance Due [...] this topic Insurance MEDICAID [place] Care Teams Central Communications Specialist Relationship Specialty Start Date End Date Avi Floyd MD [address] [place] [address] PCP - General Family Medicine 12/18/18
--- OUTSIDE RECORDS SUMMARY | 2024-12-31 11:37 | XMS_ITS | Encounter Summary ---
Author Organization [facility] Address [address] [place] [address] Phone Care Team Providers Care Quarry Supervisor Dimension Stone Name Role Phone Avi Floyd MD Primary Care Provider [phone] Reason for Visit * Reason Comments Medication Refill Encounter Details Date Type Department Care Team (Late st Contact Info) Description 05/30/2020 Refill [facility] - Neurology [facility] [address] [place] [address] Ryan Willingham MD [address] [place] [address] Medication Refill Social History Tobacco Use Types [...] present documented in this encounter Care Teams Quarry Supervisor Dimension Stone Relationship Specialty Start Date End Date Avi Floyd MD [address] [address] PCP - General Family Medicine 12/18/18 documented as of this encounter
--- OUTSIDE RECORDS SUMMARY | 2024-12-31 11:37 | XMS_ITS | Clinical Summary ---
Author Organization [facility] Address [address] [place] [address] Care Team Providers Care Steward/Stewardess Railroad Dining Car Name Role Phone Lucille Jackson MD Primary Care Provider Medications No known medications Active Problems No known active problems Social History Tobacco Use Types Packs/Day Years Used Date Smoking Tobacco: Never Assessed Comments Unknown Sex and Gender Information Value Date Recorded Sex Assigned at Not on file Legal Sex Female 5:57 PM APPRAISER PERSONAL PROPERTY Gender Identity Not on file Sexual Orientation [...] complete this topic Insurance MEDICAID DEPT OF [address] Advance Directives Documents on File Type Date Recorded Patient Spool Cleaner Expl anation Legal Documents 02/22/2020 1:00 PM RECVD & CMPLTD ATTY REQ. FOR HB BILLS FOR SFL FOR AUTOMATED RECORDS Care Teams Steward/Stewardess Railroad Dining Car Relationship Specialty Start Date End Date Lucille Jackson MD [address] [place] [address] PCP - General INTERNAL MEDICINE 05/25/19
[2024-12-31 11:57] LABS: Hematocrit 40.5 % (35.0-49.0); Hemoglobin 13.4 g/dL (12.0-15.0); Mean Corpuscular HGB Conc 33.1 g/dL (32-36); Mean Corpuscular Hemoglobin 28.8 pg (27.0-31.0); Mean Corpuscular Volume 87.1 fL (78.0-102.0); Platelet Count Result 366 K/mm3 (150-420); Red Blood Count 4.65 M/mm3 (4.20-5.40); White Blood Count 7.4 K/mm3 (4.8-10.8)
[2024-12-31 12:30] LABS: Alanine Aminotransferase 195 U/L (6-35); Albumin Level 4.9 g/dL (3.5-5.1); Alkaline Phosphatase 87 U/L (38-126); Amylase 50 U/L (30-110); Anion Gap 14 mmol/L (4-12); Aspartate Amino Transferase 311 U/L (14-36); Bilirubin,Total 2.5 mg/dL (0.2-1.3); Blood Urea Nitrogen 7 mg/dL (7-17); Calcium 9.9 mg/dL (8.4-10.2); Carbon Dioxide 21 mmol/L (22-30); Chloride 104 mmol/L (98-107); Estimated Glomerular Filt Rate > 60; Glucose 127 mg/dL (65-110); Lipase 55 U/L (23-300); Osmolality Calculated 288 mOsm/kg (285-295); Potassium 4.6 mmol/L (3.4-5.0); Sodium 139 mmol/L (137-145); Total Protein 7.6 g/dL (6.3-8.2)
== END 2024-12-31 11:34 | disposition home or self-care (01) ==
LOC: CHSLAB 11:35
PROVIDERS: PCP Internal Medicine; Visit Provider Nurse Practitioner Family
DX: K80.50 Calculus of bile duct without cholangitis or cholecystitis without obstruction (principal)
CPT/HCPCS: 36415; 80053; 82150; 83690; 85027

== ENCOUNTER 2024-12-31 15:00 | Observation (INO) | payer OTHER, SELFPAY ==
[2024-12-31] VITALS (8 sets, daily range): BP systolic 122–141; BP diastolic 45–84; PULSE 61–98; RESP 14–18; TEMP 36.9–37.1; O2SAT 97–99; BMI 42.5
--- NOTE | ~2024-12-31 | US_ITS ---
US right upper quadrant INDICATION: Transaminitis. PROCEDURE: Realtime right upper abdominal ultrasound. COMPARISON: No prior studies for comparison. FINDINGS: The pancreas is normal without focal mass or pancreatic ductal dilation. Liver echotexture is increased consistent with fatty infiltration. There is normal directional flow in the portal vein. No definite gallstones. No gallbladder wall thickening or pericholecystic fluid. There are possible small gallbladder polyps. No gallstones. Common bile duct measures 6 mm. No sonographic Lamas's sign. IMPRESSION: 1: Fatty infiltration of the liver. 2: Possible small gallbladder polyps. Reviewed, dictated and finalized at location O.
--- NOTE | ~2024-12-31 | MR_ITS ---
EXAMINATION: MR MRCP wo/w con/w 3D wo ind DATE: 01/01/2025 10:41 INDICATION: Transaminitis. Right upper quadrant abdominal pain. TECHNIQUE: Magnetic resonance imaging (MRI) of the abdomen was performed without and with 20 mL Multihance intravenous contrast. Sequences included coronal T2- weighted SS-FSE, coronal T2-weighted FS SS-FSE, coronal T2-weighted FS FIESTA, axial T2-weighted FS FIESTA, axial T2-weighted FIESTA, sagittal T2-weighted SS- FSE, axial T1-weighted dual-echo FSPGR, axial T2-weighted SS-FSE, axial T1- weighted LAVA, axial T2-weighted STIR FSE. Thick-slab T2-weighted FRFSE-XL images were obtained for magnetic resonance cholangiopancreatography (MRCP). Rotating maximum intensity projection 3-D reconstructions of the volumetric data were created by the technologist. Postcontrast sequences included a time course of axial T1-weighted LAVA. COMPARISON: CT dated 12/31/2024 and 08/25/2024 FINDINGS: ABDOMEN MRI: Heart size is normal. No pericardial or pleural effusion. Diffuse hepatic steatosis. There are a couple 2-3 millimeters low signal intensity gallstones at the dependent neck of the otherwise normal gallbladder. No gallbladder wall thickening or pericholecystic inflammatory stranding to suggest acute ch olecystitis. Borderline splenomegaly measuring 13.3 cm in craniocaudal length. Pancreas, bilateral adrenal glands are normal. Unchanged mild bilateral hydronephrosis without hydroureter. Bowels are unremarkable. No pathologically enlarged abdominal or pelvic lymphadenopathy. Mild lumbar levocurvature with mild spondylosis. Postoperative change of prior partial L4 laminectomy. ABDOMEN MRCP: There is mild intrahepatic biliary ductal dilation. The common hepatic duct is dilated to 10 mm intervening further digital millimeter at the proximal common bile duct and tapering to 5 mm at the distal common bile duct. There is a 2 mm low signal intensity stone at the distalmost common bile duct. Main pancreatic duct is normal. IMPRESSION: 1. A couple 2-3 mm gallstones at the neck of the gallbladder and 2 mm gallstone at the distalmost common bile duct with mild intra and extrahepatic biliary ductal dilation. 2. Possible bilateral UPJ obstruction with chronic mild bilateral hydronephrosis with normal caliber ureters. Reviewed, dictated and finalized at location A. IMPRESSION: 1. A couple 2-3 mm gallstones at the neck of the gallbladder and 2 mm gallstone at the distalmost common bile duct with mild intra and extrahepatic biliary du ctal dilation. 2. Possible bilateral UPJ obstruction with chronic mild bilateral hydronephrosi s with normal caliber ureters.
--- NOTE | ~2024-12-31 | CT_ITS ---
EXAMINATION: CT abdomen pelvis w con DATE: 12/31/2024 19:03 INDICATION: Right upper quadrant pain TECHNIQUE: Computed tomography (CT) of the abdomen and pelvis was performed with 100 cc Omnipaque 350 intravenous contrast. The dose-length product was 1634.66 mGy-cm. Automated exposure control and iterative reconstruction technique were employed. COMPARISON: CT dated 12/28/2024 FINDINGS: Lung bases unremarkable. Heart size normal. No significant pleural or pericardial effusion. Gallstones. Fatty infiltration of the liver. The spleen, pancreas, adrenal glands and kidneys are unremarkable. No free air or free fluid. Nonobstructive bowel gas pattern. Small functional cyst of the left ovary. No free fluid or free air. Normal appendix. No evidence for hernia. No acute osseous abnormality. IMPRESSION: 1. No acute abdominal abnormality. 2: Cholelithiasis. Reviewed, dictated and finalized at location O.
--- OUTSIDE RECORDS SUMMARY | 2024-12-31 15:03 | XMS_ITS | Clinical Summary ---
Author Organization [facility] Address [address] [place] [address] Care Team Providers Care Senior Support Analyst Name Role Phone Lucille Jackson MD Primary Care Provider [phone] Medications No known medications Active Problems No known active problems Social History Tobacco Use Types Packs/Day Years Used Date Smoking Tobacco: Never Assessed Comments Unknown Sex and Gender Information Value Date Recorded Sex Assigned at Not on file Legal Sex Female 5:57 PM STEEL DIE PRESS SET UP OPERATOR Gender Identity Not on file Sexual [...] complete this topic Insurance MEDICAID DEPT OF [address] Advance Directives Documents on File Type Date Recorded Patient Traffic Sign Erection Supervisor Expl anation Legal Documents 02/22/2020 1:00 PM RECVD & CMPLTD ATTY REQ. FOR HB BILLS FOR SFL FOR AUTOMATED RECORDS Care Teams Senior Support Analyst Relationship Specialty Start Date End Date Lucille Jackson MD [address] [place] [address] PCP - General INTERNAL MEDICINE 05/25/19
--- OUTSIDE RECORDS SUMMARY | 2024-12-31 15:03 | XMS_ITS | Encounter Summary ---
Author Organization [facility] Address [address] [place] [address] Phone Care Team Providers Care Digital Associate Name Role Phone Avi Floyd MD Primary Care Provider [phone] Reason for Visit * Reason Comments Medication Refill Encounter Details Date Type Department Care Team (Late st Contact Info) Description 05/30/2020 Refill [facility] - Neurology [facility] [address] [place] [address] Ryan Willingham MD [address] [place] [address] Medication Refill Social History Tobacco Use Types [...] present documented in this encounter Care Teams Digital Associate Relationship Specialty Start Date End Date Avi Floyd MD [address] [place] [address] PCP - General Family Medicine 12/18/18 documented as of this encounter
--- OUTSIDE RECORDS SUMMARY | 2024-12-31 15:03 | XMS_ITS | Encounter Summary ---
Author Organization [facility] Address [address] [place] [address] Care Team Providers Care Php Web Developer Name Role Phone Avi Floyd MD Primary Care Provider [phone] Lucille Jackson MD Primary Care Provider [phone] Encounter Details Date Type Department Care Team (Late st Contact Info) Description 10/17/2018 Abstract SFL CONVERSION [address] [place], [place] [id number] , Generic Conversion, Social History Tobacco Use Types Packs/Day Years Used Date Smoking Tobacco: Never Assessed Comments Unknown Sex and Gender Information Value Date Recorded Sex Assigned at Not on file Legal Sex Female 5:57 PM RELAY ASSOCIATE Gender Identity Not on file Sexual Orientation Not on file documented as of this encounter Plan of Treatment Not on file documented as of this encounter Visit Diagnoses Not on filedocumented in this encounter Care Teams Php Web Developer Relationship Specialty Start Date End Date Avi Floyd MD [address] [place] [address] PCP - General FAMILY PRACTICE 07/21/18 05/24/19 Lucille Jackson MD [address] [place] [id number] PCP - General INTERNAL MEDICINE 05/25/19 documented as of this encounter
--- OUTSIDE RECORDS SUMMARY | 2024-12-31 15:03 | XMS_ITS | Clinical Summary ---
Author Organization [facility] Address [address] [facility] [place] [address] Phone Care Team Providers Care Radio Tester Name Role Phone Avi Floyd MD Primary Care Provider [phone] Allergies Active Allergy Reactions Criticality Noted Date [...] Comments Blood Pressure 122/80 07/01/2019 11:03 AM NUCLEAR UNIT OPERATOR Pulse 86 07/01/2019 11:03 AM NUCLEAR UNIT OPERATOR Temperature 36.8 C (98.3 F) 07/01/2019 11:03 AM NUCLEAR UNIT OPERATOR Respiratory Rate 22 07/01/2019 11:03 AM NUCLEAR UNIT OPERATOR Oxygen Saturation 99% 07/01/2019 11:03 AM NUCLEAR UNIT OPERATOR Inhaled Oxygen Concentration - - Weight 114.3 kg (252 lb) 07/01/2019 11:03 AM NUCLEAR UNIT OPERATOR Height 166.6 cm (5' 5.6) 07/01/2019 11:03 AM CS T Body Mass Index 41.17 07/01/2019 11:03 AM NUCLEAR UNIT OPERATOR Plan of Treatment Health Maintenance Due [...] this topic Insurance MEDICAID [place] Care Teams Radio Tester Relationship Specialty Start Date End Date Avi Floyd MD [address] [address] PCP - General Family Medicine 12/18/18
--- OUTSIDE RECORDS SUMMARY | 2024-12-31 15:03 | XMS_ITS | Encounter Summary ---
Author Organization [facility] Address [address] [place] [address] Phone Care Team Providers Care Automobile Racer Name Role Phone Avi Floyd MD Primary Care Provider [phone] Reason for Visit * Reason Comments Medication Refill Encounter Details Date Type Department Care Team (Late st Contact Info) Description 02/23/2020 Refill [facility] - [facility]rology [facility] [address] [place] [address] Ryan Willingham MD [address] [place] [id number] Medication Refill Social History Tobacco Use Types [...] present documented in this encounter Care Teams Automobile Racer Relationship Specialty Start Date End Date Avi Floyd MD [address] [place] [address] PCP - General Family Medicine 12/18/18 documented as of this encounter
--- OUTSIDE RECORDS SUMMARY | 2024-12-31 15:33 | XMS_ITS | Clinical Summary ---
Author Organization [facility] Address [address] [place] [address] Care Team Providers Care Sewing Department Supervisor Name Role Phone Lucille Jackson MD Primary Care Provider [phone] Medications No known medications Active Problems No known active problems Social History Tobacco Use Types Packs/Day Years Used Date Smoking Tobacco: Never Assessed Comments Unknown Sex and Gender Information Value Date Recorded Sex Assigned at Not on file Legal Sex Female 5:57 PM SOLAR DEVELOPMENT ENGINEER Gender Identity Not on file Sexual [...] complete this topic Insurance MEDICAID DEPT OF [address] Advance Directives Documents on File Type Date Recorded Patient Bistro Attendant Expl anation Legal Documents 02/22/2020 1:00 PM RECVD & CMPLTD ATTY REQ. FOR HB BILLS FOR SFL FOR AUTOMATED RECORDS Care Teams Sewing Department Supervisor Relationship Specialty Start Date End Date Lucille Jackson MD [address] [place] [address] PCP - General INTERNAL MEDICINE 05/25/19
--- OUTSIDE RECORDS SUMMARY | 2024-12-31 15:33 | XMS_ITS | Encounter Summary ---
Author Organization [facility] Address [address] [place] [address] Phone Care Team Providers Care Ecologist Technician Name Role Phone Avi Floyd MD Primary Care Provider [phone] Reason for Visit * Reason Comments Medication Refill Encounter Details Date Type Department Care Team (Late st Contact Info) Description 05/30/2020 Refill [facility] - [facility] [address] [place] [address] Ryan Willingham MD [address] [place] [address] Medication Refill Social History Tobacco Use Types [...] present documented in this encounter Care Teams Ecologist Technician Relationship Specialty Start Date End Date Avi Floyd MD [address] [place] [address] PCP - General Family Medicine 12/18/18 documented as of this encounter
--- OUTSIDE RECORDS SUMMARY | 2024-12-31 15:33 | XMS_ITS | Encounter Summary ---
Author Organization [facility] Address [address] [place] [address] Care Team Providers Care Transition Advisor Name Role Phone Avi Floyd MD Primary Care Provider [phone] Lucille Jackson MD Primary Care Provider [phone] Encounter Details Date Type Department Care Team (Late st Contact Info) Description 10/17/2018 Abstract SFL CONVERSION [address] [place], [place] [id number] , Generic Conversion, Social History Tobacco Use Types Packs/Day Years Used Date Smoking Tobacco: Never Assessed Comments Unknown Sex and Gender Information Value Date Recorded Sex Assigned at Not on file Legal Sex Female 5:57 PM CYLINDER DYER Gender Identity Not on file Sexual Orientation Not on file documented as of this encounter Plan of Treatment Not on file documented as of this encounter Visit Diagnoses Not on filedocumented in this encounter Care Teams Transition Advisor Relationship Specialty Start Date End Date Avi Floyd MD [address] [place] [address] PCP - General FAMILY PRACTICE 07/21/18 05/24/19 Lucille Jackson MD [address] [place] [phone] PCP - General INTERNAL MEDICINE 05/25/19 documented as of this encounter
--- OUTSIDE RECORDS SUMMARY | 2024-12-31 15:33 | XMS_ITS | Encounter Summary ---
Author Organization [facility] Address [address] [place] [address] Phone Care Team Providers Care Molded Goods Operator Name Role Phone Avi Floyd MD Primary Care Provider [phone] Reason for Visit * Reason Comments Medication Refill Encounter Details Date Type Department Care Team (Late st Contact Info) Description 02/23/2020 Refill [facility] - Neurology [facility] [address] [place] [address] Ryan Willingham MD [address] [place] [address] Medication Refill Social History Tobacco Use Types [...] present documented in this encounter Care Teams Molded Goods Operator Relationship Specialty Start Date End Date Avi Floyd MD [address] [place] [address] PCP - General Family Medicine 12/18/18 documented as of this encounter
--- OUTSIDE RECORDS SUMMARY | 2024-12-31 15:33 | XMS_ITS | Clinical Summary ---
Author Organization [facility] Address [address] [facility] [place] [address] Phone Care Team Providers Care Flame Cutting Machine Operator Helper Name Role Phone Avi Floyd MD Primary Care Provider [phone] Allergies Active Allergy Reactions Criticality Noted Date [...] Comments Blood Pressure 122/80 07/01/2019 11:03 AM SENIOR GRAPHIC DESIGNER Pulse 86 07/01/2019 11:03 AM SENIOR GRAPHIC DESIGNER Temperature 36.8 C (98.3 F) 07/01/2019 11:03 AM SENIOR GRAPHIC DESIGNER Respiratory Rate 22 07/01/2019 11:03 AM SENIOR GRAPHIC DESIGNER Oxygen Saturation 99% 07/01/2019 11:03 AM SENIOR GRAPHIC DESIGNER Inhaled Oxygen Concentration - - Weight 114.3 kg (252 lb) 07/01/2019 11:03 AM SENIOR GRAPHIC DESIGNER Height 166.6 cm (5' 5.6) 07/01/2019 11:03 AM CS T Body Mass Index 41.17 07/01/2019 11:03 AM SENIOR GRAPHIC DESIGNER Plan of Treatment Health Maintenance Due Date [...] this topic Insurance MEDICAID [place] Care Teams Flame Cutting Machine Operator Helper Relationship Specialty Start Date End Date Avi Floyd MD [address] [place] [address] PCP - General Family Medicine 12/18/18
--- NOTE | 2024-12-31 15:44 | ED.RECABL ---
HPI - Recheck/Abnormal Lab/Rx General Chief Complaint: Recheck/Abnormal Lab/Rx <Sabrina Hinson PA-C - Last Filed: 01/03/25 17:22> Stated Complaint: gallstones <Sabrina Hinson PA-C - Last Filed: 01/03/25 17:22> Time Seen by Provider: 12/31/24 15:11 <Sabrina Hinson PA-C - Last Filed: 01/03/25 17:22> Source: patient <Sabrina Hinson PA-C - Last Filed: 01/03/25 17:22> Mode of arrival: ambulatory <Sabrina Hinson PA-C - Last Filed: 01/03/25 17:22> Limitations: no limitations <Sabrina Hinson PA-C - Last Filed: 01/03/25 17:22> History of Present Illness HPI narrative: This is a 29-year-old female that presents to the emergency department for right upper quadrant abdominal pain. Reports this has been ongoing over the last 3 days. She is seen in the ER at start of symptoms and told she had gallstones. She follow-up with her PCP today. Have repeat blood work which showed elevated bilirubin and liver enzymes. Was prompted to be seen in the ER again. Has continued to have some nausea and vomiting. Denies fevers. <Sabrina Hinson PA-C - Last Filed: 01/03/25 17:22> Related Data Home Medications: Home Medications ?Medication ?Instructions ?Recorded ?Confirmed ?Last Taken ?Type gabapentin 300 mg capsule 300 mg PO TID 08/25/24 12/31/24 12/31/24 13:00 History pantoprazole 40 mg tablet,delayed 40 mg PO Q12H 08/25/24 12/31/24 12/31/24 09:34 History release <Sabrina Hinson PA-C - Last Filed: 01/03/25 17:22> Allergies/Adverse Reactions: Allergies Allergy/AdvReac Type Severity Reaction Status Date / Time hydrocodone (From [place]) AdvReac Unknown Itching Verified 12/31/24 15:02 <Sabrina Hinson PA-C - Last Filed: 01/03/25 17:22> Review of Systems Review of Systems: All systems reviewed & are unremarkable except as noted in HPI and below <Sabrina Hinson PA-C - Last Filed: 01/03/25 17:22> [facility] Past Medical History Medical History: Medical History (Updated 01/01/25 @ 13:51 by Junior Iyer MD) GERD (gastroesophageal reflux disease) Morbid obesity with BMI of 40.0-44.9, adult Cauda equina syndrome Lumbar disc herniation Anxiety Colic, ureteral <Sabrina Hinson PA-C - Last Filed: 01/03/25 17:22> Surgical History Surgical History: Surgical History (Updated 01/01/25 @ 13:49 by Junior Iyer MD) Status post lumbar discectomy (08/03/24) L4-L5 with subsequent repeat surgery 09/23/2023 with lumbar wound washout and revision of lumbar microdiscectomy L4-L5 due to repeat MRI August 2024 demonstrating persistent large central disc extrusion L4-L5 which despite posterior decompression is still contributing to [id number] central canal stenosis with moderate narrowing of the left lateral recess exerting mass effect upon the transverse L5 nerve root <Sabrina Hinson PA-C - Last Filed: 01/03/25 17:22> Family History Family History: Family History Father Alcoholism Hypertension Heart disease Diabetes mellitus Grandparent Breast cancer Diabetes mellitus Grandparent Hypertension Diabetes mellitus <Sabrina Hinson PA-C - Last Filed: 01/03/25 17:22> Social History Social History: Social History Social History: She is single and has never been . 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 She drinks an alcoholic beverage every couple months. She denies any illicit substance use she used to smoke a half pack of cigarettes per day but this was for brief time when she was young. Code status: Full code Surrogate decision maker: Sandra Browning (mother) Smoking status: Never smoker Tobacco type: cigarettes Second hand tobacco smoke exposure: No Alcohol intake: never Substance use: never Substance use type: does not use Do You Feel Safe in your Home?: Yes Lack of Transportation: No Lack of Food: Never True Current Housing: I Have Housing Concerned About Future Housing: No Difficulty Paying Gas/Electric Bills: No Difficulty Paying for Meds: No Currently Unemployed: No Education: Decline to Answer Difficulty w/ Childcare or Family Care: No Spiritual care concerns: No <Sabrina Hinson PA-C - Last Filed: 01/03/25 17:22> Exam Narrative: GENERAL: Well-appearing, well-nourished, and in no acute distress. HEAD: Normocephalic, atraumatic. EYES: EOMI. CHEST: Clear to auscultation. No respiratory distress. No wheezes rales or rhonchi HEART: Regular rate and rhythm. No murmur heard. Normal peripheral pulses. ABDOMEN: Soft, nondistended, normal active bowel sounds. Tender to palpation of the right upper quadrant, without guarding EXTREMITIES: Normal range of motion. No edema. SKIN: Warm, dry, no rash. NEURO: No focal deficits. Alert and oriented x3. PSYCH: Normal mood and affect <Sabrina Hinson PA-C - Last Filed: 01/03/25 17:22> Course Course Emergency Course: Patient sign-out to me pending imaging results and disposition with plan for admission with GI and General surgery consult. Her lab work reviewed from earlier today that was performed by her PCP shows no leukocytosis or anemia. Her chemistries reveal bilirubin of 2.5, AST of 311 and ALT 195 which is acutely increased from a bilirubin of 1.1, AST 124 and ALT 131 over the past 3 days. Lipase normal at 55. Ultrasound shows fatty infiltration of the liver and possible small gallbladder polyps. CT abdomen pelvis shows no acute abdominal abnormality, there is evidence of cholelithiasis. Patient and her mother updated on results. She was given Toradol, Zofran and fluids with improvement. Shared decision making regarding disposition. Given patient's liver enzymes continue to up trend in her symptoms are persistent, feel she would benefit from admission for MRCP and GI consult. Patient is in agreement with this. Discussed case with GI physician, Dr. Huffman, who agrees to MRCP and consult. I did discuss if he would like for me to consult General surgery at this time, however he is requesting we wait for MRCP results. Discussed with hospitalist, Dr. Brown, who agrees to admission. Patient made NPO at midnight. <Sabrina Hinson PA-C - Last Filed: 01/03/25 17:22> Patient sign-out to me pending imaging results and disposition with plan for admission with GI and General surgery consult. Her lab work reviewed from earlier today that was performed by her PCP shows no leukocytosis or anemia. Her chemistries reveal bilirubin of 2.5, AST of 311 and ALT 195 which is acutely increased from a bilirubin of 1.1, AST 124 and ALT 131 over the past 3 days. Lipase normal at 55. Ultrasound shows fatty infiltration of the liver and possible small gallbladder polyps. CT abdomen pelvis shows no acute abdominal abnormality, there is evidence of cholelithiasis. Patient and her mother updated on results. She was given Toradol, Zofran and fluids with improvement. Shared decision making regarding disposition. Given patient's liver enzymes continue to up trend in her symptoms are persistent, feel she would benefit from admission for MRCP and GI consult. Patient is in agreement with this. Discussed case with GI physician, Dr. Huffman, who agrees to MRCP and consult. I did discuss if you would like for me to consult General surgery at this time, however he is requesting we wait for MRCP results. Discussed with hospitalist, Dr. Brown, who agrees to admission. Patient made NPO at midnight. <Kina Blunt PA-C - Last Filed: 12/31/24 20:12> COOLING SYSTEM OPERATOR/PA Physician Supervision This visit was performed by both a physician and an APC. For this patient encounter, I reviewed the COOLING SYSTEM OPERATOR or PA documentation, treatment plan, and medical decision making and had ebgk-[id number]-[id number] time with this patient. I performed all aspects of the MDM as documented. <Naty Gonzales MD - Last Filed: 12/31/24 20:15> Vital Signs Vital signs: Vital Signs Temperature 98.4 F 12/31/24 15:04 Pulse Rate 98 12/31/24 15:04 Respiratory Rate 18 12/31/24 15:04 Blood Pressure 136/76 12/31/24 15:04 Pulse Oximetry 98 12/31/24 15:04 Oxygen Delivery Room Air 12/31/24 15:04 Temperature 97.9 F 01/02/25 05:47 Pulse Rate 55 L 01/02/25 08:00 Respiratory Rate 20 01/02/25 08:00 Blood Pressure 112/57 L 01/02/25 05:47 Pulse Oximetry 99 01/02/25 08:00 Oxygen Delivery Room Air 01/02/25 08:00 Fraction of Inspired Oxygen 21 01/02/25 08:00 <Sabrina Hinson PA-C - Last Filed: 01/03/25 17:22> Vital Signs Temperature 98.4 F 12/31/24 15:04 Pulse Rate 98 12/31/24 15:04 Respiratory Rate 18 12/31/24 15:04 Blood Pressure 136/76 12/31/24 15:04 Pulse Oximetry 98 12/31/24 15:04 Oxygen Delivery Room Air 12/31/24 15:04 Temperature 97.9 F 01/02/25 05:47 Pulse Rate 55 L 01/02/25 08:00 Respiratory Rate 20 01/02/25 08:00 Blood Pressure 112/57 L 01/02/25 05:47 Pulse Oximetry 99 01/02/25 08:00 Oxygen Delivery Room Air 01/02/25 08:00 Fraction of Inspired Oxygen 21 01/02/25 08:00 <Kina Blunt PA-C - Last Filed: 12/31/24 20:12> Vital Signs Temperature 98.4 F 12/31/24 15:04 Pulse Rate 98 12/31/24 15:04 Respiratory Rate 18 12/31/24 15:04 Blood Pressure 136/76 12/31/24 15:04 Pulse Oximetry 98 12/31/24 15:04 Oxygen Delivery Room Air 12/31/24 15:04 Temperature 97.9 F 01/02/25 05:47 Pulse Rate 55 L 01/02/25 08:00 Respiratory Rate 20 01/02/25 08:00 Blood Pressure 112/57 L 01/02/25 05:47 Pulse Oximetry 99 01/02/25 08:00 Oxygen Delivery Room Air 01/02/25 08:00 Fraction of Inspired Oxygen 21 01/02/25 08:00 <Naty Gonzales MD - Last Filed: 12/31/24 20:15> MDM - Recheck/Abnormal Lab/Rx MDM Narrative Medical decision making narrative: Patient presents the emergency department for right upper quadrant abdominal pain, nausea and vomiting. Ongoing over the last several days. With seen for this complaint earlier in the week, able to be discharged home with outpatient follow-up. She followed up with her PCP and had repeat blood work which showed marked increase in her liver enzymes and total bilirubin. Prompted to be seen in the ER again. She is afebrile and nontoxic appearing. Her vitals are stable. Ultrasound showing fatty infiltration of the liver, possible small gallbladder polyps. CT abdomen pelvis obtained for further evaluation. Care taken over MILTON Castanon at shift change pending likely admission for further evaluation <Sabrina Hinson PA-C - Last Filed: 01/03/25 17:22> Differential Diagnosis Differential diagnosis: Likely other (Biliary colic, cholelithiasis, cholecystitis) <Sabrina Hinson PA-C - Last Filed: 01/03/25 17:22> Medical Records Attestation: I reviewed the patient's medical records. <Sabrina Hinson PA-C - Last Filed: 01/03/25 17:22> Medical records narrative: labs today done outpatient WBC count 7.4, Total bilirubin 2.5, AST 311, ALT 195, lipase 55 <Sabrina Hinson PA-C - Last Filed: 01/03/25 17:22> Lab Data Attestation: I reviewed the patient's lab results. <Sabrina Hinson PA-C - Last Filed: 01/03/25 17:22> Result diagrams: 01/02/25 06:44 01/02/25 05:32 <Sabrina Hinson PA-C - Last Filed: 01/03/25 17:22> Labs: Lab Results 12/31/24 Range/Units 17:30 POC Urine HCG, Qual Negative (Negative) <Sabrina Hinson PA-C - Last Filed: 01/03/25 17:22> Lab Results 12/31/24 Range/Units 17:30 POC Urine HCG, Qual Negative (Negative) <Kina Blunt PA-C - Last Filed: 12/31/24 20:12> Lab Results 12/31/24 Range/Units 17:30 POC Urine HCG, Qual Negative (Negative) <Naty Gonzales MD - Last Filed: 12/31/24 20:15> Imaging Data Radiologist's impression: ITS Impressions Upper Quadrant Ultrasound 12/31/24 18:24 IMPRESSION: 1: Fatty infiltration of the liver. 2: Possible small gallbladder polyps. Abdomen/Pelvis CT 12/31/24 19:07 IMPRESSION: 1. No acute abdominal abnormality. 2: Cholelithiasis. <Sabrina Hinson PA-C - Last Filed: 01/03/25 17:22> Critical Care Time Critical Care Time Critical Care Time: No <Sabrina Hinson PA-C - Last Filed: 01/03/25 17:22> Discharge Plan Discharge Clinical Impression: Transaminitis, Hyperbilirubinemia <Sabrina Hinson PA-C - Last Filed: 01/03/25 17:22> Patient Disposition: Still a Patient <MILTON Sorai Last Filed: 01/03/25 17:22> Condition: Stable <Sabrina Hinson PA-C - Last Filed: 01/03/25 17:22>
[2024-12-31] MEDS: KETOROLAC 15 MG/ML VIAL (*BKC) IV PUSH (16:18)
[2024-12-31] MEDS: ONDANSETRON INJ 4 MG/2 ML VIAL IV PUSH (16:18)
[2024-12-31] MEDS: SODIUM CHLORIDE 0.9% IV 1,000 ML 999 ML IV CONT (16:21)
[2024-12-31 18:34] LABS: BEDSIDEPREGUCG Negative (Negative)
--- NOTE | 2024-12-31 20:52 | PM.IMHP ---
H&P: HPI History of Present Illness Date/Time: 12/31/24 20:52 Chief Complaint: Elevated liver enzymes and bilirubin on outpatient labs Narrative: 29-year-old female with a past medical history of morbid obesity, hyperlipidemia, chronic back pain status post laminectomy July 2024 anxiety and GERD who presented to the ER via private vehicle due to elevated liver enzymes and bilirubin on outpatient labs. She reports that she ate a hamburger prior to going to bed on Friday night (12/27/2024) and woke up at around 02:00 with severe right upper quadrant abdominal pain. She reports that the pain was squeezing and aching in nature and radiated to the posterior lateral ribs. It was associated with nausea vomiting and diaphoresis. She reports that she had intractable nausea, vomiting and diarrhea l hours in the a vomiting finally settled down enough that she could go to the ER at [facility] around noon She was noted at that time to have transaminitis CT at that time demonstrated fatty liver and cholelithiasis without CT evidence of acute cholecystitis. She also had minimal bowel wall thickening of distal transverse and descending sigmoid colon with differential including incomplete bowel distension or colitis. She did have some chills when she was having her sweats but has not had a fever. She was diagnosed with cholelithiasis and gastroenteritis and discharged home with [facility]. She reports that she has been continuing with a clear liquid diet until earlier today at which time she had a container of applesauce. She denies having any recurrence of her pain and less her right upper quadrant is palpated. She does report some epigastric discomfort but she associated that with having sore muscles from vomiting so much. She denies any scleral icterus, jaundice or further nausea or vomiting. She has not had any further diarrhea. She denies any hematemesis, coffee-ground emesis hematochezia or melena. She went to her primary care provider's office today and had repeat labs which demonstrated increased bilirubin and increased transaminases compared to prior. She was sent to the ER for further evaluation. Right upper quadrant ultrasound today demonstrated fatty infiltration of the liver with possible small gallbladder polyps. Repeat CT contrasted CT of abdomen pelvis today demonstrated cholelithiasis without acute cholecystitis She reports that since her repeat laminectomy she is still having some neuropathic pain in her distal left lower extremity in the distribution of L4-L5. She reports that her back pain is significantly improved since her 2nd laminectomy in September. She reports that she has done well since that procedure. She did have some small amount of wound dehiscence and superficial infection of the area prior to repeat surgery. She has not had any antibiotics in recent weeks. Review of Systems Review of Systems: 12 systems were reviewed with pertinent positives and negatives per HPI. Except as documented in the HPI, all other systems were reviewed and are negative. [facility] Past Medical History Medical History (Updated 12/31/24 @ 22:25 by Supriya Brown DO) GERD (gastroesophageal reflux disease) Morbid obesity with BMI of 40.0-44.9, adult Cauda equina syndrome Lumbar disc herniation Anxiety Colic, ureteral Surgical History Surgical History (Updated 12/31/24 @ 21:05 by Supriya Brown DO) Status post lumbar discectomy (08/03/24) L4-L5 with subsequent repeat surgery 09/23/2023 with lumbar wound washout and revision of lumbar microdiscectomy L4-L5 due to repeat MRI August 2024 demonstrating persistent large central disc extrusion L4-L5 which despite posterior decompression is still contributing to [id number] central canal stenosis with moderate narrowing of the left lateral recess exerting mass effect upon the transverse L5 nerve root Family History Family History Father Alcoholism Hypertension Heart disease Diabetes mellitus Grandparent Breast cancer Diabetes mellitus Grandparent Hypertension Diabetes mellitus Social History Social History (Updated 12/31/24 @ 22:19 by Supriya Brown DO) Social History: She is single and has never been . 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 She drinks an alcoholic beverage every couple months. She denies any illicit substance use she used to smoke a half pack of cigarettes per day but this was for brief time when she was young. Code status: Full code Surrogate decision maker: Sandra Browning (mother) Smoking status: Never smoker Tobacco type: cigarettes Second hand tobacco smoke exposure: No Alcohol intake: never Substance use: never Substance use type: does not use Do You Feel Safe in your Home?: Yes Lack of Transportation: No Lack of Food: Never True Current Housing: I Have Housing Concerned About Future Housing: No Difficulty Paying Gas/Electric Bills: No Difficulty Paying for Meds: No Currently Unemployed: No Education: Decline to Answer Difficulty w/ Childcare or Family Care: No Spiritual care concerns: No Meds Home Medications and Allergies Home Medications ?Medication ?Instructions ?Recorded ?Confirmed ?Type gabapentin 300 mg capsule 300 mg PO TID 08/25/24 12/31/24 History pantoprazole 40 mg tablet,delayed 40 mg PO Q12H 08/25/24 12/31/24 History release methocarbamol 750 mg tablet 750 mg PO Q6HR 10 days #40 tabs 09/23/24 12/31/24 Rx ondansetron 4 mg disintegrating 4 mg PO Q4H 3 doses #10 tabs 12/28/24 12/31/24 Rx tablet Allergies Allergy/AdvReac Type Severity Reaction Status Date / Time hydrocodone (From [place]) AdvReac Unknown Itching Verified 12/31/24 15:02 Vital Signs Vital Signs - 24 hr 12/31/24 15:04 12/31/24 16:00 12/31/24 17:00 Temperature 98.4 F Pulse Rate 98 89 71 Respiratory Rate 18 16 16 Blood Pressure 136/76 139/71 139/71 Pulse Oximetry 98 97 99 Oxygen Delivery Room Air 12/31/24 18:00 12/31/24 19:21 12/31/24 20:45 Temperature Pulse Rate 69 61 66 Respiratory Rate 16 14 16 Blood Pressure 122/45 L 135/68 133/84 Pulse Oximetry 99 98 98 Oxygen Delivery Exam Narrative: Weight 1197 kg BMI 42.6 Const: Other: Morbidly obese, no acute distress, appears stated age HENMT: Other: Mucous membranes are moist, no oral pharyngeal erythema, mildly crowded posterior oropharynx, no oral pharyngeal erythema Eyes: Other: No scleral icterus, no conjunctival pallor, pupils are equal and reactive Neck: Other: No JVD, no lymphadenopathy, large neck circumference Resp: Other: Clear to auscultation bilaterally, no increased work of breathing Cardio: Other: Regular rate, regular rhythm, 2+ bilateral radial and pedal pulses, no murmur GI: Other: Soft, obese, positive Lamas sign with significant tenderness palpation, mild tenderness in the epigastric region, no rebound or guarding, normoactive bowel sounds Skin: Other: Tanned, non jaundice Neuro: Other: Alert oriented, speech is clear, no facial asymmetry Extrem: Other: No clubbing, cyanosis or edema Psych: Other: Appropriate mood and affect, pleasant and cooperative H&P: Results Labs Labs: Outpatient labs CBC: White count 7.4 hemoglobin 13.4 platelet count 366 no differential CMP: Sodium 139 potassium 4.6 chloride 104 CO2 21 anion gap 14 creatinine 0.63 glucose 127 total bilirubin 2.5 AST up from prior 124 up to 311 ALT up from 131 dose 195 alk-phos 87 total protein 7.6 albumin 4.9 Normal amylase and lipase Impressions Upper Quadrant Ultrasound 12/31/24 18:24 IMPRESSION: 1: Fatty infiltration of the liver. 2: Possible small gallbladder polyps. Abdomen/Pelvis CT 12/31/24 19:07 IMPRESSION: 1. No acute abdominal abnormality. 2: Cholelithiasis. All imaging and EKGs personally reviewed and interpreted. And unless stated otherwise agree with radiologic and cardiology interpretation. Assessment and Plan Assessment and plan (1) Transaminitis: Code(s): R74.01 - Elevation of levels of liver transaminase levels Status: Acute Assessment and Plan: Hyperbilirubinemia and transaminitis in patient has known cholelithiasis with findings suspicious for choledocholithiasis. Patient will be placed on a clear liquid diet until midnight then made NPO for MRI of the abdomen to rule out obstructing choledocholithiasis. Gastroenterology has been consulted. Will place patient on IV Protonix b.i.d. in will hold her home oral Protonix. Will continue IV fluid hydration with normal saline. Will repeat CBC and CMP in a.m.. Will monitor for signs of infection. Given patient does not have leukocytosis, fever or evidence of acute inflammation of the gallbladder at this time will hold off on antibiotic therapy. Will provide Zofran as needed for nausea. (2) Hyperbilirubinemia: Code(s): E80.6 - Other disorders of bilirubin metabolism Status: Acute Assessment and Plan: See above (3) Cholelithiasis: Qualifiers: Biliary obstruction: without biliary obstruction Cholecystitis presence: without cholecystitis Cholelithiasis location: gallbladder Qualified Code(s): K80.20 - Calculus of gallbladder without cholecystitis without obstruction Code(s): K80.20 - Calculus of gallbladder without cholecystitis without obstruction Status: Acute Assessment and Plan: See above (4) Lumbar disc prolapse with compression radiculopathy: Code(s): M51.16 - Intervertebral disc disorders with radiculopathy, lumbar region Status: Acute Assessment and Plan: Associated with recent cauda equinus syndrome and subsequent L4-L5 decompression. Patient reports her symptoms are gradually improving. Will continue patient's home gabapentin and Skelaxin. Plan Patient has been admitted as observation status. MEDICAL DECISION MAKING NARRATIVE -Spoke with the ED provider in detail regarding patient's evaluation, workup and management -Patient seen and examined at bedside -Collaborated with patient's nurse at the bedside in detail and addressed all concerns -Labs, electrolytes, radiology, investigations and test results reviewed -ED/Consult/Nursing/Ancilliary notes on the chart reviewed and appreciated -Spoke with patient at bedside and patient understands current diagnosis and is in agreement with plan. Quality VTE Prophylaxis VTE prophylaxis: mechanical ordered (SCDs) Hospitalist [facility] Advance Care Plan I have confirmed that the patient's Advanced Care Plan is present, code status is documented, or surrogate decision maker is listed in patient medical record.: Yes Medication Reconciliation I have utilized all available resources to obtain, update and review the patients current medications (includes all prescriptions, OTC, herbals, cannabis, and nutritional supplements).: Yes
--- NOTE | 2024-12-31 21:41 | ADMGEN ---
This patient, Devora Marinelli, was admitted to [facility] Surg Room 314-02. Patient/family oriented to hospital policies and general routines including ID bracelet, bed and alarms, visiting hours, pain management, procedures, bathroom and other care routines, personal items, smoking policy, room service/diet, and visiting hours. Information on how to activate the Rapid Response Team has been discussed. Patient/Family are encouraged to report perceived risks to care and to ask questions if they do not understand what they are told or what they should do. VS taken, A-0-4
[2024-12-31] MEDS: PANTOPRAZOLE SODIUM IV 40 MG VIAL IV PUSH (22:07)
[2024-12-31] MEDS: SODIUM CHLORIDE 0.9% IV 1,000 ML 125 ML IV CONT (22:07)
[2024-12-31] MEDS: GABAPENTIN 300 MG CAPSULE PO (22:08)
[2025-01-01] MEDS: KETOROLAC 30 MG/ML VIAL (*BKC) IV PUSH ×2 (05:43→12:47)
[2025-01-01] MEDS: ONDANSETRON INJ 4 MG/2 ML VIAL IV PUSH (05:47)
[2025-01-01 06:00] VITALS: BP 145/80; PULSE 58; RESP 19; TEMP 36.6; O2SAT 98
[2025-01-01 06:25] LABS: Hematocrit 36.9 % (37.0-47.0); Hemoglobin 11.5 g/dL (12.0-15.0); Immature Granulocyte Percent A 0.3 % (0-0.5); Lymphocytes Absolute Auto 2.55 K/mm3 (0.9-3.2); Mean Corpuscular HGB Conc 31.2 g/dl (32-36); Mean Corpuscular Hemoglobin 28.3 pg (26-34); Mean Corpuscular Volume 90.7 fl (80-100); Nucleated Red Blood Cells Absolute Auto 0.000 K/mm3 (0.0-0.012); Nucleated Red Blood Cells Perc 0.0 % (0.0-0.2); Platelet Count Result 286 k/mm3 (150-375); Red Blood Count 4.07 M/mm3 (4.2-5.4); White Blood Count 7.7 K/mm3 (4.5-10.0)
[2025-01-01 06:45] LABS: Alanine Aminotransferase 150 U/L (6-35); Albumin Level 4.1 g/dL (3.5-5.1); Alkaline Phosphatase 67 U/L (38-126); Anion Gap 10 mmol/L (4-12); Aspartate Amino Transferase 90 U/L (14-36); Bilirubin,Total 1.4 mg/dL (0.2-1.3); Blood Urea Nitrogen 7 mg/dL (7-17); Calcium 8.6 mg/dL (8.4-10.2); Carbon Dioxide 19 mmol/L (22-30); Chloride 108 mmol/L (98-107); Estimated CRCL calculation 152 ml/min; Estimated Glomerular Filt Rate > 60; Glucose 82 mg/dL (65-110); Potassium 4.3 mmol/L (3.4-5.0); Sodium 137 mmol/L (137-145); Total Protein 6.8 g/dL (6.3-8.2)
[2025-01-01] MEDS: SODIUM CHLORIDE 0.9% IV 1,000 ML 125 ML IV CONT ×2 (06:51→12:44)
[2025-01-01] MEDS: GABAPENTIN 300 MG CAPSULE PO ×3 (07:48→17:08)
[2025-01-01] MEDS: PANTOPRAZOLE SODIUM IV 40 MG VIAL IV PUSH (07:48)
[2025-01-01 08:00] VITALS: O2SAT 100
--- NOTE | 2025-01-01 08:14 | P.PNIM_ITS ---
Progress Note: A&P Assessment and Plan (1) Transaminitis: Code(s): R74.01 - Elevation of levels of liver transaminase levels Status: Acute Assessment and Plan: - presented with nausea/vomiting, RUQ abdominal pain - on admission T bili 2.5, AST 311, ALT 195. Trending down today. - admit CT A/P with cholelithiasis - RUQ US with fatty infiltration of the liver, possible small gallbladder polyps - afebrile without leukocytosis, hold off on antibiotics for now - IV Protonix - IV fluids - PRN antiemetics and analgesics - Daily CMP - GI consulted from ED (Dr. Huffman): awaiting MRCP results. [facility]. Depending on MRCP results, may need ERCP first. Per Dr. Huffman, patient OK to have full liquid diet today. (2) Lumbar disc prolapse with compression radiculopathy: Code(s): M51.16 - Intervertebral disc disorders with radiculopathy, lumbar region Status: Acute Assessment and Plan: -Associated with recent cauda equina syndrome and subsequent L4-L5 decompression. Patient reports her symptoms are gradually improving. -continue home gabapentin and Skelaxin. Plan DVT prophylaxis: SCDs Disposition: home TBD Subjective Date/time seen: 01/01/25 08:14 Interval history: 29-year-old female with a past medical history of morbid obesity, hyperlipidemia, chronic back pain status post laminectomy July 2024 anxiety and GERD who presented to the ER due to elevated liver enzymes and bilirubin on outpatient labs associated abdominal pain, nausea and vomiting. Patient seen and examined at bedside. Having mild pain and nausea. Review of Systems Review of Systems: 12 systems were reviewed with pertinent positives and negatives per HPI. All systems reviewed & are unremarkable except as noted in HPI and below Exam Narrative: General: NAD Eyes: EOMI ENT: neck supple Cardiovascular: Regular rate and rhythm Respiratory: Clear to auscultation, respirations even and unlabored on RA Gastrointestinal: Soft, mild LUQ tenderness with deep palpation. Negative Lamas's sign. No rebound or guarding. Genitourinary: no suprapubic tenderness Musculoskeletal: No edema Skin: warm, dry Neuro: Alert. Psych: Mood appropriate Objective Data Vital Signs Vital Signs: Vital Signs - 24 hr 12/31/24 15:04 12/31/24 16:00 12/31/24 17:00 Temperature 98.4 F Pulse Rate 98 89 71 Respiratory Rate 18 16 16 Blood Pressure 136/76 139/71 139/71 Pulse Oximetry 98 97 99 Oxygen Delivery Room Air 12/31/24 18:00 12/31/24 19:21 12/31/24 20:45 Temperature Pulse Rate 69 61 66 Respiratory Rate 16 14 16 Blood Pressure 122/45 L 135/68 133/84 Pulse Oximetry 99 98 98 Oxygen Delivery 12/31/24 20:57 12/31/24 21:40 01/01/25 06:00 Temperature 98.8 F 97.8 F Pulse Rate 66 68 58 L Respiratory Rate 16 16 19 Blood Pressure 133/84 141/65 H 145/80 H Pulse Oximetry 98 98 98 Oxygen Delivery Intake/Output Intake/Output: Intake & Output 12/29/24 12/30/24 12/31/24 01/01/25 23:59 23:59 23:59 23:59 Intake Total 1000 1300 Balance 1000 1300 Meds/Results Medications: Active Medications Generic Name Dose Route Start Last Admin Trade Name Freq PRN Reason Stop Dose Admin Acetaminophen 500 mg 12/31/24 21:23 Acetaminophen 500 Mg Tablet PO Q6H PRN Mild Pain (1-3) or Fever Gabapentin 300 mg 12/31/24 22:00 01/01/25 07:48 Gabapentin 300 Mg Capsule PO 300 mg TID TERA Administration Sodium Chloride 1,000 mls @ 125 mls/hr 12/31/24 20:15 01/01/25 06:51 Normal Saline Iv IV CONT 125 mls/hr .Q8H TERA Administration Ketorolac Tromethamine 30 mg 12/31/24 20:11 01/01/25 05:43 Ketorolac 30 Mg/Ml Vial (*Bkc) IV PUSH 01/05/25 20:10 30 mg Q6H PRN Administration Pain Rated 4-6 Methocarbamol 750 mg 01/01/25 00:00 01/01/25 05:43 Methocarbamol 750 Mg Tablet PO 750 mg Q6HR TERA Administration Ondansetron HCl 4 mg 12/31/24 20:11 01/01/25 05:47 Ondansetron Inj 4 Mg/2 Ml Vial IV PUSH 4 mg Q4H PRN Administration Nausea Pantoprazole Sodium 40 mg 12/31/24 21:00 01/01/25 07:48 Pantoprazole Sodium Iv 40 Mg Vial IV PUSH 40 mg Q12HR TERA Administration Radiology Results: ITS Impressions Upper Quadrant Ultrasound 12/31/24 18:24 IMPRESSION: 1: Fatty infiltration of the liver. 2: Possible small gallbladder polyps. Abdomen/Pelvis CT 12/31/24 19:07 IMPRESSION: 1. No acute abdominal abnormality. 2: Cholelithiasis. Labs Labs: Laboratory Results - last 24 hr 12/31/24 01/01/25 17:30 05:44 WBC 7.7 RBC 4.07 L Hgb 11.5 L Hct 36.9 L MCV 90.7 MCH 28.3 MCHC 31.2 L RDW 13.2 Plt Count 286 MPV 8.9 Immature Gran % (Auto) 0.3 Neut % (Auto) 59.4 Lymph % (Auto) 32.9 [place] % (Auto) 5.3 Eos % (Auto) 1.7 Baso % (Auto) 0.4 Lymph # (Auto) 2.55 [place] # (Auto) 0.4 Eos # (Auto) 0.1 Baso # (Auto) 0.0 Abs Immat Gran (auto) 0.02 Absolute Neuts (auto) 4.6 Absolute Nucleated RBC 0.000 Nucleated RBC % 0.0 Sodium 137 Potassium 4.3 Chloride 108 H Carbon Dioxide 19 L Anion Gap 10 BUN 7 Creatinine 0.60 L Estim Creat Clear Calc 152 Estimated GFR > 60 Glucose 82 Calcium 8.6 Total Bilirubin 1.4 H AST 90 H ALT 150 H Alkaline Phosphatase 67 Total Protein 6.8 Albumin 4.1 POC Urine HCG, Qual Negative Quality VTE Prophylaxis VTE prophylaxis: mechanical ordered (SCDs)
--- NOTE | 2025-01-01 10:49 | WPDGICN ---
Assessment and Plan Assessment and plan (1) Cholelithiasis: Qualifiers: Biliary obstruction: without biliary obstruction Cholecystitis presence: without cholecystitis Cholelithiasis location: gallbladder Qualified Code(s): K80.20 - Calculus of gallbladder without cholecystitis without obstruction Code(s): K80.20 - Calculus of gallbladder without cholecystitis without obstruction Status: Acute Assessment and Plan: The patient has cholelithiasis with elevated transaminases, which is suggestive of the intermittent passage of gallstones into the common bile duct. I've discussed the case with the on-call surgeon, Dr. Junior Iyer, who plans to perform an elective laparoscopic cholecystectomy on Friday. An intraoperative cholangiogram will likely be performed to check for any residual stones. However, if today's official MRCP reading shows common bile duct stones, a pre-operative ERCP will be necessary to remove them before surgery. GI Consult Note Consult date/time: 01/01/25 10:49 Reason for consult: Cholelithiasis HPI: Devora Marinelli, a 29-year-old female, was admitted yesterday with a three-day history of nausea, vomiting, and moderate to severe right upper quadrant pain. Upon arrival, her labs showed elevated total bilirubin (2.5), AST (311), and ALT (195). A CT scan revealed gallstones, but no signs of acute cholecystitis. This morning, her condition has shown significant improvement. Her pain is now rated as mild to moderate (3-4/10), and is no longer associated with fever or nausea. Her liver function tests are trending down, with her AST decreasing to 90, ALT to 150, and bilirubin to 1.4. Her white blood cell count remains normal at 7.7, and her alkaline phosphatase and lipase levels are also within the normal range. An MRCP has been performed, and we are currently awaiting the official report. Review of Systems Review of Systems: All systems reviewed & are unremarkable except as noted in HPI and below [facility] Past Medical History Medical History (Updated 12/31/24 @ 22:25 by Supriya Brown DO) GERD (gastroesophageal reflux disease) Morbid obesity with BMI of 40.0-44.9, adult Cauda equina syndrome Lumbar disc herniation Anxiety Colic, ureteral Surgical History Surgical History (Updated 12/31/24 @ 21:05 by Supriya Brown DO) Status post lumbar discectomy (08/03/24) L4-L5 with subsequent repeat surgery 09/23/2023 with lumbar wound washout and revision of lumbar microdiscectomy L4-L5 due to repeat MRI August 2024 demonstrating persistent large central disc extrusion L4-L5 which despite posterior decompression is still contributing to [id number] central canal stenosis with moderate narrowing of the left lateral recess exerting mass effect upon the transverse L5 nerve root Family History Family History Father Alcoholism Hypertension Heart disease Diabetes mellitus Grandparent Breast cancer Diabetes mellitus Grandparent Hypertension Diabetes mellitus Social History Social History (Updated 12/31/24 @ 22:19 by Supriya Brown DO) Social History: She is single and has never been . 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 She drinks an alcoholic beverage every couple months. She denies any illicit substance use she used to smoke a half pack of cigarettes per day but this was for brief time when she was young. Code status: Full code Surrogate decision maker: Sandra Browning (mother) Smoking status: Never smoker Tobacco type: cigarettes Second hand tobacco smoke exposure: No Alcohol intake: never Substance use: never Substance use type: does not use Do You Feel Safe in your Home?: Yes Lack of Transportation: No Lack of Food: Never True Current Housing: I Have Housing Concerned About Future Housing: No Difficulty Paying Gas/Electric Bills: No Difficulty Paying for Meds: No Currently Unemployed: No Education: Decline to Answer Difficulty w/ Childcare or Family Care: No Spiritual care concerns: No Meds Home Medications and Allergies Home Medications ?Medication ?Instructions ?Recorded ?Confirmed ?Type gabapentin 300 mg capsule 300 mg PO TID 08/25/24 12/31/24 History pantoprazole 40 mg tablet,delayed 40 mg PO Q12H 08/25/24 12/31/24 History release methocarbamol 750 mg tablet 750 mg PO Q6HR 10 days #40 tabs 09/23/24 12/31/24 Rx ondansetron 4 mg disintegrating 4 mg PO Q4H 3 doses #10 tabs 12/28/24 12/31/24 Rx tablet Allergies Allergy/AdvReac Type Severity Reaction Status Date / Time hydrocodone (From [place]) AdvReac Unknown Itching Verified 12/31/24 15:02 Vital Signs Vital Signs - 24 hr 12/31/24 15:04 12/31/24 16:00 12/31/24 17:00 Temperature 98.4 F Pulse Rate 98 89 71 Respiratory Rate 18 16 16 Blood Pressure 136/76 139/71 139/71 Pulse Oximetry 98 97 99 Oxygen Delivery Room Air 12/31/24 18:00 12/31/24 19:21 12/31/24 20:45 Temperature Pulse Rate 69 61 66 Respiratory Rate 16 14 16 Blood Pressure 122/45 L 135/68 133/84 Pulse Oximetry 99 98 98 Oxygen Delivery 12/31/24 20:57 12/31/24 21:40 01/01/25 06:00 Temperature 98.8 F 97.8 F Pulse Rate 66 68 58 L Respiratory Rate 16 16 19 Blood Pressure 133/84 141/65 H 145/80 H Pulse Oximetry 98 98 98 Oxygen Delivery Exam Narrative: General: NAD Eyes: EOMI ENT: neck supple Cardiovascular: Regular rate and rhythm Respiratory: Clear to auscultation, respirations even and unlabored on RA Gastrointestinal: Soft, non tender Genitourinary: no suprapubic tenderness Musculoskeletal: No edema Skin: warm, dry Neuro: Alert. Psych: Mood appropriate Results Labs 01/01/25 05:44 01/01/25 05:44 Labs: Short CBC 01/01/25 Range/Units 05:44 WBC 7.7 (4.5-10.0) K/mm3 Hgb 11.5 L (12.0-15.0) g/dL Hct 36.9 L (37.0-47.0) % Plt Count 286 (150-375) k/mm3 BMP 01/01/25 05:44 Sodium 137 Potassium 4.3 Chloride 108 H Carbon Dioxide 19 L BUN 7 Creatinine 0.60 L Glucose 82 Calcium 8.6 Liver Function 01/01/25 Range/Units 05:44 Total Bilirubin 1.4 H (0.2-1.3) mg/dL AST 90 H (14-36) U/L ALT 150 H (6-35) U/L Alkaline Phosphatase 67 (38-126) U/L Albumin 4.1 (3.5-5.1) g/dL
--- NOTE | 2025-01-01 13:27 | PM.CNGS ---
Assessment and Plan Assessment and plan (1) Cholelithiasis with chronic cholecystitis: Qualifiers: Biliary obstruction: without biliary obstruction Cholelithiasis location: gallbladder Qualified Code(s): K80.10 - Calculus of gallbladder with chronic cholecystitis without obstruction Code(s): K80.10 - Calculus of gallbladder with chronic cholecystitis without obstruction Status: Chronic Assessment and Plan: Patient improved at this time. If tolerates oral intake, can probably be discharged and come back for laparoscopic cholecystectomy in the near future. MRCP has been done but not read. (2) Transaminitis: Code(s): R74.01 - Elevation of levels of liver transaminase levels Status: Acute Assessment and Plan: Improving today. MRCP has been done but not read. Agree with trial of oral intake. If LFTs returned to normal and patient asymptomatic, can be discharged with return for outpatient cholecystectomy in the near future. (3) Status post lumbar discectomy: Onset Date: 08/03/24 Code(s): Z98.890 - Other specified postprocedural states Status: Chronic Assessment and Plan: Performed over 3 months ago. Patient doing well. (4) Morbid obesity with BMI of 40.0-44.9, adult: Code(s): E66.01 - Morbid (severe) obesity due to excess calories; Z68.41 - Body mass index [BMI] 40.0-44.9, adult Status: Chronic Assessment and Plan: Increases surgical risk History of Present Illness Consult details Consult date: 01/02/25 Reason for consult: gallstones Requesting physician: Ariel Huffman MD Narrative: The patient is a 29-year-old woman who developed cauda equinus syndrome from a herniated L4-5 disc in July of this year. She underwent diskectomy and laminectomy on 08/03/2024. About 3 weeks later, August 25, she developed postprandial severe right upper quadrant pain. She came to the emergency room in imaging showed gallstones. She was diagnosed with cholecystitis and cholelithiasis but her symptoms improved. She was able to be discharged from the emergency room with plans to see me as an outpatient to discuss cholecystectomy. Unfortunately, the patient had more trouble with her back. She ended having a recurrent herniated disc with some superficial wound issues. On 09/22/2024, she was taken back to surgery and had a washout as well as a revision of her L4-5 microdiskectomy. She has been doing much better since her 2nd operation and is healing well. Unfortunately, her gallbladder began acting up again. She was awakened about 2:00 a.m. on 12/28 in 2024 with severe right upper quadrant pain. She had eaten a hamburger prior to going to bed that night. In addition to the severe pain, she had many episodes of vomiting followed by dry heaves. She ended up going to the emergency room and CT scan again showed gallstones but no evidence of cholecystitis. She had some elevation of her liver function tests but these were mild. Her symptoms improved although she continued to have upper abdominal soreness due to the many episodes of vomiting that she experienced. She was discharged and was really only eating clear liquids. She followed up with her primary care physician and her LFTs were worse than they had been in the emergency room 4 days earlier. She was sent back to the emergency room and although her pain was not severe, she has been admitted for recurrent episodes of cholecystitis with cholelithiasis and now elevated liver function tests. Liver enzymes today are improved from those yesterday when she was admitted. Her pain is minimal. I was asked to see her by Gastroenterology. She did have an MRCP today but it has been read as of yet. Her white blood cell count has been normal both yesterday and today. Her pain is much better and she has not had any further vomiting. She has been placed on a full liquid diet today. Review of Systems Review of Systems: All systems reviewed & are unremarkable except as noted in HPI and below (HPI) [facility] Past Medical History Medical History (Updated 01/01/25 @ 13:51 by Junior Iyer MD) GERD (gastroesophageal reflux disease) Morbid obesity with BMI of 40.0-44.9, adult Cauda equina syndrome Lumbar disc herniation Anxiety Colic, ureteral Surgical History Surgical History (Updated 01/01/25 @ 13:49 by Junior Iyer MD) Status post lumbar discectomy (08/03/24) L4-L5 with subsequent repeat surgery 09/23/2023 with lumbar wound washout and revision of lumbar microdiscectomy L4-L5 due to repeat MRI August 2024 demonstrating persistent large central disc extrusion L4-L5 which despite posterior decompression is still contributing to [id number] central canal stenosis with moderate narrowing of the left lateral recess exerting mass effect upon the transverse L5 nerve root Family History Family History Father Alcoholism Hypertension Heart disease Diabetes mellitus Grandparent Breast cancer Diabetes mellitus Grandparent Hypertension Diabetes mellitus Social History Social History Social History: She is single and has never been . 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 She drinks an alcoholic beverage every couple months. She denies any illicit substance use she used to smoke a half pack of cigarettes per day but this was for brief time when she was young. Code status: Full code Surrogate decision maker: Sandra Browning (mother) Smoking status: Never smoker Tobacco type: cigarettes Second hand tobacco smoke exposure: No Alcohol intake: never Substance use: never Substance use type: does not use Do You Feel Safe in your Home?: Yes Lack of Transportation: No Lack of Food: Never True Current Housing: I Have Housing Concerned About Future Housing: No Difficulty Paying Gas/Electric Bills: No Difficulty Paying for Meds: No Currently Unemployed: No Education: Decline to Answer Difficulty w/ Childcare or Family Care: No Spiritual care concerns: No Meds Home Medications and Allergies Home Medications ?Medication ?Instructions ?Recorded ?Confirmed ?Type gabapentin 300 mg capsule 300 mg PO TID 08/25/24 12/31/24 History pantoprazole 40 mg tablet,delayed 40 mg PO Q12H 08/25/24 12/31/24 History release methocarbamol 750 mg tablet 750 mg PO Q6HR 10 days #40 tabs 09/23/24 12/31/24 Rx ondansetron 4 mg disintegrating 4 mg PO Q4H 3 doses #10 tabs 12/28/24 12/31/24 Rx tablet Allergies Allergy/AdvReac Type Severity Reaction Status Date / Time hydrocodone (From [place]) AdvReac Unknown Itching Verified 12/31/24 15:02 Vital Signs Vital Signs - 24 hr 12/31/24 15:04 12/31/24 16:00 12/31/24 17:00 Temperature 36.9 C Pulse Rate 98 89 71 Respiratory Rate 18 16 16 Blood Pressure 136/76 139/71 139/71 Pulse Oximetry 98 97 99 Oxygen Delivery Room Air 12/31/24 18:00 12/31/24 19:21 12/31/24 20:45 Temperature Pulse Rate 69 61 66 Respiratory Rate 16 14 16 Blood Pressure 122/45 L 135/68 133/84 Pulse Oximetry 99 98 98 Oxygen Delivery 12/31/24 20:57 12/31/24 21:40 01/01/25 06:00 Temperature 37.1 C 36.6 C Pulse Rate 66 68 58 L Respiratory Rate 16 16 19 Blood Pressure 133/84 141/65 H 145/80 H Pulse Oximetry 98 98 98 Oxygen Delivery Exam Const: General: cooperative, comfortable, no acute distress, alert and awake Nutritional Appearance: overweight Orientation/consciousness: patient oriented x3 and No confusion HENMT: Head: normocephalic and atraumatic Mouth: Yes Normal oral and palatal mucosa present Eyes: Conjunctivae: conjunctivae normal Pupils: Equal, round and reactive pupils present EOM: EOMs intact bilaterally Neck: Neck: normal visual inspection, no lymphadenopathy and nontender Resp: Effort & Inspection: normal respiratory effort Auscultation: clear to auscultation bilaterally Cardio: Rate: regular rate Rhythm: regular rhythm Heart sounds: no gallops, no murmurs and no rubs GI: Inspection: non-distended, obesity and no scars GI Palp: Yes Soft to palpation, Yes Tenderness to palpation present (GI) (Mild right upper quadrant tenderness), No Guarding due to palpation present (GI), No Hepatomegaly present, No Splenomegaly present, No Palpable mass present (No palpable gallbladder) and No Rebound tenderness present Back/Spine/Pelvis: Back: other (Incision healing well) Skin: Lesions: no lesions Rashes: no rashes Neuro: General: CN's II-XI intact bilaterally Cranial nerves: Yes Equal, round and reactive pupils present, Yes Bilaterally intact EOM present, Yes facial symmetry and Yes Midline tongue present Cognition (Neuro): normal cognition Speech: normal speech Motor exam (neuro): 5/5 motor strength present throughout and Motor abnormalities not present Extrem: General: no clubbing, cyanosis or edema and edema Psych: Affect: normal affect Thought process: Normal thought process present Insight: Good insight present (Psych) Results Labs 01/02/25 06:44 01/02/25 05:32 Labs: Abnormal lab results 01/01/25 Range/Units 05:44 RBC 4.07 L (4.2-5.4) M/mm3 Hgb 11.5 L (12.0-15.0) g/dL Hct 36.9 L (37.0-47.0) % MCHC 31.2 L (32-36) g/dl Chloride 108 H (98-107) mmol/L Carbon Dioxide 19 L (22-30) mmol/L Creatinine 0.60 L (0.7-1.0) mg/dL Total Bilirubin 1.4 H (0.2-1.3) mg/dL AST 90 H (14-36) U/L ALT 150 H (6-35) U/L Diabetes panel 01/01/25 Range/Units 05:44 Sodium 137 (137-145) mmol/L Potassium 4.3 (3.4-5.0) mmol/L Chloride 108 H (98-107) mmol/L Carbon Dioxide 19 L (22-30) mmol/L BUN 7 (7-17) mg/dL Creatinine 0.60 L (0.7-1.0) mg/dL Glucose 82 (65-110) mg/dL Calcium 8.6 (8.4-10.2) mg/dL AST 90 H (14-36) U/L ALT 150 H (6-35) U/L Alkaline Phosphatase 67 (38-126) U/L Total Protein 6.8 (6.3-8.2) g/dL Albumin 4.1 (3.5-5.1) g/dL Calcium panel 01/01/25 Range/Units 05:44 Calcium 8.6 (8.4-10.2) mg/dL Albumin 4.1 (3.5-5.1) g/dL Pituitary panel 01/01/25 Range/Units 05:44 Sodium 137 (137-145) mmol/L Potassium 4.3 (3.4-5.0) mmol/L Chloride 108 H (98-107) mmol/L Carbon Dioxide 19 L (22-30) mmol/L BUN 7 (7-17) mg/dL Creatinine 0.60 L (0.7-1.0) mg/dL Glucose 82 (65-110) mg/dL Calcium 8.6 (8.4-10.2) mg/dL Adrenal panel 01/01/25 Range/Units 05:44 Sodium 137 (137-145) mmol/L Potassium 4.3 (3.4-5.0) mmol/L Chloride 108 H (98-107) mmol/L Carbon Dioxide 19 L (22-30) mmol/L BUN 7 (7-17) mg/dL Creatinine 0.60 L (0.7-1.0) mg/dL Glucose 82 (65-110) mg/dL Calcium 8.6 (8.4-10.2) mg/dL Total Bilirubin 1.4 H (0.2-1.3) mg/dL AST 90 H (14-36) U/L ALT 150 H (6-35) U/L Alkaline Phosphatase 67 (38-126) U/L Total Protein 6.8 (6.3-8.2) g/dL Albumin 4.1 (3.5-5.1) g/dL All other labs normal. Imaging Abdomen CT scan report/results: report reviewed and image reviewed CT scan - pelvis: report reviewed and image reviewed Abdominal ultrasound report/results: report reviewed
[2025-01-01 14:00] VITALS: BP 151/68; PULSE 65; RESP 20; TEMP 36.3; O2SAT 100
[2025-01-01] MEDS: PANTOPRAZOLE 40 MG TABLET PO (20:31)
[2025-01-01 21:41] VITALS: BP 112/58; PULSE 68; RESP 20; TEMP 36.8; O2SAT 99
[2025-01-01 22:04] VITALS: PULSE 75; RESP 20; O2SAT 99
[2025-01-02] MEDS: SODIUM CHLORIDE 0.9% IV 1,000 ML 125 ML IV CONT (02:00)
[2025-01-02 05:47] VITALS: BP 112/57; PULSE 55; RESP 20; TEMP 36.6; O2SAT 99
[2025-01-02 06:22] LABS: Alanine Aminotransferase 163 U/L (6-35); Albumin Level 3.8 g/dL (3.5-5.1); Alkaline Phosphatase 71 U/L (38-126); Anion Gap 8 mmol/L (4-12); Aspartate Amino Transferase 92 U/L (14-36); Bilirubin,Total 0.9 mg/dL (0.2-1.3); Blood Urea Nitrogen 3 mg/dL (7-17); Calcium 8.4 mg/dL (8.4-10.2); Carbon Dioxide 21 mmol/L (22-30); Chloride 108 mmol/L (98-107); Estimated CRCL calculation 179 ml/min; Estimated Glomerular Filt Rate > 60; Glucose 95 mg/dL (65-110); Potassium 4.3 mmol/L (3.4-5.0); Sodium 137 mmol/L (137-145); Total Protein 6.3 g/dL (6.3-8.2)
[2025-01-02 06:48] LABS: Hematocrit 34.3 % (37.0-47.0); Hemoglobin 11.0 g/dL (12.0-15.0); Immature Granulocyte Percent A 0.3 % (0-0.5); Lymphocytes Absolute Auto 2.22 K/mm3 (0.9-3.2); Mean Corpuscular HGB Conc 32.1 g/dl (32-36); Mean Corpuscular Hemoglobin 28.7 pg (26-34); Mean Corpuscular Volume 89.6 fl (80-100); Nucleated Red Blood Cells Absolute Auto 0.000 K/mm3 (0.0-0.012); Nucleated Red Blood Cells Perc 0.0 % (0.0-0.2); Platelet Count Result 257 k/mm3 (150-375); Red Blood Count 3.83 M/mm3 (4.2-5.4); White Blood Count 6.6 K/mm3 (4.5-10.0)
[2025-01-02 08:00] VITALS: PULSE 55; RESP 20; O2SAT 99
[2025-01-02] MEDS: GABAPENTIN 300 MG CAPSULE PO ×2 (08:32→12:27)
[2025-01-02] MEDS: PANTOPRAZOLE 40 MG TABLET PO (08:32)
--- NOTE | 2025-01-02 10:47 | WPDGIPROGNO ---
Progress Note: A&P Assessment and Plan (1) Cholelithiasis: Qualifiers: Biliary obstruction: without biliary obstruction Cholecystitis presence: without cholecystitis Cholelithiasis location: gallbladder Qualified Code(s): K80.20 - Calculus of gallbladder without cholecystitis without obstruction Code(s): K80.20 - Calculus of gallbladder without cholecystitis without obstruction Status: Acute Assessment and Plan: The patient is asymptomatic, tolerating food well. Official reading from the MRCP not ready, but transaminases are normal, my non official reading does not show evidence of gross biliary dilatation or choledocholithiasis. The patient is seen by Dr. Iyer, surgeon on-call who will schedule her laparoscopic cholecystectomy as an outpatient. Subjective Date/time seen: 01/02/25 10:47 Objective Data Vital Signs Vital Signs: Vital Signs - 24 hr 01/01/25 14:00 01/01/25 20:31 01/01/25 21:41 Temperature 97.3 F L 98.3 F Pulse Rate 65 68 Respiratory Rate 20 20 Blood Pressure 151/68 H 112/58 L Pulse Oximetry 100 99 Oxygen Delivery Room Air Fraction of Inspired Oxygen 01/01/25 22:04 01/02/25 05:47 01/02/25 08:00 Temperature 97.9 F Pulse Rate 75 55 L 55 L Respiratory Rate 20 20 20 Blood Pressure 112/57 L Pulse Oximetry 99 99 99 Oxygen Delivery Room Air Room Air Fraction of Inspired Oxygen 21 21 Intake/Output Intake/Output: Intake & Output 12/30/24 12/31/24 01/01/25 01/02/25 23:59 23:59 23:59 23:59 Intake Total 1000 4015.4 330 Balance 1000 4015.4 330 Meds/Results Medications: Active Medications Generic Name Dose Route Start Last Admin Trade Name Freq PRN Reason Stop Dose Admin Acetaminophen 500 mg 12/31/24 21:23 Acetaminophen 500 Mg Tablet PO Q6H PRN Mild Pain (1-3) or Fever Gabapentin 300 mg 12/31/24 22:00 01/02/25 08:32 Gabapentin 300 Mg Capsule PO 300 mg TID TERA Administration Sodium Chloride 1,000 mls @ 100 mls/hr 12/31/24 20:15 01/02/25 02:00 Normal Saline Iv IV CONT 125 mls/hr .Q10H TERA Administration Ketorolac Tromethamine 30 mg 12/31/24 20:11 01/01/25 12:47 Ketorolac 30 Mg/Ml Vial (*Bkc) IV PUSH 01/05/25 20:10 30 mg Q6H PRN Administration Pain Rated 4-6 Methocarbamol 750 mg 01/01/25 00:00 01/02/25 05:33 Methocarbamol 750 Mg Tablet PO 750 mg Q6HR TERA Administration Ondansetron HCl 4 mg 12/31/24 20:11 01/01/25 05:47 Ondansetron Inj 4 Mg/2 Ml Vial IV PUSH 4 mg Q4H PRN Administration Nausea Pantoprazole Sodium 40 mg 01/01/25 21:00 01/02/25 08:32 Pantoprazole 40 Mg Tablet PO 40 mg Q12HR TERA Administration Radiology Results: ITS Impressions Upper Quadrant Ultrasound 12/31/24 18:24 IMPRESSION: 1: Fatty infiltration of the liver. 2: Possible small gallbladder polyps. Abdomen/Pelvis CT 12/31/24 19:07 IMPRESSION: 1. No acute abdominal abnormality. 2: Cholelithiasis. Labs Labs: Laboratory Results - last 24 hr 01/02/25 01/02/25 05:32 06:44 WBC 6.6 RBC 3.83 L Hgb 11.0 L Hct 34.3 L MCV 89.6 MCH 28.7 MCHC 32.1 RDW 13.4 Plt Count 257 MPV 8.7 Immature Gran % (Auto) 0.3 Neut % (Auto) 58.6 Lymph % (Auto) 33.5 [place] % (Auto) 5.0 Eos % (Auto) 2.3 Baso % (Auto) 0.3 Lymph # (Auto) 2.22 [place] # (Auto) 0.3 Eos # (Auto) 0.2 Baso # (Auto) 0.0 Abs Immat Gran (auto) 0.02 Absolute Neuts (auto) 3.9 Absolute Nucleated RBC 0.000 Nucleated RBC % 0.0 Sodium 137 Potassium 4.3 Chloride 108 H Carbon Dioxide 21 L Anion Gap 8 BUN 3 L Creatinine 0.50 L Estim Creat Clear Calc 179 Estimated GFR > 60 Glucose 95 Calcium 8.4 Total Bilirubin 0.9 AST 92 H ALT 163 H Alkaline Phosphatase 71 Total Protein 6.3 Albumin 3.8
--- NOTE | 2025-01-02 12:54 | PM.DS ---
DS: Admitting Diagnosis Discharge Date 01/02/25 Admitting Diagnosis - cholelithiasis - transaminitis DS: Discharge Diagnosis Discharge Diagnosis (1) Transaminitis: Code(s): R74.01 - Elevation of levels of liver transaminase levels Status: Acute (2) Lumbar disc prolapse with compression radiculopathy: Code(s): M51.16 - Intervertebral disc disorders with radiculopathy, lumbar region Status: Acute DS: Summary Hospital Course Reason for hospitalization: - cholelithiasis - transaminitis Hospital Course: 29-year-old female with a past medical history of morbid obesity, hyperlipidemia, chronic back pain status post laminectomy July 2024 anxiety and GERD who presented to the ER via private vehicle due to RUQ abdominal pain, nausea/vomiting, elevated liver enzymes and bilirubin on outpatient labs. In ED, bicarb 21, AG 14, t bili 2.5, AST 311, ALT 195. CT A/P with cholelithiasis. RUQ US with fatty infiltration of the liver, possible small gallbladder polyps. Patient was admitted with concerns for choledocholithiasis. GI was consulted and recommended MRCP. MRCP was obtained and reviewed by GI which showed no concern for obstruction. Final radiology read still pending. General surgery was consulted and recommended outpatient CCY. Patient's liver enzymes trended down. Pain improved. Diet advanced to low fat diet which patient tolerated prior to discharge. She was instructed to maintain a low fat diet. Case was discussed with general surgery, Dr. Iyer prior to discharge and his office will arrange outpatient CCY in the next 2 weeks. Case was discussed with GI, Dr. Huffman who also cleared patient for discharge. She was instructed to have a repeat CMP in 3 days and follow-up with her PCP. Patient was discharge home in stable condition. Status at Discharge Functional status at discharge: independent ambulation Time Spent with Patient Time attestation: Total time spent providing and/or coordinating discharge services: Time spent: Greater than 30 minutes Exam Narrative: General: NAD Eyes: EOMI ENT: neck supple Cardiovascular: Regular rate and rhythm Respiratory: Clear to auscultation, respirations even and unlabored on RA Gastrointestinal: Soft, nontender. Negative Lamas's sign. No rebound or guarding. Genitourinary: no suprapubic tenderness Musculoskeletal: No edema Skin: warm, dry Neuro: Alert. Psych: Mood appropriate DS: Data Data Completed and Pending Completed studies during hospitalization: ITS Impressions Upper Quadrant Ultrasound 12/31/24 18:24 IMPRESSION: 1: Fatty infiltration of the liver. 2: Possible small gallbladder polyps. Abdomen/Pelvis CT 12/31/24 19:07 IMPRESSION: 1. No acute abdominal abnormality. 2: Cholelithiasis. Pending studies at discharge: - MRCP Labs on day of discharge: Labs from last 24 hours 01/02/25 01/02/25 06:44 05:32 WBC 6.6 RBC 3.83 L Hgb 11.0 L Hct 34.3 L MCV 89.6 MCH 28.7 MCHC 32.1 RDW 13.4 Plt Count 257 MPV 8.7 Immature Gran % (Auto) 0.3 Neut % (Auto) 58.6 Lymph % (Auto) 33.5 [place] % (Auto) 5.0 Eos % (Auto) 2.3 Baso % (Auto) 0.3 Lymph # (Auto) 2.22 [place] # (Auto) 0.3 Eos # (Auto) 0.2 Baso # (Auto) 0.0 Abs Immat Gran (auto) 0.02 Absolute Neuts (auto) 3.9 Absolute Nucleated RBC 0.000 Nucleated RBC % 0.0 Sodium 137 Potassium 4.3 Chloride 108 H Carbon Dioxide 21 L Anion Gap 8 BUN 3 L Creatinine 0.50 L Estim Creat Clear Calc 179 Estimated GFR > 60 Glucose 95 Calcium 8.4 Total Bilirubin 0.9 AST 92 H ALT 163 H Alkaline Phosphatase 71 Total Protein 6.3 Albumin 3.8 Discharge Plan Discharge Attending physician on discharge: Savita Bender Consulting providers: Sonia Foster; Junior Iyer Discharging Clinician: Sonia Foster Patient Disposition: Home Activity: as tolerated Diet: low fat Discharge Instructions: Follow-up with your primary care provider. Have your labs (CMP) repeated in in 3 days. You can take the order where you normally get labs and make sure they are sent to your primary care provider. Maintain a low fat diet. Return to the emergency department if you develop chest pain, shortness of breath, persistent fever >100.4, confusion, loss of consciousness, severe abdominal pain, nausea/vomiting, yellowing of the eyes or skin. Dr. Iyer's office will call you on Friday or Friday to arrange outpatient laparoscopic cholecystectomy with intraoperative cholangiogram. Patient Instructions: Antibiotic Form, Biliary Colic (GEN), Gallstones (DC), Low Fat Diet (DC) Patient Language: Bruneian Stand Alone Forms: General Discharge Information Follow-up/Referrals: Lucille Jackson MD [Primary Care Provider, Internal Medicine] - Call for Appointment Referral Note: follow-up repeat lab work Junior Iyer MD [Physician, General Surgery] - Call for Appointment Referral Note: for outpatient gallbladder surgery Discharge Medications: Continued ondansetron 4 mg tablet,disintegrating 4 mg PO Q4H 0 Days Qty: 10 0RF Rx Instructions: 1st dose 1-2 hr before radiation gabapentin 300 mg capsule 300 mg PO TID pantoprazole 40 mg tablet,delayed release (DR/EC) 40 mg PO Q12H methocarbamol 750 mg Tablet 750 mg PO Q6HR 10 Days Qty: 40 0RF Other Ambulatory Orders: Comprehensive Metabolic Panel (Routine) Timeframe: 3 Days Location: Determined by Patient Ordered By: Sonia Foster Date of admission: 12/31/24 20:11 Primary Care Provider: Lucille Jackson Admitting Provider: Supriya Brown Attending physician on admission: Supriya Brown Condition: Stable
--- NOTE | 2025-01-02 13:15 | P.PNGS_ITS ---
Progress Note: A&P Assessment and Plan (1) Cholelithiasis with chronic cholecystitis: Qualifiers: Cholelithiasis location: gallbladder Biliary obstruction: without biliary obstruction Qualified Code(s): K80.10 - Calculus of gallbladder with chronic cholecystitis without obstruction Code(s): K80.10 - Calculus of gallbladder with chronic cholecystitis without obstruction Status: Chronic Assessment and Plan: Much improved, okay from my standpoint to discharge. I discussed this with amauri Jon, hospitalist covering the patient. Okay to discharge on low-fat diet. My office will call her tomorrow or Friday and we will arrange outpatient laparoscopic cholecystectomy with intraoperative cholangiogram. I explained this procedure to the patient in detail. I explained the usual recovery and that this is typically an outpatient procedure. All questions were answered. We will arrange the surgery in the near future. (2) Transaminitis: Code(s): R74.01 - Elevation of levels of liver transaminase levels Status: Acute Assessment and Plan: Improved, LFTs nearly normal. MRCP is not yet read but patient asymptomatic and with LFTs much improved, feel it is safe to discharge if okay with Dr. Huffman. (3) Morbid obesity with BMI of 40.0-44.9, adult: Code(s): E66.01 - Morbid (severe) obesity due to excess calories; Z68.41 - Body mass index [BMI] 40.0-44.9, adult Status: Chronic (4) Status post lumbar discectomy: Onset Date: 08/03/24 Code(s): Z98.890 - Other specified postprocedural states Status: Chronic Subjective Subjective Date/Time Seen: 01/02/25 13:15 Patient reports: pain is less (No further episodes of sharp pain or vomiting), tolerating liquids well (Tolerated full liquids well), no bowel movement and afebrile Exam Const: General: comfortable, alert and awake Nutritional Appearance: overweight Orientation/consciousness: patient oriented x3 GI: Inspection: non-distended, obesity and no visible herniation GI Palp: Yes Soft to palpation, No Tenderness to palpation present (GI), No Guarding due to palpation present (GI), No Hernia present and No Palpable mass present Auscultation: normal bowel sounds Objective Data Vital Signs Vital Signs: Vital Signs - 24 hr 01/01/25 14:00 01/01/25 20:31 01/01/25 21:41 Temperature 36.3 C L 36.8 C Pulse Rate 65 68 Respiratory Rate 20 20 Blood Pressure 151/68 H 112/58 L Pulse Oximetry 100 99 Oxygen Delivery Room Air Fraction of Inspired Oxygen 01/01/25 22:04 01/02/25 05:47 01/02/25 08:00 Temperature 36.6 C Pulse Rate 75 55 L 55 L Respiratory Rate 20 20 20 Blood Pressure 112/57 L Pulse Oximetry 99 99 99 Oxygen Delivery Room Air Room Air Fraction of Inspired Oxygen 21 21 Intake/Output Intake/Output: Intake & Output 12/30/24 12/31/24 01/01/25 01/02/25 23:59 23:59 23:59 23:59 Intake Total 1000 4015.4 330 Balance 1000 4015.4 330 Meds/Results Medications: Active Medications Generic Name Dose Route Start Last Admin Trade Name Freq PRN Reason Stop Dose Admin Acetaminophen 500 mg 12/31/24 21:23 Acetaminophen 500 Mg Tablet PO Q6H PRN Mild Pain (1-3) or Fever Gabapentin 300 mg 12/31/24 22:00 01/02/25 12:27 Gabapentin 300 Mg Capsule PO 300 mg TID TERA Administration Sodium Chloride 1,000 mls @ 100 mls/hr 12/31/24 20:15 01/02/25 02:00 Normal Saline Iv IV CONT 125 mls/hr .Q10H TERA Administration Ketorolac Tromethamine 30 mg 12/31/24 20:11 01/01/25 12:47 Ketorolac 30 Mg/Ml Vial (*Bk) IV PUSH 01/05/25 20:10 30 mg Q6H PRN Administration Pain Rated 4-6 Methocarbamol 750 mg 01/01/25 00:00 01/02/25 12:27 Methocarbamol 750 Mg Tablet PO 750 mg Q6HR TERA Administration Ondansetron HCl 4 mg 12/31/24 20:11 01/01/25 05:47 Ondansetron Inj 4 Mg/2 Ml Vial IV PUSH 4 mg Q4H PRN Administration Nausea Pantoprazole Sodium 40 mg 01/01/25 21:00 01/02/25 08:32 Pantoprazole 40 Mg Tablet PO 40 mg Q12HR TERA Administration Radiology Results: ITS Impressions Upper Quadrant Ultrasound 12/31/24 18:24 IMPRESSION: 1: Fatty infiltration of the liver. 2: Possible small gallbladder polyps. Abdomen/Pelvis CT 12/31/24 19:07 IMPRESSION: 1. No acute abdominal abnormality. 2: Cholelithiasis. Labs Labs: Laboratory Results - last 24 hr 01/02/25 01/02/25 05:32 06:44 WBC 6.6 RBC 3.83 L Hgb 11.0 L Hct 34.3 L MCV 89.6 MCH 28.7 MCHC 32.1 RDW 13.4 Plt Count 257 MPV 8.7 Immature Gran % (Auto) 0.3 Neut % (Auto) 58.6 Lymph % (Auto) 33.5 [place] % (Auto) 5.0 Eos % (Auto) 2.3 Baso % (Auto) 0.3 Lymph # (Auto) 2.22 [place] # (Auto) 0.3 Eos # (Auto) 0.2 Baso # (Auto) 0.0 Abs Immat Gran (auto) 0.02 Absolute Neuts (auto) 3.9 Absolute Nucleated RBC 0.000 Nucleated RBC % 0.0 Sodium 137 Potassium 4.3 Chloride 108 H Carbon Dioxide 21 L Anion Gap 8 BUN 3 L Creatinine 0.50 L Estim Creat Clear Calc 179 Estimated GFR > 60 Glucose 95 Calcium 8.4 Total Bilirubin 0.9 AST 92 H ALT 163 H Alkaline Phosphatase 71 Total Protein 6.3 Albumin 3.8 LFTs improved, nearly normal
== END 2025-01-02 13:54 | disposition home or self-care (01) ==
LOC: ANHED 20:11 → ANH3MEDSUR 01-01 07:00
PROVIDERS: Physician Assistant; Admitting Provider Internal Medicine; Emergency Provider Physician Assistant; PCP Internal Medicine; Visit Provider Internal Medicine
DX: K80.20 Calculus of gallbladder without cholecystitis without obstruction (principal); R74.01 Elevation of levels of liver transaminase levels; E80.6 Other disorders of bilirubin metabolism; M51.16 Intervertebral disc disorders with radiculopathy, lumbar region; F41.9 Anxiety disorder, unspecified; K21.9 Gastro-esophageal reflux disease without esophagitis; M96.1 Postlaminectomy syndrome, not elsewhere classified; E78.5 Hyperlipidemia, unspecified; E66.01 Morbid (severe) obesity due to excess calories; Z68.41 Body mass index [BMI] 40.0-44.9, adult; Z83.3 Family history of diabetes mellitus; Z80.3 Family history of malignant neoplasm of breast; Z81.1 Family history of alcohol abuse and dependence; Z82.49 Family history of ischemic heart disease and other diseases of the circulatory system
CPT/HCPCS: 36415; 74177; 74183; 76376; 76705; 80053; 81025; 85025; 96360; 96361; 96374; 96375; 99285; A9270; A9577; G0378; G0379; J1885; J2405; J2470; J7030; Q9967

== ENCOUNTER 2025-01-05 11:27 | Outpatient (RCR) | payer OTHER, SELFPAY ==
--- NOTE | 2025-02-03 14:46 | OPREHPOC ---
Outpatient Therapy Plan of Care This is a Multidisciplinary Plan of Care that may contain components documented by all disciplines (PT, OT, and ST.) PT Problem 1 PT Problem #1 Knowledge Deficit PT Goal 1 Goal / Goal Update Pt. will be independent with a HEP addressing strength and core stability Target Visit 6 Progress Met PT Goal 2 Goal / Goal Update continue to progress Progress Met PT Problem 2 PT Problem #2 Pain PT Goal 1 Goal / Goal Update Pt to note no worse than 5/10 pain at rest. Pt to note no worse than 7/10 pain with activity. Target Visit 12 Progress Met PT Goal 2 Goal / Goal Update continue Target Visit 36 Progress Met PT Problem 3 PT Problem #3 Impaired Strength PT Goal 1 Goal / Goal Update Pt to improve gross LE strength to 4/5 for improved performance of functional mobility tasks. Target Visit 12 Progress Met PT Goal 2 Goal / Goal Update Pt to improve gross LE strength to 5/5. -progress in all mm groups and met for knee extension Target Visit 50 Progress Partially Met PT Problem 4 PT Problem #4 Impaired Functional Mobility PT Goal 1 Goal / Goal Update Pt. will navigate 4 standard height steps with reciprocal pattern and no pain. -met Pt. will ambulate duration of 6 minutes over a distance of 500' without a rest break or R knee buckling. -met Target Visit 12 Progress Met PT Goal 2 Goal / Goal Update continue Target Visit 46 Progress Met PT Problem 5 PT Problem #5 Impaired Functional Mobility PT Goal 1 Goal / Goal Update patient to progress to safe ambulation without AD while maintaining reduced fall risk and gait efficiency. -not met but progressing patient to display low fall risk per the tinetti. -met Target Visit 50 Progress Partially Met
--- NOTE | 2025-02-03 14:46 | PTOPDC ---
Assessment and note entered by Penny Roland, PT Evaluation Information Assessment Status Discharge Diagnosis s/p lumbar laminectomy and discectomy 08/03/24 ICD-10 Condition Codes (PT) Pain in low back M54.50,Difficulty Walking R26.2, Weakness R53.1 Onset 06/12/24 Subjective Information Pt presents to skilled PT re-evaluation today. She has been walking with her cane most of the time both in and out of the house. She reports she still occasionally has bad days and feels like she needs to use her walk on those days but overall has been using the cane more frequently. She has been doing her HEP at home and is feeling a little sore from doing new exercises the other day. She recently had gall bladder removal surgery and has been having some sternum pain which she thinks is from the surgery but her surgeon. Overall she feels pretty good today and has been independent with her HEP. Reported Pain Level Pain Score 0,0,2: Self Report Assessment PT Clinical Summary Mrs. Marinelli presents to skilled PT re-evaluation following lumbar laminectomy and microdiscectomy. While she continues to use a cane for ambulation and wishes to transition to ambulating without AD, she has made good progress in her gait quality and no longer displays toe catching or knee buckling. She has also made progress in her lower extremity strength and has met goals addressing ambulation distance/endurance and stair climbing. She follows up with her neurologist next month and she feels good enough to continue her exercises on her own at home for the time being. Plan of Care PT Services Indicated No
== END 2025-02-03 16:20 | disposition home or self-care (01) ==
LOC: CHSPT 11:27
PROVIDERS: PCP Nurse Practitioner Family; Visit Provider Nurse Practitioner Family
DX: M25.572 Pain in left ankle and joints of left foot (principal); M54.50 Low back pain, unspecified
CPT/HCPCS: 97110; 97112; 97150; 97530

== ENCOUNTER 2025-01-11 16:09 | Outpatient (CLI) | payer OTHER, SELFPAY ==
--- OUTSIDE RECORDS SUMMARY | 2025-01-11 16:13 | XMS_ITS | Encounter Summary ---
Author Organization [facility] Address [address] [place] [address] Phone Care Team Providers Care Transverse Abdominal Muscle Nurse Name Role Phone Avi Floyd MD Primary Care Provider [phone] Reason for Visit * Reason Comments Medication Refill Encounter Details Date Type Department Care Team (Late st Contact Info) Description 05/30/2020 Refill [facility] - [facility] [place] [address] Ryan Willingham MD [address] [place] [address] Medication Refill Social History Tobacco Use Types [...] present documented in this encounter Care Teams Transverse Abdominal Muscle Nurse Relationship Specialty Start Date End Date Avi Floyd MD [address] [place] [address] PCP - General Family Medicine 12/18/18 documented as of this encounter
--- OUTSIDE RECORDS SUMMARY | 2025-01-11 16:13 | XMS_ITS | Clinical Summary ---
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 FOR HB BILLS FOR SFL FOR AUTOMATED RECORDS Care Teams General Store Manager Relationship Specialty Start Date End Date Lucille Jackson MD [address] [place] [address] PCP - General INTERNAL MEDICINE 05/25/19
--- OUTSIDE RECORDS SUMMARY | 2025-01-11 16:13 | XMS_ITS | Encounter Summary ---
Author Organization [facility] Address [address] [place] [address] Phone Care Team Providers Care Topper Press Operator Automatic Name Role Phone Avi Floyd MD Primary Care Provider [phone] Reason for Visit * Reason Comments Medication Refill Encounter Details Date Type Department Care Team (Late st Contact Info) Description 02/23/2020 Refill [facility] - [facility] [address] [place] [address] Ryan Willingham MD [address] [place] [id number] Medication Refill Social History Tobacco Use Types [...] present documented in this encounter Care Teams Topper Press Operator Automatic Relationship Specialty Start Date End Date Avi Floyd MD [address] [place] [address] PCP - General Family Medicine 12/18/18 documented as of this encounter
--- OUTSIDE RECORDS SUMMARY | 2025-01-11 16:13 | XMS_ITS | Clinical Summary ---
Author Organization [facility] Address [address] [facility] [place] [address] Phone Care Team Providers Care Machine Inspector Name Role Phone Avi Floyd MD Primary Care Provider [phone] Allergies Active Allergy Reactions Criticality Noted Date [...] Comments Blood Pressure 122/80 07/01/2019 11:03 AM CLEAT THROWER Pulse 86 07/01/2019 11:03 AM CLEAT THROWER Temperature 36.8 C (98.3 F) 07/01/2019 11:03 AM CLEAT THROWER Respiratory Rate 22 07/01/2019 11:03 AM CLEAT THROWER Oxygen Saturation 99% 07/01/2019 11:03 AM CLEAT THROWER Inhaled Oxygen Concentration - - Weight 114.3 kg (252 lb) 07/01/2019 11:03 AM CLEAT THROWER Height 166.6 cm (5' 5.6) 07/01/2019 11:03 AM CS T Body Mass Index 41.17 07/01/2019 11:03 AM CLEAT THROWER Plan of Treatment Health Maintenance Due Date Last Done Comments Hepatitis C Virus (HCV) Screening 1993 TdaP Immunization 1993 Pap Smear 2014 Human Papillomavirus (HPV) Immunization (1 - 3-dose SCDM series) 2020 Cervical Cancer Screening (CCS) 2023 HPV/Cotest 2023 Influenza Immunization (#1) 2025 SARS-COV-2 Immunization ( season) 2025 09/20/2020, 08/23/2020 Respiratory Syncytial Virus (RSV) Immunization [...] this topic Insurance MEDICAID [place] Care Teams Machine Inspector Relationship Specialty Start Date End Date Avi Floyd MD [address] [place] [address] PCP - General Family Medicine 12/18/18
--- OUTSIDE RECORDS SUMMARY | 2025-01-11 16:13 | XMS_ITS | Encounter Summary ---
Author Organization [facility] Address [address] [place] [address] Care Team Providers Care Lamp Replacer Name Role Phone Avi Floyd MD Primary Care Provider [phone] Lucille Jackson MD Primary Care Provider [phone] Encounter Details Date Type Department Care Team (Late st Contact Info) Description 10/17/2018 Abstract SFL CONVERSION [address] [place], [place] [id number] , Generic Conversion, Social History Tobacco Use Types Packs/Day Years Used Date Smoking Tobacco: Never Assessed Comments Unknown Sex and Gender Information Value Date Recorded Sex Assigned at Not on file Legal Sex Female 5:57 PM DIRECTOR OF KIDS Gender Identity Not on file Sexual Orientation Not on file documented as of this encounter Plan of Treatment Not on file documented as of this encounter Visit Diagnoses Not on filedocumented in this encounter Care Teams Lamp Replacer Relationship Specialty Start Date End Date Avi Floyd MD [address] [place] [address] PCP - General FAMILY PRACTICE 07/21/18 05/24/19 Lucille Jackson MD [address] [place] [phone] PCP - General INTERNAL MEDICINE 05/25/19 documented as of this encounter
[2025-01-11 16:30] LABS: Hematocrit 39.3 % (35.0-49.0); Hemoglobin 12.8 g/dL (12.0-15.0); Immature Granulocyte Percent A 0.3 % (0.0-0.0); Lymphocytes Absolute Auto 2.30 K/mm3 (1.10-4.50); Mean Corpuscular HGB Conc 32.6 g/dL (32-36); Mean Corpuscular Hemoglobin 28.6 pg (27.0-31.0); Mean Corpuscular Volume 87.9 fL (78.0-102.0); Nucleated Red Blood Cells Absolute Auto 0.00 K/mm3 (0.00-0.00); Nucleated Red Blood Cells Perc 0.0 % (0-0.0); Platelet Count Result 334 K/mm3 (150-420); Red Blood Count 4.47 M/mm3 (4.20-5.40); White Blood Count 6.7 K/mm3 (4.8-10.8)
[2025-01-11 16:43] LABS: Alanine Aminotransferase 93 U/L (6-35); Albumin Level 4.8 g/dL (3.5-5.1); Alkaline Phosphatase 61 U/L (38-126); Amylase 63 U/L (30-110); Aspartate Amino Transferase 54 U/L (14-36); Bilirubin,Total 0.6 mg/dL (0.2-1.3); Lipase 100 U/L (23-300); Total Protein 7.4 g/dL (6.3-8.2)
[2025-01-11 16:57] LABS: Alanine Aminotransferase 92 U/L (6-35); Albumin Level 4.8 g/dL (3.5-5.1); Alkaline Phosphatase 62 U/L (38-126); Anion Gap 10 mmol/L (4-12); Aspartate Amino Transferase 55 U/L (14-36); Bilirubin,Total 0.6 mg/dL (0.2-1.3); Blood Urea Nitrogen 9 mg/dL (7-17); Calcium 10.0 mg/dL (8.4-10.2); Carbon Dioxide 23 mmol/L (22-30); Chloride 107 mmol/L (98-107); Estimated Glomerular Filt Rate > 60; Glucose 105 mg/dL (65-110); Osmolality Calculated 288 mOsm/kg (285-295); Potassium 4.7 mmol/L (3.4-5.0); Sodium 140 mmol/L (137-145); Total Protein 7.3 g/dL (6.3-8.2)
== END 2025-01-11 16:10 | disposition home or self-care (01) ==
LOC: CHSLAB 16:11
PROVIDERS: Physician Assistant; PCP Internal Medicine; Visit Provider Surgery
DX: K80.10 Calculus of gallbladder with chronic cholecystitis without obstruction (principal); K80.20 Calculus of gallbladder without cholecystitis without obstruction
CPT/HCPCS: 36415; 80053; 80076; 82150; 83690; 85025

== ENCOUNTER 2025-01-13 01:48 | Day surgery (SDC) | payer OTHER, SELFPAY ==
--- NOTE | 2025-01-04 13:16 | PC.NURSE ---
Report to the Outpatient Waiting Room, entrance under the green pavilion located off [facility], at time 10:00AM on date _01/13/25 . Planned Procedure Time: _12:00 .? Time changes happen often and if your time is changed the preop area will call you the afternoon before. - You and your visitor will be asked to self-screen and do not enter if you have any COVID symptoms. Please call surgeon if you need to reschedule. - A mask is optional within the hospital at this time. Patients may have clear liquids (water, carbonated beverages, clear teas, apple juice) until 3 hours prior to surgery with a maximum of 20 ounces. - No food from midnight until time of surgery and no smoking, or chewing tobacco (or any form of nicotine). No chewing gum, candy or mints. Take only the following medications with a SIP of water on the morning of surgery: __GABAPENTIN_; METHACARBAMOL DO NOT STOP ANY OF YOUR OTHER PRESCRIPTION MEDICATIONS PRIOR TO SURGERY EXCEPT THE FOLLOWING Hold all vitamins and supplements for 3 days per anesthesiologist. Medications to discontinue per physician Date to take last dose Please no make-up, nail czech, hairspray, perfume, deodorant, or body powder the day of surgery.? No jewelry (including any body piercings) or valuables the day of surgery, leave them at home.? Please take a shower or bath the night before, or the morning of, surgery with an antibacterial soap.? Wear comfortable, loose fitting clothing.? - Jewelry must be removed prior to entering the operating room.? Rings and piercings that are not removed may be cut off. - The hospital will not accept responsibility for valuables.? - Please leave all valuables, including medications, at home the day of surgery. If you are going home after surgery, a licensed stage driver must drive you home.? - NO public transportation without another adult if you receive anesthesia. - We recommend that an adult stay with you for 24 hours following discharge. - We also recommend that you do not drive, make important decision, drink alcoholic beverages, or take any drugs that were not prescribed by your health care provider for at least 24 hours after your discharge time. Follow any additional instructions given to you from your surgeon. Telephone instructions given to _TONYA and asked if any additional questions and then verbalized understanding. Patient advised to call surgeon office or pre surgery nurse liaison [phone] if any additional questions.
[2025-01-13] VITALS (10 sets, daily range): BP systolic 122–142; BP diastolic 43–76; PULSE 69–93; RESP 16–24; TEMP 36.7–37.3; O2SAT 95–100; BMI 42.8
--- NOTE | ~2025-01-13 | XR_ITS ---
EXAMINATION: 01/13/2025 14:04 DATE: 01/13/2025 14:08 CDT INDICATION: Cholecystectomy TECHNIQUE: Intraoperative cholangiogram with 1 contrast run(s) provided for review. FINDINGS: There is cannulation and contrast administration into the cystic duct remnant. The common bile duct is visualized without evidence for filling defect. There is flow contrast into the duodenum. The common hepatic ducts and pancreatic duct are not adequately opacified for evaluation. IMPRESSION: 1. Patent cystic duct remnant and common bile duct, without common bile duct stone. Reviewed, dictated and finalized at location O. IMPRESSION: 1. Patent cystic duct remnant and common bile duct, without common bile duct s tone.
--- OUTSIDE RECORDS SUMMARY | 2025-01-13 01:50 | XMS_ITS | Encounter Summary ---
Author Organization [facility] Address [address] [place] [address] Care Team Providers Care Powertrain Engineer Name Role Phone Avi Floyd MD Primary Care Provider [phone] Lucille Jackson MD Primary Care Provider [phone] Encounter Details Date Type Department Care Team (Late st Contact Info) Description 10/17/2018 Abstract SFL CONVERSION [address] [place], [place] [id number] , Generic Conversion, Social History Tobacco Use Types Packs/Day Years Used Date Smoking Tobacco: Never Assessed Comments Unknown Sex and Gender Information Value Date Recorded Sex Assigned at Not on file Legal Sex Female 5:57 PM TUBERCULOSIS SPECIALIST Gender Identity Not on file Sexual Orientation Not on file documented as of this encounter Plan of Treatment Not on file documented as of this encounter Visit Diagnoses Not on filedocumented in this encounter Care Teams Powertrain Engineer Relationship Specialty Start Date End Date Avi Floyd MD [address] [place] [address] PCP - General FAMILY PRACTICE 07/21/18 05/24/19 Lucille Jackson MD [address] [place] [phone] PCP - General INTERNAL MEDICINE 05/25/19 documented as of this encounter
--- OUTSIDE RECORDS SUMMARY | 2025-01-13 01:50 | XMS_ITS | Encounter Summary ---
Author Organization [facility] Address [address] [place] [address] Phone Care Team Providers Care Load Dropper Name Role Phone Avi Floyd MD Primary Care Provider Reason for Visit * Reason Comments Medication Refill Encounter Details Date Type Department Care Team (Late st Contact Info) Description 05/30/2020 Refill [facility] [address] [place] [address] Ryan Willingham MD [address] [place] [address] Medication Refill Social History Tobacco Use Types [...] present documented in this encounter Care Teams Load Dropper Relationship Specialty Start Date End Date Avi Floyd MD [address] [place] [address] PCP - General Family Medicine 12/18/18 documented as of this encounter
--- OUTSIDE RECORDS SUMMARY | 2025-01-13 01:50 | XMS_ITS | Clinical Summary ---
Author Organization [facility] Address [address] [facility] [place] [address] Phone Care Team Providers Care Imagery Intelligence Name Role Phone Avi Floyd MD Primary [...] Comments Blood Pressure 122/80 07/01/2019 11:03 AM NEWSPAPER EDITOR Pulse 86 07/01/2019 11:03 AM NEWSPAPER EDITOR Temperature 36.8 C (98.3 F) 07/01/2019 11:03 AM NEWSPAPER EDITOR Respiratory Rate 22 07/01/2019 11:03 AM NEWSPAPER EDITOR Oxygen Saturation 99% 07/01/2019 11:03 AM NEWSPAPER EDITOR Inhaled Oxygen Concentration - - Weight 114.3 kg (252 lb) 07/01/2019 11:03 AM NEWSPAPER EDITOR Height 166.6 cm (5' 5.6) 07/01/2019 11:03 AM CS T Body Mass Index 41.17 07/01/2019 11:03 AM NEWSPAPER EDITOR Plan of Treatment Health Maintenance Due Date [...] this topic Insurance MEDICAID [place] Care Teams Imagery Intelligence Relationship Specialty Start Date End Date Avi Floyd MD [address] [place] [address] PCP - General Family Medicine 12/18/18
--- OUTSIDE RECORDS SUMMARY | 2025-01-13 01:51 | XMS_ITS | Encounter Summary ---
Author Organization [facility] Address [address] [place] [address] Phone Care Team Providers Care Dermatologist Name Role Phone Avi Floyd MD Primary Care Provider [phone] Reason for Visit * Reason Comments Medication Refill Encounter Details Date Type Department Care Team (Late st Contact Info) Description 02/23/2020 Refill [facility] [address] [place] [address] Ryan Willingham MD [address] [place] [phone] Medication Refill Social History Tobacco Use Types [...] present documented in this encounter Care Teams Dermatologist Relationship Specialty Start Date End Date Avi Floyd MD [address] [place] [address] PCP - General Family Medicine 12/18/18 documented as of this encounter
--- OUTSIDE RECORDS SUMMARY | 2025-01-13 01:51 | XMS_ITS | Clinical Summary ---
Author Organization [facility] Address [address] [place] [address] Care Team Providers Care Bar Tacker Sewing Machine Name Role Phone Lucille Jackson MD Primary Care Provider Medications No known medications Active Problems No known active problems Social History Tobacco Use Types Packs/Day Years Used Date Smoking Tobacco: Never Assessed Comments Unknown Sex and Gender Information Value Date Recorded Sex Assigned at Not on file Legal Sex Female 5:57 PM SENIOR WRITER Gender Identity Not on file Sexual Orientation [...] complete this topic Insurance MEDICAID DEPT OF [address] Advance Directives Documents on File Type Date Recorded Patient Major Gifts Manager Expl anation Legal Documents 02/22/2020 1:00 PM RECVD & CMPLTD ATTY REQ. FOR HB BILLS FOR SFL FOR AUTOMATED RECORDS Care Teams Bar Tacker Sewing Machine Relationship Specialty Start Date End Date Lucille Jackson MD [address] [place] [address] PCP - General INTERNAL MEDICINE 05/25/19
--- NOTE | 2025-01-13 07:07 | WPDANESEPPF ---
Anes - Initial Pre Proc Eval Procedure: Operation Date: 01/13/25 12:00 Proposed Procedures p Laparoscopic Cholecystectomy with Intraoperative Cholangiogram - Junior Iyer MD Date/Time: 01/13/25 07:07 Surgeon: Junior Iyer MD Pre Op Diagnosis: Chr Cholecystitis with Cholelithiasis Patient Data Age: 29 Gender: F Height: Weight: 120.9 kg Allergies Allergy/AdvReac Type Severity Reaction Status Date / Time hydrocodone (From [place]) AdvReac Unknown Itching Verified 01/04/25 13:01 acetaminophen (From Tylenol) AdvReac Nausea and Verified 01/13/25 10:37 Vomiting Home Medications ?Medication ?Instructions ?Recorded ?Confirmed ?Type gabapentin 300 mg capsule 300 mg PO TID 08/25/24 01/13/25 History pantoprazole 40 mg tablet,delayed 40 mg PO Q12H 08/25/24 01/13/25 History release methocarbamol 750 mg tablet 750 mg PO Q6HR 10 days #40 tabs 09/23/24 01/13/25 Rx ondansetron 4 mg disintegrating 4 mg PO Q4H 3 doses #10 tabs 12/28/24 01/04/25 Rx tablet Patient hx anesthesia problems: none Family hx anesthesia problems: none Results Review: All pre-operative results and documents have been reviewed as part of the pre-operative evaluation. [facility] Past Medical History Medical History (Updated 01/01/25 @ 13:51 by Junior Iyer MD) GERD (gastroesophageal reflux disease) Morbid obesity with BMI of 40.0-44.9, adult Cauda equina syndrome Lumbar disc herniation Anxiety Colic, ureteral Surgical History Surgical History (Updated 01/01/25 @ 13:49 by Junior Iyer MD) Status post lumbar discectomy (08/03/24) L4-L5 with subsequent repeat surgery 09/23/2023 with lumbar wound washout and revision of lumbar microdiscectomy L4-L5 due to repeat MRI August 2024 demonstrating persistent large central disc extrusion L4-L5 which despite posterior decompression is still contributing to [id number] central canal stenosis with moderate narrowing of the left lateral recess exerting mass effect upon the transverse L5 nerve root Family History Family History Father Alcoholism Hypertension Heart disease Diabetes mellitus Grandparent Breast cancer Diabetes mellitus Grandparent Hypertension Diabetes mellitus Social History Social History Social History: She is single and has never been . 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 She drinks an alcoholic beverage every couple months. She denies any illicit substance use she used to smoke a half pack of cigarettes per day but this was for brief time when she was young. Code status: Full code Surrogate decision maker: Sandra Browning (mother) Smoking packs per day: 0.5 Smoking cigarettes per day: 10.0 Years smoked: 2 Smoking pack-years: 1.00 Smoking status: Former smoker Tobacco type: cigarettes and e-cigarettes/vaping Second hand tobacco smoke exposure: No Smoking end date: 05/12/19 Additional smoking assessment comments: OCCAS VAPING Alcohol intake: never Substance use: never Substance use type: does not use Do You Feel Safe in your Home?: Yes Lack of Transportation: No Lack of Food: Never True Current Housing: I Have Housing Concerned About Future Housing: No Difficulty Paying Gas/Electric Bills: No Difficulty Paying for Meds: No Currently Unemployed: No Education: Decline to Answer Difficulty w/ Childcare or Family Care: No Living arrangements: with family Spiritual care concerns: No Anes - Eval Final PreProcedure Day of Procedure 01/13/25 07:07 Patient weight: morbidly obese Heart: regular rate and rhythm Lungs: clear to auscultation Airway: Mallampati scale class II Neurological: alert and oriented Last oral intake: >/= 8 hours ASA classification: III Emergent: no Anesthetic plan: proceed Anesthesia type and monitoring: general ETT and standard monitoring Results Review: All pre-operative results and documents have been reviewed as part of the pre-operative evaluation. Informed Consent: The patient's anesthetic plan and its attendant risks and benefits were discussed with the patient/family/POA. Questions were solicited and answers provided to the satisfaction of the patient/family/POA.
[2025-01-13 10:43] LABS: BEDSIDEPREGUCG Negative (Negative)
[2025-01-13] MEDS: LACTATED RINGERS 1,000 ML 30 ML IV CONT ×2 (10:55→14:16)
[2025-01-13] MEDS: KETOROLAC 15 MG/ML VIAL (*BKC) IV PUSH (11:00)
[2025-01-13] MEDS: SCOPOLAMINE 1 MG PATCH 1 PATCH TRANSDERM (11:02)
--- NOTE | 2025-01-13 12:44 | WPDHPUPDATE1 ---
History and Physical Update Update Date/Time: 01/13/25 12:44 History and Physical has been reviewed, including an updated exam of the patient. There are NO changes in the patient's condition. Risks, benefits, and alternatives have been discussed and questions answered. Patient agrees to proceed with procedure.
[2025-01-13] MEDS: ceFAZolin 2 GM in SODIUM CHLORIDE 0.9% IV 50 ML 100 ML IVPB (12:48)
--- NOTE | 2025-01-13 13:23 | S_PTH ---
PATIENT: Devora Marinelli LOC: [facility] U#:[id number] AGE/SX: 29/F ROOM: RE01/13/[address]: Junior Iyer MD : 1995 BED: DIS: 01/13/2025 SPEC #: [id number] RECD: 01/14/25 07:05 STATUS: TOYA REQ #: [id number] KOLBY: 01/13/25 13:[address]: Junior Iyer DEPT: [facility] Surgical RECD BY: Taya Polk ENTERED: 01/14/25 07:05 SP TYPE: Surgical OTHR DR: Lucille Jackson MD Tissues: A - Gallbladder Procedures: Hematoxylin and Eosin Stain Gross and Microscopic Level 3
--- NOTE | 2025-01-13 14:14 | W.PM.PROC2 ---
Procedure Note - Detailed Date of Procedure 01/13/25 Pre-op Diagnosis Choledocholithiasis with chronic cholecystitis Post-op Diagnosis Same Procedure Performed laparoscopic cholecystectomy with intraoperative cholangiogram Surgeon Junior Iyer MD [employer] Engraver Hand pantera JONES Anesthesia General and Local Indications patient is a 29-year-old woman who was admitted through the emergency room on December 31. She had severe right upper quadrant abdominal pain and CT scan showed evidence of acute cholecystitis. She also had elevated liver function tests. Her symptoms rapidly resolved and her liver function tests improved. She had an MRCP while she was in the hospital but it was not red until after she was discharged. The MRCP suggested distal common bile duct stones with dilation of the common and common hepatic ducts. Patient has remained pain-free and asymptomatic at home on low-fat diet. She is taken to surgery now for laparoscopic cholecystectomy with intraoperative cholangiogram. Findings Gallbladder had evidence of mild chronic inflammation, cystic duct appeared dilated but was somewhat difficult to cannulate. There was evidence of fatty change in liver. The cholangiogram was run several times on cine fluoroscopy. Despite my best efforts, I was not able to get the contrast to go retrograde into the common hepatic duct and intrahepatic bile ducts. Contrast did flow readily through common bile duct and into the duodenum without evidence of common bile duct filling defects. Radiologist felt the common bile duct was free of stones but there was not enough contrast in the common hepatic or intrahepatic ducts to evaluate for stones adequately. Description of Procedure Patient was taken to surgery and induced into general anesthesia. The abdomen is prepped and draped. Trocars were placed in usual fashion using applied Medical optical trocars and a 5 mm camera. Once the trocars were position and insufflation was adequate, patient was placed in reverse Trendelenburg. The gallbladder was grasped near the fundus and retracted anterosuperiorly. Traction was then placed on the infundibulum and dissection in the cholecystohepatic triangle was carried out. This dissection did not cause any single-vessel bleeding but all small vessel seemed to ooze readily. None the less, the dissection was carried out carefully and the cystic duct as well as cystic artery were carefully and clearly delineated. We also dissected the gallbladder off the liver over its lower half. Critical view was achieved. I then securely clipped and divided the cystic artery. I placed a clip just past the gallbladder on the uppermost aspect of the cystic duct. Cystic duct scissors were used and a small opening was made in the cystic duct near the clip. Cholangiogram catheter was then threaded into the cystic duct. It was difficult to thread but eventually this was accomplished and we were able to inject dye without leakage. We then had two cine-fluoroscopy runs using about a total of 8 cc of full-strength dye. This did not show any of the ductal system proximal to the entrance of the cystic duct. It did show ready flow of dye into the duodenum and no evidence of stones in the common bile duct. I then got additional dye and did another cine fluoroscopy run. This showed the same thing as the 2 previous runs. The films were discussed with the radiologist. The cystic duct was securely clipped and then divided. We then dissected the remaining attachments of the gallbladder to the liver. Once the gallbladder was free, it was placed in an Endo-Catch bag and retrieved through the 11 mm epigastric trocar site. We then replaced the epigastric trocar and reviewed the right upper quadrant. It was irrigated and suction several times. There was no evidence of bleeding or bile leakage. We then evacuated CO2 and removed the trocar sleeves. Skin wounds were closed with subcuticular 4-0 Monocryl skin suture. The wounds were dressed with Exofin surgical adhesive. The patient was awakened and taken to recovery in good condition. Sponge and needle counts were correct x2. Estimated Blood Loss -20 Drains No Packing No Pathology Yes ( Gallbladder) Complications None Condition Stable Disposition PACU [facility] Billing Surgery - Charge Forward: Surgery Billing ( laparoscopic cholecystectomy with intraoperative cholangiogram)
[2025-01-13] MEDS: fentaNYL CITRATE INJ (*CRX) 100 MCG/2 ML VIAL 25 MCG IV PUSH ×2 (15:10→15:13)
[2025-01-13] MEDS: oxyCODONE HCL (*CRX) 5 MG TAB IR PO (15:46)
== END 2025-01-13 16:46 | disposition home or self-care (01) ==
PROVIDERS: PCP Internal Medicine; Visit Provider Surgery
PROC: 0FT44ZZ Resection of Gallbladder, Percutaneous Endoscopic Approach (ICD-10-PCS; CPT 47562; principal; 2025-01-13 12:00)
DX: K80.10 Calculus of gallbladder with chronic cholecystitis without obstruction (principal); F17.290 Nicotine dependence, other tobacco product, uncomplicated; E66.01 Morbid (severe) obesity due to excess calories; Z68.41 Body mass index [BMI] 40.0-44.9, adult
CPT/HCPCS: 47563; 74300; 88304; J0690; A9270; J1100; J1885; J2003; J2250; J2405; J2704; J3010; J7120; Q9966

== ENCOUNTER 2025-02-08 13:08 | Outpatient (RCR) | payer OTHER, SELFPAY ==
--- NOTE | 2025-02-08 14:33 | OPREHPOC ---
Outpatient Therapy Plan of Care This is a Multidisciplinary Plan of Care that may contain components documented by all disciplines (PT, OT, and ST.) PT Problem 1 PT Problem #1 Knowledge Deficit PT Goal 1 Goal / Goal Update independent and compliant with HEP Target Visit 2 PT Problem 2 PT Problem #2 Impaired Gait PT Goal 1 Goal / Goal Update ambulate over 1000ft in 6 minutes without AD Target Visit 4 PT Problem 3 PT Problem #3 Impaired Strength PT Goal 1 Goal / Goal Update improve LE strength to 4+/5 or better overall Target Visit 4 PT Problem 4 PT Problem #4 Impaired Balance PT Goal 1 Goal / Goal Update low fall risk per the tinetti TUG under 15 seconds 5x sit to stand under 15 seconds Target Visit 4
--- NOTE | 2025-02-08 14:33 | PTOPEVAL1 ---
Assessment and note entered by JT File, PT Evaluation Information Assessment Status Evaluation ICD-10 Condition Codes (PT) Encounter for other orthopedic aftercare Z47.89 Onset 02/04/25 Subjective Information patient was just DC'd from skilled therapy on friday of last week. she reports she was told by her surgeon to return to and continue with therapy until she has a follow up with her surgeon . she reports she is working on her HEP at home from her last time, but her surgeon will likely be most concerned to see her walking and mobility. she reports she was told it can take up to a year to regain her balance and get rid of the cane. Reported Pain Level Pain Score 2: Self Report Assessment PT Clinical Summary mrs. crawford is a 29 yo woman who returns to skilled PT at the request of her MD to further improve balance, strength, endurance, and ambulation prior to follow up with her MD in one month. she would benefit from continued skilled PT to improve her objective/functional deficits, improve balance, and improve functional activity performance to return to all prior level activities. Plan of Care Interventions Electrical Stimulation,Hot Pack/Cold Pack,Manual Therapy,Neuro Re-education,Patient/Caregiver Education,Therapeutic Activities,Therapeutic Exercise PT Services Indicated Yes Treatment Frequency and 1x weekly for 4 visits Duration These treatments will address the objective and functional deficits as defined above. The patient will be advanced safely and appropriately in order for the patient to progress towards his/her prior level of function. Additional exercises will be introduced and as well as a comprehensive home exercise program upon discharge, if needed, ?to ensure carryover of functional gains achieved in the clinic. This treatment plan has been reviewed and agreement upon by the patient.
--- NOTE | 2025-03-03 15:33 | OPREHPOC ---
Outpatient Therapy Plan of Care This is a Multidisciplinary Plan of Care that may contain components documented by all disciplines (PT, OT, and ST.) PT Problem 1 PT Problem #1 Knowledge Deficit PT Goal 1 Goal / Goal Update independent and compliant with HEP Target Visit 2 Progress Met PT Problem 2 PT Problem #2 Impaired Gait PT Goal 1 Goal / Goal Update ambulate over 1000ft in 6 minutes without AD Target Visit 4 Progress Not Met PT Problem 3 PT Problem #3 Impaired Strength PT Goal 1 Goal / Goal Update improve LE strength to 4+/5 or better overall Target Visit 4 Progress Met PT Problem 4 PT Problem #4 Impaired Balance PT Goal 1 Goal / Goal Update low fall risk per the tinetti -met TUG under 15 seconds -met 5x sit to stand under 15 seconds -not met Target Visit 4 Progress Partially Met
--- NOTE | 2025-03-03 15:33 | PTOPDC ---
Assessment and note entered by Penny Roland, PT Evaluation Information Assessment Status Discharge ICD-10 Condition Codes (PT) Encounter for other orthopedic aftercare Z47.89 Onset 02/04/25 Subjective Information Vero presents for her 4th PT visit in this bout of therapy. She reports she follows up with her surgeon on the . She has been independent with her HEP from her last bout of therapy and she is happy with the progress she's made overall since starting PT in June of this year. She reports her only difficulty that she still has is walking long distances, but she does try to increase her distance each day and finds the grocery store to be a good place to practice. Reported Pain Level Pain Score 2: Self Report Assessment PT Clinical Summary Mrs. Marinelli has attended 4 visits in this bout of PT. Since initially beginning PT in June of this year, she has made great improvements in her strength, balance and functional independence. She has met goals addressing her LE strength and TUG time, and she is also at low risk of falls per Tinetti. While she does still have to take occasional rest breaks when ambulating long distances, her endurance has also improved and she continues to practice increasing her distance at the grocery store. Pt follows up with her surgeon on the and is appropriate to transition from skilled PT services in clinic to independence exercise and endurance training. Plan of Care PT Services Indicated No
== END 2025-03-03 16:10 | disposition home or self-care (01) ==
LOC: CHSPT 13:08
PROVIDERS: Visit Provider Neurological Surgery
DX: Z98.890 Other specified postprocedural states (principal)
CPT/HCPCS: 97112; 97161; 97530

== ENCOUNTER 2025-03-24 12:43 | Outpatient (CLI) | payer OTHER, SELFPAY ==
[2025-03-24 12:57] LABS: Hematocrit 39.2 % (35.0-49.0); Hemoglobin 12.9 g/dL (12.0-15.0); Mean Corpuscular HGB Conc 32.9 g/dL (32-36); Mean Corpuscular Hemoglobin 29.0 pg (27.0-31.0); Mean Corpuscular Volume 88.1 fL (78.0-102.0); Platelet Count Result 337 K/mm3 (150-420); Red Blood Count 4.45 M/mm3 (4.20-5.40); White Blood Count 8.8 K/mm3 (4.8-10.8)
[2025-03-24 13:06] LABS: Add Urine Microscopic? YES; Appearance Urine Clear (Clear); Glucose Urine UA Negative (Negative); Leukocyte Esterase Ur 1+ (Negative); Nitrate Urine Negative (Negative); Specific Grav Ur 1.025 (1.010-1.020)
--- OUTSIDE RECORDS SUMMARY | 2025-03-24 13:16 | XMS_ITS | Clinical Summary ---
Author Organization [facility] Address [address] [facility] [facility] [place] [address] Phone Care Team Providers Care Molybdenum Steamer Operator Name Role Phone Avi Floyd MD Primary Care Provider [phone] Allergies Active Allergy Reactions Criticality Noted Date [...] Comments Blood Pressure 122/80 07/01/2019 11:03 AM FOOD SERVICE WORKER Pulse 86 07/01/2019 11:03 AM FOOD SERVICE WORKER Temperature 36.8 C (98.3 F) 07/01/2019 11:03 AM FOOD SERVICE WORKER Respiratory Rate 22 07/01/2019 11:03 AM FOOD SERVICE WORKER Oxygen Saturation 99% 07/01/2019 11:03 AM FOOD SERVICE WORKER Inhaled Oxygen Concentration - - Weight 114.3 kg (252 lb) 07/01/2019 11:03 AM FOOD SERVICE WORKER Height 166.6 cm (5' 5.6) 07/01/2019 11:03 AM CS T Body Mass Index 41.17 07/01/2019 11:03 AM FOOD SERVICE WORKER Plan of Treatment Health Maintenance Due [...] this topic Insurance MEDICAID [place] Care Teams Molybdenum Steamer Operator Relationship Specialty Start Date End Date Avi Floyd MD [address] [place] [address] PCP - General Family Medicine 12/18/18
--- OUTSIDE RECORDS SUMMARY | 2025-03-24 13:16 | XMS_ITS | Clinical Summary ---
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 FOR HB BILLS FOR SFL FOR AUTOMATED RECORDS Care Teams Manager Home Relationship Specialty Start Date End Date Lucille Jackson MD [address] [place] [address] PCP - General INTERNAL MEDICINE 05/25/19
--- OUTSIDE RECORDS SUMMARY | 2025-03-24 13:16 | XMS_ITS | Encounter Summary ---
Author Organization [facility] Address [address] [place] [address] Care Team Providers Care Turbine Operator Name Role Phone Avi Floyd MD Primary Care Provider [phone] Lucille Jackson MD Primary Care Provider [phone] Encounter Details Date Type Department Care Team (Late st Contact Info) Description 10/17/2018 Abstract SFL CONVERSION [address] [place], [place] [id number] , Generic Conversion, Social History Tobacco Use Types Packs/Day Years Used Date Smoking Tobacco: Never Assessed Comments Unknown Sex and Gender Information Value Date Recorded Sex Assigned at Not on file Legal 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
--- OUTSIDE RECORDS SUMMARY | 2025-03-24 13:16 | XMS_ITS | Encounter Summary ---
Author Organization [facility] Address [address] [place] [address] Phone Care Team Providers Care Dial Printer Name Role Phone Avi Floyd MD Primary Care Provider [phone] Reason for Visit * Reason Comments Medication Refill Encounter Details Date Type Department Care Team (Late st Contact Info) Description 05/30/2020 Refill [facility] - Neurology - [address] [place] [address] Ryan Willingham MD [address] [place] [id number] Medication Refill Social History Tobacco Use Types [...] present documented in this encounter Care Teams Dial Printer Relationship Specialty Start Date End Date Avi Floyd MD [address] [place] [address] PCP - General Family Medicine 12/18/18 documented as of this encounter
[2025-03-24 13:24] LABS: Alanine Aminotransferase 41 U/L (6-35); Albumin Level 4.9 g/dL (3.5-5.1); Alkaline Phosphatase 65 U/L (38-126); Anion Gap 12 mmol/L (4-12); Aspartate Amino Transferase 32 U/L (14-36); Blood Urea Nitrogen 11 mg/dL (7-17); Calcium 9.3 mg/dL (8.4-10.2); Carbon Dioxide 24 mmol/L (22-30); Chloride 107 mmol/L (98-107); Cholesterol 304 mg/dL (0-200); Estimated Glomerular Filt Rate > 60; Glucose 98 mg/dL (65-110); HDL Direct 48 mg/dL; Osmolality Calculated 295 mOsm/kg (285-295); Potassium 4.5 mmol/L (3.4-5.0); Sodium 143 mmol/L (137-145); Total Protein 7.3 g/dL (6.3-8.2); Triglycerides 318 mg/dL (<150)
[2025-03-24 13:39] LABS: Free T3 3.56 pg/mL (2.18-3.98)
[2025-03-24 13:40] LABS: Free T4 Free Thyroxine 0.86 ng/dL (0.78-2.19)
[2025-03-24 13:54] LABS: Thyroid Stimulating Hormone 2.190 uIU/mL (0.465-4.680)
[2025-03-29 13:40] LABS: Bilirubin,Total 0.5 mg/dL (0.2-1.3)
== END 2025-03-24 12:44 | disposition home or self-care (01) ==
PROVIDERS: PCP Internal Medicine; Visit Provider Internal Medicine
DX: K76.0 Fatty (change of) liver, not elsewhere classified (principal); E78.2 Mixed hyperlipidemia; E66.01 Morbid (severe) obesity due to excess calories; G83.4 Cauda equina syndrome
CPT/HCPCS: 36415; 80053; 80061; 81001; 84439; 84443; 84481; 85027

== ENCOUNTER 2025-04-28 15:12 | Outpatient (CLI) | payer OTHER, SELFPAY ==
--- NOTE | ~2025-04-28 | MR_ITS ---
EXAMINATION: MR lumbar spine wo con DATE: 04/28/2025 15:57 INDICATION: Other intervertebral disc displacement. TECHNIQUE: Magnetic resonance imaging (MRI) of the lumbar spine was performed without intravenous contrast. COMPARISON: Lumbar spine MRI 09/08/2024 FINDINGS: There is 5 degrees levocurvature of lumbar spine. There is 3 mm retrolisthesis of L4 on L5 and L5 on S1. Vertebral body heights are normal. There is mildly decreased disc height at L4-L5 and L5-S1. The distal spinal cord signal intensity is normal. The conus medullaris is at L1. The following disc levels are specifically discussed: L1-L2: The disc does not extend beyond the endplate margin. There is mild bilateral facet joint osteoarthritis. There is no neural foraminal stenosis. There is no central canal stenosis. L2-L3: The disc does not extend beyond the endplate margin. There is mild right and moderate left facet joint osteoarthritis. There is no neural foraminal stenosis. There is no central canal stenosis. L3-L4: There is a left central extrusion. There is mild bilateral facet joint osteoarthritis. There is mild left neural foraminal stenosis. There is mild central canal stenosis. L4-L5: There is a central extrusion. There is mild right and moderate left facet joint osteoarthritis. There is mild bilateral neural foraminal stenosis. There is mild central canal stenosis. There is posterior decompression. L5-S1: There is a central extrusion. There is moderate bilateral facet joint osteoarthritis. There is mild bilateral neural foraminal stenosis. There is mild central canal stenosis. IMPRESSION: 1. Mild lumbar spondylosis with improvement at L4-L5. Reviewed, dictated and finalized at location E. [employer]
--- OUTSIDE RECORDS SUMMARY | 2025-04-28 15:59 | XMS_ITS | Encounter Summary ---
Author Organization [facility] Address [address] [place] [address] Phone Care Team Providers Care Dryland Farmer Name Role Phone Avi Floyd MD Primary Care Provider [phone] Reason for Visit * Reason Comments Medication Refill Encounter Details Date Type Department Care Team (Late st Contact Info) Description 05/30/2020 Refill [facility] - Neurology - [place] [address] [place] [address] Ryan Willingham MD [address] [place] [id number] Medication Refill Social History Tobacco Use Types [...] present documented in this encounter Care Teams Dryland Farmer Relationship Specialty Start Date End Date Avi Floyd MD [address] [place] [address] PCP - General Family Medicine 12/18/18 documented as of this encounter
--- OUTSIDE RECORDS SUMMARY | 2025-04-28 15:59 | XMS_ITS | Clinical Summary ---
Author Organization [facility] Address [address] [facility], [place] [address] Phone Care Team Providers Care Track Patrol Name Role Phone Avi Floyd MD Primary Care Provider [phone] Allergies Active Allergy Reactions Criticality Noted Date [...] Comments Blood Pressure 122/80 07/01/2019 11:03 AM [facility] Pulse 86 07/01/2019 11:03 AM [facility] Temperature 36.8 C (98.3 F) 07/01/2019 11:03 AM [facility] Respiratory Rate 22 07/01/2019 11:03 AM [facility] Oxygen Saturation 99% 07/01/2019 11:03 AM [facility] Inhaled Oxygen Concentration - - Weight 114.3 kg (252 lb) 07/01/2019 11:03 AM [facility] Height 166.6 cm (5' 5.6) 07/01/2019 11:03 AM CS T Body Mass Index 41.17 07/01/2019 11:03 AM [facility]ER Plan of Treatment Health Maintenance Due Date Last Done Comments Hepatitis C Virus (HCV) Screening 1993 TdaP Immunization 1993 Varicella Immunization (1 of 2 - 13+ 2-dose series) 2006 Pap Smear 2014 Cervical Cancer Screening (CCS) 2023 HPV/Cotest 2023 Influenza Immunization (#1) 2025 SARS-COV-2 Immunization ( season) 2025 09/20/2020, 08/23/2020 Respiratory Syncytial Virus (RSV) Immunization (Adult) (1 - 1-dose 75+ series) 2068 Hepatitis B Immunization Completed 995, 06/11/1994, 1993 DTaP/Tdap/Td Immunization Discontinued 1995, 08/13/1994, 06/11/1994, Additional history exists Human Papillomavirus (HPV) Immunization (No Doses Required) Completed Meningococcal Immunization (ACWY) Aged Out No longer eligible based on patient's age to complete this topic Pneumococcal Immunization Combined Aged Out No longer eligible based on patient's age to complete this topic Rotavirus Immunization Aged Out No lo nger eligible based on patient's age to complete this topic Insurance MEDICAID [place] Care Teams Track Patrol Relationship Specialty Start Date End Date Avi Floyd MD [address] [place] [address] PCP - General Family Medicine 12/18/18
== END 2025-04-28 15:13 | disposition home or self-care (01) ==
LOC: CHSIMG 15:15
PROVIDERS: PCP Internal Medicine; Visit Provider Neurological Surgery
DX: M51.26 Other intervertebral disc displacement, lumbar region (principal); Z98.890 Other specified postprocedural states; M43.06 Spondylolysis, lumbar region
CPT/HCPCS: 72148